=== PATIENT | female | born 1980 | race Caucasian/White ===

== ENCOUNTER → 2020-09-16 10:15 | Outpatient (BNVA) | payer MEDICARE, OTHER, SELFPAY | PROVIDERS: PCP Nurse Practitioner Family; Visit Provider Anesthesiology | DX: N30.10 Interstitial cystitis (chronic) without hematuria (principal); E66.01 Morbid (severe) obesity due to excess calories; M54.5 Low back pain; Z79.891 Long term (current) use of opiate analgesic | CPT/HCPCS: 99213 ==

== ENCOUNTER → 2020-10-07 10:00 | Outpatient (BNVA) | payer MEDICARE, OTHER, SELFPAY | PROVIDERS: PCP Nurse Practitioner Family; Referring Provider Nurse Practitioner Family; Visit Provider Anesthesiology | DX: N30.10 Interstitial cystitis (chronic) without hematuria (principal); M54.5 Low back pain; E66.01 Morbid (severe) obesity due to excess calories; Z79.891 Long term (current) use of opiate analgesic | CPT/HCPCS: 99212 ==

== ENCOUNTER 2020-10-27 05:59 | Outpatient (REF) | payer MEDICARE, OTHER, SELFPAY ==
--- NOTE | 2020-10-27 08:20 | FL_ITS ---
EXAMINATION: XR FLUOROSCOPY WITH IMAGES CLINICAL INFORMATION: N30.10 - Interstitial cystitis (chronic) without hematuria COMPARISON: None. TECHNIQUE: Fluoroscopy performed by Romi Salinas NP. Fluoroscopy time: 0.4 minutes DAP: 8.76 Gycm2 Images: 2 FINDINGS: There is posterior spinal needle at interlaminar level proximally L3-L4. FL/FL guidance in treatment room IMPRESSION: Fluoroscopy for pain management procedure.
== END 2020-10-27 06:00 | disposition home or self-care (01) ==
LOC: HO.RADIR 05:59
PROVIDERS: Visit Provider Anesthesiology
DX: N30.10 Interstitial cystitis (chronic) without hematuria (principal); M54.5 Low back pain; E66.01 Morbid (severe) obesity due to excess calories; Z68.43 Body mass index [BMI] 50.0-59.9, adult
CPT/HCPCS: 62323; J2270; Q9967

== ENCOUNTER → 2020-11-04 08:38 | Outpatient (BNVA) | payer MEDICARE, OTHER, SELFPAY | PROVIDERS: PCP Nurse Practitioner Family; Referring Provider Nurse Practitioner Family; Visit Provider Anesthesiology | DX: N30.10 Interstitial cystitis (chronic) without hematuria (principal); E66.01 Morbid (severe) obesity due to excess calories; M54.5 Low back pain | CPT/HCPCS: 99212 ==

== ENCOUNTER 2020-11-17 05:12 | Outpatient (REF) | payer MEDICARE, OTHER, SELFPAY ==
--- NOTE | 2020-11-17 07:35 | FL_ITS ---
EXAMINATION: XR FLUOROSCOPY WITH IMAGES CLINICAL INFORMATION: N30.10 - Interstitial cystitis (chronic) without hematuria COMPARISON: Fluoroscopic spot images lumbar region 10/27/2020 TECHNIQUE: Fluoroscopy performed by Romi Salinas NP. Fluoroscopy time: 1.5 minutes DAP: 29.6 Gycm2 Images: 2 FINDINGS: There is a spinal needle with tip just anterior to lower aspect coccyx and contrast seen in the precoccygeal soft tissue. There is a spinal stimulator device overlying the left lower sacrum foramen. FL/FL guidance in treatment room IMPRESSION: Fluoroscopy for pain management procedure.
== END 2020-11-17 05:13 | disposition home or self-care (01) ==
LOC: HO.RADIR 05:12
PROVIDERS: Visit Provider Anesthesiology
DX: N30.10 Interstitial cystitis (chronic) without hematuria (principal); E66.01 Morbid (severe) obesity due to excess calories; M54.5 Low back pain
CPT/HCPCS: 64517; 64999; J0690; J3300; Q9967

== ENCOUNTER → 2020-12-21 11:04 | Outpatient (BNVA) | payer MEDICARE, OTHER, SELFPAY | PROVIDERS: PCP Nurse Practitioner Family; Visit Provider Anesthesiology | DX: N30.10 Interstitial cystitis (chronic) without hematuria (principal); E66.01 Morbid (severe) obesity due to excess calories; M54.5 Low back pain | CPT/HCPCS: 99212 ==

== ENCOUNTER 2021-02-19 12:12 | Day surgery (SDC) | payer MEDICARE, OTHER, SELFPAY ==
[2021-01-18 11:05] VITALS: BMI 59.3
--- NOTE | 2021-02-18 12:01 | P.CONAN_ITS ---
Documented by User: Sadie Juárez 02/18/21 12:05 HPI - Anesthesia Eval Consult details Narrative: 40yo F for Intrathecal Drug Delivery Implant FORMERLY [facility] Active Problems Active Problems: All Active Problems (Updated 01/18/21 @ 11:08 by Monisha Huff) Low back pain (Acute) Morbid obesity (Acute) Interstitial cystitis (Acute) Past Medical History Medical History COVID-19 vaccine administered History of postoperative nausea HTN (hypertension) Interstitial cystitis Lab test negative for COVID-19 virus Low back pain Morbid obesity Sleep apnea Thyroid disease Surgical History Surgical History History of bladder surgery History of carpal tunnel release of both wrists Hx of partial thyroidectomy Social History Social History Smoking Status: Never smoker Meds Allergies Allergy/AdvReac Type Severity Reaction Status Date / Time naproxen Allergy Unknown unknown Verified 02/19/21 11:44 Home Medications Medication Instructions Recorded Confirmed Last Taken Type amlodipine 10 mg tablet 10 mg PO DAILY 09/16/20 01/18/21 Unknown History levothyroxine 125 mcg tablet 125 mcg PO DAILY 09/16/20 01/18/21 Unknown History lisinopril 20 mg tablet 20 mg PO DAILY 09/16/20 01/18/21 Unknown History prednisone 10 mg tablet 10 mg PO DAILY 09/16/20 11/04/20 Unknown History dicyclomine 10 mg PO TID 01/18/21 01/18/21 Unknown History Exam Exam Date and Time: February 18, 2021 1201 Height,Weight and Vital Signs: Height 5 ft 1 in Weight 142.428 kg Assessment and Plan Assessment Anesthesia Assessment: Chart Reviewed Documented by User: Zaki Agarwal MD 02/19/21 12:02 PMF Past Medical History Medical History COVID-19 vaccine administered History of postoperative nausea HTN (hypertension) Interstitial cystitis Lab test negative for COVID-19 virus Low back pain Morbid obesity Sleep apnea Thyroid disease Surgical History Surgical History History of bladder surgery History of carpal tunnel release of both wrists Hx of partial thyroidectomy Social History Social History Smoking Status: Never smoker Meds Allergies Allergy/AdvReac Type Severity Reaction Status Date / Time naproxen Allergy Unknown unknown Verified 02/19/21 11:44 Home Medications Medication Instructions Recorded Confirmed Last Taken Type amlodipine 10 mg tablet 10 mg PO DAILY 09/16/20 01/18/21 Unknown History levothyroxine 125 mcg tablet 125 mcg PO DAILY 09/16/20 01/18/21 Unknown History lisinopril 20 mg tablet 20 mg PO DAILY 09/16/20 01/18/21 Unknown History prednisone 10 mg tablet 10 mg PO DAILY 09/16/20 11/04/20 Unknown History dicyclomine 10 mg PO TID 01/18/21 01/18/21 Unknown History Exam Airway Mallampati Class: III TM Dist: >3cm Neck ROM: Full Loose/Missing/Broken Teeth: No Heart: RRR Lungs: NL Other: Dermatitis rash on chin Assessment and Plan Assessment Anesthesia Assessment: Anesthesia Plan Discussed and Chart Reviewed Final Anesthetic Review NPO: Yes ASA Class: III Final Preanesthetic Review: No Changes in Pt Med Stat, Meds/Allgs Chart Reviewed, Consent Obtained/Reviewed and Anes Risks/Benef Reviewed (Risk of pressure injury discussed, post-op YSABEL) Patient Risk: High Procedure Risk: Intermediate Anesthetic Plan Anesthetic Plan: GA Disposition: Standard PACU
[2021-02-19] VITALS (7 sets, daily range): BP systolic 131–173; BP diastolic 74–115; PULSE 70–80; RESP 12–18; TEMP 36.1–37.3; O2SAT 97–100
--- NOTE | ~2021-02-19 | FL_ITS ---
EXAMINATION: XR FLUOROSCOPY WITH IMAGES CLINICAL INFORMATION: Intrathecal drug cyst in implant COMPARISON: None. TECHNIQUE: Fluoroscopy performed by Dr. Tirso Varner. Fluoroscopy time: 0.8 minutes DAP: 16.5 Gycm2 Images: 1 FINDINGS: Fluoroscopic spot view includes the lower thoracic spine. There are multilevel degenerative changes with vertebral spurring. FL/FL guidance in OR IMPRESSION: Fluoroscopy for pain management procedure.
--- NOTE | 2021-02-19 12:01 | MHC.SHP ---
Pre-Procedural Eval Section B Chief Complaint: interstitial cystitis Details of Present Illness: Interstitial cystitis intractable pelvic pain. Relevant Family History (Specify if Yes): No Relevant Social History: None Present Medications: see Short Stay Collaborative assessment Medical History: Significant History History of Previous Operations: No relevant previous surgery Allergies: Allergies Allergy/AdvReac Type Severity Reaction Status Date / Time naproxen Allergy Unknown unknown Verified 02/19/21 11:44 Review of Systems Sugical H&P ROS: Negative: Cardiovascular, Respiratory, Neurological, Psychiatric, Hem-Onc, Allergic/Immunologic, Gastrointestinal, Genitourinary, Musculoskeletal, Integumentary, Endocrine and Eyes/Ears/Nose/Throat and Yes, Specify: Constitution (Severe morbid obesity) Exam Surgical H&P Exam: Normal: HEENT, Normal: Heart, Normal: Lungs, Normal: Extremities, Normal: Abdomen, Normal: Skin and Normal: Neurological Plan Diagnosis/Plan: Unchanged I have reviewed the history and physical and performed a pertinent physical examination on my patient. No changes have occurred unless specified.
[2021-02-19 12:02] LABS: UPreg QC Valid YES; Urine Pregnancy NEGATIVE (NEGATIVE)
[2021-02-19] MEDS: Lactated Ringers 1,000 ML 100 ML IVCONT (12:34)
--- NOTE | 2021-02-19 15:51 | PM.OP ---
Brief Operative Note Date of Service: 02/19/21 Pre-op diagnosis: Intractable pelvic pain interstitial cystitis. Post-op diagnosis: other (Intractable pelvic pain, interstitial cystitis, right buttock lipoma) Procedure: Implantation of intrathecal drug delivery system pain pump Implants: ascenda intrathecal catheter [employer], intrathecal pain pump SynchroMed 2 Surgeon: Tirso Varner MD Anesthesia: GETA Estimated blood loss (mL): 25 Condition: stable Disposition: PACU
[2021-02-19] MEDS: ondansetron HCL 4 MG/2 ML VIAL IVPUSH (17:00)
--- NOTE | 2021-02-19 17:06 | PC.NURSE ---
1655 PATIENT REPORTS NAUSEA DURING DRESSING PERIOD. DR. BECKWITH NOTIFIED NEW ORDERS PROVIDED. IVF REINSTITUTED AND MEDICATED FOR NAUSEA. REPORTS SOME INCISIONAL PAIN INCREASED WITH MOVEMENT. 1705 REPORTS NAUSEA IS RESOLVING
--- NOTE | 2021-02-22 10:17 | W.PM.OPN ---
Operative Note Operative Note Date of Service: 02/19/21 Narrative: After obtaining informed consent and explaining to the patient risks, benefits and alternatives to treat her pain, the patient was brought up to the operating room where she was positioned supine on the stretcher. [place] [employer] monitors were applied and general anesthesia was induced with endotracheal intubation. After that the patient was transferred to the operating table prone. All pressure points protected. The patient received antibiotic cefazolin 2 g intravenously 30 minutes before incision. Time-out was performed delineating correct site and side of the procedure, name and date of of the patient, risk of fire, need for antibiotic prophylaxis risk of DVT and need for DVT prophylaxis. After that the patient entire back was prepped with chloroprep and draped with fool body drape including ioban film. Sterilely drape C-arm was brought over the OR field and square pictures of the L1, L2, L3 vertebrae were demonstrated on the screen. the entrance point for the catheter was chosen as the L2-L3 interspace. In the strict midline fashion 6.5 cm vertical skin incision was made with #10 scalpel. The incision was widened with the Weitlaner retractor and deepened with electrocautery. Thorough hemostasis was obtained using electrocautery and 3-0 polisorb sutures. the prevertebral fascia was freed from overlaying tissues. After that 150 mm introducer spinal 16 g needle was incerted under x-ray guidance in the projection of the right L4 pedicle. The needle advanced under the x-ray guidance with intemitteny A-P and lateral pictures toward the spinal canal. When on the lateral view the needle entered the spinal canal the stylet was removed and the clear flow of the CSF was obtain through the needle hub. Intrathecal Ascenda catheter was inserted through the needle and advanced under the x-ray guidance toward the T9 vertebral body projection. The stylet was removed from the catheter and the flow of CSF fluid straw colored and clear was observed coming from the catheter. Purse-string suture was applied surrounding the a needle and it was tied. After that the needle was withdrawn with care taken to keep the catheter in place. Anchoring device was dislodged on the catheter and advanced until it met prevertebral fascia. It was engaged on the body of the catheter. Two anchoring Tycron sutures were used to suture left wing of the anchor to prevertebral fascia and 1 anchoring suture was used to stitch in the right wing of anchoring device to prevertebral fascia. After that the thorough irrigation of the wound was performed and wound was packed with vancomycin soaked 4 x 4. Attention then was concentrated on the patient's right buttock. Sterilely draped C-arm was brought over the operative field again and position of the patient's iliac crest on the RIGHT was demonstrated on the screen. 2 cm below the projection of the iliac crest to the skin of the local anesthetic bupivacaine was injected in the linear horizontal fashion. After that 8.5 cm incision was performed in patient's right buttock alongside the injected line. Thorough hemostasis was obtained using cautery device. After that the wound was widened and made 2.5 cm deep . The wound was extended medially and laterally as well as caudally and cranially to form the space to accommodate the body of the pump. Thorough hemostasis was performed. The wound was irrigated with vancomycin containing normal saline and then tunneling device was used to connect both wounds and dislodged the intrathecal catheter into the side wound. The catheter was trimmed appropriately after that and sutureless connection device was mounted on the catheter. After that sutureless connection device was connected to the pump. Aspiration of the side port of the pump revealed clear flow of CSF. Two anchoring 0-0 Tycron sutures were applied in most SUPERIOR MEDIAL AND SUPERIOR LATERAL CORNERS OF THE WOUND as well as most inferior medial corner of the wound. After that the sutures were connected to the bracket is on the body of the pump, intrathecal catheter was gathered behind the body of the pump and pump was dislodged into the wound. After that the anchoring sutures were tied. Thorough irrigation was performed again in both wounds. Thorough hemostasis was verified. 0 polisorb sutures were used to close both wounds, 2-0 suture of the same nature were used to approximate the skin. Oscar were applied to the skin line and Bacitracin ointment was applied to the staple lines. Sterile dressing with sterile 4x4s was performed, abdominal binder was applied. Upon completion of the procedure patient was awaken extubated and taken outside of the operating room to recovery room where SHE recovered uneventfully. SHE went home without immediate complications.
== END 2021-02-19 17:20 | disposition home or self-care (01) ==
PROVIDERS: Nurse Practitioner; PCP Nurse Practitioner Family; Visit Provider Anesthesiology
PROC: (CPT 62360; principal; 2021-02-19 12:50)
DX: N30.10 Interstitial cystitis (chronic) without hematuria (principal); M54.5 Low back pain; G89.29 Other chronic pain; E66.01 Morbid (severe) obesity due to excess calories; I10 Essential (primary) hypertension; G47.33 Obstructive sleep apnea (adult) (pediatric); Z79.899 Other long term (current) drug therapy
CPT/HCPCS: 62360; 81025; 88304; C1755; C1772; J0330; J0690; J1100; J1170; J2250; J2405; J3010; J3370; Q9967

== ENCOUNTER → 2021-02-25 10:52 | Outpatient (BNVA) | payer MEDICARE, OTHER, SELFPAY | PROVIDERS: PCP Nurse Practitioner Family; Visit Provider Anesthesiology | DX: N30.10 Interstitial cystitis (chronic) without hematuria (principal); M54.5 Low back pain; E66.01 Morbid (severe) obesity due to excess calories; Z79.899 Other long term (current) drug therapy | CPT/HCPCS: 99212 ==

== ENCOUNTER → 2021-03-04 11:03 | Outpatient (BNVA) | payer MEDICARE, OTHER, SELFPAY | PROVIDERS: PCP Internal Medicine; Visit Provider Anesthesiology | DX: N30.10 Interstitial cystitis (chronic) without hematuria (principal); E66.01 Morbid (severe) obesity due to excess calories; M54.5 Low back pain | CPT/HCPCS: 99212 ==

== ENCOUNTER 2021-03-30 06:09 | Outpatient (REF) | payer MEDICARE, OTHER, SELFPAY | END 2021-03-30 06:10 | disposition home or self-care (01) | LOC: HO.RADIR 06:09 | PROVIDERS: Visit Provider Anesthesiology | DX: Z13.89 Encounter for screening for other disorder (principal) ==

== ENCOUNTER 2021-04-01 | Day surgery (SDC) | payer MEDICARE, OTHER, SELFPAY | END 2021-04-01 14:00 | LOC: HO.SSS 04-08 07:29 | PROVIDERS: Visit Provider Anesthesiology | DX: N30.10 Interstitial cystitis (chronic) without hematuria (principal); Z53.8 Procedure and treatment not carried out for other reasons ==

== ENCOUNTER 2021-05-04 07:35 | Outpatient (REF) | payer MEDICARE, OTHER, SELFPAY | END 2021-05-04 07:36 | disposition home or self-care (01) | LOC: HO.RADIR 07:35 | PROVIDERS: Visit Provider Anesthesiology | DX: Z45.1 Encounter for adjustment and management of infusion pump (principal); N30.10 Interstitial cystitis (chronic) without hematuria; M54.5 Low back pain; E66.01 Morbid (severe) obesity due to excess calories; Z68.43 Body mass index [BMI] 50.0-59.9, adult | CPT/HCPCS: 62370 ==

== ENCOUNTER 2021-06-08 05:48 | Outpatient (REF) | payer MEDICARE, OTHER, SELFPAY | END 2021-06-08 05:49 | disposition home or self-care (01) | LOC: HO.RADIR 05:48 | PROVIDERS: Visit Provider Anesthesiology | DX: G89.29 Other chronic pain (principal); M54.5 Low back pain; E66.01 Morbid (severe) obesity due to excess calories; N30.10 Interstitial cystitis (chronic) without hematuria; Z97.8 Presence of other specified devices; Z45.1 Encounter for adjustment and management of infusion pump | CPT/HCPCS: 62370 ==

== ENCOUNTER 2021-08-10 06:22 | Outpatient (REF) | payer MEDICARE, OTHER, SELFPAY | END 2021-08-10 06:23 | disposition home or self-care (01) | LOC: HO.RADIR 06:22 | PROVIDERS: Visit Provider Anesthesiology | DX: Z45.1 Encounter for adjustment and management of infusion pump (principal); M54.5 Low back pain; N30.10 Interstitial cystitis (chronic) without hematuria | CPT/HCPCS: 62370 ==

== ENCOUNTER 2021-10-19 06:39 | Outpatient (REF) | payer MEDICARE, SELFPAY | END 2021-10-19 06:40 | disposition home or self-care (01) | LOC: HO.RADIR 06:39 | PROVIDERS: Visit Provider Anesthesiology | DX: Z13.89 Encounter for screening for other disorder (principal) ==

== ENCOUNTER 2022-01-04 06:25 | Outpatient (REF) | payer MEDICARE, SELFPAY | END 2022-01-04 06:26 | disposition home or self-care (01) | LOC: HO.RADIR 06:25 | PROVIDERS: Visit Provider Anesthesiology | DX: Z13.89 Encounter for screening for other disorder (principal) ==

== ENCOUNTER 2022-03-15 06:21 | Outpatient (REF) | payer MEDICARE, SELFPAY | END 2022-03-15 06:22 | disposition home or self-care (01) | LOC: HO.RADIR 06:21 | PROVIDERS: Visit Provider Anesthesiology | DX: Z13.89 Encounter for screening for other disorder (principal) ==

== ENCOUNTER → 2022-03-16 09:00 | Outpatient (BNVA) | payer MEDICARE, SELFPAY | PROVIDERS: PCP Nurse Practitioner Family; Visit Provider Anesthesiology | DX: Z13.89 Encounter for screening for other disorder (principal) ==

== ENCOUNTER → 2022-06-13 15:40 | Outpatient (BNVA) | payer MEDICARE, SELFPAY | PROVIDERS: PCP Nurse Practitioner Family; Visit Provider Anesthesiology | DX: N30.10 Interstitial cystitis (chronic) without hematuria (principal); E66.01 Morbid (severe) obesity due to excess calories; Z68.44 Body mass index [BMI] 60.0-69.9, adult; Z96.89 Presence of other specified functional implants | CPT/HCPCS: 99212 ==

== ENCOUNTER → 2022-08-31 10:24 | Outpatient (BNVA) | payer MEDICARE, SELFPAY | PROVIDERS: PCP Nurse Practitioner Family; Visit Provider Anesthesiology | DX: N30.10 Interstitial cystitis (chronic) without hematuria (principal); E66.01 Morbid (severe) obesity due to excess calories; M54.50 Low back pain, unspecified | CPT/HCPCS: 99212 ==

== ENCOUNTER → 2022-11-17 09:56 | Outpatient (BNVA) | payer MEDICARE, SELFPAY | PROVIDERS: PCP Nurse Practitioner Family; Visit Provider Anesthesiology | DX: Z13.89 Encounter for screening for other disorder (principal) ==

== ENCOUNTER → 2023-02-16 09:02 | Outpatient (BNVA) | payer MEDICARE, MEDICAID, SELFPAY | PROVIDERS: PCP Nurse Practitioner Family; Visit Provider Anesthesiology ==

== ENCOUNTER → 2023-05-08 15:30 | Outpatient (BNVA) | payer MEDICARE, MEDICAID, SELFPAY | PROVIDERS: PCP Nurse Practitioner Family; Visit Provider Anesthesiology | DX: Z45.1 Encounter for adjustment and management of infusion pump (principal); N30.10 Interstitial cystitis (chronic) without hematuria; I10 Essential (primary) hypertension; G89.29 Other chronic pain; M54.50 Low back pain, unspecified; E66.01 Morbid (severe) obesity due to excess calories; Z68.43 Body mass index [BMI] 50.0-59.9, adult | CPT/HCPCS: 99212 ==

== ENCOUNTER 2023-07-27 10:19 | Outpatient (AMB) | payer MEDICARE, MEDICAID, SELFPAY ==
--- NOTE | 2023-07-27 10:34 | A.OFFVIS_ITS ---
Intake Vital Signs 07/27/23 11:06 Height 5 ft 2 in Weight 301 lb 6 oz BMI 55.1 BP 144/88 H Blood Pressure Location Rt radial Position Sitting Respiration 19 Pulse 77 Pulse Source Pulse Oximeter Pulse Oximetry (%) 99 Oxygen Delivery Method Room Air Intake Visit Reasons: [facility] REFILL Intake Note: patient comes in for ITDD medication refill. Allergies naproxen Allergy (Unknown, Verified 07/27/23 11:07) unknown HPI HPI Comments History of Present Illness Details Fatemeh is 42 years old with history of chronic pelvic pain interstitial cystitis intractable to any conservative and surgical treatments.? She is under observation with this office with intrathecal drug delivery system pain pump.? She receives very moderate doses of the opioid medications morphine and she receives clonidine intrathecally.? See refill below.? She reports excellent pain relieve with no pain whatsoever related to her interstitial cystitis chronic pelvic pain and endometriosis.?She was on several refill visits noted to have hypertenson. Escalation of the dose of the clonidine resulted in BP normalization. Her BP today is 140/88, on three visit prior which is sig nificantly better than prior. She is also working on Solaicx, she is trying exercise and diet. Low impact aerobic exercise, weight lifting with frequent repetitionsno more than 3-4lbs recommended. [facility] Medical History COVID-19 vaccine administered History of postoperative nausea HTN (hypertension) Interstitial cystitis Lab test negative for COVID-19 virus Low back pain Morbid obesity Sleep apnea Thyroid disease Surgical History History of bladder surgery History of carpal tunnel release of both wrists Hx of partial thyroidectomy Social History Are you a primary veterinarian laboratory animal care to a significant other at home: No Do you presently have visiting nurse or other home services: No Review of Systems Const All systems reviewed & are unremarkable except as noted in HPI and below ENT Reports Normal hearing present Neuro Reports Normal hearing present, Denies Abnormal speech present and Denies Sensory deficit (Neuro) Physical Exam Vital Signs: Last Vital Signs Pulse 77 07/27/23 11:06 Resp 19 07/27/23 11:06 BP 144/88 H 07/27/23 11:06 Pulse Ox 99 07/27/23 11:06 Oxygen Delivery Method Room Air 07/27/23 11:06 BMI result Body Mass Index 55.1 Const Nutritional Appearance: obese morbidly obese Eyes General: appearance normal, both eyes and all related structures Pupils: Equal, round and reactive pupils present EOM: EOMs intact bilaterally Neck Neck: Yes full ROM Chest Chest palpation & inspection: normal inspection of the chest Resp Effort & Inspection: normal respiratory effort, able to speak in complete sentences, normal respiratory pattern, no audible wheezes and no cough Cardio Jugular venous distension: no JVD GI Inspection: Yes normal to inspection Back/Spine/Pelvis Other: This patient demonstrates normal gait, reports no tenderness of palpation in lumbar spine. Reports normal strength in bilateral lower extremities. Able to stand on her tiptoes and on her heels without difficulty so muscular strands in normal reports only sensory changes in the right lateral hip. The rest of the legs are normal. Reports no numbness elsewhere but right hip. Flexion forward and flexion backwards of the lumbar spine without difficulty. Straight leg rising is negative for back pain. Neuro Cranial nerves: Yes Equal, round and reactive pupils present and Yes Normal hearing present Speech: No Abnormal speech present Gait exam (Neuro): Normal gait present Motor exam (neuro): 5/5 motor strength present throughout Sensory Exam: No Sensory deficit (Neuro) Extrem General: No pedal edema Psych Speech and movement: Normal speech and movement present Affect: normal affect Attitude: cooperative Thought process: Normal thought process present Thought content: Normal thought content present Assessment & Plan Assessment & Plan (1) Interstitial cystitis: Code(s): N30.10 - Interstitial cystitis (chronic) without hematuria (2) Morbid obesity: Code(s): E66.01 - Morbid (severe) obesity due to excess calories Plan: The patient presents with blood pressure elevated for the purpose of blood pressure management we can try to increase the concentration of the clonidine next time to 200 mcg from 100 mcg. (3) Low back pain: Code(s): M54.5 - Low back pain Qualifiers: Chronicity: chronic (4) Essential hypertension: Code(s): I10 - Essential (primary) hypertension (5) Endometriosis: Code(s): N80.9 - Endometriosis, unspecified (6) Chronic pain syndrome: Code(s): G89.4 - Chronic pain syndrome Plan: The clonidine escalation in combination with diet and exercise resulted in significant reduction / normalization of the blood pressure. Excellent pain relieve with current admixture of intratehcal pain pup admixture. Pump refill as below. Next refill is in 80 days however the date could be postponed as much as 90 day the patient hardly uses 11 cc out of 20 mls of supplied medication. Plan *THE PATIENT CAME TODAY FOR THE CHANGE OF THE MEDICATION IN her PAIN PUMP. The name and date of were verified and informed consent was obtained for the procedure. The pump was interrogated. residual amount of the fluid must be 9.4 mL. SHE WAS POSITIONED prone on the bed AND THE AREA OF THE INTRATHECAL PUMP WAS PREPPED WITH CHLORAPREP. The fenestrated drape was sterilely applied over the area of the pump. Sterile gloves were worn and of the aspiration system was assembled containing 2 in 22 gauge noncoring needle, the needle was connected to extension tubing which was connected to the 20 cc sterile syringe. The pain pump was palpated under the skin in the patient's right buttock area. The needle was inserted through the skin and the central plug of the pain pump and fluid was aspirated. The clear fluid was going into the syringe the total amount of the fluid was 9.1mL .. After that a new batch of medication was obtained containing correct doses of the medications including Morphine PF 800mcg per ml and clonidine PF 200 mcg/ ml.. The admixture was made in 20 cc syringe prepared by [facility] compounding pharmacy. The syringe was connected to the bacterial filter, and then connected to the extension tubing. After that the medication in the syringe was slowly instilled into the pump with aspirations at 15 and 5 cc sr. The pump was left at the doses of morphine 100 mcg /day and clonidine corresponding dose 50 mcg per day. Next pump refill is scheduled in 80 days. . Coding Level of Care Code Est Pt Level 4 (10005) Procedure Only Diagnoses Interstitial cystitis N30.10 Morbid obesity E66.01 Low back pain M54.5 Chronicity: chronic Essential hypertension I10 Endometriosis N80.9 Chronic pain syndrome G89.4
[2023-07-27 11:06] VITALS: BP 144/88; PULSE 77; RESP 19; O2SAT 99; BMI 55.1
== END 2023-07-27 11:01 | disposition home or self-care (01) ==
PROVIDERS: PCP Nurse Practitioner Family; Visit Provider Anesthesiology
DX: N30.10 Interstitial cystitis (chronic) without hematuria (principal); M54.50 Low back pain, unspecified; G89.4 Chronic pain syndrome; Z45.1 Encounter for adjustment and management of infusion pump; E66.01 Morbid (severe) obesity due to excess calories; I10 Essential (primary) hypertension; N80.9 Endometriosis, unspecified
CPT/HCPCS: 62370

== ENCOUNTER → 2023-07-27 10:19 | Outpatient (BNVA) | payer MEDICARE, MEDICAID, SELFPAY | PROVIDERS: PCP Nurse Practitioner Family; Visit Provider Anesthesiology ==

== ENCOUNTER 2023-10-09 15:02 | Outpatient (AMB) | payer MEDICARE, MEDICAID, SELFPAY ==
--- NOTE | 2023-10-09 15:06 | MHC.OFFVIS ---
Intake Vital Signs 10/09/23 15:59 Height 5 ft 2 in Weight 315 lb BMI 57.6 BP 130/82 Blood Pressure Location Rt brachial Position Sitting Respiration 18 Pulse 99 Pulse Source Pulse Oximeter Pulse Oximetry (%) 97 Oxygen Delivery Method Room Air Intake Visit Reasons: ITDD REFILL / Confirmed Allergies naproxen Allergy (Unknown, Verified 10/09/23 16:02) unknown HPI HPI Comments History of Present Illness Details Fatemeh is 42 years old with history of chronic pelvic pain interstitial cystitis intractable to any conservative and surgical treatments.? She is under observation with this office with intrathecal drug delivery system pain pump.? She receives very moderate doses of the opioid medications morphine and she receives clonidine intrathecally.? See refill below.? She reports excellent pain relieve with no pain whatsoever related to her interstitial cystitis chronic pelvic pain and endometriosis.? However she today complains on pain in bilateral shoulders, bilateral hands and bilateral neck. She reports that she is under observation of automotive software engineer with [facility]. She states that her appointment is far and advanced at the end of December. She is asking me for referral to local automotive software engineer. I also will schedule her for x-ray of bilateral shoulders and they have significant arthritis is in her bilateral shoulders I may consider injections into both shoulders with steroids. No issues with hypertension today. [facility] Medical History COVID-19 vaccine administered History of postoperative nausea HTN (hypertension) Interstitial cystitis Lab test negative for COVID-19 virus Low back pain Morbid obesity Sleep apnea Thyroid disease Surgical History History of bladder surgery History of carpal tunnel release of both wrists Hx of partial thyroidectomy Social History Are you a primary healthcare science specialist to a significant other at home: No Do you presently have visiting nurse or other home services: No Review of Systems Const All systems reviewed & are unremarkable except as noted in HPI and below ENT Reports Normal hearing present Neuro Reports Normal hearing present, Denies Abnormal speech present and Denies Sensory deficit (Neuro) Physical Exam Vital Signs: Last Vital Signs Pulse 99 10/09/23 15:59 Resp 18 10/09/23 15:59 BP 130/82 10/09/23 15:59 Pulse Ox 97 10/09/23 15:59 Oxygen Delivery Method Room Air 10/09/23 15:59 BMI result Body Mass Index 57.6 Const Nutritional Appearance: obese morbidly obese Eyes General: appearance normal, both eyes and all related structures Pupils: Equal, round and reactive pupils present EOM: EOMs intact bilaterally Neck Neck: Yes full ROM Chest Chest palpation & inspection: normal inspection of the chest Resp Effort & Inspection: normal respiratory effort, able to speak in complete sentences, normal respiratory pattern, no audible wheezes and no cough Cardio Jugular venous distension: no JVD GI Inspection: Yes normal to inspection Back/Spine/Pelvis Other: This patient demonstrates normal gait, reports no tenderness of palpation in lumbar spine. Reports normal strength in bilateral lower extremities. Able to stand on her tiptoes and on her heels without difficulty so muscular strands in normal reports only sensory changes in the right lateral hip. The rest of the legs are normal. Reports no numbness elsewhere but right hip. Flexion forward and flexion backwards of the lumbar spine without difficulty. Straight leg rising is negative for back pain. Neuro Cranial nerves: Yes Equal, round and reactive pupils present and Yes Normal hearing present Speech: No Abnormal speech present Gait exam (Neuro): Normal gait present Motor exam (neuro): 5/5 motor strength present throughout Sensory Exam: No Sensory deficit (Neuro) Extrem General: No pedal edema Psych Speech and movement: Normal speech and movement present Affect: normal affect Attitude: cooperative Thought process: Normal thought process present Thought content: Normal thought content present Assessment & Plan Assessment & Plan (1) Interstitial cystitis: Code(s): N30.10 - Interstitial cystitis (chronic) without hematuria (2) Morbid obesity: Code(s): E66.01 - Morbid (severe) obesity due to excess calories Plan: Referral to automotive software engineer for follow-up and treatment of rheumatoid arthritis. I will schedule the patient for x-ray of bilateral shoulders. Shoulder injection is possible even bilateral if there is extensive arthritic damage in the shoulders. She also reports pain in the neck and pain in the hands. Pump refill is as below. The next appointment for pump refill on or before 01/06/2024 (3) Low back pain: Code(s): M54.5 - Low back pain Qualifiers: Chronicity: chronic (4) Essential hypertension: Code(s): I10 - Essential (primary) hypertension (5) Endometriosis: Code(s): N80.9 - Endometriosis, unspecified (6) Chronic pain syndrome: Code(s): G89.4 - Chronic pain syndrome (7) Bilateral shoulder region arthritis: Code(s): M19.011 - Primary osteoarthritis, right shoulder; M19.012 - Primary osteoarthritis, left shoulder (8) Rheumatoid arthritis: Code(s): M06.9 - Rheumatoid arthritis, unspecified Plan *THE PATIENT CAME TODAY FOR THE CHANGE OF THE MEDICATION IN her PAIN PUMP. The name and date of were verified and informed consent was obtained for the procedure. The pump was interrogated. residual amount of the fluid must be 10.2 mL. SHE WAS POSITIONED prone on the bed AND THE AREA OF THE INTRATHECAL PUMP WAS PREPPED WITH CHLORAPREP. The fenestrated drape was sterilely applied over the area of the pump. Sterile gloves were worn and of the aspiration system was assembled containing 2 in 22 gauge noncoring needle, the needle was connected to extension tubing which was connected to the 20 cc sterile syringe. The pain pump was palpated under the skin in the patient's right buttock area. The needle was inserted through the skin and the central plug of the pain pump and fluid was aspirated. The clear fluid was going into the syringe the total amount of the fluid was 9.8 mL .. After that a new batch of medication was obtained containing correct doses of the medications including Morphine PF 800mcg per ml and clonidine PF 200 mcg/ ml.. The admixture was made in 20 cc syringe prepared by [facility] compounding pharmacy. The syringe was connected to the bacterial filter, and then connected to the extension tubing. After that the medication in the syringe was slowly instilled into the pump with aspirations at 15 and 5 cc sr. The pump was left at the doses of morphine 100 mcg /day and clonidine corresponding dose 50 mcg per day. Next pump refill is scheduled in 80 days. . Orders: Orders XR shoulder RT min 2V Today M06.9 - Rheumatoid arthritis, unspecified, M19.011 - Primary osteoarthritis, right shoulder, M19.012 - Primary osteoarthritis, left shoulder XR shoulder LT min 2V Today M06.9 - Rheumatoid arthritis, unspecified, M19.011 - Primary osteoarthritis, right shoulder, M19.012 - Primary osteoarthritis, left shoulder Referrals Rheumatology Referral M06.9 - Rheumatoid arthritis, unspecified, M19.011 - Primary osteoarthritis, right shoulder, M19.012 - Primary osteoarthritis, left shoulder Coding Level of Care Code Est Pt Level 4 (88392) Procedure Only Diagnoses Interstitial cystitis N30.10 Morbid obesity E66.01 Low back pain M54.5 Chronicity: chronic Essential hypertension I10 Endometriosis N80.9 Chronic pain syndrome G89.4 Bilateral shoulder region arthritis M19.011; M19.012 Rheumatoid arthritis M06.9
[2023-10-09 15:59] VITALS: BP 130/82; PULSE 99; RESP 18; O2SAT 97; BMI 57.6
== END 2023-10-09 15:34 | disposition home or self-care (01) ==
PROVIDERS: PCP Nurse Practitioner Family; Visit Provider Anesthesiology
DX: N30.10 Interstitial cystitis (chronic) without hematuria (principal); M54.50 Low back pain, unspecified; G89.4 Chronic pain syndrome; Z45.1 Encounter for adjustment and management of infusion pump; E66.01 Morbid (severe) obesity due to excess calories; I10 Essential (primary) hypertension; N80.9 Endometriosis, unspecified; M19.011 Primary osteoarthritis, right shoulder; M19.012 Primary osteoarthritis, left shoulder; M06.9 Rheumatoid arthritis, unspecified
CPT/HCPCS: 62370

== ENCOUNTER 2023-10-09 15:02 | Outpatient (REF) | payer MEDICARE, MEDICAID, SELFPAY ==
--- NOTE | ~2023-10-09 | XR_ITS ---
EXAMINATION: XR BILATERAL SHOULDERS CLINICAL INFORMATION: Rheumatoid arthritis. COMPARISON: None available. TECHNIQUE: 4 views each shoulder. FINDINGS: The glenohumeral joints appear normal bilaterally without significant arthritic change, fractures or dislocations. There is no subchondral erosion or joint space narrowing. No tendinous calcifications are identified. There are minimal degenerative changes at the acromioclavicular joints with some osteophytes arising from the superior aspects of both acromion processes. XR/XR shoulder LT min 2V IMPRESSION: Mild degenerative changes at the acromioclavicular joints.
--- NOTE | ~2023-10-09 | XR_ITS ---
EXAMINATION: XR BILATERAL SHOULDERS CLINICAL INFORMATION: Rheumatoid arthritis. COMPARISON: None available. TECHNIQUE: 4 views each shoulder. FINDINGS: The glenohumeral joints appear normal bilaterally without significant arthritic change, fractures or dislocations. There is no subchondral erosion or joint space narrowing. No tendinous calcifications are identified. There are minimal degenerative changes at the acromioclavicular joints with some osteophytes arising from the superior aspects of both acromion processes. XR/XR shoulder RT min 2V IMPRESSION: Mild degenerative changes at the acromioclavicular joints.
== END 2023-10-09 15:03 | disposition home or self-care (01) ==
LOC: HO.XRAY 15:02
PROVIDERS: PCP Nurse Practitioner Family; Visit Provider Anesthesiology
DX: Z45.1 Encounter for adjustment and management of infusion pump (principal); G89.4 Chronic pain syndrome; M54.50 Low back pain, unspecified; N30.10 Interstitial cystitis (chronic) without hematuria; E66.01 Morbid (severe) obesity due to excess calories; I10 Essential (primary) hypertension; N18.9 Chronic kidney disease, unspecified; M06.9 Rheumatoid arthritis, unspecified; M19.011 Primary osteoarthritis, right shoulder; M19.012 Primary osteoarthritis, left shoulder
CPT/HCPCS: 62370; 73030

== ENCOUNTER 2023-12-26 12:54 | Outpatient (AMB) | payer MEDICARE, MEDICAID, SELFPAY ==
--- NOTE | 2023-12-26 13:00 | A.OFFVIS_ITS ---
Intake Vital Signs 12/26/23 13:02 Height 5 ft 2 in Weight 313 lb 15.012 oz BMI 57.4 BP 152/88 H Blood Pressure Location Rt radial Position Sitting Pulse 71 Pulse Source Pulse Oximeter Temp Source Skin Pulse Oximetry (%) 97 Oxygen Delivery Method Room Air Intake Visit Reasons: Rheumatoid arthritis Intake Note: New patient presents today for consult, internally referred by pain mgmt Dr Varner. She previously saw Rheum in [place] C/o pain in bl shoulders, hands, back and R knee. Pain started approx 2018. Reports ongoing issues with hypertension. Stiff Neck Loader Required: No Accompanied by: Self / Same As Patient Allergies naproxen Allergy (Unknown, Verified 12/26/23 13:06) unknown Medication List - Last Reconciled 12/26/23 by Keesha Burgos MD albuterol sulfate 90 mcg/actuation 1 puff PO Q4H PRN amlodipine 10 mg PO DAILY blood sugar diagnostic (kapturemuch Verio test strips) As directed clonidine HCl 0.1 mg PO BID duloxetine 60 mg PO DAILY erenumab-aooe (Aimovig Autoinjector) mg subcut fluticasone propionate 50 mcg/actuation 1 spray intranasal DAILY hydrochlorothiazide 25 mg PO DAILY ibuprofen 800 mg PO TID labetalol 100 mg PO BID lisinopril 40 mg PO DAILY meclizine mg PO pantoprazole 40 mg PO DAILY rizatriptan mg PO semaglutide (Ozempic) mg subcut HPI HPI Comments History of Present Illness Details This is a 43-year-old female who was referred by Pain Management for evaluation of inflammatory arthritis. The since 2012 patient has been having dry eyes and dry mouth as well as polyarthralgias. She was labeled as Sjogren's. She was evaluated by oncology physician assistant in 2019. Comprehensive serology was unremarkable. Lip biopsy was negative for any signs of Sjogren's. She was started on hydroxychloroquine. She took for about 2 years and it was helpful. Patient was last seen by oncology physician assistant Dr. Parr in [place] in 2020. She states that her main complaint is bilateral hand pain, swelling and morning stiffness lasting 2 hours. She takes ibuprofen 800 mg almost daily to control her hand pain. She gets intermittent right knee pain. In 2019 patient had right knee effusion, arthrocentesis was performed and it showed noninflammatory fluid. She states that prednisone is almost always helpful. She was also prescribed cevimeline and it was not very helpful. She denies any history of DVT/PE. She is unaware of any family history of autoimmune rheumatic disease [facility] Medical History (Updated 12/26/23 @ 16:51 by Keesha Burgos MD) COVID-19 vaccine administered Lab test negative for COVID-19 virus History of postoperative nausea Sleep apnea Thyroid disease HTN (hypertension) Low back pain Morbid obesity Interstitial cystitis Surgical History Hx of partial thyroidectomy History of bladder surgery History of carpal tunnel release of both wrists Family History Mother Parkinson disease Father Aneurysm Social History Household Members: Spouse Are you a primary home care specialist to a significant other at home: No Do you presently have visiting nurse or other home services: No Current occupational status: employed and disabled 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 Female Reproductive History Menstrual Total pregnancies: 2 Ab spontaneous: 2 Review of Systems Const Reports fatigue, Reports headache(s) and Reports weakness Eyes Reports dry eyes and Reports itchy eyes ENT Reports dizziness, Reports dry mouth and Reports headache(s) Card Reports chest pain and Reports dyspnea Resp Reports dyspnea GI Reports heartburn Musc Reports arthralgias, Reports joint swelling and Reports stiffness Neuro Reports dizziness, Reports headache(s) and Reports weakness Psych Reports anxiety and Reports depression Endo Reports fatigue and Reports polydipsia Aller/Immun Reports itchy eyes Physical Exam Vital Signs: Last Vital Signs Pulse 71 12/26/23 13:02 BP 152/88 H 12/26/23 13:02 Pulse Ox 97 12/26/23 13:02 Oxygen Delivery Method Room Air 12/26/23 13:02 BMI result Body Mass Index 57.4 Const General: cooperative, healthy appearing and comfortable Nutritional Appearance: obese morbidly obese Orientation/consciousness: patient oriented x3 HEENT Head: Yes normocephalic and Yes atraumatic Resp Effort & Inspection: normal respiratory effort and able to speak in complete sentences Auscultation: clear to auscultation bilaterally Cardio Rate: regular rate Rhythm: regular rhythm Skin General skin exam: no rashes or lesions noted Neuro General: patient oriented x3 Extrem Other: Mild puffiness of MCPs and fingers Multiple tender MCPs, PIPs, nontender DIPs Normal nailfold capillaroscopy Results Reviewed Results Reviewed: Labs 06/2020 [facility] IFA/RF/CCP/dsDNA/Kenny/UTILITY LOCATE TECHNICIAN/SSA/SSB/SCL 70/centromere /RNA polymerase 3 all negative CRP 36 (elevated) ESR 34 CPK 157 nl TSH normal C3-180 nl C4 45 nl Urinalysis negative Bilateral hand x-rays 06/2020 Impression: Unremarkable Bilateral knee x-rays 2019: Joint space is well-maintained Right knee arthrocentesis 10/2021 Synovial fluid cell count 280 11% neutrophils 66% monocytes 23% lymphocytes Lip biopsy 09/2020 No signs of inflammation or other features of Sjogren's Assessment & Plan Assessment & Plan (1) Polyarthralgia: Code(s): M25.50 - Pain in unspecified joint Plan: This is a 43-year-old female who presents for evaluation of polyarthralgia. Symptoms started in 2012 associated with dry eyes and dry mouth. Patient was evaluated by oncology physician assistant Dr. Parr in [place], and comprehensive serology was unremarkable, right knee synovial fluid was noninflammatory (however, this is not the most persistently symptomatic joint) She was started on hydroxychloroquine for about 2 years without much improvement. Will will repeat inflammatory markers and few serologies. Will check a seronegative RA panel. Check x-rays of involved joints. Will order bilateral hand and wrist ultrasound to evaluate for synovitis/tenosynovitis Follow-up in about 6 weeks Plan I spent 65 minutes reviewing patient's chart, reviewing records from [facility] rheumatology, evaluating patient, ordering diagnostic workup, counseling patient and documenting in the chart Orders: Orders Complete Blood Count Auto Diff Today M06.9 - Rheumatoid arthritis, unspecified C Reactive Protein Today M06.9 - Rheumatoid arthritis, unspecified Immunofixation Pnl, Serum Today M06.9 - Rheumatoid arthritis, unspecified Rheumatoid Factor Today M06.9 - Rheumatoid arthritis, unspecified XR hand wrist LT Today M06.9 - Rheumatoid arthritis, unspecified XR knee standing BI Today M06.9 - Rheumatoid arthritis, unspecified Other Ref Test - Misc Today M06.9 - Rheumatoid arthritis, unspecified Comprehensive Met. Panel Today M06.9 - Rheumatoid arthritis, unspecified Erythrocyte Sedimentation Rate Today M06.9 - Rheumatoid arthritis, unspecified Hepatitis A,B,C Profile Today Z11.59 - Encounter for screening for other viral diseases T Spot TB Today Z11.7 - Encounter for testing for latent tuberculosis infection Protein Electrophoresis, Serum Today M06.9 - Rheumatoid arthritis, unspecified Cyclic Citrullinated Peptide Today M06.9 - Rheumatoid arthritis, unspecified HLA B27 Today M45.9 - Ankylosing spondylitis of unspecified sites in spine XR hand wrist RT Today M06.9 - Rheumatoid arthritis, unspecified XR knee RT 3V Today M06.9 - Rheumatoid arthritis, unspecified US extremity nonvascular Today M06.9 - Rheumatoid arthritis, unspecified Coding Level of Care Code New Pt Level 5 (99738) Diagnoses Polyarthralgia M25.50
[2023-12-26 13:02] VITALS: BP 152/88; PULSE 71; O2SAT 97; BMI 57.4
== END 2023-12-26 13:49 | disposition home or self-care (01) ==
PROVIDERS: PCP Nurse Practitioner Family; Visit Provider Student in an Organized Health Care Education/Training Program
DX: M13.0 Polyarthritis, unspecified (principal)
CPT/HCPCS: 99205

== ENCOUNTER 2023-12-26 12:54 | Outpatient (REF) | payer MEDICARE, MEDICAID, SELFPAY ==
--- NOTE | ~2023-12-26 | XR_ITS ---
EXAMINATION: XR HAND/WRIST, RIGHT CLINICAL INFORMATION: Rheumatoid arthritis. COMPARISON: None available. TECHNIQUE: PA, lateral, and oblique views of the right hand and wrist. FINDINGS: The bones and soft tissues are normal. No fracture. Alignment is anatomic. Joint spaces are maintained. No erosions or soft tissue calcifications. XR/XR hand wrist LT IMPRESSION: Normal radiographs of the hand and wrist. EXAMINATION: XR HAND/WRIST, LEFT CLINICAL INFORMATION: Rheumatoid arthritis. COMPARISON: None available. TECHNIQUE: PA, lateral, and oblique views of the left hand and wrist. FINDINGS: The bones and soft tissues are normal. No fracture. Alignment is anatomic. Joint spaces are maintained. A tiny osteophyte is seen of the ulnar styloid. No erosions or soft tissue calcifications. IMPRESSION: A tiny osteophyte is noted of the ulnar styloid process. Otherwise, unremarkable radiographs of the left hand and wrist.
--- NOTE | ~2023-12-26 | XR_ITS ---
EXAMINATION: XR KNEE, RIGHT CLINICAL INFORMATION: Rheumatoid arthritis. COMPARISON: None TECHNIQUE: AP, lateral, tunnel, and sunrise views of the right knee. FINDINGS: Bony alignment and mineralization are normal. The lateral and patellofemoral joint space compartments are well-maintained. There is mild narrowing of the medial joint space compartment. There is tricompartment peripheral osteophyte formation. No fracture, dislocation or joint effusion is seen. There is no foreign body. XR/XR knee LT 4V IMPRESSION: 1. No acute fracture, dislocation or joint effusion is seen. 2. There is mild tricompartment peripheral osteophyte formation, most pronounced of the medial compartment. EXAMINATION: XR KNEE, LEFT CLINICAL INFORMATION: Rheumatoid arthritis COMPARISON: None TECHNIQUE: AP, lateral, tunnel, and sunrise views of the left knee. FINDINGS: Bony alignment and mineralization are normal. The lateral, medial and patellofemoral joint space compartments are well-maintained. There is tricompartment peripheral osteophyte formation. No fracture, dislocation or joint effusion is seen. There is no foreign body. IMPRESSION: 1. No acute fracture, dislocation or joint effusion is seen. 2. There is mild tricompartment peripheral osteophyte formation.
--- NOTE | ~2023-12-26 | XR_ITS ---
EXAMINATION: XR KNEE, RIGHT CLINICAL INFORMATION: Rheumatoid arthritis. COMPARISON: None TECHNIQUE: AP, lateral, tunnel, and sunrise views of the right knee. FINDINGS: Bony alignment and mineralization are normal. The lateral and patellofemoral joint space compartments are well-maintained. There is mild narrowing of the medial joint space compartment. There is tricompartment peripheral osteophyte formation. No fracture, dislocation or joint effusion is seen. There is no foreign body. XR/XR knee RT 3V IMPRESSION: 1. No acute fracture, dislocation or joint effusion is seen. 2. There is mild tricompartment peripheral osteophyte formation, most pronounced of the medial compartment. EXAMINATION: XR KNEE, LEFT CLINICAL INFORMATION: Rheumatoid arthritis COMPARISON: None TECHNIQUE: AP, lateral, tunnel, and sunrise views of the left knee. FINDINGS: Bony alignment and mineralization are normal. The lateral, medial and patellofemoral joint space compartments are well-maintained. There is tricompartment peripheral osteophyte formation. No fracture, dislocation or joint effusion is seen. There is no foreign body. IMPRESSION: 1. No acute fracture, dislocation or joint effusion is seen. 2. There is mild tricompartment peripheral osteophyte formation.
--- NOTE | ~2023-12-26 | XR_ITS ---
EXAMINATION: XR HAND/WRIST, RIGHT CLINICAL INFORMATION: Rheumatoid arthritis. COMPARISON: None available. TECHNIQUE: PA, lateral, and oblique views of the right hand and wrist. FINDINGS: The bones and soft tissues are normal. No fracture. Alignment is anatomic. Joint spaces are maintained. No erosions or soft tissue calcifications. XR/XR hand wrist RT IMPRESSION: Normal radiographs of the hand and wrist. EXAMINATION: XR HAND/WRIST, LEFT CLINICAL INFORMATION: Rheumatoid arthritis. COMPARISON: None available. TECHNIQUE: PA, lateral, and oblique views of the left hand and wrist. FINDINGS: The bones and soft tissues are normal. No fracture. Alignment is anatomic. Joint spaces are maintained. A tiny osteophyte is seen of the ulnar styloid. No erosions or soft tissue calcifications. IMPRESSION: A tiny osteophyte is noted of the ulnar styloid process. Otherwise, unremarkable radiographs of the left hand and wrist.
[2023-12-26 14:43] LABS: MANUAL DIFF FLAG NO
[2023-12-26 15:15] LABS: Basophils Absolute Auto 0.1 X10*3/uL (0.0-0.2); Basophils Percent Auto 0.5 % (0-2); Eosinophils Absolute Auto 0.3 X10*3/uL (0.0-0.4); Eosinophils Percent Auto 3.4 % (0-4); Hematocrit 45.6 % (37.0-47.0); Hemoglobin 14.3 g/dl (12.0-16.0); Imm Gran Abs Auto 0.04 X10*3/uL (0.00-0.03); Imm Gran Pct Auto 0.4 % (0.0-0.4); Lymphocytes Absolute Auto 2.5 X10*3/uL (1.2-4.9); Lymphocytes Percent Auto 27.7 % (20-40); Mean Corpuscular HGB Conc 31.4 g/dl (31.0-35.0); Mean Corpuscular Hemoglobin 25.4 pg (27.0-33.0); Mean Corpuscular Volume 81.1 fL (80.0-98.0); Mean Platelet Volume 9.5 fL (9.4-12.3); Monocytes Absolute Auto 0.3 X10*3/uL (0.1-1.2); Monocytes Percent Auto 3.7 % (2-11); Neutrophils Absolute Auto 5.9 x10*3/uL (2.0-8.3); Neutrophils Percent Auto 64.3 % (45-73); Platelet Count 395 X10*3/uL (160-400); Red Blood Count 5.62 X10*6/uL (4.20-5.50); Red Cell Distribution Width 15.1 % (11.0-16.0); White Blood Count 9.1 X10*3/uL (4.8-10.8)
[2023-12-26 15:46] LABS: Rheumatoid Factor < 13.0 IU/mL (<15.0)
[2023-12-26 15:51] LABS: Alanine Aminotransferase 22 U/L (0-31); Albumin Level 4.1 g/dL (3.5-5.0); Alkaline Phosphatase 98 U/L (39-117); Anion Gap 13 (12-20); Aspartate Amino Transferase 15 U/L (5-31); Bilirubin Total 0.5 mg/dL (0.0-1.0); Blood Urea Nitrogen 14 mg/dL (9-16); C Reactive Protein 4.37 mg/dL (< or = 0.50); Calcium 9.8 mg/dL (8.4-10.2); Carbon Dioxide 24 mmol/L (22-29); Chloride 105 mmol/L (96-108); Estimated Glomerular Filt Rate > 60; Glucose Random 192 mg/dL (60-115); Potassium 3.8 mmol/L (3.3-5.1); Sodium 138 mmol/L (135-145); Total Protein 7.8 g/dL (6.5-8.0)
[2023-12-26 16:38] LABS: Erythrocyte Sedimentation Rate 25 MM/HR (0-20)
[2023-12-27 06:03] LABS: HBS Num1 1.06 mIU/mL (0-7.99); HBc Num1 0.09 S/CO (0.00-0.79); HBsAGNum1 0.36 S/CO (0.00-0.99); Hepatitis A Antibody IgM 0.14 Index (0-0.79); Hepatitis B Core Antibody Nonreactive (Nonreactive); Hepatitis B Surface Antigen Negative (Negative); ~HepC Num1 0.06 S/CO (0.00-0.79); ~Hepatitis A Antibody IgM Nonreactive (Nonreactive); ~Hepatitis B Surface Antibody NONREACTIVE (Nonreactive); ~Hepatitis C Antibody Nonreactive (Nonreactive)
[2023-12-28 15:18] LABS: Cyclic Citrullinated Peptide <16 UNITS
[2023-12-29 09:04] LABS: TS Negative Control Passed; TS Panel A 1; TS Panel B 2; TS Positive Control Passed; TSpotTB Negative (Negative)
[2023-12-30 23:38] LABS: HLA B27 Negative (Negative)
[2024-01-01 08:48] LABS: Prot Elec - Albumin 4.1 g/dL (3.8-4.8); Prot Elec - Alpha1 0.4 g/dL (0.2-0.3); Prot Elec - Beta 1 0.5 g/dL (0.4-0.6); Prot Elec - Beta 2 0.5 g/dL (0.2-0.5); Prot Elec - Total Protein 7.6 g/dL (6.1-8.1)
[2024-01-02 12:39] LABS: IgA 226 mg/dL (47-310); IgG 1155 mg/dL (600-1640); IgM 62 mg/dL (50-300)
== END 2023-12-26 12:55 | disposition home or self-care (01) ==
LOC: HO.XRAY 12:54
PROVIDERS: PCP Nurse Practitioner Family; Visit Provider Student in an Organized Health Care Education/Training Program
DX: Z11.59 Encounter for screening for other viral diseases (principal); Z11.7 Encounter for testing for latent tuberculosis infection; M06.9 Rheumatoid arthritis, unspecified; M45.9 Ankylosing spondylitis of unspecified sites in spine; Z72.89 Other problems related to lifestyle
CPT/HCPCS: 36415; 73110; 73130; 73562; 73564; 80053; 82784; 84165; 85025; 85652; 86140; 86200; 86334; 86431; 86481; 86704; 86706; 86709; 86803; 86812; 87340; 99202

== ENCOUNTER 2023-12-28 14:03 | Outpatient (AMB) | payer MEDICARE, MEDICAID, SELFPAY ==
--- NOTE | 2023-12-28 14:08 | A.OFFVIS_ITS ---
Intake Vital Signs 12/28/23 14:10 Height 5 ft 2 in Weight 314 lb BMI 57.4 BP 170/108 H Blood Pressure Location Lt brachial Position Sitting Pulse 74 Pulse Source Pulse Oximeter Pulse Oximetry (%) 98 Oxygen Delivery Method Room Air Intake Visit Reasons: Hypertension Farm Crew Leader Required: No Accompanied by: Parent Allergies naproxen Allergy (Unknown, Verified 12/28/23 14:13) unknown HPI HPI Comments History of Present Illness Details I had the delight of seeing Ms. Colbert in consultation for resistant hypertension. 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 She was accompanied by her father during this consultation. She has been having blood pressure well over 10 years and had been on medications, which she is compliant with. Lately, her blood pressure has been going very high in spite of increasing medications. She gets headache , tingling of the face, flushing when her blood pressure goes very high. She denies excess sodium in the diet. She also had an episode of chest pressure for which she is seeing a backwinder tomorrow. She had shortness of breath during one of the occasions when her blood pressure was very high. She was seen in multiple emergency rooms for all his complaints including he will [facility] in [place]. None of these times, she was admitted in the hospital as she responded to treatment gi nora in emergency room. Blood works, CT scan of the head, EKG were all acceptable at that time. She has obstructive sleep apnea and is on CPAP which she claims to be compliant with. She is seeing a backwinder tomorrow as she had 1 episode of chest pain. She has history of polycystic ovarian disease. She has taken spironolactone the remote past for hirsutism as per the patient. She is a diabetic and is on Ozempic. She is not known to have any proteinuria or renal dysfunction. He has history of levothyroxine intake but has been discontinued a while ago. She is unsure whether she had any metanephrines, renin, aldosterone tested in the past. She has not had any Doppler of her renal arteries but apparently has been arranged through PCPs office. She was seen again in the PCP's office who has had at hydralazine 25 mg twice daily which she has not started yet. She has no history of cocaine use. He denies any other systemic complaints other than what has been mentioned above. She is quite concerned about her ongoing poor blood pressure control. [facility] Medical History (Updated 12/26/23 @ 16:51 by Keesha Burgos MD) COVID-19 vaccine administered Lab test negative for COVID-19 virus History of postoperative nausea Sleep apnea Thyroid disease HTN (hypertension) Low back pain Morbid obesity Interstitial cystitis Surgical History Hx of partial thyroidectomy History of bladder surgery History of carpal tunnel release of both wrists Family History Mother Parkinson disease Father Aneurysm Social History Household Members: Spouse Are you a primary career based intervention coordinator to a significant other at home: No Do you presently have visiting nurse or other home services: No Current occupational status: employed and disabled 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 Physical Exam Vital Signs: Last Vital Signs Pulse 74 12/28/23 14:10 BP 170/108 H 12/28/23 14:10 Pulse Ox 98 12/28/23 14:10 Oxygen Delivery Method Room Air 12/28/23 14:10 BMI result Body Mass Index 57.4 Const General: comfortable and no acute distress Orientation/consciousness: patient oriented x3 HEENT Head: Yes normocephalic Mouth: Normal oral and palatal mucosa present Eyes EOM: EOMs intact bilaterally Neck Neck: Yes supple Resp Auscultation: clear to auscultation bilaterally Cardio Jugular venous distension: no JVD Rate: regular rate GI Palpation (GI): Soft to palpation Auscultation: normal bowel sounds General: Yes no CVA tenderness Back/Spine/Pelvis Back: no CVA tenderness Skin General skin exam: no rashes or lesions noted Neuro General: patient oriented x3 and moves all extremities Extrem General: Yes no pedal edema Assessment & Plan Assessment & Plan (1) Essential hypertension: Code(s): I10 - Essential (primary) hypertension Plan Ms Colbert has longstanding hypertension. Her medication needs have been steadily increasing without any reasonable blood pressure control. Doppler of her renal arteries are pending. She has sleep apnea and has a CPAP. I asked her to continue lisinopril 40 mg in the morning, labetalol 300 mg twice daily along with hydrochlorothiazide and amlodipine as prescribed. I ordered cortisol, renin, aldosterone, aldosterone renin ratio, metanephrines. She has no signs of papilledema, retinal hemorrhages, heart failure, encephalopathy or acute kidney. She has no history of cocaine use. I started her on spironolactone 50 mg daily. I will continue to investigate including urinary free cortisol to urine free cortisone to see whether she has mineral corticoid excess. If 11 beta HSD his functioning normally, urinary free cortisone levels exceed urinary cortisol levels and the ratio cortisol to cortisone is approximately 0.3-0.5. She likely will need imaging of her adrenals. Genetic testing to confirm the diagnosis of syndrome of DHARA is available which I may consider. She will need an echocardiogram. She has no clinical signs to suggest coarctation of aorta. I will follow her serum potassium given she is already on lisinopril and being initiated on spironolactone. She needs to lose weight. She will be followed up in the office in a week time. Further management is pending morning data. All questions answered. Follow-up given Orders: Orders Metanephrines, Plasma Today I10 - Essential (primary) hypertension Renin Today I10 - Essential (primary) hypertension Aldosterone Today I10 - Essential (primary) hypertension Cortisol Random Today I10 - Essential (primary) hypertension Aldost/Renin Today I10 - Essential (primary) hypertension Medications: New spironolactone 50 mg PO DAILY 30 tabs 1RF Coding Level of Care Code New Pt Level 4 (78343) Diagnoses Essential hypertension I10
[2023-12-28 14:10] VITALS: BP 170/108; PULSE 74; O2SAT 98; BMI 57.4
== END 2023-12-28 14:50 | disposition home or self-care (01) ==
PROVIDERS: PCP Nurse Practitioner Family; Visit Provider Internal Medicine Nephrology
DX: I10 Essential (primary) hypertension (principal)
CPT/HCPCS: 99204

== ENCOUNTER → 2023-12-28 14:03 | Outpatient (BNVA) | payer MEDICARE, MEDICAID, SELFPAY | PROVIDERS: PCP Nurse Practitioner Family; Visit Provider Internal Medicine Nephrology | DX: I10 Essential (primary) hypertension (principal); Z79.899 Other long term (current) drug therapy | CPT/HCPCS: 99202 ==

== ENCOUNTER 2024-01-04 16:04 | Outpatient (AMB) | payer MEDICARE, MEDICAID, SELFPAY ==
--- NOTE | 2024-01-04 16:10 | HO.NEPHOV ---
HPI HPI Comments History of Present Illness Details I had the delight of seeing Ms. Colbert in follow up for resistant hypertension. 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 She was accompanied by her father during this visit. She has been having blood pressure well over 10 years and had been on medications, which she is compliant with. Lately, her blood pressure has been going very high in spite of increasing medications. She gets headache , tingling of the face, flushing when her blood pressure goes very high. She denies excess sodium in the diet. She also had an episode of chest pressure for which she has seen a student services advisor . She had shortness of breath during one of the occasions when her blood pressure was very high. She was seen in multiple emergency rooms for all his complaints including he will [facility] in [place]. None of these times, she was admitted in the hospital as she responded to treatment given in emergency room. Blood works, CT scan of the head, EKG were all acceptable at that time. She has obstructive sleep apnea and is on CPAP which she claims to be compliant with. She has history of polycystic ovarian disease. She has taken spironolactone the remote past for hirsutism as per the patient. She is a diabetic and is on Ozempic. She is not known to have any proteinuria or renal dysfunction. He has history of levothyroxine intake but has been discontinued a while ago. She had Doppler of her renal arteries. She has no history of cocaine use. He denies any other systemic complaints other than what has been mentioned above. She is quite concerned about her ongoing labile blood pressure. [facility] Medical History (Updated 12/26/23 @ 16:51 by Keesha Burgos MD) COVID-19 vaccine administered Lab test negative for COVID-19 virus History of postoperative nausea Sleep apnea Thyroid disease HTN (hypertension) Low back pain Morbid obesity Interstitial cystitis Surgical History Hx of partial thyroidectomy History of bladder surgery History of carpal tunnel release of both wrists Family History Mother Parkinson disease Father Aneurysm Social History Household Members: Spouse Are you a primary school childcare attendant to a significant other at home: No Do you presently have visiting nurse or other home services: No Current occupational status: employed and disabled 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 Vital Signs 01/04/24 16:11 Height 5 ft 2 in Weight 314 lb BMI 57.4 BP 152/92 H Blood Pressure Location Lt brachial Position Sitting Pulse 77 Pulse Source Pulse Oximeter Pulse Oximetry (%) 98 Oxygen Delivery Method Room Air Physical Exam Vital Signs: Last Vital Signs Pulse 77 01/04/24 16:11 BP 152/92 H 01/04/24 16:11 Pulse Ox 98 01/04/24 16:11 Oxygen Delivery Method Room Air 01/04/24 16:11 BMI result Body Mass Index 57.4 Const General: comfortable and no acute distress Orientation/consciousness: patient oriented x3 HEENT Head: Yes normocephalic Mouth: Normal oral and palatal mucosa present Eyes EOM: EOMs intact bilaterally Neck Neck: Yes supple Resp Auscultation: clear to auscultation bilaterally Cardio Jugular venous distension: no JVD Rate: regular rate GI Palpation (GI): Soft to palpation Auscultation: normal bowel sounds General: Yes no CVA tenderness Back/Spine/Pelvis Back: no CVA tenderness Skin General skin exam: no rashes or lesions noted Neuro General: patient oriented x3 and moves all extremities Extrem General: Yes no pedal edema Assessment & Plan Assessment & Plan (1) Essential hypertension: Code(s): I10 - Essential (primary) hypertension Plan Ms Colbert has longstanding hypertension. Her medication needs have been steadily increasing without any reasonable blood pressure control. Doppler of her renal arteries did not show any ROCIO. She has sleep apnea and has a CPAP. Her cortisol was normal but renin, aldosterone, aldosterone renin ratio, metanephrines are pending. She has no signs of papilledema, retinal hemorrhages, heart failure, encephalopathy or acute kidney. She has no history of cocaine use. I started her on spironolactone 50 mg daily at the last visit. I will continue to investigate including urinary free cortisol to urine free cortisone to see whether she has mineral corticoid excess. If 11 beta HSD his functioning normally, urinary free cortisone levels exceed urinary cortisol levels and the ratio cortisol to cortisone is approximately 0.3-0.5. She likely will need imaging of her adrenals. Genetic testing to confirm the diagnosis of syndrome of DHARA is available which I may consider. She will need an echocardiogram, if not already done. She has no clinical signs to suggest coarctation of aorta. I will follow her serum potassium given she is already on lisinopril and being initiated on spironolactone. She needs to lose weight. She will be followed up in the office in a week time. Further management is pending morning data. All questions answered. Follow-up given Orders: Orders Renin 01/04/24 I10 - Essential (primary) hypertension Aldost/Renin 01/04/24 I10 - Essential (primary) hypertension Creatinine 01/04/24 I10 - Essential (primary) hypertension Blood Urea Nitrogen 01/04/24 I10 - Essential (primary) hypertension Aldosterone 01/04/24 I10 - Essential (primary) hypertension Metanephrines, Plasma 01/04/24 I10 - Essential (primary) hypertension Electrolytes 01/04/24 I10 - Essential (primary) hypertension Medications: Changed From labetalol 300 mg PO BID To labetalol 300 mg (3 x 100 mg) PO BID 180 tabs 3RF 30 days Coding Level of Care Code Est Pt Level 4 (55428) Diagnoses Essential hypertension I10 Results Reviewed Nephrology Results: Hgb 14.3 g/dl (12.0-16.0) 12/26/23 WBC 9.1 X10*3/uL (4.8-10.8) 12/26/23 Plt Count 395 X10*3/uL (160-400) 12/26/23 Sodium 138 mmol/L (135-145) 12/26/23 Potassium 3.8 mmol/L (3.3-5.1) 12/26/23 Chloride 105 mmol/L (96-108) 12/26/23 Carbon Dioxide 24 mmol/L (22-29) 12/26/23 BUN 14 mg/dL (9-16) 12/26/23 Creatinine 0.84 mg/dL (0.5-1.4) 12/26/23 Calcium 9.8 mg/dL (8.4-10.2) 12/26/23
[2024-01-04 16:11] VITALS: BP 152/92; PULSE 77; O2SAT 98; BMI 57.4
== END 2024-01-04 16:41 | disposition home or self-care (01) ==
PROVIDERS: PCP Nurse Practitioner Family; Visit Provider Internal Medicine Nephrology
DX: I10 Essential (primary) hypertension (principal)
CPT/HCPCS: 99214

== ENCOUNTER → 2024-01-04 16:04 | Outpatient (BNVA) | payer MEDICARE, MEDICAID, SELFPAY | PROVIDERS: PCP Nurse Practitioner Family; Visit Provider Internal Medicine Nephrology | DX: I10 Essential (primary) hypertension (principal) | CPT/HCPCS: 99212 ==

== ENCOUNTER 2024-01-08 15:30 | Outpatient (AMB) | payer MEDICARE, MEDICAID, SELFPAY ==
--- NOTE | 2024-01-08 15:34 | MHC.OFFVIS ---
Intake Vital Signs 01/08/24 16:10 Height 5 ft 2 in Weight 307 lb BMI 56.1 BP 170/92 H Blood Pressure Location Lt radial Position Sitting Respiration 18 Pulse 68 Pulse Source Pulse Oximeter Pulse Oximetry (%) 98 Oxygen Delivery Method Room Air Intake Visit Reasons: ITDD Refill/confirmed Intake Note: Patient came for intrathecal medication refill. Reports pain 4/10. Allergies naproxen Allergy (Unknown, Verified 01/08/24 16:10) unknown HPI HPI Comments History of Present Illness Details Fatemeh is 42 years old with history of chronic pelvic pain interstitial cystitis intractable to any conservative and surgical treatments.? She is under observation with this office with intrathecal drug delivery system pain pump.? She receives very moderate doses of the opioid medications morphine and she receives clonidine intrathecally.? See refill below.? She reports excellent pain relieve with no pain whatsoever related to her interstitial cystitis chronic pelvic pain and endometriosis.? Today he reported that her blood pressure continues to be very poorly controlled. She went to the window shade installer, who started her on multiple blood pressure medications including calcium channel blockers, diuretics, DIGNA inhibitors, labetalol and clonidine. She also received some small doses of clonidine through the intrathecal pain pump. She came today to the office for the intrathecal pain pump refill. See refill as below. She also was sent for evaluation to Dr. Moreira, our rheumatologists with complains on pain in bilateral shoulders elbows and hands as well as pain in the neck. COUNTS INCLUDE 234 BEDS AT THE [facility] Medical History (Updated 12/26/23 @ 16:51 by Keesha Burgos MD) COVID-19 vaccine administered Lab test negative for COVID-19 virus History of postoperative nausea Sleep apnea Thyroid disease HTN (hypertension) Low back pain Morbid obesity Interstitial cystitis Surgical History Hx of partial thyroidectomy History of bladder surgery History of carpal tunnel release of both wrists Family History Mother Parkinson disease Father Aneurysm Social History Household Members: Spouse Are you a primary care trainer to a significant other at home: No Do you presently have visiting nurse or other home services: No Current occupational status: employed and disabled 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 Review of Systems Const Reports body aches and Reports weight gain ENT Reports Normal hearing present Card Reports chest pain and Reports dyspnea Resp Reports dyspnea GI Reports heartburn Reports as per HPI Musc Reports no additional complaints Neuro Reports no additional complaints, Reports Normal hearing present, Denies Abnormal speech present and Denies Sensory deficit (Neuro) Psych Reports no additional complaints Endo Reports as per HPI Physical Exam Vital Signs: Last Vital Signs Pulse 68 01/08/24 16:10 Resp 18 01/08/24 16:10 BP 170/92 H 01/08/24 16:10 Pulse Ox 98 01/08/24 16:10 Oxygen Delivery Method Room Air 01/08/24 16:10 BMI result Body Mass Index 56.1 Const Nutritional Appearance: obese morbidly obese Eyes General: appearance normal, both eyes and all related structures Pupils: Equal, round and reactive pupils present EOM: EOMs intact bilaterally Neck Neck: Yes full ROM Chest Chest palpation & inspection: normal inspection of the chest Resp Effort & Inspection: normal respiratory effort, able to speak in complete sentences, normal respiratory pattern, no audible wheezes and no cough Cardio Other: On exam today blood pressure 198 /88 mm Hg Jugular venous distension: no JVD GI Inspection: Yes normal to inspection Back/Spine/Pelvis Other: This patient demonstrates normal gait, reports no tenderness of palpation in lumbar spine. Reports normal strength in bilateral lower extremities. Able to stand on her tiptoes and on her heels without difficulty so muscular strands in normal reports only sensory changes in the right lateral hip. The rest of the legs are normal. Reports no numbness elsewhere but right hip. Flexion forward and flexion backwards of the lumbar spine without difficulty. Straight leg rising is negative for back pain. Neuro Cranial nerves: Yes Equal, round and reactive pupils present and Yes Normal hearing present Speech: No Abnormal speech present Gait exam (Neuro): Normal gait present Motor exam (neuro): 5/5 motor strength present throughout Sensory Exam: No Sensory deficit (Neuro) Extrem General: No pedal edema Psych Speech and movement: Normal speech and movement present Affect: normal affect Attitude: cooperative Thought process: Normal thought process present Thought content: Normal thought content present Assessment & Plan Assessment & Plan (1) Interstitial cystitis: Code(s): N30.10 - Interstitial cystitis (chronic) without hematuria (2) Morbid obesity: Code(s): E66.01 - Morbid (severe) obesity due to excess calories Plan: Pump refill is as below. Patient will continue with nephrology office. Patient will continue with rheumatology office Dr. Moreira. On the shoulder x-ray there is minimal acromioclavicular joint changes. Glenohumeral joint is intact. Possibility of acromioclavicular joint injections could be discussed with the patient in the future. At this time it is impractical to even offered to the patient since her blood pressure is grossly elevated and steroid injection into the shallow joints can compromise her blood pressure. (3) Low back pain: Code(s): M54.5 - Low back pain Qualifiers: Chronicity: chronic (4) Essential hypertension: Code(s): I10 - Essential (primary) hypertension (5) Endometriosis: Code(s): N80.9 - Endometriosis, unspecified (6) Chronic pain syndrome: Code(s): G89.4 - Chronic pain syndrome (7) Bilateral shoulder region arthritis: Code(s): M19.011 - Primary osteoarthritis, right shoulder; M19.012 - Primary osteoarthritis, left shoulder (8) Rheumatoid arthritis: Code(s): M06.9 - Rheumatoid arthritis, unspecified Plan *THE PATIENT CAME TODAY FOR THE CHANGE OF THE MEDICATION IN her PAIN PUMP. The name and date of were verified and informed consent was obtained for the procedure. The pump was interrogated. residual amount of the fluid must be 8.1 mL. SHE WAS POSITIONED prone on the bed AND THE AREA OF THE INTRATHECAL PUMP WAS PREPPED WITH CHLORAPREP. The fenestrated drape was sterilely applied over the area of the pump. Sterile gloves were worn and of the aspiration system was assembled containing 2 in 22 gauge noncoring needle, the needle was connected to extension tubing which was connected to the 20 cc sterile syringe. The pain pump was palpated under the skin in the patient's right buttock area. The needle was inserted through the skin and the central plug of the pain pump and fluid was aspirated. The clear fluid was going into the syringe the total amount of the fluid was 8.1 mL .. After that a new batch of medication was obtained containing correct doses of the medications including Morphine PF 800mcg per ml and clonidine PF 200 mcg/ ml.. The admixture was made in 20 cc syringe prepared by [facility] compounding [facility]. The syringe was connected to the bacterial filter, and then connected to the extension tubing. After that the medication in the syringe was slowly instilled into the pump with aspirations at 15 and 5 cc sr. The pump was left at the doses of morphine 100 mcg /day and clonidine corresponding dose 50 mcg per day. Next pump refill is scheduled in 80 days. . Patient Instructions: I here by testify that I spent 32 minutes in conversation with this patient evaluating prior records of metal window screen assembler and window shade installer evaluating prior diagnostic studies, planning her care, and organizing this note. Coding Level of Care Code Est Pt Level 4 (04043) Procedure Only Diagnoses Interstitial cystitis N30.10 Morbid obesity E66.01 Low back pain M54.5 Chronicity: chronic Essential hypertension I10 Endometriosis N80.9 Chronic pain syndrome G89.4 Bilateral shoulder region arthritis M19.011; M19.012 Rheumatoid arthritis M06.9
[2024-01-08 16:10] VITALS: BP 170/92; PULSE 68; RESP 18; O2SAT 98; BMI 56.1
== END 2024-01-08 15:56 | disposition home or self-care (01) ==
PROVIDERS: PCP Nurse Practitioner Family; Visit Provider Anesthesiology
DX: G89.4 Chronic pain syndrome (principal); M54.50 Low back pain, unspecified; N80.9 Endometriosis, unspecified; Z45.1 Encounter for adjustment and management of infusion pump; M19.011 Primary osteoarthritis, right shoulder; M19.012 Primary osteoarthritis, left shoulder; M06.9 Rheumatoid arthritis, unspecified
CPT/HCPCS: 95991; 99214

== ENCOUNTER 2024-01-08 15:30 | Outpatient (REF) | payer MEDICARE, MEDICAID, SELFPAY | END 2024-01-08 15:31 | disposition home or self-care (01) | LOC: HO.LAB 15:30 | PROVIDERS: Absent Provider Internal Medicine Nephrology; PCP Nurse Practitioner Family; Visit Provider Anesthesiology | DX: R10.2 Pelvic and perineal pain (principal); M54.50 Low back pain, unspecified; N30.10 Interstitial cystitis (chronic) without hematuria; E66.01 Morbid (severe) obesity due to excess calories; N80.9 Endometriosis, unspecified; G89.4 Chronic pain syndrome; M19.011 Primary osteoarthritis, right shoulder; M19.012 Primary osteoarthritis, left shoulder; M06.9 Rheumatoid arthritis, unspecified | CPT/HCPCS: 99212 ==

== ENCOUNTER 2024-01-12 15:47 | Outpatient (AMB) | payer MEDICARE, MEDICAID, SELFPAY ==
[2024-01-12 16:01] VITALS: BP 138/82; PULSE 66; O2SAT 100; BMI 56.7
--- NOTE | 2024-01-12 16:01 | HO.NEPHOV_ITS ---
HPI HPI Comments History of Present Illness Details I had the delight of seeing Ms. Colbert in follow up for resistant hypertension. 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 She has been having blood pressure well over 10 years and had been on medications, which she is compliant with. Lately, her blood pressure has been going very high in spite of increasing medications. She denies excess sodium in the diet. She was seen in multiple emergency rooms for all his complaints including he will [facility] in [place]. None of these times, she was admitted in the hospital as she responded to treatment given in emergency room. Blood works, CT scan of the head, EKG were all acceptable at that time. She has obstructive sleep apnea and is on CPAP which she claims to be compliant with. She has history of polycystic ovarian disease. She is a diabetic and is on Ozempic. She is not known to have any proteinuria or renal dysfunction.She had Doppler of her renal arteries. She has no history of cocaine use. She denies any other systemic complaints other than what has been mentioned above. Her blood pressure control is better with medication changes now [facility] Medical History (Updated 12/26/23 @ 16:51 by Keesha Burgos MD) COVID-19 vaccine administered Lab test negative for COVID-19 virus History of postoperative nausea Sleep apnea Thyroid disease HTN (hypertension) Low back pain Morbid obesity Interstitial cystitis Surgical History Hx of partial thyroidectomy History of bladder surgery History of carpal tunnel release of both wrists Family History Mother Parkinson disease Father Aneurysm Social History Household Members: Spouse Are you a primary home health care coordinator to a significant other at home: No Do you presently have visiting nurse or other home services: No Current occupational status: employed and disabled 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 Vital Signs 01/12/24 16:01 Height 5 ft 2 in Weight 310 lb 4 oz BMI 56.7 BP 138/82 Blood Pressure Location Lt brachial Position Sitting Pulse 66 Pulse Source Pulse Oximeter Pulse Oximetry (%) 100 Oxygen Delivery Method Room Air Physical Exam Vital Signs: Last Vital Signs Pulse 66 01/12/24 16:01 BP 138/82 02/16/24 16:01 Pulse Ox 100 01/12/24 16:01 Oxygen Delivery Method Room Air 01/12/24 16:01 BMI result Body Mass Index 56.7 Const General: comfortable and no acute distress Orientation/consciousness: patient oriented x3 HEENT Head: Yes normocephalic Mouth: Normal oral and palatal mucosa present Eyes EOM: EOMs intact bilaterally Neck Neck: Yes supple Resp Auscultation: clear to auscultation bilaterally Cardio Jugular venous distension: no JVD Rate: regular rate GI Palpation (GI): Soft to palpation Auscultation: normal bowel sounds General: Yes no CVA tenderness Back/Spine/Pelvis Back: no CVA tenderness Skin General skin exam: no rashes or lesions noted Neuro General: patient oriented x3 and moves all extremities Extrem General: Yes no pedal edema Assessment & Plan Assessment & Plan (1) Essential hypertension: Code(s): I10 - Essential (primary) hypertension Plan Ms Colbert has longstanding hypertension. Doppler of her renal arteries did not show any ROCIO. She has sleep apnea and has a CPAP. Her cortisol was normal but renin, aldosterone, aldosterone renin ratio, metanephrines were reviewed. She has no signs of papilledema, retinal hemorrhages, heart failure, encephalopathy or acute kidney. She has no history of cocaine use. Ever since I started her on spironolactone 50 mg daily, her BP control is better. Her last serum K was 5.0. I will continue to investigate including urinary free cortisol to urine free cortisone to see whether she has mineral corticoid excess. If 11 beta HSD his functioning normally, urinary free cortisone levels exceed urinary cortisol levels and the ratio cortisol to cortisone is approximately 0.3-0.5. She likely will need imaging of her adrenals. Genetic testing to confirm the diagnosis of syndrome of DHARA is available which I may consider. She has no clinical signs to suggest coarctation of aorta. She needs to lose weight. She will be followed up in the office in a months time. All questions answered. Follow-up given Orders: Orders Creatinine 01/12/24 I10 - Essential (primary) hypertension Blood Urea Nitrogen 01/12/24 I10 - Essential (primary) hypertension Electrolytes 01/12/24 I10 - Essential (primary) hypertension Coding Level of Care Code Est Pt Level 4 (07854) Diagnoses Essential hypertension I10 Results Reviewed Nephrology Results: Hgb 14.3 g/dl (12.0-16.0) 12/26/23 WBC 9.1 X10*3/uL (4.8-10.8) 12/26/23 Plt Count 395 X10*3/uL (160-400) 12/26/23 Sodium 138 mmol/L (135-145) 12/26/23 Potassium 3.8 mmol/L (3.3-5.1) 12/26/23 Chloride 105 mmol/L (96-108) 12/26/23 Carbon Dioxide 24 mmol/L (22-29) 12/26/23 BUN 14 mg/dL (9-16) 12/26/23 Creatinine 0.84 mg/dL (0.5-1.4) 12/26/23 Calcium 9.8 mg/dL (8.4-10.2) 12/26/23
== END 2024-01-12 16:26 | disposition home or self-care (01) ==
LOC: HO.HKA 15:47
PROVIDERS: PCP Nurse Practitioner Family; Visit Provider Internal Medicine Nephrology
DX: I10 Essential (primary) hypertension (principal)
CPT/HCPCS: 99214

== ENCOUNTER → 2024-01-12 15:47 | Outpatient (BNVA) | payer MEDICARE, MEDICAID, SELFPAY | PROVIDERS: PCP Nurse Practitioner Family; Visit Provider Internal Medicine Nephrology | DX: I10 Essential (primary) hypertension (principal) | CPT/HCPCS: 99212 ==

== ENCOUNTER 2024-02-14 16:03 | Outpatient (AMB) | payer MEDICARE, MEDICAID, SELFPAY ==
[2024-02-14 16:05] VITALS: BP 124/80; PULSE 71; O2SAT 99; BMI 57.6
--- NOTE | 2024-02-14 16:05 | HO.NEPHOV ---
HPI HPI Comments History of Present Illness Details I had the delight of seeing Ms. Bishop diaz in follow up fo r resistant hypert ension. 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 She has been having bl ood pressure well over 10 years and had been on medica tions, which she i s compliant with. Lately, her blood pressure has been going very high i n spite of increas ing medications. S he denies excess s odium in the diet. She was seen in multiple emergency rooms for all his complaints includ ing he will [facility]. None of these times, she was ad mitted in the hosp ital as she respon ded to treatment g iven in emergency room. Blood works, CT scan of the he ad, EKG were all acceptable at that time. She has ob structive sleep ap juliet and is on CPAP which she claims to be compliant wi . She has histo ry of polycystic o varian disease. S he is a diabetic a nd is on Ozempic. She is not known to have any protei cristhian or renal dys function.She had D oppler of her xavi l arteries. She h as no history of c ocaine use. She d enies any other sy stemic complaints other than what rouse s been mentioned a kihsore. Her blood pr essure control is at goal with medic ation changes now [facility] Medical History (Updated 12/26/23 @ 16:51 by Keesha Burgos MD) COVID-19 vaccine administered Lab test negative for COVID-19 virus History of postoperative nausea Sleep apnea Thyroid disease HTN (hypertension) Low back pain Morbid obesity Interstitial cystitis Surgical History Hx of partial thyroidectomy History of bladder surgery History of carpal tunnel release of both wrists Family History Mother Parkinson disease Father Aneurysm Social History Household Members: Spouse Are you a primary skin care instructor to a significant other at home: No Do you presently have visiting nurse or other home services: No Current occupational status: employed and disabled 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 Vital Signs 03/20/24 16:05 Height 5 ft 2 in Weight 315 lb BMI 57.6 BP 124/80 Blood Pressure Location Lt femoral Position Sitting Pulse 71 Pulse Source Pulse Oximeter Pulse Oximetry (%) 99 Oxygen Delivery Method Room Air Physical Exam Vital Signs: Last Vital Signs Pulse 71 02/14/24 16:05 BP 124/80 02/14/24 16:05 Pulse Ox 99 02/14/24 16:05 Oxygen Delivery Method Room Air 02/14/24 16:05 BMI result Body Mass Index 57.6 Const General: comfortable and no acute distress Orientation/consciousness: patient oriented x3 HEENT Head: Yes normocephalic Mouth: Normal oral and palatal mucosa present Eyes EOM: EOMs intact bilaterally Neck Neck: Yes supple Resp Auscultation: clear to auscultation bilaterally Cardio Jugular venous distension: no JVD Rate: regular rate GI Palpation (GI): Soft to palpation Auscultation: normal bowel sounds General: Yes no CVA tenderness Back/Spine/Pelvis Back: no CVA tenderness Skin General skin exam: no rashes or lesions noted Neuro General: patient oriented x3 and moves all extremities Extrem General: Yes no pedal edema Assessment & Plan Assessment & Plan (1) Essential hypertension: Code(s): I10 - Essential (primary) hypertension Plan Ms Colbert has longstanding hypertension. Doppler of her renal arteries did not show any ROCIO. She has sleep apnea and has a CPAP. Her cortisol was normal but renin, aldosterone, aldosterone renin ratio, metanephrines were reviewed. She has no signs of papilledema, retinal hemorrhages, heart failure, encephalopathy or acute kidney. She has no history of cocaine use. Ever since I started her on spironolactone 50 mg daily, her BP control is better. Her last serum K was 5.0. I will continue to investigate including urinary free cortisol to urine free cortisone to see whether she has mineral corticoid excess. If 11 beta HSD his functioning normally, urinary free cortisone levels exceed urinary cortisol levels and the ratio cortisol to cortisone is approximately 0.3-0.5. She likely will need imaging of her adrenals, if her BP goes up. Genetic testing to confirm the diagnosis of syndrome of DHARA is available which I may consider. She has no clinical signs to suggest coarctation of aorta. She needs to lose weight. She will be followed up in the office. All questions answered. Follow-up given Orders: Orders Creatinine Today I10 - Essential (primary) hypertension Blood Urea Nitrogen Today I10 - Essential (primary) hypertension Electrolytes Today I10 - Essential (primary) hypertension Coding Level of Care Code Est Pt Level 3 (94364) Diagnoses Essential hypertension I10 Results Reviewed Nephrology Results: Hgb 14.3 g/dl (12.0-16.0) 12/26/23 WBC 9.1 X10*3/uL (4.8-10.8) 12/26/23 Plt Count 395 X10*3/uL (160-400) 12/26/23 Sodium 138 mmol/L (135-145) 12/26/23 Potassium 3.8 mmol/L (3.3-5.1) 12/26/23 Chloride 105 mmol/L (96-108) 12/26/23 Carbon Dioxide 24 mmol/L (22-29) 12/26/23 BUN 14 mg/dL (9-16) 12/26/23 Creatinine 0.84 mg/dL (0.5-1.4) 12/26/23 Calcium 9.8 mg/dL (8.4-10.2) 12/26/23
== END 2024-02-14 16:22 | disposition home or self-care (01) ==
PROVIDERS: PCP Nurse Practitioner Family; Visit Provider Internal Medicine Nephrology
DX: I10 Essential (primary) hypertension (principal)
CPT/HCPCS: 99213

== ENCOUNTER → 2024-02-14 16:03 | Outpatient (BNVA) | payer MEDICARE, MEDICAID, SELFPAY | PROVIDERS: PCP Nurse Practitioner Family; Visit Provider Internal Medicine Nephrology | DX: I10 Essential (primary) hypertension (principal) | CPT/HCPCS: 99212 ==

== ENCOUNTER 2024-02-15 15:39 | Outpatient (AMB) | payer MEDICARE, MEDICAID, SELFPAY ==
[2024-02-15 15:42] VITALS: BP 130/82; PULSE 94; O2SAT 100; BMI 57.5
--- NOTE | 2024-02-15 15:42 | A.OFFVIS_ITS ---
Intake Vital Signs 02/15/24 15:42 Height 5 ft 2 in Weight 314 lb 2.539 oz BMI 57.5 BP 130/82 Blood Pressure Location Rt brachial Position Sitting Pulse 94 Pulse Source Pulse Oximeter Pulse Oximetry (%) 100 Oxygen Delivery Method Room Air Intake Visit Reasons: RA/CONFIRMED Intake Note: Patient last seen 12/26/23 presents today for follow up and test results. S/p covid 3 wks ago. C/o lots of pain in back, neck, shoulders, hands and arms. Seen at multiple UC and ED since last visit. Marketing Outreach Coordinator Required: No Accompanied by: Self / Same As Patient Allergies naproxen Allergy (Unknown, Verified 02/15/24 15:45) unknown Medication List - Last Reconciled 02/15/24 by Keesha Burgos MD albuterol sulfate 90 mcg/actuation 1 puff PO Q4H PRN amlodipine 10 mg PO DAILY blood sugar diagnostic (Diditzuch Verio test strips) As directed clonidine HCl 0.1 mg PO BID duloxetine 60 mg PO DAILY erenumab-aooe (Aimovig Autoinjector) mg subcut fluticasone propionate 50 mcg/actuation 1 spray intranasal DAILY hydrochlorothiazide 25 mg PO DAILY ibuprofen 800 mg PO TID PRN insulin glargine U-300 conc (Toujeo SoloStar U-300 Insulin) units subcut labetalol 300 mg (3 x 100 mg) PO BID 30 days lisinopril 40 mg PO DAILY pantoprazole 40 mg PO DAILY pioglitazone 15 mg PO DAILY rizatriptan mg PO PRN spironolactone 50 mg PO DAILY HPI HPI Comments History of Present Illness Details 43-year-old female with seronegative rhe umatoid arthritis returns for follow-up. Patient has been taking sulfasalazine regularly for approximately 2 months now. She can not think of any side effects related to it. She states that she had COVID last month and since then she has been having significant neck pain, upper back pain radiating to both her shoulders and arms. She continues to have pain in her hands and wrists. Initial history: This is a 43-year-old female who was referred by Pain Management for evaluation of inflammatory arthritis. The since 2012 patient has been having dry eyes and dry mouth as well as polyarthralgias. She was labeled as Sjogren's. She was evaluated by soundscriber mechanic in 2019. Comprehensive serology was unremarkable. Lip biopsy was negative for any signs of Sjogren's. She was started on hydroxychloroquine. She took for about 2 years and it was helpful. Patient was last seen by soundscriber mechanic Dr. Parr in [place] in 2020. She states that her main complaint is bilateral hand pain, swelling and morning stiffness lasting 2 hours. She takes ibuprofen 800 mg almost daily to control her hand pain. She gets intermittent right knee pain. In 2019 patient had right knee effusion, arthrocentesis was performed and it showed noninflammatory fluid. She states that prednisone is almost always helpful. She was also prescribed cevimeline and it was not very helpful. She denies any history of DVT/PE. She is unaware of any family history of autoimmune rheumatic disease [facility] Medical History COVID-19 vaccine administered Lab test negative for COVID-19 virus History of postoperative nausea Sleep apnea Thyroid disease HTN (hypertension) Low back pain Morbid obesity Interstitial cystitis Surgical History Hx of partial thyroidectomy History of bladder surgery History of carpal tunnel release of both wrists Family History Mother Parkinson disease Father Aneurysm Social History Household Members: Spouse Are you a primary manager respiratory care to a significant other at home: No Do you presently have visiting nurse or other home services: No Current occupational status: employed and disabled 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 Review of Systems Const Reports fatigue and Reports weakness ENT Reports neck pain GI Reports heartburn Musc Reports arthralgias, Reports joint swelling, Reports neck pain, Reports radiating pain into limb and Reports stiffness Neuro Reports weakness Endo Reports fatigue and Reports polydipsia Physical Exam Vital Signs: Last Vital Signs Pulse 94 02/15/24 15:42 BP 130/82 02/15/24 15:42 Pulse Ox 100 02/15/24 15:42 Oxygen Delivery Method Room Air 02/15/24 15:42 BMI result Body Mass Index 57.5 Const General: cooperative, healthy appearing and comfortable Nutritional Appearance: obese morbidly obese Orientation/consciousness: patient oriented x3 HEENT Head: Yes normocephalic and Yes atraumatic Resp Effort & Inspection: normal respiratory effort and able to speak in complete sentences Neuro General: patient oriented x3 Extrem Other: Bilateral wrist tenderness Bilateral 2nd through 5th MCP tenderness Mild puffiness of MCPs and fingers Multiple tender MCPs, PIPs, nontender DIPs Normal nailfold capillaroscopy Results Reviewed Results Reviewed: Labs 06/2020 [facility] IFA/RF/CCP/dsDNA/Kenny/SHODER FILLER/SSA/SSB/SCL 70/centromere /RNA polymerase 3 all negative CRP 36 (elevated) ESR 34 CPK 157 nl TSH normal C3-180 nl C4 45 nl Urinalysis negative Bilateral hand x-rays 06/2020 Impression: Unremarkable Bilateral knee x-rays 2019: Joint space is well-maintained Right knee arthrocentesis 10/2021 Synovial fluid cell count 280 11% neutrophils 66% monocytes 23% lymphocytes Lip biopsy 09/2020 No signs of inflammation or other features of Sjogren's Labs 12/2023? 14.3.3/anti CEP-1/Anti-Sa/Anti-Sa/Anti-CarP? all negative Bilateral hand and wrist ultrasound 12/2023? Impression:? Findings which can be seen in rheumatoid/inflammatory arthritis including bilateral synovitis of the ulnar styloids and the 2nd MCPs Assessment & Plan Assessment & Plan (1) Seronegative rheumatoid arthritis: Comment: HCQ ineffective SSZ 11/2023 DC01/2024 ineffective. Code(s): M06.00 - Rheumatoid arthritis without rheumatoid factor, unspecified site Plan: This is a 43-year-old female with seronegative rheumatoid arthritis who presents for follow-up. Not doing well. Continues to have active synovitis. She has been taking sulfasalazine for almost 2 months now without improvement. She took hydroxychloroquine for about 2 years in the past without improvement. Patient states that she is trying to get through IVF. She is in the process of finding an IVF specialist Will DC sulfasalazine. At this point, patient has failed hydroxychloroquine and sulfasalazine. Can not start methotrexate due to potential teratogenic effects. Discussed risks and benefits of Cimzia. Patient agreed to proceed. Will start prior authorization for Cimzia Labs before next visit in 3 months (2) Neck pain, bilateral: Code(s): M54.2 - Cervicalgia Plan: Flexeril trial Plan I spent 25 minutes reviewing patient's chart, evaluating patient, ordering diagnostic workup, counseling patient and documenting in the chart Orders: Orders Erythrocyte Sedimentation Rate 3 Months M06.9 - Rheumatoid arthritis, unspecified Complete Blood Count Auto Diff 3 Months M06.9 - Rheumatoid arthritis, unspecified Comprehensive Met. Panel 3 Months M06.9 - Rheumatoid arthritis, unspecified C Reactive Protein 3 Months M06.9 - Rheumatoid arthritis, unspecified Medications: New cyclobenzaprine can cause dizziness, lightheadedness, do not drive or operate heavy machinery if feeling as such 5 mg PO BID PRN 30 tabs 1RF muscle spasm Coding Level of Care Code Est Pt Level 4 (12251) Diagnoses Seronegative rheumatoid arthritis M06.00 Neck pain, bilateral M54.2
== END 2024-02-15 16:11 | disposition home or self-care (01) ==
PROVIDERS: PCP Nurse Practitioner Family; Visit Provider Student in an Organized Health Care Education/Training Program
DX: M06.00 Rheumatoid arthritis without rheumatoid factor, unspecified site (principal); M54.2 Cervicalgia
CPT/HCPCS: 99214

== ENCOUNTER → 2024-02-15 15:39 | Outpatient (BNVA) | payer MEDICARE, MEDICAID, SELFPAY | PROVIDERS: PCP Nurse Practitioner Family; Visit Provider Student in an Organized Health Care Education/Training Program | DX: M06.00 Rheumatoid arthritis without rheumatoid factor, unspecified site (principal); M54.2 Cervicalgia; Z79.899 Other long term (current) drug therapy | CPT/HCPCS: 99212 ==

== ENCOUNTER 2024-03-28 15:33 | Outpatient (AMB) | payer MEDICARE, MEDICAID, SELFPAY ==
--- NOTE | 2024-03-28 15:41 | MHC.OFFVIS ---
Vital Signs 03/28/24 16:20 Height 5 ft 2 in Weight 312 lb 4 oz BMI 57.1 BP 140/80 H Blood Pressure Location Lt brachial Position Sitting Respiration 16 Pulse 65 Pulse Source Pulse Oximeter Pulse Oximetry (%) 100 Oxygen Delivery Method Room Air Intake Visit Reasons: ITDD Refill Intake Note: Patient comes in for intrathecal medication refill. Reports pain 12/06. Allergies naproxen Allergy (Unknown, Verified 03/28/24 16:20) unknown HPI Comments Details: Fatemeh is 42 years old with history of chronic pelvic pain, interstitial cystitis intractable to any conservative and surgical treatments.? I DDD implanted 3 years ago.? She receives very moderate doses of the opioid medications morphine and she receives clonidine intrathecally.? See refill below.? She reports excellent pain relieve with no pain whatsoever related to her interstitial cystitis chronic pelvic pain and endometriosis.? Her blood pressure is well controlled now She came today to the office for the intrathecal pain pump refill. She is under care of Dr. Moreira for seronegative rheumatoid arthritis . [facility] Medical History COVID-19 vaccine administered Lab test negative for COVID-19 virus History of postoperative nausea Sleep apnea Thyroid disease HTN (hypertension) Low back pain Morbid obesity Interstitial cystitis Surgical History Hx of partial thyroidectomy History of bladder surgery History of carpal tunnel release of both wrists Family History Mother Parkinson disease Father Aneurysm Social History Household Members: Spouse Are you a primary post acute care nurse practitioner to a significant other at home: No Do you presently have visiting nurse or other home services: No Current occupational status: employed and disabled 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 Review of Systems Const All systems reviewed & are unremarkable except as noted in HPI and below ENT Reports Normal hearing present Neuro Reports Normal hearing present, Denies Abnormal speech present and Denies Sensory deficit (Neuro) Physical Exam Const Nutritional Appearance: obese morbidly obese Eyes General: appearance normal, both eyes and all related structures Pupils: Equal, round and reactive pupils present EOM: EOMs intact bilaterally Neck Neck: Yes full ROM Chest Chest palpation & inspection: normal inspection of the chest Resp Effort & Inspection: normal respiratory effort, able to speak in complete sentences, normal respiratory pattern, no audible wheezes and no cough Cardio Other: On exam today blood pressure 198 /88 mm Hg Jugular venous distension: no JVD GI Inspection: Yes normal to inspection Back/Spine/Pelvis Other: This patient demonstrates normal gait, reports no tenderness of palpation in lumbar spine. Reports normal strength in bilateral lower extremities. Able to stand on her tiptoes and on her heels without difficulty so muscular strands in normal reports only sensory changes in the right lateral hip. The rest of the legs are normal. Reports no numbness elsewhere but right hip. Flexion forward and flexion backwards of the lumbar spine without difficulty. Straight leg rising is negative for back pain. Neuro Cranial nerves: Yes Equal, round and reactive pupils present and Yes Normal hearing present Speech: No Abnormal speech present Gait exam (Neuro): Normal gait present Motor exam (neuro): 5/5 motor strength present throughout Sensory Exam: No Sensory deficit (Neuro) Extrem General: No pedal edema Psych Speech and movement: Normal speech and movement present Affect: normal affect Attitude: cooperative Thought process: Normal thought process present Thought content: Normal thought content present Assessment & Plan Assessment & Plan (1) Interstitial cystitis: Code(s): N30.10 - Interstitial cystitis (chronic) without hematuria Category: Medical (2) Morbid obesity: Code(s): E66.01 - Morbid (severe) obesity due to excess calories Category: Medical Plan: Pump refill is as below. Patient will continue with nephrology office. Patient will continue with rheumatology office Dr. Moreira. On the shoulder x-ray there is minimal acromioclavicular joint changes. Glenohumeral joint is intact. She did not complain on pain in his shoulders today. (3) Low back pain: Code(s): M54.5 - Low back pain Category: Medical Qualifiers: Chronicity: chronic (4) Essential hypertension: Code(s): I10 - Essential (primary) hypertension Category: Medical (5) Endometriosis: Code(s): N80.9 - Endometriosis, unspecified Category: Medical (6) Chronic pain syndrome: Code(s): G89.4 - Chronic pain syndrome Category: Medical (7) Bilateral shoulder region arthritis: Code(s): M19.011 - Primary osteoarthritis, right shoulder; M19.012 - Primary osteoarthritis, left shoulder Category: Medical (8) Rheumatoid arthritis: Code(s): M06.9 - Rheumatoid arthritis, unspecified Category: Medical Plan *THE PATIENT CAME TODAY FOR THE CHANGE OF THE MEDICATION IN her PAIN PUMP. The name and date of were verified and informed consent was obtained for the procedure. The pump was interrogated. residual amount of the fluid must be 9.5 mL. SHE WAS POSITIONED prone on the bed AND THE AREA OF THE INTRATHECAL PUMP WAS PREPPED WITH CHLORAPREP. The fenestrated drape was sterilely applied over the area of the pump. Sterile gloves were worn and of the aspiration system was assembled containing 2 in 22 gauge noncoring needle, the needle was connected to extension tubing which was connected to the 20 cc sterile syringe. The pain pump was palpated under the skin in the patient's right buttock area. The needle was inserted through the skin and the central plug of the pain pump and fluid was aspirated. The clear fluid was going into the syringe the total amount of the fluid was 9.5 mL .. After that a new batch of medication was obtained containing correct doses of the medications including Morphine PF 800mcg per ml and clonidine PF 200 mcg/ ml. She is able to administer herself PTM dose 25 micro g of morphine with corresponding 6.25 micro g of clonidine every 6 hours 3 times a day. . The admixture was made in 20 [address] [facility] compounding pharmacy. The syringe was connected to the bacterial filter, and then connected to the extension tubing. After that the medication in the syringe was slowly instilled into the pump with aspirations at 15 and 5 cc sr. Next pump refill will be scheduled in 90 days 06/28/2024. . Coding Level of Care Code Est Pt Level 3 (07546) Procedure Only Diagnoses Interstitial cystitis N30.10 Morbid obesity E66.01 Low back pain M54.5 Chronicity: chronic Essential hypertension I10 Endometriosis N80.9 Chronic pain syndrome G89.4 Bilateral shoulder region arthritis M19.011; M19.012 Rheumatoid arthritis M06.9
[2024-03-28 16:20] VITALS: BP 140/80; PULSE 65; RESP 16; O2SAT 100; BMI 57.1
== END 2024-03-28 16:04 | disposition home or self-care (01) ==
PROVIDERS: PCP Nurse Practitioner Family; Visit Provider Anesthesiology
DX: N30.10 Interstitial cystitis (chronic) without hematuria (principal); E66.01 Morbid (severe) obesity due to excess calories; M54.50 Low back pain, unspecified; I10 Essential (primary) hypertension; Z45.1 Encounter for adjustment and management of infusion pump
CPT/HCPCS: 95991; 99213

== ENCOUNTER → 2024-03-28 15:33 | Outpatient (BNVA) | payer MEDICARE, MEDICAID, SELFPAY | PROVIDERS: PCP Nurse Practitioner Family; Visit Provider Anesthesiology | DX: M54.59 Other low back pain (principal); M19.011 Primary osteoarthritis, right shoulder; M19.012 Primary osteoarthritis, left shoulder; M06.9 Rheumatoid arthritis, unspecified; I10 Essential (primary) hypertension; N80.9 Endometriosis, unspecified; E66.01 Morbid (severe) obesity due to excess calories; G89.4 Chronic pain syndrome; Z68.43 Body mass index [BMI] 50.0-59.9, adult | CPT/HCPCS: 99212 ==

== ENCOUNTER 2024-04-26 10:58 | Outpatient (AMB) | payer MEDICARE, MEDICAID, SELFPAY ==
--- NOTE | 2024-04-26 11:02 | A.OFFPC_ITS ---
Vital Signs 04/26/24 11:13 Height 5 ft 1.61 in Weight 311 lb 4 oz BMI 57.6 BP 106/68 Blood Pressure Location Lt brachial Position Sitting Respiration 16 Pulse 67 Pulse Source Pulse Oximeter Temp 98.1 F Temp Source Temporal Artery Scan Pulse Oximetry (%) 99 Oxygen Delivery Method Room Air Intake Visit Reasons: SPECIMEN BOSS, diabetes,blood pressure Intake Note: New patient visit. Fluid in right ear and painful.m A1c 7.1 on 04/10/24 at [facility]. Press Operator Required: No Allergies naproxen Allergy (Unknown, Verified 04/26/24 11:28) unknown semaglutide [From Ozempic] Allergy (Unknown, Verified 04/26/24 11:28) stomach issues Medication List - Last Reconciled 04/26/24 by Adriana Keenan, TREE SURGEON- albuterol sulfate 90 mcg/actuation 1 puff PO Q4H PRN amlodipine 10 mg PO DAILY blood sugar diagnostic ([employer] Verio test strips) As directed Cimzia (certolizumab pegol) 200 mg subcut Q2W NS clonidine HCl 0.1 mg PO BID duloxetine (Cymbalta) 60 mg PO DAILY empagliflozin (Jardiance) 10 mg PO DAILY erenumab-aooe (Aimovig Autoinjector) mg subcut fluticasone propionate 50 mcg/actuation 1 spray intranasal DAILY hydrochlorothiazide 25 mg PO DAILY ibuprofen 800 mg PO TID PRN insulin degludec (Tresiba FlexTouch U-200 insulin) 60 units subcut BEDTIME labetalol 300 mg (3 x 100 mg) PO BID 30 days levothyroxine 112 mcg PO DAILY lisinopril 40 mg PO DAILY morphine 2 mg IM Q6H pantoprazole 40 mg PO DAILY pioglitazone 10 mg PO DAILY rizatriptan mg PO PRN spironolactone 50 mg PO DAILY Tobacco use date assessed: 04/26/24 Dental Screening Dental Screen Date: 04/26/24 Did you have a dental visit in the last 12 months?: Yes Did you have a dental problem in the last 6 months where you did not have access to dental care?: No Was dental information given to patient?: Patient has dentist HPI HPI Comments History of Present Illness Details 44-year-old female with RA, hypertension , morbid obesity, interstitial cystitis sleep apnea, hypothyroidism, DM 2, PCOS, Sjorgens, Status post partial thyroidectomy (215), bladder surgery (InterStim implant in 2004 with revision in 2011) carpal tunnel release bilat in (2019) Social: 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 Reports that there is a spot that they are watching. She will reschedule. Hemoglobin A1c 7.7% 02/12/24 [facility] Rhe[facility] Pain management Nephrology Endo at [facility] Cards at [facility] [place] [facility] in the last year. ENT Here today to establish care. Complex patient with several medical conditions. Labs 12/26/2023 normal CBC, ESR 25, normal lytes, normal renal function, random glucose 192, normal LFT, elevated CRP at 4.37, Chief complaint today is that of a right ear pain. Started a few weeks ago. To go to the walk-in and was told it was allergies. However it continues to bother her. Denies any other constitutional symptoms related to the right ear pain. She states that her anxiety and depression screening done today were elevated in the setting of her has been getting laid off. However she reports that her anxiety and depression are usually well controlled. The other thing that is really bothersome to her is that she can not get . She was trying to do IVF but that did not work for several different reasons. She feels very hopeless about the situation. She has not currently active with electrical sign wirer in his open to a referral. She is seeing endocrinology who manages her diabetes. Reports that endocrinology is not managing her hypothyroidism. A TSH was checked today. She has been euthyroid on her current dose. She wishes for a refill to be sent in. In regards to her obesity she would like a referral to the metabolic clinic. Wishes to lose weight but not with surgery. [facility] Medical History (Updated 04/26/24 @ 16:43 by Adriana Keenan, ALLEGRA) Depression Anxiety Headache Herpes Arthritis Diabetes Sinusitis Bilateral shoulder region arthritis Polyarthralgia Neck pain, bilateral COVID-19 vaccine administered Lab test negative for COVID-19 virus History of postoperative nausea Sleep apnea Thyroid disease HTN (hypertension) Low back pain Morbid obesity Interstitial cystitis Surgical History Hx of partial thyroidectomy History of bladder surgery History of carpal tunnel release of both wrists Family History (Updated 04/26/24 @ 11:27 by Vernell Russell CMA) Mother Parkinson disease Father Aneurysm Skin cancer Sister Alcoholism Brother Alcoholism Maternal Grandmother Cardiovascular disease Maternal Grandfather HTN (hypertension) Paternal Grandfather Diabetes Other FH: mental illness Substance use Social History (Updated 04/26/24 @ 11:12 by Vernell Russell CMA) Household Members: Spouse Housing: House Are you a primary technical healthcare consultant to a significant other at home: No Do you presently have visiting nurse or other home services: No Patient Tobacco Use Status: Never used Tobacco e-Cigarette/Vaping Use: Never Used Second Hand Smoke Exposure: No Substance Use Type: Marijuana service: No Current occupational status: employed and disabled 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 1. Little interest or pleasure in doing things: nearly every day 2. Feeling down, depressed, or hopeless: more than half the days 3. Trouble falling or staying asleep, or sleeping too much: nearly every day 4. Feeling tired or having little energy: nearly every day 5. Poor appetite or overeating: several days 6. Feeling bad about yourself - or that you are a failure or have let yourself or your family down: more than half the days 7. Trouble concentrating on things, such as reading the newspaper or watching television: not at all 8. Moving or speaking so slowly that other people could have noticed. Or the opposite - being so fidgety or restless that you have been moving around a lot more than usual: not at all 9. Thoughts that you would be better off or of hurting yourself in some way: not at all Total score: 14 Depression Screening Interpretation: Positive Depression Screening Follow-up: Existing condition and In treatment Depression Screening Done: Yes 61927 - PHQ-9 Billing: Yes Source: Developed by Drs. Blaise Soriano, Kaitlynn Tineo, Koko Pena and colleagues, with an educational naheed from [employer]. Thrive Questionnaire Date Thrive assessed: 04/26/24 I am a: Patient What is your living situation today?: I have a steady place to live Within the past 12 months, did the food you bought not last and you didn't have the money to get more?: Never true Within the past 12 months, did you worry whether your food would run out before you got money to buy more?: Never true Do you have trouble paying for medicines?: No Do you have trouble getting transportation to medical appointments?: No Do you have trouble paying your heating and electricity bill?: No Do you have trouble taking care of your child, family member or friend?: No Do you have trouble with day-to-day activities such as bathing, preparing meals, shopping, managing finances, etc.?: No Are you currently unemployed and looking for a job?: No Are you interested in more education?: No Please select the resources that you would like help with: None Currently or been in a relationship where the following occur: no concerns reported THRIVE Score: 0 AUDIT C Alcohol Use Questionnaire (AUDIT-C) 1. How often do you have a drink containing alcohol?: Monthly or less 2. How many drinks containing alcohol do you have on a typical day when you are drinking?: 1 or 2 3. How often do you have six or more drinks on one occasion?: Never Total Score: 1 BRENDA-7 AMB Questionnaire BRENDA-7 Date BRENDA - 7 assessed: 04/26/24 Feeling nervous, anxious, or on edge: 3 = Nearly every day Not being able to stop or control worryin = Nearly every day Worrying too much about different things: 3 = Nearly every day Trouble relaxin = Nearly every day Being so restless that it is hard to sit still: 3 = Nearly every day Becoming easily annoyed or irritable: 3 = Nearly every day Feeling afraid as if something awful might happen: 3 = Nearly every day Total BRENDA-7 score (0-4 normal; 5-9 mild; 10-14 moderate; 15-21 severe): 21 Source: Developed by Drs. Blaise Soriano, Kaitlynn Tineo, Koko Pena and colleagues, with an educational naheed from [employer]. BRENDA-7 Assessment Billing BRENDA-7 Assessment Tool: BRENDA-7 Assessment 49315 Review of Systems Const All systems reviewed & are unremarkable except as noted in HPI and below Physical exam (Primary Care) Vital Signs: Last Vital Signs Temp 98.1 F 04/26/24 11:13 Pulse 67 04/26/24 11:13 Resp 16 04/26/24 11:13 BP 106/68 04/26/24 11:13 Pulse Ox 99 04/26/24 11:13 Oxygen Delivery Method Room Air 04/26/24 11:13 BMI result Body Mass Index 57.6 BMI Assessment/Plan discussion: High BMI High, discussed plan: lifestyle Tobacco/Smoking Status: Tobacco use Status Tobacco use date assessed 04/26/24 04/26/24 11:15 Patient Tobacco Use Status Never used Tobacco 04/26/24 11:15 e-Cigarette/Vaping Use Never Used 04/26/24 11:15 PHQ-9: PHQ-9 Score PHQ-9: Total score 14 04/26/24 11:24 Depression Screening Interpretation: Positive Depression Screening Follow-up: Existing condition and In treatment Thrive Assessment: Date of Thrive Assessment Date Thrive assessed 04/26/24 04/26/24 11:24 Currently or been in a relationship where the following occur: no concerns reported Const Other: Awake alert NAD Sclera and conjunctiva clear bilat Nares patent, turbinates within normal limits, no sinus tenderness with palpation bilat TM intact mild effusions bilat, right worse than left MMM, pharynx WNL RRR LS CTAB Assessment and Plan Assessment & Plan (1) Polycystic ovary syndrome: Code(s): E28.2 - Polycystic ovarian syndrome (2) Hypothyroid: Code(s): E03.9 - Hypothyroidism, unspecified Qualifiers: Hypothyroidism type: postoperative Qualified Code(s): E89.0 - Postprocedural hypothyroidism (3) Morbid (severe) obesity with alveolar hypoventilation: Code(s): E66.2 - Morbid (severe) obesity with alveolar hypoventilation (4) DM type 2 causing complication: Code(s): E11.8 - Type 2 diabetes mellitus with unspecified complications (5) Infertility counseling: Code(s): Z31.69 - Encounter for other general counseling and advice on procreation Plan This note is constructed using voice recognition software. While every effort has been made to ensure accuracy in corporate trust officer, still errors may have been included Sometimes, these errors may affect the content or meaning of the given sentence . Total time spent caring for the patient today was 66 minutes. This includes time spent before the visit reviewing the chart, time spent during the visit, and time spent after the visit on documentation Orders: Orders TSH reflex Free T4 Today E03.9 - Hypothyroidism, unspecified Referrals PROJECT COORDINATOR RN Referral E28.2 - Polycystic ovarian syndrome, Z12.4 - Encounter for screening for malignant neoplasm of cervix, Z31.69 - Encounter for other general counseling and advice on procreation Metabolic Clinic Referral E66.2 - Morbid (severe) obesity with alveolar hypoventilation Medications: New levothyroxine TAKE 1 TAB DAILY AND 2 TABS ON MONDAY 112 mcg PO DAILY Patient Instructions: Refer to metabolic clinic to assist in weight loss. Levothyroxine refilled at current dose. Diabetes is bandaged by endocrinology. Please schedule an updated eye exam. New referral placed to [facility] would refer a for well Women's visit, PCOS as well as infertility. Return to office in about 6 months for complete physical exam, sooner as needed. Coding Level of Care Code New Pt Level 5 (15315) Diagnoses Polycystic ovary syndrome E28.2 Postoperative hypothyroidism E89.0 Hypothyroidism type: postoperative Morbid (severe) obesity with alveolar hypoventilation E66.2 DM type 2 causing complication E11.8 Infertility counseling Z31.69 Additional Codes BRENDA-7 Assessment Billing - BRENDA-7 Assessment Tool: BRENDA-7 Assessment [id number] ([id number])
[2024-04-26 11:13] VITALS: BP 106/68; PULSE 67; RESP 16; TEMP 36.7; O2SAT 99; BMI 57.6
== END 2024-04-26 12:06 | disposition home or self-care (01) ==
PROVIDERS: PCP Nurse Practitioner Family; Visit Provider Nurse Practitioner Family
DX: E28.2 Polycystic ovarian syndrome (principal); E66.2 Morbid (severe) obesity with alveolar hypoventilation; E11.8 Type 2 diabetes mellitus with unspecified complications; Z68.43 Body mass index [BMI] 50.0-59.9, adult; E89.0 Postprocedural hypothyroidism; Z31.69 Encounter for other general counseling and advice on procreation
CPT/HCPCS: 99205

== ENCOUNTER 2024-04-26 11:53 | Outpatient (REF) | payer MEDICARE, MEDICAID, SELFPAY ==
[2024-04-26 14:19] LABS: MANUAL DIFF FLAG NO
[2024-04-26 14:26] LABS: Basophils Percent Auto 0.4 % (0-2); Eosinophils Absolute Auto 0.2 X10*3/uL (0.0-0.4); Eosinophils Percent Auto 1.9 % (0-4); Hematocrit 40.3 % (37.0-47.0); Hemoglobin 12.8 g/dl (12.0-16.0); Imm Gran Abs Auto 0.03 X10*3/uL (0.00-0.03); Imm Gran Pct Auto 0.3 % (0.0-0.4); Lymphocytes Absolute Auto 2.5 X10*3/uL (1.2-4.9); Lymphocytes Percent Auto 26.5 % (20-40); Mean Corpuscular HGB Conc 31.8 g/dl (31.0-35.0); Mean Corpuscular Hemoglobin 27.4 pg (27.0-33.0); Mean Corpuscular Volume 86.1 fL (80.0-98.0); Mean Platelet Volume 9.4 fL (9.4-12.3); Monocytes Absolute Auto 0.5 X10*3/uL (0.1-1.2); Monocytes Percent Auto 5.1 % (2-11); Neutrophils Absolute Auto 6.2 x10*3/uL (2.0-8.3); Neutrophils Percent Auto 65.8 % (45-73); Platelet Count 429 X10*3/uL (160-400); Red Blood Count 4.68 X10*6/uL (4.20-5.50); Red Cell Distribution Width 13.8 % (11.0-16.0); White Blood Count 9.4 X10*3/uL (4.8-10.8)
[2024-04-26 15:06] LABS: Alanine Aminotransferase 21 U/L (0-31); Albumin Level 4.1 g/dL (3.5-5.0); Alkaline Phosphatase 73 U/L (39-117); Anion Gap 10 (12-20); Aspartate Amino Transferase 16 U/L (5-31); Bilirubin Total 0.4 mg/dL (0.0-1.0); Blood Urea Nitrogen 15 mg/dL (9-16); C Reactive Protein 2.78 mg/dL (< or = 0.50); Calcium 9.9 mg/dL (8.4-10.2); Carbon Dioxide 28 mmol/L (22-29); Chloride 105 mmol/L (96-108); Erythrocyte Sedimentation Rate 31 MM/HR (0-20); Estimated Glomerular Filt Rate 57; Glucose Random 95 mg/dL (60-115); Potassium 4.1 mmol/L (3.3-5.1); Sodium 139 mmol/L (135-145); Total Protein 7.4 g/dL (6.5-8.0)
[2024-04-26 15:22] LABS: TSH reflex Free T4 2.14 uIU/mL (0.32-4.0)
== END 2024-04-26 11:54 | disposition home or self-care (01) ==
LOC: HO.WFDLDS 11:53
PROVIDERS: Student in an Organized Health Care Education/Training Program; Visit Provider Nurse Practitioner Family
DX: M06.9 Rheumatoid arthritis, unspecified (principal); E03.9 Hypothyroidism, unspecified
CPT/HCPCS: 36415; 80053; 84443; 85025; 85652; 86140

== ENCOUNTER 2024-06-27 15:19 | Outpatient (AMB) | payer MEDICARE, MEDICAID, SELFPAY ==
--- NOTE | 2024-06-27 15:37 | A.OFFVIS_ITS ---
Vital Signs 06/27/24 15:38 Height 5 ft 2 in Weight 321 lb BMI 58.7 BP 180/94 H Blood Pressure Location Lt brachial Position Sitting Respiration 16 Pulse 68 Pulse Source Pulse Oximeter Pulse Oximetry (%) 98 Oxygen Delivery Method Room Air Intake Visit Reasons: ITDD REFILL Intake Note: Patient comes in for intrathecal medication refill. Reports pain 7/10. Allergies naproxen Allergy (Unknown, Verified 06/27/24 16:15) unknown semaglutide [From Ozempic] Allergy (Unknown, Verified 06/27/24 16:15) stomach issues HPI Comments Details: Fatemeh is 42 years old with history of chronic pelvic pain, interstitial cystitis intractable to any conservative and surgical treatments.? I DDD implanted 3 years ago.? She receives very moderate doses of the opioid medications morphine and she receives clonidine intrathecally.? See refill below.? She reports excellent pain relieve with no pain whatsoever related to her interstitial cystitis chronic pelvic pain and endometriosis.? Her blood pressure is again elevated however not to the numbers which would require immediate attention. The blood pressure now is 190/90 mm Hg.. She stated today that she enrolled in weight loss program. I encouraged her to continue to pursue healthy weight reduction. [facility] Medical History Depression Anxiety Headache Herpes Arthritis Diabetes Sinusitis Bilateral shoulder region arthritis Polyarthralgia Neck pain, bilateral COVID-19 vaccine administered Lab test negative for COVID-19 virus History of postoperative nausea Sleep apnea Thyroid disease HTN (hypertension) Low back pain Morbid obesity Interstitial cystitis Surgical History Hx of partial thyroidectomy History of bladder surgery History of carpal tunnel release of both wrists Family History Mother Parkinson disease Father Aneurysm Skin cancer Sister Alcoholism Brother Alcoholism Maternal Grandmother Cardiovascular disease Maternal Grandfather HTN (hypertension) Paternal Grandfather Diabetes Paternal Uncle Psoriasis Other FH: mental illness Substance use Social History Household Members: Spouse Housing: House Are you a primary memory care director to a significant other at home: No Do you presently have visiting nurse or other home services: No Patient Tobacco Use Status: Never used Tobacco e-Cigarette/Vaping Use: Never Used Second Hand Smoke Exposure: No Substance Use Type: Marijuana service: No Current occupational status: employed and disabled 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 Current occupational exposures/hazards: No Cognitive needs: No Hearing needs: No Vision needs: Yes (glasses) Review of Systems Const All systems reviewed & are unremarkable except as noted in HPI and below Physical Exam Vital Signs: Last Vital Signs Pulse 68 06/27/24 15:38 Resp 16 06/27/24 15:38 BP 180/94 H 06/27/24 15:38 Pulse Ox 98 06/27/24 15:38 Oxygen Delivery Method Room Air 06/27/24 15:38 BMI result Body Mass Index 58.7 Const General: cooperative, healthy appearing and comfortable Nutritional Appearance: obese morbidly obese Orientation/consciousness: patient oriented x3 HEENT Head: Yes normocephalic and Yes atraumatic Resp Effort & Inspection: normal respiratory effort and able to speak in complete sentences Neuro General: patient oriented x3 Extrem Other: Bilateral wrist tenderness Bilateral 2nd through 5th MCP tenderness Mild puffiness of MCPs and fingers Multiple tender MCPs, PIPs, nontender DIPs Normal nailfold capillaroscopy Bilateral knee pain with flexion-extension Swelling, tenderness and warmth of dorsum of left foot Assessment & Plan Assessment & Plan (1) Interstitial cystitis: Code(s): N30.10 - Interstitial cystitis (chronic) without hematuria Category: Medical (2) Morbid obesity: Code(s): E66.01 - Morbid (severe) obesity due to excess calories Category: Medical Plan: Pump refill is as below. Patient will continue with nephrology office. Patient will continue with rheumatology office Dr. Moreira. On the shoulder x-ray there is minimal acromioclavicular joint changes. Glenohumeral joint is intact. She did not complain on pain in his shoulders today. (3) Low back pain: Code(s): M54.5 - Low back pain Category: Medical Qualifiers: Chronicity: chronic (4) Essential hypertension: Code(s): I10 - Essential (primary) hypertension Category: Medical (5) Endometriosis: Code(s): N80.9 - Endometriosis, unspecified Category: Medical (6) Chronic pain syndrome: Code(s): G89.4 - Chronic pain syndrome Category: Medical (7) Bilateral shoulder region arthritis: Code(s): M19.011 - Primary osteoarthritis, right shoulder; M19.012 - Primary osteoarthritis, left shoulder Category: Medical (8) Rheumatoid arthritis: Code(s): M06.9 - Rheumatoid arthritis, unspecified Category: Medical Plan *THE PATIENT CAME TODAY FOR THE CHANGE OF THE MEDICATION IN her PAIN PUMP. The name and date of were verified and informed consent was obtained for the procedure. The pump was interrogated. residual amount of the fluid must be 8.1 mL. SHE WAS POSITIONED prone on the bed AND THE AREA OF THE INTRATHECAL PUMP WAS PREPPED WITH CHLORAPREP. The fenestrated drape was sterilely applied over the area of the pump. Sterile gloves were worn and of the aspiration system was assembled containing 2 in 22 gauge noncoring needle, the needle was connected to extension tubing which was connected to the 20 cc sterile syringe. The pain pump was palpated under the skin in the patient's right buttock area. The needle was inserted through the skin and the central plug of the pain pump and fluid was aspirated. The clear fluid was going into the syringe the total amount of the fluid was 8.1 mL .. After that a new batch of medication was obtained containing correct doses of the medications including Morphine PF 800mcg per ml and clonidine PF 200 mcg/ ml. She is able to administer herself PTM dose 25 micro g of morphine with corresponding 6.25 micro g of clonidine every 6 hours 3 times a day. . The admixture was made in 20 cc syringe prepared by [facility] compounding pharmacy. The syringe was connected to the bacterial filter, and then connected to the extension tubing. After that the medication in the syringe was slowly instilled into the pump with aspirations at 15 and 5 cc sr. Next pump refill will be scheduled in 90 days on 09/25/2024 . Coding Level of Care Code Est Pt Level 3 (94866) Procedure Only Diagnoses Interstitial cystitis N30.10 Morbid obesity E66.01 Low back pain M54.5 Chronicity: chronic Essential hypertension I10 Endometriosis N80.9 Chronic pain syndrome G89.4 Bilateral shoulder region arthritis M19.011; M19.012 Rheumatoid arthritis M06.9
[2024-06-27 15:38] VITALS: BP 180/94; PULSE 68; RESP 16; O2SAT 98; BMI 58.7
== END 2024-06-27 16:07 | disposition home or self-care (01) ==
PROVIDERS: PCP Nurse Practitioner Family; Visit Provider Anesthesiology
DX: G89.4 Chronic pain syndrome (principal); N30.10 Interstitial cystitis (chronic) without hematuria; M54.50 Low back pain, unspecified; M06.9 Rheumatoid arthritis, unspecified; Z45.1 Encounter for adjustment and management of infusion pump; I10 Essential (primary) hypertension; N80.9 Endometriosis, unspecified; E66.01 Morbid (severe) obesity due to excess calories; M19.011 Primary osteoarthritis, right shoulder; M19.012 Primary osteoarthritis, left shoulder
CPT/HCPCS: 95991; 99213

== ENCOUNTER → 2024-06-27 15:19 | Outpatient (BNVA) | payer MEDICARE, MEDICAID, SELFPAY | PROVIDERS: PCP Nurse Practitioner Family; Visit Provider Anesthesiology | DX: M06.00 Rheumatoid arthritis without rheumatoid factor, unspecified site (principal); N30.10 Interstitial cystitis (chronic) without hematuria; N80.9 Endometriosis, unspecified; M54.50 Low back pain, unspecified; M19.011 Primary osteoarthritis, right shoulder; M19.012 Primary osteoarthritis, left shoulder; M06.9 Rheumatoid arthritis, unspecified; E66.01 Morbid (severe) obesity due to excess calories; I10 Essential (primary) hypertension; Z68.43 Body mass index [BMI] 50.0-59.9, adult | CPT/HCPCS: 99212 ==

== ENCOUNTER 2024-06-27 16:08 | Outpatient (AMB) | payer MEDICARE, SELFPAY ==
[2024-06-27 16:13] VITALS: BP 160/84; PULSE 57; O2SAT 98; BMI 58.7
--- NOTE | 2024-06-27 16:13 | A.OFFVIS_ITS ---
Vital Signs 06/27/24 16:13 Height 5 ft 2 in Weight 321 lb BMI 58.7 BP 160/84 H Blood Pressure Location Rt brachial Position Sitting Pulse 57 Pulse Source Pulse Oximeter Pulse Oximetry (%) 98 Oxygen Delivery Method Room Air Intake Visit Reasons: RA/CM Intake Note: Patient last seen by Doctor Keesha Burgos on 02/15/24. Presents today for follow up on RA and test results. Allergies naproxen Allergy (Unknown, Verified 06/27/24 16:15) unknown semaglutide [From Ozempic] Allergy (Unknown, Verified 06/27/24 16:15) stomach issues Medication List - Last Reconciled 06/27/24 by Keesha Burgos MD albuterol sulfate 90 mcg/actuation 1 puff PO Q4H PRN amlodipine 10 mg PO DAILY blood sugar diagnostic (onefinestayuch Verio test strips) As directed clonidine HCl 0.1 mg PO BID duloxetine (Cymbalta) 60 mg PO DAILY empagliflozin (Jardiance) 10 mg PO DAILY erenumab-aooe (Aimovig Autoinjector) mg subcut fluticasone propionate 50 mcg/actuation 1 spray intranasal DAILY hydrochlorothiazide 25 mg PO DAILY ibuprofen 800 mg PO TID PRN insulin degludec (Tresiba FlexTouch U-200 insulin) 60 units subcut BEDTIME labetalol 300 mg (3 x 100 mg) PO BID 30 days levothyroxine 112 mcg PO DAILY lisinopril 40 mg PO DAILY morphine 2 mg IM Q6H pantoprazole 40 mg PO DAILY pioglitazone 10 mg PO DAILY prednisone Take 2 tabs daily for 2 weeks then 1 tab daily for 2 weeks then stop rizatriptan mg PO PRN spironolactone 50 mg PO DAILY HPI Comments Details: 44-year-old female with seronegative rheumatoid arthritis returns for follow-up. She has been taking Cimzia regularly for the last 4 months without improvement. She can not think of any side effects related to Cimzia, she states that she felt some improvement across her MCPs, about 20% but she developed swelling on the radial aspect of her wrists. Today she is complaining of pain in her left knee, swelling of her left foot. Also complaining of upper back pain. She requested the prednisone taper, I prescribed her prednisone about 10 days ago for 7 days which was quite helpful. She will be seeing another fertility specialist soon Initial history: This is a 43-year-old female who was referred by Pain Management for evaluation of inflammatory arthritis. The since 2012 patient has been having dry eyes and dry mouth as well as polyarthralgias. She was labeled as Sjogren's. She was evaluated by battery vent plug inserter in 2019. Comprehensive serology was unremarkable. Lip biopsy was negative for any signs of Sjogren's. She was started on hydroxychloroquine. She took for about 2 years and it was helpful. Patient was last seen by battery vent plug inserter Dr. Parr in [place] in 2020. She states that her main complaint is bilateral hand pain, swelling and morning stiffness lasting 2 hours. She takes ibuprofen 800 mg almost daily to control her hand pain. She gets intermittent right knee pain. In 2019 patient had right knee effusion, arthrocentesis was performed and it showed noninflammat ory fluid. She states that prednisone is almost always helpful. She was also prescribed cevimeline and it was not very helpful. She denies any history of DVT/PE. She is unaware of any family history of autoimmune rheumatic disease [facility] Medical History Depression Anxiety Headache Herpes Arthritis Diabetes Sinusitis Bilateral shoulder region arthritis Polyarthralgia Neck pain, bilateral COVID-19 vaccine administered Lab test negative for COVID-19 virus History of postoperative nausea Sleep apnea Thyroid disease HTN (hypertension) Low back pain Morbid obesity Interstitial cystitis Surgical History Hx of partial thyroidectomy History of bladder surgery History of carpal tunnel release of both wrists Family History Mother Parkinson disease Father Aneurysm Skin cancer Sister Alcoholism Brother Alcoholism Maternal Grandmother Cardiovascular disease Maternal Grandfather HTN (hypertension) Paternal Grandfather Diabetes Paternal Uncle Psoriasis Other FH: mental illness Substance use Social History Household Members: Spouse Housing: House Are you a primary campground caretaker to a significant other at home: No Do you presently have visiting nurse or other home services: No Patient Tobacco Use Status: Never used Tobacco e-Cigarette/Vaping Use: Never Used Second Hand Smoke Exposure: No Substance Use Type: Marijuana service: No Current occupational status: employed and disabled 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 Current occupational exposures/hazards: No Cognitive needs: No Hearing needs: No Vision needs: Yes (glasses) Female Reproductive History Menstrual Total pregnancies: 2 Ab spontaneous: 2 Review of Systems Musc Reports arthralgias, Reports joint swelling and Reports stiffness Physical Exam Vital Signs: Last Vital Signs Pulse 57 06/27/24 16:13 BP 160/84 H 06/27/24 16:13 Pulse Ox 98 06/27/24 16:13 Oxygen Delivery Method Room Air 06/27/24 16:13 BMI result Body Mass Index 58.7 Const General: cooperative, healthy appearing and comfortable Nutritional Appearance: obese morbidly obese Orientation/consciousness: patient oriented x3 HEENT Head: Yes normocephalic and Yes atraumatic Resp Effort & Inspection: normal respiratory effort and able to speak in complete sentences Neuro General: patient oriented x3 Extrem Other: Bilateral wrist tenderness Bilateral 2nd through 5th MCP tenderness Mild puffiness of MCPs and fingers Multiple tender MCPs, PIPs, nontender DIPs Normal nailfold capillaroscopy Bilateral knee pain with flexion-extension Swelling, tenderness and warmth of dorsum of left foot Results Reviewed Results Reviewed: Labs 06/2020 [facility] IFA/RF/CCP/dsDNA/Kenny/ASSISTANT DIRECTOR OF RESIDENCE LIFE/SSA/SSB/SCL 70/centromere /RNA polymerase 3 all negative CRP 36 (elevated) ESR 34 CPK 157 nl TSH normal C3-180 nl C4 45 nl Urinalysis negative Bilateral hand x-rays 06/2020 Impression: Unremarkable Bilateral knee x-rays 2020: Joint space is well-maintained Right knee arthrocentesis 10/2021 Synovial fluid cell count 280 11% neutrophils 66% monocytes 23% lymphocytes Lip biopsy 09/2020 No signs of inflammation or other features of Sjogren's Labs 12/2023? 14.3.3/anti CEP-1/Anti-Sa/Anti-Sa/Anti-CarP? all negative Bilateral hand and wrist ultrasound 12/2023? Impression:? Findings which can be seen in rheumatoid/inflammatory arthritis including bilateral synovitis of the ulnar styloids and the 2nd MCPs Assessment & Plan Assessment & Plan (1) Seronegative rheumatoid arthritis: Comment: HCQ ineffective SSZ 11/2023 DC01/2024 ineffective. Cimzia 01/2024-DC 06/2024 ineffective Code(s): M06.00 - Rheumatoid arthritis without rheumatoid factor, unspecified site Category: Medical Plan: This is a 43-year-old female with seronegative rheumatoid arthritis who presents for follow-up. Not doing well. Has been on Cimzia for the last 4 months. Continues to have active synovitis. We will need to switch DMARDs. I think at this time her diagnosis is changed no psoriatic arthritis as both her father and paternal uncle have psoriasis. We discussed switching to DMARDs. Patient is still trying to get she will be seeing a fertility specialist soon however patient is not very hopeful that she will actually be able to conceive I will look into the safety of other biologic DMARDs to treat psoriatic arthritis in . Unfortunately we do not have plenty of data regarding other DMARDs, Start prednisone taper. Follow-up in 3 months Plan I spent 25 minutes reviewing patient's chart, evaluating patient, ordering diagnostic workup, counseling patient and documenting in the chart Medications: Changed From prednisone 5 mg PO DAILY 7 tabs 0RF To prednisone Take 2 tabs daily for 2 weeks then 1 tab daily for 2 weeks then stop 45 tabs 1RF Discontinued Cimzia (certolizumab pegol) Discontinued Reason: Doctor's Order 200 mg subcut Q2W 2 kits 2RF NS Coding Level of Care Code Est Pt Level 4 (50679) Diagnoses Seronegative rheumatoid arthritis M06.00
== END 2024-06-27 16:35 | disposition home or self-care (01) ==
PROVIDERS: Visit Provider Student in an Organized Health Care Education/Training Program
DX: M06.00 Rheumatoid arthritis without rheumatoid factor, unspecified site (principal)
CPT/HCPCS: 99214

== ENCOUNTER 2024-07-03 10:56 | Outpatient (REF) | payer MEDICARE, MEDICAID, SELFPAY ==
[2024-07-03 11:42] LABS: MANUAL DIFF FLAG NO
[2024-07-03 12:30] LABS: Basophils Percent Auto 0.3 % (0-2); Eosinophils Absolute Auto 0.2 X10*3/uL (0.0-0.4); Eosinophils Percent Auto 1.8 % (0-4); Hemoglobin 13.9 g/dl (12.0-16.0); Imm Gran Abs Auto 0.05 X10*3/uL (0.00-0.03); Imm Gran Pct Auto 0.5 % (0.0-0.4); Lymphocytes Absolute Auto 2.5 X10*3/uL (1.2-4.9); Lymphocytes Percent Auto 23.7 % (20-40); Mean Corpuscular HGB Conc 31.6 g/dl (31.0-35.0); Mean Corpuscular Hemoglobin 26.3 pg (27.0-33.0); Mean Corpuscular Volume 83.2 fL (80.0-98.0); Mean Platelet Volume 9.6 fL (9.4-12.3); Monocytes Absolute Auto 0.6 X10*3/uL (0.1-1.2); Monocytes Percent Auto 5.5 % (2-11); Neutrophils Percent Auto 68.2 % (45-73); Platelet Count 382 X10*3/uL (160-400); Red Blood Count 5.29 X10*6/uL (4.20-5.50); Red Cell Distribution Width 14.3 % (11.0-16.0); White Blood Count 10.3 X10*3/uL (4.8-10.8)
[2024-07-03 12:35] LABS: Estimated Average Glucose 114 mg/dL; Hemoglobin A1c % 5.6 % (<6.0)
[2024-07-03 13:00] LABS: Alanine Aminotransferase 23 U/L (0-31); Albumin Level 4.4 g/dL (3.5-5.0); Alkaline Phosphatase 76 U/L (39-117); Anion Gap 12 (12-20); Aspartate Amino Transferase 18 U/L (5-31); Bilirubin Total 0.6 mg/dL (0.0-1.0); Blood Urea Nitrogen 20 mg/dL (9-16); C Reactive Protein 3.42 mg/dL (< or = 0.50); Calcium 9.6 mg/dL (8.4-10.2); Carbon Dioxide 27 mmol/L (22-29); Chloride 105 mmol/L (96-108); Estimated Glomerular Filt Rate > 60; Glucose Random 100 mg/dL (60-115); Sodium 140 mmol/L (135-145); Total Protein 7.8 g/dL (6.5-8.0)
[2024-07-03 13:04] LABS: Glucose Fasting 100 mg/dL (60-99)
[2024-07-03 13:09] LABS: Erythrocyte Sedimentation Rate 23 MM/HR (0-20)
[2024-07-03 13:25] LABS: Thyroid Stimulating Hormone 1.32 uIU/mL (0.32-4.0)
[2024-07-03 13:26] LABS: Cortisol Random 8.4 ug/dL
[2024-07-04 09:13] LABS: Follicle Stimulating Hormone 3.5 mIU/mL; Lutenizing Hormone 1.8 mIU/mL; Prolactin 6.8 ng/mL
[2024-07-07 17:03] LABS: Metanephrine, Free <25 pg/mL (<=57); Normetanephrines, Free 87 pg/mL (<=148); Total Metanephrine, Free 87 pg/mL (<=205)
[2024-07-10 21:28] LABS: Anti-Mullerian Hormone-Female 0.33 ng/mL (0.01-2.99)
[2024-07-11 15:09] LABS: Renin 2.17 ng/mL/h (0.25-5.82)
[2024-07-12 01:24] LABS: Progesterone 9.5 ng/mL
[2024-07-12 02:13] LABS: Estradiol Ultra Sensitive 143 pg/mL
[2024-07-13 17:22] LABS: TPMT Activity 15
[2024-07-16 16:43] LABS: Plasma Renin Activity 3.15 ng/mL/h (0.25-5.82)
== END 2024-07-03 10:57 | disposition home or self-care (01) ==
LOC: HO.LAB 10:56
PROVIDERS: Absent Provider Student in an Organized Health Care Education/Training Program; PCP Nurse Practitioner Family; Referring Provider Advanced Practice Midwife; Visit Provider Internal Medicine Nephrology
DX: Z31.69 Encounter for other general counseling and advice on procreation (principal); Z51.81 Encounter for therapeutic drug level monitoring; Z79.899 Other long term (current) drug therapy; Z79.624 Long term (current) use of inhibitors of nucleotide synthesis; I10 Essential (primary) hypertension
CPT/HCPCS: 36415; 80053; 82088; 82166; 82533; 82670; 82947; 83001; 83002; 83036; 83835; 84144; 84146; 84244; 84433; 84443; 85025; 85652; 86140

== ENCOUNTER 2024-07-05 11:21 | Outpatient (AMB) | payer MEDICARE, MEDICAID, SELFPAY ==
--- NOTE | 2024-07-05 11:24 | HO.NEPHOV_ITS ---
Vital Signs 07/05/24 11:30 Height 5 ft 2 in Weight 324 lb 2 oz BMI 59.3 BP 130/70 Blood Pressure Location Lt brachial Position Sitting Pulse 65 Pulse Source Pulse Oximeter Pulse Oximetry (%) 100 Oxygen Delivery Method Room Air Intake Visit Reasons: R/S / Conf Business Assistant Required: No Accompanied by: Self / Same As Patient Allergies naproxen Allergy (Unknown, Verified 07/05/24 11:33) unknown semaglutide [From Ozempic] Allergy (Unknown, Verified 07/05/24 11:33) stomach issues HPI Comments Details: I had the delight of seeing Ms. Colbert in follow up for resistant hypertension. 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 She has been having blood pressure well over 10 years and had been on medications, which she is compliant with. Last year her blood pressure had been going very high in spite of increasing medications. She denies excess sodium in the diet. She was seen in multiple emergency rooms for all his complaints including he will [facility] in [place]. None of these times, she was admitted in the hospital as she responded to treatment given in emergency room. Blood works, CT scan of the head, EKG were all acceptable at that time. She has obstructive sleep apnea and is on CPAP which she claims to be compliant with. She has history of polycystic ovarian disease. She is a diabetic and is on Ozempic. She is not known to have any proteinuria or renal dysfunction.She had Doppler of her renal arteries. She has no history of cocaine use. She denies any other systemic complaints other than what has been mentioned above. Her blood pressure control is better with medication changes now [facility] Medical History Depression Anxiety Headache Herpes Arthritis Diabetes Sinusitis Bilateral shoulder region arthritis Polyarthralgia Neck pain, bilateral COVID-19 vaccine administered Lab test negative for COVID-19 virus History of postoperative nausea Sleep apnea Thyroid disease HTN (hypertension) Low back pain Morbid obesity Interstitial cystitis Surgical History Hx of partial thyroidectomy History of bladder surgery History of carpal tunnel release of both wrists Family History Mother Parkinson disease Father Aneurysm Skin cancer Sister Alcoholism Brother Alcoholism Maternal Grandmother Cardiovascular disease Maternal Grandfather HTN (hypertension) Paternal Grandfather Diabetes Paternal Uncle Psoriasis Other FH: mental illness Substance use Social History Household Members: Spouse Housing: House Are you a primary healthcare management to a significant other at home: No Do you presently have visiting nurse or other home services: No Patient Tobacco Use Status: Never used Tobacco e-Cigarette/Vaping Use: Never Used Second Hand Smoke Exposure: No Substance Use Type: Marijuana service: No Current occupational status: employed and disabled 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 Current occupational exposures/hazards: No Cognitive needs: No Hearing needs: No Vision needs: Yes (glasses) Review of Systems Const All systems reviewed & are unremarkable except as noted in HPI and below Physical Exam Const General: comfortable and no acute distress Orientation/consciousness: patient oriented x3 HEENT Head: Yes normocephalic Mouth: Normal oral and palatal mucosa present Eyes EOM: EOMs intact bilaterally Neck Neck: Yes supple Resp Auscultation: clear to auscultation bilaterally Cardio Jugular venous distension: no JVD Rate: regular rate GI Palpation (GI): Soft to palpation Auscultation: normal bowel sounds General: Yes no CVA tenderness Back/Spine/Pelvis Back: no CVA tenderness Skin General skin exam: no rashes or lesions noted Neuro General: patient oriented x3 and moves all extremities Extrem General: Yes no pedal edema Results Reviewed Nephrology Results: Hgb 13.9 g/dl (12.0-16.0) 07/03/24 WBC 10.3 X10*3/uL (4.8-10.8) 07/03/24 Plt Count 382 X10*3/uL (160-400) 07/03/24 Sodium 140 mmol/L (135-145) 07/03/24 Potassium 4.0 mmol/L (3.3-5.1) 07/03/24 Chloride 105 mmol/L (96-108) 07/03/24 Carbon Dioxide 27 mmol/L (22-29) 07/03/24 BUN 20 mg/dL (9-16) H 07/03/24 Creatinine 0.96 mg/dL (0.5-1.4) 07/03/24 Calcium 9.6 mg/dL (8.4-10.2) 07/03/24 Assessment & Plan Assessment & Plan (1) Essential hypertension: Code(s): I10 - Essential (primary) hypertension Category: Medical Plan Ms Colbert has longstanding hypertension. Doppler of her renal arteries did not show any ROCIO. She has sleep apnea and has a CPAP. She has no signs of papilledema, retinal hemorrhages, heart failure, encephalopathy or acute kidney. She has no history of cocaine use. Ever since I started her on spironolactone 50 mg daily, her BP control is better. Her last serum K was 4.0. I will continue to investigate including urinary free cortisol to urine free cortisone to see whether she has mineral corticoid excess, if her BP remains laile. If 11 beta HSD his functioning normally, urinary free cortisone levels exceed urinary cortisol levels and the ratio cortisol to cortisone is approximately 0.3-0.5. She likely will need imaging of her adrenals, if her BP goes up. Genetic testing to confirm the diagnosis of syndrome of DHARA is available which I may consider. She has no clinical signs to suggest coarctation of aorta. She needs to lose weight. I did not make any medication changes today. She will be followed up in the office. All questions answered. Follow-up given Orders: Orders Creatinine Today I10 - Essential (primary) hypertension Blood Urea Nitrogen Today I10 - Essential (primary) hypertension Electrolytes Today I10 - Essential (primary) hypertension Medications: New hydrochlorothiazide 25 mg PO DAILY 90 tabs 4RF Changed From lisinopril 40 mg PO DAILY To lisinopril 40 mg PO DAILY 90 days 90 tabs 4RF From amlodipine 10 mg PO DAILY To amlodipine 10 mg PO DAILY 90 days 90 tabs 4RF Coding Level of Care Code Est Pt Level 4 (56078) Diagnoses Essential hypertension I10
[2024-07-05 11:30] VITALS: BP 130/70; PULSE 65; O2SAT 100; BMI 59.3
== END 2024-07-05 11:52 | disposition home or self-care (01) ==
PROVIDERS: Visit Provider Internal Medicine Nephrology
DX: I10 Essential (primary) hypertension (principal)
CPT/HCPCS: 99214

== ENCOUNTER → 2024-07-05 11:21 | Outpatient (BNVA) | payer MEDICARE, MEDICAID, SELFPAY | PROVIDERS: Visit Provider Internal Medicine Nephrology | DX: I1A.0 Resistant hypertension (principal); G47.30 Sleep apnea, unspecified; Z99.89 Dependence on other enabling machines and devices | CPT/HCPCS: 99212 ==

== ENCOUNTER 2024-09-23 15:35 | Outpatient (AMB) | payer MEDICARE, MEDICAID, SELFPAY ==
--- NOTE | 2024-09-23 15:41 | A.OFFVIS_ITS ---
Vital Signs 09/23/24 16:25 Height 5 ft 2 in Weight 309 lb 4 oz BMI 56.6 BP 176/100 H Blood Pressure Location Rt radial Position Sitting Respiration 16 Pulse 69 Pulse Source Pulse Oximeter Pulse Oximetry (%) 100 Oxygen Delivery Method Room Air Intake Visit Reasons: ITDD Pump Refill Intake Note: Patient comes in for intrathecal medication refill. Reports pain 12/06. Allergies naproxen Allergy (Unknown, Verified 09/23/24 16:27) unknown semaglutide [From Ozempic] Allergy (Unknown, Verified 09/23/24 16:27) stomach issues HPI Comments Details: Fatemeh is 42 years old with history of chronic pelvic pain, interstitial cystitis intractable to any conservative and surgical treatments.? She had ItDD implanted treatment of her condition. The admixture contains morphine and clonidine. See refill of the intrathecal pain pump as below. She reports excellent pain relieve with no pain whatsoever related to her interstitial cystitis chronic pelvic pain and endometriosis.? She reported that she started to lose weight while on GLP 1 receptor agonist. She reports today that her pump starts to feel little bit lose in the pump pocket. I told her to be careful with this situation and wear a tight elastic underwear to keep the pump flat in the subcutaneous tissues and prevent pump from flipping over. [facility] Medical History Depression Anxiety Headache Herpes Arthritis Diabetes Sinusitis Bilateral shoulder region arthritis Polyarthralgia Neck pain, bilateral COVID-19 vaccine administered Lab test negative for COVID-19 virus History of postoperative nausea Sleep apnea Thyroid disease HTN (hypertension) Low back pain Morbid obesity Interstitial cystitis Surgical History Hx of partial thyroidectomy History of bladder surgery History of carpal tunnel release of both wrists Family History Mother Parkinson disease Father Aneurysm Skin cancer Sister Alcoholism Brother Alcoholism Maternal Grandmother Cardiovascular disease Maternal Grandfather HTN (hypertension) Paternal Grandfather Diabetes Paternal Uncle Psoriasis Other FH: mental illness Substance use Social History Household Members: Spouse Housing: House Are you a primary health care administrator to a significant other at home: No Do you presently have visiting nurse or other home services: No Patient Tobacco Use Status: Never used Tobacco e-Cigarette/Vaping Use: Never Used Second Hand Smoke Exposure: No Substance Use Type: Marijuana service: No Current occupational status: employed and disabled 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 Current occupational exposures/hazards: No Cognitive needs: No Hearing needs: No Vision needs: Yes (glasses) Review of Systems Const All systems reviewed & are unremarkable except as noted in HPI and below Physical Exam Vital Signs: Last Vital Signs Pulse 69 09/23/24 16:25 Resp 16 09/23/24 16:25 BP 176/100 H 09/23/24 16:25 Pulse Ox 100 09/23/24 16:25 Oxygen Delivery Method Room Air 09/23/24 16:25 BMI result Body Mass Index 56.6 Const General: cooperative, healthy appearing and comfortable Nutritional Appearance: obese morbidly obese Orientation/consciousness: patient oriented x3 HEENT Head: Yes normocephalic and Yes atraumatic Resp Effort & Inspection: normal respiratory effort and able to speak in complete sentences General: Yes no CVA tenderness Back/Spine/Pelvis Back: no CVA tenderness Neuro General: patient oriented x3 Extrem Other: Bilateral wrist tenderness Bilateral 2nd through 5th MCP tenderness Mild puffiness of MCPs and fingers Multiple tender MCPs, PIPs, nontender DIPs Normal nailfold capillaroscopy Bilateral knee pain with flexion-extension Swelling, tenderness and warmth of dorsum of left foot General: Yes normal to inspection and Yes capillary refill normal Assessment & Plan Assessment & Plan (1) Interstitial cystitis: Code(s): N30.10 - Interstitial cystitis (chronic) without hematuria Category: Medical (2) Morbid obesity: Code(s): E66.01 - Morbid (severe) obesity due to excess calories Category: Medical Plan: Pump refill is as below. Patient will continue with nephrology office. Patient will continue with rheumatology office Dr. Moreira. She reports that she started to lose weight. She reports that her pump started to feel lose in subcutaneous tissue. (3) Low back pain: Code(s): M54.5 - Low back pain Category: Medical Qualifiers: Chronicity: chronic (4) Essential hypertension: Code(s): I10 - Essential (primary) hypertension Category: Medical (5) Endometriosis: Code(s): N80.9 - Endometriosis, unspecified Category: Medical (6) Chronic pain syndrome: Code(s): G89.4 - Chronic pain syndrome Category: Medical (7) Bilateral shoulder region arthritis: Code(s): M19.011 - Primary osteoarthritis, right shoulder; M19.012 - Primary osteoarthritis, left shoulder Category: Medical (8) Rheumatoid arthritis: Code(s): M06.9 - Rheumatoid arthritis, unspecified Category: Medical Plan *THE PATIENT CAME TODAY FOR THE CHANGE OF THE MEDICATION IN her PAIN PUMP. The name and date of were verified and informed consent was obtained for the procedure. The pump was interrogated. residual amount of the fluid must be 8.5 mL. SHE WAS POSITIONED prone on the bed AND THE AREA OF THE INTRATHECAL PUMP WAS PREPPED WITH CHLORAPREP. The fenestrated drape was sterilely applied over the area of the pump. Sterile gloves were worn and of the aspiration system was assembled containing 2 in 22 gauge noncoring needle, the needle was connected to extension tubing which was connected to the 20 cc sterile syringe. The pain pump was palpated under the skin in the patient's right buttock area. The needle was inserted through the skin and the central plug of the pain pump and fluid was as pirated. The clear fluid was going into the syringe the total amount of the fluid was 9.2 mL .. After that a new batch of medication was obtained containing correct doses of the medications including Morphine PF 800mcg per ml and clonidine PF 200 mcg/ ml. She is able to administer herself PTM dose 25 micro g of morphine with corresponding 6.25 micro g of clonidine every 6 hours 3 times a day. . The admixture was made in 20 cc syringe prepared by [facility] compounding pharmacy. The syringe was connected to the bacterial filter, and then connected to the extension tubing. After that the medication in the syringe was slowly instilled into the pump with aspirations at 15 and 5 cc sr. Next pump refill will be scheduled in 90 days. . Coding Level of Care Code Procedure Only Diagnoses Interstitial cystitis N30.10 Morbid obesity E66.01 Low back pain M54.5 Chronicity: chronic Essential hypertension I10 Endometriosis N80.9 Chronic pain syndrome G89.4 Bilateral shoulder region arthritis M19.011; M19.012 Rheumatoid arthritis M06.9
[2024-09-23 16:25] VITALS: BP 176/100; PULSE 69; RESP 16; O2SAT 100; BMI 56.6
== END 2024-09-23 16:02 | disposition home or self-care (01) ==
LOC: HO.PMC 15:36
PROVIDERS: PCP Nurse Practitioner Family; Visit Provider Anesthesiology
DX: Z45.1 Encounter for adjustment and management of infusion pump (principal); N30.10 Interstitial cystitis (chronic) without hematuria; E66.01 Morbid (severe) obesity due to excess calories; M54.50 Low back pain, unspecified; I10 Essential (primary) hypertension; N80.9 Endometriosis, unspecified; G89.4 Chronic pain syndrome; M19.011 Primary osteoarthritis, right shoulder; M19.012 Primary osteoarthritis, left shoulder; M06.9 Rheumatoid arthritis, unspecified
CPT/HCPCS: 95991

== ENCOUNTER → 2024-09-23 15:35 | Outpatient (BNVA) | payer MEDICARE, MEDICAID, SELFPAY | PROVIDERS: PCP Nurse Practitioner Family; Visit Provider Anesthesiology ==

== ENCOUNTER 2024-09-30 16:08 | Outpatient (AMB) | payer MEDICARE, MEDICAID, SELFPAY ==
[2024-09-30 16:10] VITALS: BP 140/82; PULSE 72; O2SAT 97; BMI 57.3
--- NOTE | 2024-09-30 16:10 | MHC.OFFVIS ---
Vital Signs 09/30/24 16:10 Height 5 ft 2 in Weight 313 lb 7.957 oz BMI 57.3 BP 140/82 H Blood Pressure Location Lt brachial Position Sitting Pulse 72 Pulse Source Pulse Oximeter Pulse Oximetry (%) 97 Oxygen Delivery Method Room Air Intake Visit Reasons: RA/CM Intake Note: Patient last seen by Doctor Keesha Burgos on 06/27/24. Presents today for RA follow up. Allergies naproxen Allergy (Unknown, Verified 09/30/24 16:12) unknown semaglutide [From Ozempic] Allergy (Unknown, Verified 09/30/24 16:12) stomach issues Medication List - Last Reconciled 09/30/24 by Keesha Burgos MD albuterol sulfate 90 mcg/actuation 1 puff PO Q4H PRN amlodipine 10 mg PO DAILY 90 days blood sugar diagnostic (Dropost.it Verio test strips) As directed clonidine HCl 0.1 mg PO BID duloxetine (Cymbalta) 60 mg PO DAILY empagliflozin (Jardiance) 10 mg PO DAILY Enbrel SureClick (etanercept) 50 mg subcut QWEEK NS erenumab-aooe (Aimovig Autoinjector) mg subcut fluticasone propionate 50 mcg/actuation 1 spray intranasal DAILY hydrochlorothiazide 25 mg PO DAILY insulin degludec (Tresiba FlexTouch U-200 insulin) 60 units subcut BEDTIME labetalol 300 mg (3 x 100 mg) PO BID 30 days levothyroxine 112 mcg PO DAILY lisinopril 40 mg PO DAILY 90 days morphine 2 mg IM Q6H pantoprazole 40 mg PO DAILY pioglitazone 10 mg PO DAILY rizatriptan mg PO PRN spironolactone 50 mg PO DAILY tirzepatide (Mounjaro) 2.5 mg subcut QWEEK HPI Comments Details: 44-year-old female with seronegative rheumatoid arthritis returns for follow-up. She has been taking Enbrel regularly for the last 3 months or so. She states that she feels much better overall. Her joints are no longer swollen or painful. She feels about 80% improvement. Denies any side effects related to Enbrel. She states that the Enbrel started kicking in about 6 weeks into starting it. She will be seeing her fertility specialist 2 weeks from today. She started Mounjaro about 4 weeks ago. Weight has not changed yet. Initial history: This is a 43-year-old female who was referred by Pain Management for evaluation of inflammatory arthritis. The since 2012 patient has been having dry eyes and dry mouth as well as polyarthralgias. She was labeled as Sjogren's. She was evaluated by investor relations associate in 2019. Comprehensive serology was unremarkable. Lip biopsy was negative for any signs of Sjogren's. She was started on hydroxychloroquine. She took for about 2 years and it was helpful. Patient was last seen by investor relations associate Dr. Parr in [place] in 2020. She states that her main complaint is bilateral hand pain, swelling and morning stiffness lasting 2 hours. She takes ibuprofen 800 mg almost daily to control her hand pain. She gets intermittent right knee pain. In 2019 patient had right knee effusion, arthrocentesis was performed and it showed noninflammatory fluid. She states that prednisone is almost always helpful. She was also prescribed cevimeline and it was not very helpful. She denies any history of DVT/PE. She is unaware of any family history of autoimmune rheumatic disease [facility] Medical History Depression Anxiety Headache Herpes Arthritis Diabetes Sinusitis Bilateral shoulder region arthritis Polyarthralgia Neck pain, bilateral COVID-19 vaccine administered Lab test negative for COVID-19 virus History of postoperative nausea Sleep apnea Thyroid disease HTN (hypertension) Low back pain Morbid obesity Interstitial cystitis Surgical History Hx of partial thyroidectomy History of bladder surgery History of carpal tunnel release of both wrists Family History Mother Parkinson disease Father Aneurysm Skin cancer Sister Alcoholism Brother Alcoholism Maternal Grandmother Cardiovascular disease Maternal Grandfather HTN (hypertension) Paternal Grandfather Diabetes Paternal Uncle Psoriasis Other FH: mental illness Substance use Social History Household Members: Spouse Housing: House Are you a primary daycare director to a significant other at home: No Do you presently have visiting nurse or other home services: No Patient Tobacco Use Status: Never used Tobacco e-Cigarette/Vaping Use: Never Used Second Hand Smoke Exposure: No Substance Use Type: Marijuana service: No Current occupational status: employed and disabled 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 Current occupational exposures/hazards: No Cognitive needs: No Hearing needs: No Vision needs: Yes (glasses) Female Reproductive History Menstrual Total pregnancies: 2 Ab spontaneous: 2 Review of Systems Musc Denies arthralgias, Denies joint swelling and Denies stiffness Physical Exam Vital Signs: Last Vital Signs Pulse 72 09/30/24 16:10 BP 140/82 H 09/30/24 16:10 Pulse Ox 97 09/30/24 16:10 Oxygen Delivery Method Room Air 09/30/24 16:10 BMI result Body Mass Index 57.3 Const General: cooperative, healthy appearing and comfortable Nutritional Appearance: obese morbidly obese Orientation/consciousness: patient oriented x3 HEENT Head: Yes normocephalic and Yes atraumatic Resp Effort & Inspection: normal respiratory effort and able to speak in complete sentences Neuro General: patient oriented x3 Extrem Other: No wrist swelling tenderness or pain with flexion-extension No MCP swelling or tenderness bilaterally with negative MCP squeeze test bilaterally General normal hand drag seiner strength No elbow pain with full flexion-extension bilaterally Normal pain-free range of motion of shoulders No knee swelling or warmth bilaterally No knee pain with flexion-extension bilaterally No ankle swelling or tenderness bilaterally Results Reviewed Results Reviewed: Labs 06/2020 [facility] IFA/RF/CCP/dsDNA/Kenny/FOOD AND DRUG RESEARCH SCIENTIST/SSA/SSB/SCL 70/centromere /RNA polymerase 3 all negative CRP 36 (elevated) ESR 34 CPK 157 nl TSH normal C3-180 nl C4 45 nl Urinalysis negative Bilateral hand x-rays 06/2020 Impression: Unremarkable Bilateral knee x-rays 2019: Joint space is well-maintained Right knee arthrocentesis 10/2021 Synovial fluid cell count 280 11% neutrophils 66% monocytes 23% lymphocytes Lip biopsy 09/2020 No signs of inflammation or other features of Sjogren's Labs 12/2023? 14.3.3/anti CEP-1/Anti-Sa/Anti-Sa/Anti-CarP? all negative Bilateral hand and wrist ultrasound 12/2023? Impression:? Findings which can be seen in rheumatoid/inflammatory arthritis including bilateral synovitis of the ulnar styloids and the 2nd MCPs Assessment & Plan Assessment & Plan (1) Seronegative rheumatoid arthritis: Comment: HCQ ineffective SSZ 11/2023 DC01/2024 ineffective. Cimzia 01/2024-DC 06/2024 ineffective Enbrel 06/2024 effective Code(s): M06.00 - Rheumatoid arthritis without rheumatoid factor, unspecified site Category: Medical Plan: This is a 44-year-old female with seronegative rheumatoid arthritis who presents for follow-up. Doing remarkably better since Enbrel was started 3 months ago. It is well tolerated without side effects. Continue Enbrel 50 mg once weekly Labs today and before next visit in 4 months (2) High risk medication use: Code(s): Z79.899 - Other mcfp (current) drug therapy Category: Medical Plan: Side effects of Enbrel were discussed with the patient in detail including increased risk of infection, demyelinating disease, reactivation of latent TB, possible increased risk of solid and skin tumors. Patient fully aware. Advised patient to seek medical care GUY if patient has an infection and advised patient to stop the medication until the infection is resolved. Plan I spent 25 minutes reviewing patient's chart, evaluating patient, ordering diagnostic workup, counseling patient and documenting in the chart Orders: Orders Comprehensive Met. Panel 4 Months M06.00 - Rheumatoid arthritis without rheumatoid factor, unspecified site C Reactive Protein 4 Months M06.00 - Rheumatoid arthritis without rheumatoid factor, unspecified site Erythrocyte Sedimentation Rate 4 Months M06.00 - Rheumatoid arthritis without rheumatoid factor, unspecified site Complete Blood Count Auto Diff Today M06.00 - Rheumatoid arthritis without rheumatoid factor, unspecified site Comprehensive Met. Panel Today M06.00 - Rheumatoid arthritis without rheumatoid factor, unspecified site Complete Blood Count Auto Diff 4 Months M06.00 - Rheumatoid arthritis without rheumatoid factor, unspecified site C Reactive Protein Today M06.00 - Rheumatoid arthritis without rheumatoid factor, unspecified site Erythrocyte Sedimentation Rate Today M06.00 - Rheumatoid arthritis without rheumatoid factor, unspecified site Medications: Discontinued prednisone Discontinued Reason: Doctor's Order Take 2 tabs daily for 2 weeks then 1 tab daily for 2 weeks then stop 45 tabs 1RF Coding Level of Care Code Est Pt Level 4 (24949) Diagnoses Seronegative rheumatoid arthritis M06.00 High risk medication use Z79.899
== END 2024-09-30 16:24 | disposition home or self-care (01) ==
LOC: HO.RHE 16:08
PROVIDERS: PCP Nurse Practitioner Family; Visit Provider Student in an Organized Health Care Education/Training Program
DX: M06.00 Rheumatoid arthritis without rheumatoid factor, unspecified site (principal); Z79.899 Other long term (current) drug therapy
CPT/HCPCS: 99214

== ENCOUNTER → 2024-09-30 16:08 | Outpatient (BNVA) | payer MEDICARE, MEDICAID, SELFPAY | PROVIDERS: PCP Nurse Practitioner Family; Visit Provider Student in an Organized Health Care Education/Training Program | DX: M06.00 Rheumatoid arthritis without rheumatoid factor, unspecified site (principal); Z79.899 Other long term (current) drug therapy | CPT/HCPCS: 99212 ==

== ENCOUNTER 2024-10-11 12:22 | Outpatient (AMB) | payer MEDICARE, MEDICAID, SELFPAY ==
--- NOTE | 2024-10-11 12:42 | MHC.PC.OV ---
Vital Signs 10/11/24 12:45 Height 5 ft 2 in Weight 306 lb BMI 56.0 BP 130/70 Blood Pressure Location Lt brachial Position Sitting Pulse 70 Pulse Source Pulse Oximeter Pulse Oximetry (%) 94 Oxygen Delivery Method Room Air Intake Visit Reasons: 6 month CPE Intake Note: Patient is here to follow up on DM, Hypothyroidism, Obesity. Content Specialist Required: No Customer Service Supervisor: Present Accompanied by: Friend Allergies naproxen Allergy (Unknown, Verified 10/11/24 13:25) unknown semaglutide [From Ozempic] Allergy (Unknown, Verified 10/11/24 13:25) stomach issues Medication List - Last Reconciled 10/11/24 by Adriana Keenan, MANAGER STRATEGIC SOURCING-BC albuterol sulfate 90 mcg/actuation 1 puff PO Q4H PRN amlodipine 10 mg PO DAILY 90 days blood sugar diagnostic ([employer] Verio test strips) As directed clonidine HCl 0.1 mg PO BID duloxetine (Cymbalta) 60 mg PO DAILY empagliflozin (Jardiance) 10 mg PO DAILY Enbrel SureClick (etanercept) 50 mg subcut QWEEK NS erenumab-aooe (Aimovig Autoinjector) mg subcut fluticasone propionate 50 mcg/actuation 1 spray intranasal DAILY hydrochlorothiazide 25 mg PO DAILY insulin degludec (Tresiba FlexTouch U-200 insulin) 60 units subcut BEDTIME labetalol 300 mg (3 x 100 mg) PO BID 30 days levothyroxine 112 mcg PO DAILY lisinopril 40 mg PO DAILY 90 days morphine 2 mg IM Q6H pantoprazole 40 mg PO DAILY pioglitazone 10 mg PO DAILY rizatriptan mg PO PRN spironolactone 50 mg PO DAILY tirzepatide (Mounjaro) 2.5 mg subcut QWEEK Tobacco use date assessed: 10/11/24 Dental Screening Dental Screen Date: 04/26/24 HPI HPI Comments History of Present Illness Details 44-year-old female with RA, hypertension, morbid obesity, interstitial cystitis sleep apnea, hypothyroidism, DM 2, PCOS, Sjorgens, Status post partial thyroidectomy (215), bladder surgery (InterStim implant in 2003 with revision in 2010) carpal tunnel release bilat in (2019) Social: works 1 day a month at [employer]; 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 ENT Reproduction medicine Here today for complete physical exam. Taking all medications as directed. Routine follow up with her care team as above. She was recently evaluated at [facility] reproduction clinic. She had an appointment today. She started him on jaw and has lost weight an inches. She will have to stop this if she becomes . She was improved her diet in his moving more. Reports that this is the best that she was ever felt. She uses the Dexcom 7. This was reviewed today. 90 day GMI 6.4 , avg glucose 128 95% in range < 1 high 4% high < 1% low <1 very low Plan Cont care w/ care team RTO 1 year for CPE, sooner as needed [facility] Medical History Depression Anxiety Headache Herpes Arthritis Diabetes Sinusitis Bilateral shoulder region arthritis Polyarthralgia Neck pain, bilateral COVID-19 vaccine administered Lab test negative for COVID-19 virus History of postoperative nausea Sleep apnea Thyroid disease HTN (hypertension) Low back pain Morbid obesity Interstitial cystitis Surgical History Hx of partial thyroidectomy History of bladder surgery History of carpal tunnel release of both wrists Family History Mother Parkinson disease Father Aneurysm Skin cancer Sister Alcoholism Brother Alcoholism Maternal Grandmother Cardiovascular disease Maternal Grandfather HTN (hypertension) Paternal Grandfather Diabetes Paternal Uncle Psoriasis Other FH: mental illness Substance use Social History (Updated 10/11/24 @ 13:07 by NAI Soriano) Household Members: Spouse Housing: House Are you a primary professional healthcare representative to a significant other at home: No Do you presently have visiting nurse or other home services: No Alcohol intake: current Alcohol intake frequency: holidays/special occasions only Patient Tobacco Use Status: Never used Tobacco e-Cigarette/Vaping Use: Never Used Second Hand Smoke Exposure: No Substance Use Type: Marijuana service: No Current occupational status: employed and disabled 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 Blaise Soriano, Kaitlynn Tineo, Koko Pena and colleagues, with an educational naheed from [employer] ([employer]). Physical exam (Primary Care) Vital Signs: Last Vital Signs Pulse 70 10/11/24 12:45 BP 130/70 10/11/24 12:45 Pulse Ox 94 10/11/24 12:45 Oxygen Delivery Method Room Air 10/11/24 12:45 BMI result Body Mass Index 56.0 Tobacco/Smoking Status: Tobacco use Status Tobacco use date assessed 10/11/24 10/11/24 13:10 Patient Tobacco Use Status Never used Tobacco 10/11/24 13:07 e-Cigarette/Vaping Use Never Used 10/11/24 13:07 Thrive Assessment: Date of Thrive Assessment Date Thrive assessed 04/26/24 10/11/24 12:43 Const Other: General: Well developed, well nourished, in no acute distress. Appears stated age. Head: Normocephalic, atraumatic. Eyes: Pupils are equal, round and reactive to light and accommodation. Conjunctivae are clear. Vision grossly normal. Ears: TMs clear AU, EACS WNL Nose: Patent, without discharge. Mouth: There are no ulcers or lesions noted. No inflammation, no post nasal drip, no plaques nor exudates. Neck: Supple, no adenopathy or thyromegaly. Lungs: Clear to auscultation bilaterally. No rales, rhonchi or wheeze noted. Good air flow in all abarca. Heart: Regular rate and rhythm. No murmurs, click, rubs or gallops are noted. Abdomen: Bowel sounds present in all quadrants. The abdomen is soft, nontender, with no masses or organomegaly noted. No hernias are noted. Musculoskeletal: Joints are nontender, without swelling, redness, or effusions. Range of motion is observed to be normal. Pulses: Peripheral pulses are equal and palpable bilaterally. Extremities: No clubbing, cyanosis nor edema is noted. Neurologic: Gait and station normal. Cranial Nerves 2-12 intact. Motor strength grossly symmetrical and intact. No sensory loss. Balance normal. Skin: No rashes, ulcers, or lesions noted. Turgor is good. Skin color is good. Hair and nails are without abnormalities. Psych: Normal eye contact, affect and mood appropriate, and normal interactions. Patient is alert and appropriate to context. Office Procedures Glucose Monitoring Details Details: see [facility] [id number] - Glucose monitoring, continuous-physician I&R Procedure code (CPT) selection complete Results AMB Hemoglobin A1c AMB Hemoglobin A1c 5.4 % Last Edit by NAI Soriano on 10/11/24 13:22 Results Reviewed Results Reviewed: Laboratory Last Values Hgb A1c (Clinic) 5.4 % (4.0-6.0) 10/11/24 12:44 Coding Level of Care Code Est Pt Prev Care 40-64y(93843) Diagnoses Encounter for general adult medical examination without abnormal findings Z00.00 DM type 2 causing complication E11.8 Essential hypertension I10 Morbid (severe) obesity with alveolar hypoventilation E66.2 CPT Codes Details - CPT: 09236 - Glucose monitoring, continuous-physician I&R ([id number]) Assessment & Plan Assessment & Plan (1) Encounter for general adult medical examination without abnormal findings: Code(s): Z00.00 - Encounter for general adult medical examination without abnormal findings Plan: . (2) DM type 2 causing complication: Comment: w HTN And obesity Code(s): E11.8 - Type 2 diabetes mellitus with unspecified complications Category: Medical Plan: . (3) Essential hypertension: Code(s): I10 - Essential (primary) hypertension Category: Medical Plan: . (4) Morbid (severe) obesity with alveolar hypoventilation: Code(s): E66.2 - Morbid (severe) obesity with alveolar hypoventilation Category: Medical Plan: . Plan . Orders: Orders AMB Hemoglobin A1c Today E11.8 - Type 2 diabetes mellitus with unspecified complications MM tomosynthesis screening BI Today Z12.31 - Encounter for screening mammogram for malignant neoplasm of breast Patient Instructions: Health screenings for women You should visit your health care provider from time to time, even if you are healthy. The purpose of these visits is to: Screen for medical issues Assess your risk for future medical problems Encourage a healthy lifestyle Update vaccinations and other preventive care services Help you get to know your provider in case of an illness Information Even if you feel fine, you should still see your provider for regular checkups. These visits can help you avoid problems in the future. For example, the only way to find out if you have high blood pressure is to have it checked regularly. High blood sugar and high cholesterol levels also may not have any symptoms in the early stages. A simple blood test can check for these conditions. There are specific times when you should see your provider or receive specific health screenings. The [place] Preventive Services Task Force publishes a list of recommended screenings. Below are screening guidelines for women ages 18 to 39. BLOOD PRESSURE SCREENING Your blood pressure should be checked at least once every 3 to 5 years if: Your blood pressure is in the normal range (top number less than 120 mm Hg and bottom number less than 80 mm Hg) You don't have risk factors for high blood pressure Ask your provider if you need your blood pressure checked more often if: The top number is 120 to 129 mm Hg or the bottom number is 70 to 79 mm Hg You have diabetes, heart disease, kidney problems, are overweight, or have certain other health conditions You have a first-degree relative with high blood pressure You are Black You had high blood pressure during a If the top number is 130 mm Hg or greater or the bottom number is 80 mm Hg or greater, this is considered stage 1 hypertension. Schedule an appointment with your provider to learn how you can reduce your blood pressure. Watch for blood pressure screenings in your area. Ask your provider if you can stop in to have your blood pressure checked. BREAST CANCER SCREENING Experts do not agree about the benefits of breast self-exams in finding breast cancer or saving lives. Talk to your provider about what is best for you. A screening mammogram is not recommended for most women under age 40. Your provider may discuss and recommend mammograms, MRI scans, or ultrasounds if you have an increased risk for breast cancer, such as: A mother or sister who had breast cancer at a young age (most often starting screening earlier than the age the close relative was diagnosed) You carry a high-risk genetic marker CERVICAL CANCER SCREENING Cervical cancer screening should start at age 21 years unless your provider advises otherwise. After the first test: Women ages 21 through 29 should have a Pap test every 3 years. Exoprts do not agree on whether HPV testing is recommended for this age group. Women ages 30 through 65 should be screened with either a Pap test every 3 years or the HPV test every 5 years or both tests every 5 years (called cotesting ). Women who have been treated for precancer (cervical dysplasia) should continue to have Pap tests for 20 years after treatment or until age 65, whichever is longer. If you have had your uterus and cervix removed (total hysterectomy), and you have not been diagnosed with cervical cancer or precancer (high grade cervical neoplasia), you do not need cervical cancer screening. CHOLESTEROL SCREENING Cholesterol screening should begin at: Age 45 for women with no known risk factors for coronary heart disease Age 20 for women with known risk factors for coronary heart disease Repeat cholesterol screening should take place: Every 5 years for women with normal cholesterol levels More often if changes occur in lifestyle (including weight gain and diet) More often if you have diabetes, heart disease, kidney problems, or certain other conditions DIABETES SCREENING You should be screened for diabetes starting at age 35 and then repeated every 3 years if you have no risk factors for diabetes. Screening may need to start earlier and be repeated more often if you have other risk factors for diabetes, such as: You have a first degree relative with diabetes. You are overweight or have obesity. You have high blood pressure, prediabetes, or a history of heart disease. Screening for diabetes should be done if you are planning to become and you are overweight and have other risk factors such as high blood pressure. DENTAL EXAM Go to the dentist once or twice every year for an exam and cleaning. Your dentist will evaluate if you need more frequent visits. EYE EXAM Have an eye exam every 5 to 10 years before age 40. If you have vision problems, have an eye exam every 2 years or more often if recommended by your provider. You should have an eye exam that includes an examination of your retina (back of your eye) at least every year if you have diabetes. IMMUNIZATIONS Commonly needed vaccines include: Flu shot: get one every year. COVID-19 vaccine: ask your provider what is best for you. Tetanus-diphtheria and acellular pertussis (Tdap) vaccine: have one at or after age 19 as one of your tetanus-diphtheria vaccines if you did not receive it as an adolescent. Tetanus-diphtheria: have a booster (or Tdap) every 10 years. Varicella vaccine: receive 2 doses if you never had chickenpox or the varicella vaccine. Hepatitis B vaccine: receive 2, 3, or 4 doses, depending on your exact circumstances. Measles, mumps, and rubella (MMR) vaccine: receive 1 to 2 doses if you are not already immune to MMR. Your provider can tell you if you are immune. Ask your provider about the human papillomavirus (HPV) vaccine if: You have not received the HPV vaccine in the past You have not completed the full vaccine series (you should catch up on this shot) Ask your provider if you should receive other immunizations if you have certain health problems that increase your risk for some diseases such as pneumonia. INFECTIOUS DISEASE SCREENING Women who are sexually active should be screened for chlamydia and gonorrhea up until age 25. Women 25 years and older should be screened for chlamydia and gonorrhea if at high risk. Screening for hepatitis C: All adults ages 18 to 79 should get a one-time test for hepatitis C. people should be screened at every . Screening for human immunodeficiency virus (HIV): All people ages 15 to 65 should get a one-time test for HIV. Depending on your lifestyle and medical history, you may also need to be screened for infections such as syphilis and HIV, as well as other infections. PHYSICAL EXAM All adults should visit their provider from time to time, even if they are healthy. The purpose of these visits is to: Screen for disease Assess your risk of future medical problems Encourage a healthy lifestyle Update your vaccinations and other preventive care services Maintain a relationship with a provider in case of an illness Your height, weight, and BMI should be checked at every exam. During your exam, your provider may ask you about: Depression and anxiety Diet and exercise Alcohol and tobacco use Safety issues, such as using seat belts, smoke detectors, and intimate partner violence Your medicines and risk for interactions SKIN SELF-EXAM Your provider may check your skin for signs of skin cancer, especially if you're at high risk, such as if you: Have had skin cancer before Have close relatives with skin cancer Have a weakened immune system OTHER SCREENING Talk with your provider about colon cancer screening if you have a strong family history of colon cancer or polyps, or if you have had inflammatory bowel disease or polyps yourself. Routine bone density screening of women under 40 is not recommended.
[2024-10-11 12:45] VITALS: BP 130/70; PULSE 70; O2SAT 94; BMI 56.0
== END 2024-10-11 13:42 | disposition home or self-care (01) ==
PROVIDERS: PCP Nurse Practitioner Family; Visit Provider Nurse Practitioner Family
DX: Z00.00 Encounter for general adult medical examination without abnormal findings (principal); E11.8 Type 2 diabetes mellitus with unspecified complications; E66.2 Morbid (severe) obesity with alveolar hypoventilation; Z68.43 Body mass index [BMI] 50.0-59.9, adult; I10 Essential (primary) hypertension

== ENCOUNTER → 2024-10-11 12:22 | Outpatient (BNVA) | payer MEDICARE, MEDICAID, SELFPAY | PROVIDERS: PCP Nurse Practitioner Family; Visit Provider Nurse Practitioner Family | DX: Z00.00 Encounter for general adult medical examination without abnormal findings (principal); E11.8 Type 2 diabetes mellitus with unspecified complications; E66.2 Morbid (severe) obesity with alveolar hypoventilation; I10 Essential (primary) hypertension | CPT/HCPCS: 83036; 99396 ==

== ENCOUNTER 2024-12-12 15:41 | Outpatient (AMB) | payer MEDICARE, MEDICAID, SELFPAY ==
[2024-12-12 16:06] VITALS: BP 128/70; PULSE 72; O2SAT 98; BMI 54.6
--- NOTE | 2024-12-12 16:06 | MHC.OFFVIS ---
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 Required: No Accompanied by: Self / Same As Patient Allergies naproxen Allergy (Unknown, Verified 12/12/24 16:07) unknown semaglutide [From Ozempic] Allergy (Unknown, Verified 12/12/24 16:07) stomach issues [facility] Medical History Depression Anxiety Headache Herpes Arthritis Diabetes Sinusitis Bilateral shoulder region arthritis Polyarthralgia Neck pain, bilateral COVID-19 vaccine administered Lab test negative for COVID-19 virus History of postoperative nausea Sleep apnea Thyroid disease HTN (hypertension) Low back pain Morbid obesity Interstitial cystitis Surgical History Hx of partial thyroidectomy History of bladder surgery History of carpal tunnel release of both wrists Family History Mother Parkinson disease Father Aneurysm Skin cancer Sister Alcoholism Brother Alcoholism Maternal Grandmother Cardiovascular disease Maternal Grandfather HTN (hypertension) Paternal Grandfather Diabetes Paternal Uncle Psoriasis Other FH: mental illness Substance use Social History (Updated 10/11/24 @ 13:07 by NAI Soriano) Household Members: Spouse Housing: House Are you a primary acute care occupational therapist to a significant other at home: No Do you presently have visiting nurse or other home services: No Alcohol intake: current Alcohol intake frequency: holidays/special occasions only Patient Tobacco Use Status: Never used Tobacco e-Cigarette/Vaping Use: Never Used Second Hand Smoke Exposure: No Substance Use Type: Marijuana service: No Current occupational status: employed and disabled 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 Current occupational exposures/hazards: No Cognitive needs: No Hearing needs: No Vision needs: Yes (glasses) Physical Exam Vital Signs: Last Vital Signs Pulse 72 12/12/24 16:06 BP 128/70 12/12/24 16:06 Pulse Ox 98 12/12/24 16:06 Oxygen Delivery Method Room Air 12/12/24 16:06 BMI result Body Mass Index 54.6 Assessment & Plan Assessment & Plan (1) Interstitial cystitis: Code(s): N30.10 - Interstitial cystitis (chronic) without hematuria Category: Medical (2) Morbid obesity: Code(s): E66.01 - Morbid (severe) obesity due to excess calories Category: Medical (3) Low back pain: Code(s): M54.5 - Low back pain Category: Medical Qualifiers: Chronicity: chronic (4) Essential hypertension: Code(s): I10 - Essential (primary) hypertension Category: Medical (5) Endometriosis: Code(s): N80.9 - Endometriosis, unspecified Category: Medical (6) Chronic pain syndrome: Code(s): G89.4 - Chronic pain syndrome Category: Medical (7) Bilateral shoulder region arthritis: Code(s): M19.011 - Primary osteoarthritis, right shoulder; M19.012 - Primary osteoarthritis, left shoulder Category: Medical (8) Rheumatoid arthritis: Code(s): M06.9 - Rheumatoid arthritis, unspecified Category: Medical Plan *THE PATIENT CAME TODAY FOR THE CHANGE OF THE MEDICATION IN her PAIN PUMP. The name and date of were verified and informed consent was obtained for the procedure. The pump was interrogated. residual amount of the fluid must be 9.5 mL. SHE WAS POSITIONED prone on the bed AND THE AREA OF THE INTRATHECAL PUMP WAS PREPPED WITH CHLORAPREP. The fenestrated drape was sterilely applied over the area of the pump. Sterile gloves were worn and of the aspiration system was assembled containing 2 in 22 gauge noncoring needle, the needle was connected to extension tubing which was connected to the 20 cc sterile syringe. The pain pump was palpated under the skin in the patient's right buttock area. The needle was inserted through the skin and the central plug of the pain pump and fluid was aspirated. The clear fluid was going into the syringe the total amount of the fluid was 9.6 mL .. After that a new batch of medication was obtained containing correct doses of the medications including Morphine PF 800mcg per ml and clonidine PF 200 mcg/ ml. She is able to administer herself PTM dose 25 micro g of morphine with corresponding 6.25 micro g of clonidine every 6 hours 3 times a day. . The admixture was made in 20 cc syringe prepared by [facility] compounding pharmacy. The syringe was connected to the bacterial filter, and then connected to the extension tubing. After that the medication in the syringe was slowly instilled into the pump with aspirations at 15 and 5 cc sr. Next pump refill will be scheduled in 90 days. . Coding Level of Care Code Procedure Only Diagnoses Interstitial cystitis N30.10 Morbid obesity E66.01 Low back pain M54.5 Chronicity: chronic Essential hypertension I10 Endometriosis N80.9 Chronic pain syndrome G89.4 Bilateral shoulder region arthritis M19.011; M19.012 Rheumatoid arthritis M06.9
== END 2024-12-12 16:09 | disposition home or self-care (01) ==
PROVIDERS: PCP Nurse Practitioner Family; Visit Provider Anesthesiology
DX: Z45.1 Encounter for adjustment and management of infusion pump (principal); N30.10 Interstitial cystitis (chronic) without hematuria; E66.01 Morbid (severe) obesity due to excess calories; M54.50 Low back pain, unspecified; I10 Essential (primary) hypertension; N80.9 Endometriosis, unspecified; G89.4 Chronic pain syndrome; M19.011 Primary osteoarthritis, right shoulder; M19.012 Primary osteoarthritis, left shoulder; M06.9 Rheumatoid arthritis, unspecified
CPT/HCPCS: 95991

== ENCOUNTER 2024-12-26 10:50 | Outpatient (AMB) | payer MEDICARE, MEDICAID, SELFPAY ==
--- NOTE | 2024-12-26 11:28 | A.OFFPC_ITS ---
Vital Signs 12/26/24 11:35 Height 5 ft 2 in Weight 308 lb 2 oz BMI 56.4 BP 106/72 Blood Pressure Location Lt brachial Position Sitting Respiration 16 Pulse 62 Pulse Source Pulse Oximeter Pulse Oximetry (%) 97 Oxygen Delivery Method Room Air Intake Visit Reasons: Fever Intake Note: Fever, sore throat, cough since Monday. Has been rotating Motrin and Tylenol. 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 Required: No Allergies naproxen Allergy (Unknown, Verified 12/26/24 11:29) unknown semaglutide [From Ozempic] Allergy (Unknown, Verified 12/26/24 11:29) stomach issues Medication List - Last Reconciled 12/26/24 by Chen Henriquez PA-C acetaminophen (Tylenol) 650 mg PO Q6H PRN albuterol sulfate 90 mcg/actuation 1 puff PO Q4H PRN amlodipine 10 mg PO DAILY 90 days blood sugar diagnostic (Cventuch Verio test strips) As directed clonidine HCl 0.1 mg PO BID duloxetine (Cymbalta) 60 mg PO DAILY empagliflozin (Jardiance) 10 mg PO DAILY Enbrel SureClick (etanercept) 50 mg subcut QWEEK NS erenumab-aooe (Aimovig Autoinjector) mg subcut fluticasone propionate 50 mcg/actuation 1 spray intranasal DAILY hydrochlorothiazide 25 mg PO DAILY ibuprofen (Motrin IB) 200 mg PO Q6H PRN insulin degludec (Tresiba FlexTouch U-200 insulin) 60 units subcut BEDTIME labetalol 300 mg (3 x 100 mg) PO BID 30 days levothyroxine 112 mcg PO DAILY lisinopril 40 mg PO DAILY 90 days morphine 2 mg IM Q6H pantoprazole 40 mg PO DAILY pioglitazone 10 mg PO DAILY rizatriptan mg PO PRN spironolactone 50 mg PO DAILY Tobacco use date assessed: 10/11/24 Dental Screening Dental Screen Date: 04/26/24 HPI Fever HPI Details History of Present Illness The patient is a 44-year-old female with a history of hypertension and type 2 diabetes presenting with sinus pain and pressure. 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 The patient describes a history of sinus-related discomfort since , noting that symptoms have included blurred and bloody discharge, and severe pain in sinus regions. The symptoms started to worsen on Monday with some fevers and chills. Prior home management included attempts to self-manage sinus issues, but the patient visited a care facility on Monday due to persistent symptoms. Flu, strep, and COVID-19 tests were negative at that time. The patient describes using an albuterol inhaler every four to six hours, indicating reactive airway issues primarily when ill. Endo: Blood sugars are currently well-controlled. Blood sugar this morning is 112. 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 Review of Systems - Respiratory: Reports coughing with og e wheezes. - Neurological: Reports dizziness. - Musculoskeletal: Reports neck pain. Physical Exam General: Well developed, well nourished, in no acute distress. Appears stated age. HEENT: TMs are dome-shaped a small air-fluid levels. nasal mucosa erythematous and edematous. Purulent drainage noted. Maxillary and frontal sinus tenderness present. Cardiac: RRR, no murmurs Lungs: clear, equal breath sounds with a little wheeze when coughing Lymph: Shotty, pea-sized, cervical lymphadenopathy noted Abdomen: soft, nontender, no CVA tenderness Extremities: no edema Neuro: alert, oriented x3, mood appropriate, clearly neurologically intact Plan - Initiate antibiotic therapy with Amoxi cillin/Clavulanate Augmentin) twice daily for 10 days to address suspected bacterial sinusitis. - Begin a prednisone taper due to freque nt albuterol use, with a regimen of 60 mg for three days, 40 mg for three days, followed by 20 mg for three days. Caution the patient against using ibuprofen concurrently with prednisone to minimize gastric irritation; acetaminophen is recommended. - Encourage hydration and possibly use o f an csip-qpa-ocoxzly expectorant such as Mucinex, ensuring the patient checks for acetaminophen content to avoid overdose. - she declines repeat COVID or flu testi ng given that it would not significantly change our plan. - Monitoring of blood glucose levels is advised, especially while on prednisone, due to potential effects on glucose regulation. [facility] Medical History Depression Anxiety Headache Herpes Arthritis Diabetes Sinusitis Bilateral shoulder region arthritis Polyarthralgia Neck pain, bilateral COVID-19 vaccine administered Lab test negative for COVID-19 virus History of postoperative nausea Sleep apnea Thyroid disease HTN (hypertension) Low back pain Morbid obesity Interstitial cystitis Surgical History Hx of partial thyroidectomy History of bladder surgery History of carpal tunnel release of both wrists Family History Mother Parkinson disease Father Aneurysm Skin cancer Sister Alcoholism Brother Alcoholism Maternal Grandmother Cardiovascular disease Maternal Grandfather HTN (hypertension) Paternal Grandfather Diabetes Paternal Uncle Psoriasis Other FH: mental illness Substance use Social History (Updated 12/26/24 @ 11:41 by Vernell Russell CMA) Household Members: Spouse Housing: House Are you a primary intensive care nurse to a significant other at home: No Do you presently have visiting nurse or other home services: No Alcohol intake: current Alcohol intake frequency: holidays/special occasions only Patient Tobacco Use Status: Never used Tobacco e-Cigarette/Vaping Use: Never Used Second Hand Smoke Exposure: No Use of substances other than those prescribed or required for medical reasons: Yes Substance Use Type: Marijuana service: No Current occupational status: employed and disabled 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 1. Little interest or pleasure in doing things: more than half the days 2. Feeling down, depressed, or hopeless: more than half the days 3. Trouble falling or staying asleep, or sleeping too much: nearly every day 4. Feeling tired or having little energy: more than half the days 5. Poor appetite or overeating: more than half the days 6. Feeling bad about yourself - or that you are a failure or have let yourself or your family down: more than half the days 7. Trouble concentrating on things, such as reading the newspaper or watching television: more than half the days 8. Moving or speaking so slowly that other people could have noticed. Or the opposite - being so fidgety or restless that you have been moving around a lot more than usual: not at all 9. Thoughts that you would be better off or of hurting yourself in some way: not at all Total score: 15 Depression Screening Interpretation: Positive Depression Screening Done: Yes 85278 - PHQ-9 Billing: Yes Source: Developed by Drs. Blaise Soriano, Kaitlynn Tineo, Koko Pena and colleagues, with an educational naheed from [employer]. Thrive Questionnaire Date Thrive assessed: 12/26/24 I am a: Patient What is your living situation today?: I have a steady place to live Within the past 12 months, did the food you bought not last and you didn't have the money to get more?: Never true Within the past 12 months, did you worry whether your food would run out before you got money to buy more?: Never true Do you have trouble paying for medicines?: No Do you have trouble getting transportation to medical appointments?: No Do you have trouble paying your heating and electricity bill?: No Do you have trouble taking care of your child, family member or friend?: No Do you have trouble with day-to-day activities such as bathing, preparing meals, shopping, managing finances, etc.?: No Are you currently unemployed and looking for a job?: No Are you interested in more education?: No Please select the resources that you would like help with: None Currently or been in a relationship where the following occur: I choose not to answer THRIVE Score: 0 AUDIT C Alcohol Use Questionnaire (AUDIT-C) 1. How often do you have a drink containing alcohol?: Monthly or less 2. How many drinks containing alcohol do you have on a typical day when you are drinking?: 1 or 2 3. How often do you have six or more drinks on one occasion?: Never Total Score: 1 BRENDA-7 AMB Questionnaire BRENDA-7 Date BRENDA - 7 assessed: 12/26/24 Feeling nervous, anxious, or on edge: 3 = Nearly every day Not being able to stop or control worryin = Nearly every day Worrying too much about different things: 3 = Nearly every day Trouble relaxin = Nearly every day Being so restless that it is hard to sit still: 3 = Nearly every day Becoming easily annoyed or irritable: 3 = Nearly every day Feeling afraid as if something awful might happen: 3 = Nearly every day Total BRENDA-7 score (0-4 normal; 5-9 mild; 10-14 moderate; 15-21 severe): 21 Source: Developed by Drs. Blaise Soriano, Kaitlynn Tineo, Koko Pena and colleagues, with an educational naheed from [employer]. BRENDA-7 Assessment Billing BRENDA-7 Assessment Tool: BRENDA-7 Assessment 00493 Physical exam (Primary Care) Vital Signs: Last Vital Signs Pulse 62 12/26/24 11:35 Resp 16 12/26/24 11:35 BP 106/72 12/26/24 11:35 Pulse Ox 97 12/26/24 11:35 Oxygen Delivery Method Room Air 12/26/24 11:35 BMI result Body Mass Index 56.4 Tobacco/Smoking Status: Tobacco use Status Tobacco use date assessed 10/11/24 12/26/24 11:32 Patient Tobacco Use Status Never used Tobacco 12/26/24 11:41 e-Cigarette/Vaping Use Never Used 12/26/24 11:41 PHQ-9: PHQ-9 Score PHQ-9: Total score 15 12/26/24 11:41 Depression Screening Interpretation: Positive Thrive Assessment: Date of Thrive Assessment Date Thrive assessed 12/26/24 12/26/24 11:41 Currently or been in a relationship where the following occur: I choose not to answer Coding Level of Care Code Est Pt Level 4 (03795) Diagnoses DM type 2 causing complication E11.8 Bacterial sinusitis J32.9; B96.89 Asthma exacerbation J45.901 Additional Codes BRENDA-7 Assessment Billing - BRENDA-7 Assessment Tool: BRENDA-7 Assessment 54376 ([id number]) PHQ-9 - 25835 - PHQ-9 Billing: Yes ([id number]) Assessment & Plan Assessment & Plan (1) DM type 2 causing complication: Code(s): E11.8 - Type 2 diabetes mellitus with unspecified complications Category: Medical Plan: Monitor blood sugars closely given the prednisone. (2) Bacterial sinusitis: Code(s): J32.9 - Chronic sinusitis, unspecified; B96.89 - Other specified bacterial agents as the cause of diseases classified elsewhere Plan: As above. Augmentin ordered. (3) Asthma exacerbation: Code(s): J45.901 - Unspecified asthma with (acute) exacerbation Plan: Pred taper ordered. Discussed signs and symptoms of an asthma exacerbation that would require emergent medical treatment. Medications: New prednisone take 3 tab po x 3 days, take 2 tab po x 3 days, 1 tab po x 3 days 18 tabs 0RF amoxicillin-pot clavulanate 875-125 mg 1 tab PO Q12H 20 tabs 0RF
[2024-12-26 11:35] VITALS: BP 106/72; PULSE 62; RESP 16; O2SAT 97; BMI 56.4
--- OUTSIDE RECORDS SUMMARY | 2024-12-26 14:37 | XMS_ITS | Referral Summary ---
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 Active levothyroxine (SYNTHROID, LEVOTHROID) 112 mcg tablet Take 112 mcg by mouth daily. Active amLODIPine (NORVASC) 10 mg tablet Take 10 mg by mouth daily. Active melatonin 10 mg capsule Take 1 capsule by mouth nightly as needed. Active hydroCHLOROthia zide (HYDRODIURIL) 25 mg tablet Take 25 mg by mouth daily. 10/08/2020 Active hypromellose (GONAK) 2.5% ophthalmic solution Instill 1 drop into both eyes 4 times a day as needed for dry eyes. Active DULoxetine DR (CYMBALTA) 60 mg capsule Take 1 capsule by mouth once a day. 01/22/2021 Active hydrOXYchloroQU INE (PLAQUENIL) 200 mg tabletIndicatio ns:Inflammatory arthritis Take 1 tablet (200 mg total) by mouth 2 times a day. 60 tablet 2 11/05/2021 Active Active Problems Problem Noted Date Diagnosed Date Long-term use of high-risk medication 10/14/2020 Assessment & Plan (10/14/2020 9:07 AM EST): Starting hydroxychloroquine -refer to Ophtho here as she has been having trouble getting an appointment locally Microcytosis 07/27/2020 Assessment & Plan (10/12/2020 9:58 PM EST): Without anemia -recheck CBC -check iron studies Assessment & Plan (07/27/2020 10:47 AM EDT): Without anemia -reports that she has never been told about or has a family history of a hemoglobinopathy --yesterday her brother told her that he had been started on iron supplementation -next labs we can check iron studies Inflammatory arthritis 07/15/2020 Assessment & Plan (11/05/2021 3:15 PM EST): Initially came with a reported diagnosis of Sjogren's (appears based on history/exam, no clear biopsy) and ongoing dry eyes and mouth with worsening joint pains. Lip biopsy with Derm negative for inflammation. Putting everything together today, given the raised inflammatory markers, description of symptoms, will for right now call an inflammatory arthritis with sicca - now back as R knee pain and swelling -x-ray R knee -discussed aspiration and injection of the R knee --agreeable --see procedure note below -asking about restarting hydroxychloroquine --she felt it was starting to help when she stopped ---can restart and we can then evaluate response at the next visit Assessment & Plan (10/14/2020 9:09 AM EST): She comes with a reported diagnosis of Sjogren's (appears based on history/exm, no clear biopsy) and ongoing dry eyes and mouth with worsening joint pains. Her symptoms could be compatible with Sjogren's but also other CTDs although apart from joints RoS is not so contributory. Lip biopsy with Derm negative for inflammation. Putting everything together today, given the raised inflammatory markers, description of symptoms, will for right now call an inflammatory arthritis with sicca -recheck labs -discussed trial of hydroxychloroquine --will need to give 6 month trial --adverse effects include but not limited to GI irritation, headache, muscle aches, retinal deposits (with half-way use) --she is agreeable - 200mg BID -we will arrange for ophtho eval -continue follow up with dentist -we will plan for continuing prednisone 10mg daily for 6 weeks then 5mg daily until next visit -continue artificial tears and biotene oral --will consider need for step up therapy after seeing ophtho and dentistry again Assessment & Plan (07/27/2020 10:46 AM EDT): She comes with a reported diagnosis of Sjogren's (appears based on history/exm, no clear biopsy) and ongoing dry eyes and mouth with worsening joint pains. Her symptoms could be compatible with Sjogren's but also other CTDs although apart from joints RoS is not so contributory. Does report response to prednisone although this is non-specific. Her report of her joints today is a little more convincing for inflammatory arthritis and although her antibodies were negative, inflammatory markers were elevated with no other clear cause (save for obesity). -discussed that Sojgren's is still a possibility but that in the absence of SSA/B then would favor salivary gland biopsy to assist with helping to support diagnosis --refer to Dermatology for this ---we did briefly discuss the small risk of persistent numbness post-procedure but she is willing to have the biopsy despite this -given her joint symptoms we will prescribe prednisone 10mg daily for the interim Assessment & Plan (07/15/2020 12:41 PM EDT): She comes with a reported diagnosis of Sjogren's (appears based on history/exm/labs, no clear biopsy) and ongoing dry eyes and mouth with worsening joint pains. There is no clear joint swelling today. Her symptoms could be compatible with Sjogren's but also other CTDs although RoS is not contributory and her joint symptoms are not classically inflammatory. Does report response to prednisone although this is non-specific. Her medication list additionally does not have any clear stand out culprits. -discussed that we need to re-start work up to try to identify what is going on --Sjogren's does remain a possibility -labs -x-ray of most tender areas today -we will review all when back and move forward with further diagnostics or therapeutics at that time Greater trochanteric pain syndrome 07/15/2020 Assessment & Plan (07/15/2020 12:36 PM EDT): Exam compatible -discussed nature of the injury -handout on exercises give -will hold on NSAIDs given reported development of esophageal ulcers with naproxen Immunizations Name Administration Dates Next Due Covid-19 Monovalent Vaccine, Moderna, mRNA, PF 01/15/2021 Hep B, Unspecified 09/14/2021 Influenza, Injectable, Madin Melissa Canine Kidney, Preservative Free, Quadrivalent 07/27/2019,07/01/2017 Influenza, Injectable, Quadr ivalent, Preservative Free 08/07/2021,07/21/2018,07/08/2016 Tetanus Toxoid, Reduced Diph theria Toxoid, and Acellular Pertussis Vaccine, Adsorbed 05/15/2021 Tetanus and Diphtheria Toxoi ds, Adsorbed, Preservative Free (2 Lf of Tetanus Toxoid and 2 Lf of Diphtheria Toxoid) 03/07/2001 Tetanus and Diphtheria Toxoi ds, Adsorbed, Preservative Free, for Adult Use (5 Lf of Tetanus Toxoid and 2 Lf of Diphtheria Toxoid) 05/11/2021 Tuberculin Skin Test; Unspec ified Formulation 04/12/1999 Social History Tobacco Use Types Packs/Day Years Used Date Smoking Tobacco: Never Smokeless Tobacco: Never Tobacco Cessation:Counseling Given: Not Answered Alcohol Use Standard Drinks/Week Comments Yes 0 (1 standard drink = 0.6 oz pur e alcohol) very rare Comments No Sex and Gender Information Value Date Recorded Sex Assigned at Female 07/27/2020 9:46 AM EDT Legal Sex Female 10:43 AM EDT Gender Identity Female 07/27/2020 9:46 AM EDT Sexual Orientation Bisexual 07/27/2020 9: 46 AM EDT Last Filed Vital Signs Vital Sign Reading Time Taken Comments Blood Pressure 128/66 12/26/2023 3:00 AM EST Pulse 94 12/26/2023 2:00 AM EST Temperature 37.3 ??C (99.1 ??F) 12/25/2023 10:[address] Respiratory Rate 16 12/26/2023 2:00 AM EST Oxygen Saturation 97% 12/26/2023 3:00 AM EST Inhaled Oxygen Concentration - - Weight 138.3 kg (305 lb) 12/25/2023 10:47 PM EST Height 154.9 cm (5' 1 ) 12/25/2023 10:47 PM EST Body Mass Index 57.63 12/25/2023 10:47 PM EST Plan of Treatment Not on file Procedures * Due to [place] [employer] law, this organization might not be sharing negative HIV tests. Procedure Name Priority Date/Time Associated Diagnosis Comments HEPATITIS C ANTIBODY W/REFLEX TO HCV RNA, QUANTITATIVE PCR Routine 07/15/2020 12:10 PM EDT Arthralgia, unspecified joint from Last 3 Months or Most Recently Relevant to Health Maintenance Results * Due to [place] [employer] law, this organization might not be sharing negative HIV tests. * Hepatitis C Antibody w/Reflex to HCV RNA, Quantitative PCR (07/15/2020 12:10 PM EDT) Hepatitis C Antibody NON-REACT MAHOGANY NON-REACT MAHOGANY 07/16/2020 9:20 AM EDT [facility] Signal To Cut-Off 0.02 <1.00 07/16/2020 9:20 AM EDT [facility] Comment: HCV antibody was non-reactive. There is no laboratory evidence of HCV infection. In most cases, no further action is required. However, if recent HCV exposure is suspected, a test for HCV RNA (test code 23082) is suggested. For additional information please refer to http://education.OurStory/faq/JOO41j6 (This link is being provided for informational/ educational purposes only.) Blood Structure of peripheral vein / Unknown Venipuncture / Unknown 07/15/2020 12:10 PM EDT 07/15/2020 12:22 PM EDT Narrative [facility] - 07/16/2020 9:20 AM EDT [facility] Received Date: Rusty Parr MD LAB BLOOD ORDERABLES Final Result [facility] [address], [place] [address], [place] [phone] [facility] [address], [place] [address], [place] [phone] from Last 3 Months or Most Recently Relevant to Health Maintenance Insurance BC[employer] MCR REPLACE PPO [facility] Care Teams 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
--- OUTSIDE RECORDS SUMMARY | 2024-12-26 14:37 | XMS_ITS | Clinical Summary ---
Author Organization [facility] Address [address] [facility] [email or web address] [address] Care Team Providers Care Data Management Associate Name Role Phone Adriana Keenan KNOT SAW OPERATOR Primary Care Provider Allergies Active Allergy Reactions Criticality Noted Date Comments Naproxen GI Intolerance,GI Bleeding 3 Medications cloNIDine HCl (CATAPRES) 0.1 MG tablet TAKE 2 TABLETS BY MOUTH AT BEDTIME 9 Active amLODIPine (NORVASC) 10 MG tablet Take 10 mg by mouth daily. Active cloNIDine HCL (CATAPRES) 0.2 MG tablet Take 0.2 mg by mouth. Active levothyroxine (SYNTHROID) 112 MCG tablet Take 112 mcg by mouth. Active lisinopriL (ZESTRIL) 40 MG tablet TAKE 1 TABLET BY MOUTH EVERY DAY 1 Active hydroCHLOROthiaz quintin (HYDRODIURIL) 25 MG tablet Take 25 mg by mouth 0 Active pantoprazole (PROTONIX) 40 MG tablet Take 40 mg by mouth 9 Active morphine 10 mg/5 mL solution Take by mouth every 2 (two) hours as needed for severe pain Active Aimovig Autoinjector 140 mg/mL atIn 3 Active fluticasone propionate (FLONASE) 50 mcg/actuation nasal spray SHAKE LIQUID AND USE 1 SPRAY IN EACH NOSTRIL DAILY 4 Active Toujake SoloStar U-300 Insulin 300 unit/mL (1.5 mL) inpn ADMINISTER 45 UNITS UNDER THE SKIN EVERY NIGHT AT BEDTIME 4 Active labetaloL (NORMODYNE) 100 MG tablet TAKE 3 TABLETS BY MOUTH TWICE DAILY 4 Active BD Ultra-Fine Short Pen Needle 31 gauge x 5/16 ndle USE DIRECTED TO ADMINISTER INSULIN UNDER THE SKIN EVERY MORNING 4 Active pioglitazone (ACTOS) 15 MG tablet 4 Active DULoxetine (Cymbalta) 60 MG capsule Take 1 capsule (60 mg total) by mouth 1 Active spironolactone (ALDACTONE) 50 MG tablet 4 Active Jardiance 10 mg tab 4 Active EnbreL SureClick 50 mg/mL (1 mL) pnij 4 Active Fiasp FlexTouch U-100 Insulin 100 unit/mL (3 mL) inpn INJECT 2-16 UNITS UNDER THE SKIN THREE TIMES DAILY WITH MEALS BASED ON CORRECTION SCALE INSTRUCTIONS PROVIDED 4 Active Mounjaro 5 mg/0.5 mL pnij 4 Active sodium chloride (OCEAN) 0.65 % nasal spray Instill 2 sprays into each nostril as needed for congestion or rhinitis 4 025 Active Active Problems Problem Noted Date Diagnosed Date Panic disorder 09/22/2024 Inflammatory arthritis 07/15/2020 Benign essential hypertension 06/30/2018 Nonintractable headache 06/30/2018 Chronic fatigue 10/30/2017 Chronic pain 10/30/2017 Fibromyalgia 10/30/2017 Fullness of supraclavicular fossa 10/30/2017 Generalized anxiety disorder 10/30/2017 HTN (hypertension) 10/30/2017 GERD (gastroesophageal reflux disease) 3 Overview (09/22/2024): Gastroesophageal reflux disease Hiatal hernia 12/14/2012 Overview (09/22/2024): Hiatal hernia Family History Medical History Relation Comments Cancer Father Heart disease Mother Relation Status Comments Father Mother Social History Tobacco Use Types Packs/Day Years Used Date Smoking Tobacco: Never Smokeless Tobacco: Never Comments No Sex and Gender Information Value Date Recorded Sex Assigned at Not on file Legal Sex Female 6:32 PM EST Gender Identity Not on file Sexual Orientation Not on file Last Filed Vital Signs Vital Sign Reading Time Taken Comments Blood Pressure 138/88 09/22/2024 10:03 AM EDT Pulse 67 09/22/2024 10:03 AM EDT Temperature 36.3 ??C (97.4 ??F) 09/22/2024 10:03 AM E DT Respiratory Rate 14 09/22/2024 10:03 AM EDT Oxygen Saturation 98% 09/22/2024 10:03 AM EDT Inhaled Oxygen Concentration - - Weight 142 kg (312 lb) 09/22/2024 10:03 AM EDT Height 157.5 cm (5' 2 ) 09/22/2024 10:03 AM EDT Body Mass Index 57.07 09/22/2024 10:03 AM EDT Plan of Treatment Health Maintenance Due Date Last Done Comments Diabetes: Retinopathy Screening 1991 Depression: Screening Annually using PHQ-2/9 in Adults 18 yrs or above (or HM Modifier)([facility]) 1999 Diabetes Care Foot Exam Screening: Yearly in adults with Diabetes (or HM Modifiers)([facility]) 1999 Hypertension Control in Adults with Diabetes: 18-85 yrs old with BP >130/80 ([facility]) 1999 YSABEL Screening: Once using STOP-BANG Questionnaire for Adults with Conditions or high BMI([facility]) 1999 SDOH Screening Reminder: Annually for all adults ([facility]) 1999 Lipid Screening: Once for Women aged 20 to 45 yrs ([facility]) 2001 Cervical Cancer Screenin-65 yrs of age (or Modifier) 2002 Cervical Cancer Screening: Pap every 3 yrs pts age 21-65 2002 Cervical Cancer: Pap Screening with Modifier timing ([facility]) 2002 Cervical Cancer: hrHPV alone or with cotesting Pap for Pts 30-65yrs screening every 5yrs ([facility]) 2002 Diabetes Care: Statin Therapy for adults with DM ages 21+ yrs old ([facility]) 2002 Flu Vaccination: Yearly for ages 18mos through 64 years (or Modifier)([facility]) 06/27/2024 08/07/2021, 07/27/2019, 07/21/2018, Additional history exists COVID-19 Vaccine Screening: Initial Series and Booster Status ([facility]) ( season) 2024 01/15/2021 Diabetes Care: Kidney Health Evaluation Annually in adults aged 18 to 85 yrs (or HM Modifier)([facility]) 12/25/2024 12/25/2023, 07/15/2020 Zoster/Shingles Vaccine Series Screening: Adults aged 18+ yrs (or HM Modifiers)([facility]) (1 of 2) 2031 DTaP/Tdap/Td Vaccines ([facility]) (4 - Td or Tdap) 05/15/2031 05/15/2021, 05/11/2021, 11/23/2010, Additional history exists Hepatitis C Virus Infection in Adolescents and Adults: Screening (or Modifier) ([facility]) Completed 07/15/2020 Pneumococcal Vaccination Screening: Pts 0-19 & 19-64 yrs of age ([facility]) Aged Out No longer eligible based on patient's age to complete this topic Medical Devices Not on file Insurance [facility] MEDICARE [facility] Care Teams Data Management Associate Relationship Specialty Start Date End Date Adriana Keenan NP [address] [place] [address] PCP - General Family Medicine 09/22/24
--- OUTSIDE RECORDS SUMMARY | 2024-12-26 14:37 | XMS_ITS | Encounter Summary ---
Author Organization [facility] Address [address] [place] [address] Care Team Providers Care Aluminum Hydroxide Process Operator Name Role Phone Radha Allen MD Primary Care Provider [phone] Encounter Details Date Type Department Care Team (Late st Contact Info) Description 09/07/2021 Scanned Document [facility] [address] [id number] Josh Cannon, DO [address] [address] Social History Tobacco Use Types Packs/Day Years Used Date Smoking Tobacco: Never Assessed Sex and Gender Information Value Date Recorded Sex Assigned at Female 05/22/2024 1:59 PM EDT Gender Identity Female 05/22/2024 1:59 PM EDT Sexual Orientation Heterosexual (straight) 05/22 1:59 PM EDT documented as of this encounter Plan of Treatment Not on file documented as of this encounter Visit Diagnoses Not on filedocumented in this encounter Care Teams Aluminum Hydroxide Process Operator Relationship Specialty Start Date End Date Radha Allen MD [address] [place] [address] PCP - General 07/14/16 documented as of this encounter
--- OUTSIDE RECORDS SUMMARY | 2024-12-26 14:37 | XMS_ITS | Clinical Summary ---
Author Organization [facility] Address [address] [place] [address] Care Team Providers Care Hardwood Finisher Name Role Phone Juliana Alejo NP Primary [...] irritation, headache, muscle aches, retinal deposits (with marine oil terminal superintendent use) --she is agreeable - 200mg BID [...] Tuberculin Skin Test; Unspec ified Formulation 04/12/1999 Family History Medical History Relation Name Comments Diabetes Brother Skin cancer Father ALS Maternal Grandmother Parkinsonism Mother Stroke Mother Diabetes Paternal Grandfather Relation Name Status Comments Brother Father Maternal Grandmother Mother Paternal Grandfather Social History Tobacco Use Types Packs/Day Years [...] 12/25/2023 10:47 PM EST Plan of Treatment Health Maintenance Due Date Last Done Comments Cervical Cancer Screening 1981 HIV Screening 1981 HPV and Pap Smear 1981 Pap Smear 1981 Pneumococcal Vaccine: Pediat lani (0-5 Years) and At-Risk Patients (6-64 Years) (1 of 2 - PCV) 1987 Varicella Vaccines (1 of 2 - 13+ 2-dose series) 1994 Mammogram 2021 Hepatitis B Vaccines (3 of 3 - 19+ 3-dose series) 05/30/2022 03/15/2022, 11/30/2021, 09/14/2021, Additional history exists COVID-19 Vaccine (2023-2 5 season) 2024 09/14/2023, 08/07/2022, 10/04/2021, Additional history exists Influenza Vaccine (#1) 2024 , 09/05/2022, 08/07/2021, Additional history exists Alcohol/Substance Use Screening 11/27/2024 Depression Screening and Follow-Up 11/27/2024 Social Drivers of Health Анна ual Screening 11/27/2024 DTaP,Tdap,and Td Vaccines (5 - Td or Tdap) 05/15/2031 05/15/2021, 05/11/2021, 11/23/2010, Additional history exists RSV Vaccine (60+ years old a nd patients) (1 - 1-dose 75+ series) 2056 Hepatitis C Screening Completed 07/15/2020 Procedures * Due to [place] [employer] law, this organization might not be sharing negative HIV tests. Procedure Name Priority Date/Time Associated Diagnosis Comments HEPATITIS C ANTIBODY W/REFLEX TO HCV RNA, QUANTITATIVE PCR Routine 07/15/2020 12:10 PM EDT Arthralgia, unspecified joint from Last 3 Months or Most Recently Relevant to Health Maintenance Results * Due to [place] [employer] law, this organization might not be sharing negative HIV tests. * Hepatitis C Antibody w/Reflex to HCV RNA, Quantitative PCR (07/15/2020 12:10 PM EDT) Hepatitis C Antibody NON-REACT MAHOGANY NON-REACT MAHOGANY 07/16/2020 9:20 AM EDT [employer] [facility] Signal To Cut-Off 0.02 <1.00 07/16/2020 9:20 AM EDT [employer] [facility] Comment: HCV antibody was non-reactive. There is no laboratory evidence of HCV infection. In most cases, no further action is required. However, if recent HCV exposure is suspected, a test for HCV RNA (test code 89470) is suggested. For additional information please refer to http://education.[employer]/faq/EQJ19m0 (This link is being provided for informational/ educational purposes only.) Blood Structure of peripheral vein / Unknown Venipuncture / Unknown 07/15/2020 12:10 PM EDT 07/15/2020 12:22 PM EDT Narrative [facility] - 07/16/2020 9:20 AM EDT [facility] Received Date: Rusty Parr MD LAB BLOOD ORDERABLES Final Result [facility] [address], [place] [address], [place] [phone] [employer] [facility] [address], [place] [address], [place] [phone] from Last 3 Months or Most Recently Relevant to Health Maintenance Insurance BCBS MCR REPLACE PPO [facility] Care Teams Hardwood Finisher Relationship Specialty Start Date End Date Juliana Alejo NP PCP - General Family Medicine 06/09/20
--- OUTSIDE RECORDS SUMMARY | 2024-12-26 14:37 | XMS_ITS | Clinical Summary ---
Author Organization [facility] Address [address] [place] [address] Care Team Providers Care Wearing Apparel Assembler Name Role Phone Radha Allen MD Primary Care Provider [phone] Social History Tobacco Use Types Packs/Day Years Used Date Smoking Tobacco: Never Assessed Sex and Gender Information Value Date Recorded Sex Assigned at Female 05/22/2024 1:59 PM EDT Gender Identity Female 05/22/2024 1:59 PM EDT Sexual Orientation Heterosexual (straight) 05/22 1:59 PM EDT Last Filed Vital Signs Vital Sign Reading Time Taken Comments Blood Pressure 120/72 12/03/2012 9:15 AM EST Pulse 80 12/03/2012 9:15 AM EST Temperature - - Respiratory Rate - - Oxygen Saturation - - Inhaled Oxygen Concentration - - Weight 145 kg (320 lb) 12/03/2012 9:15 AM EST Height 157.5 cm (5' 2 ) 12/03/2012 9:15 AM EST Body Mass Index 58.53 12/03/2012 9:15 AM EST Plan of Treatment Health Maintenance Due Date Last Done Comments Hepatitis C Virus Screening 1981 HIV Screening 1994 DTaP/Tdap/Td Vaccines (1 - Tdap) 2000 Hepatitis B Vaccines (1 of 3 - 19+ 3-dose series) 2000 Pap Smear (Ages 21-65) 2002 Mammogram 2021 Influenza Vaccine 06/27/2024 08/07/2021, , 07/21/2018, Additional history exists COVID-19 Vaccine (2 - 2023- season) 2024 01/15/2021 HPV Vaccines Aged Out No longer eligi ble based on patient's age to complete this topic Pneumococcal Vaccine: Pediatric (0-5 Years) and At-Risk Patients (6 to 49 Years) Aged Out No longer eligible based on patient's age to complete this topic Care Teams Wearing Apparel Assembler Relationship Specialty Start Date End Date Radha Allen MD [address] [place] [id number] PCP - General 07/14/16
== END 2024-12-26 13:34 | disposition home or self-care (01) ==
PROVIDERS: PCP Nurse Practitioner Family; Visit Provider Physician Assistant
DX: E11.8 Type 2 diabetes mellitus with unspecified complications (principal); J32.9 Chronic sinusitis, unspecified; B96.89 Other specified bacterial agents as the cause of diseases classified elsewhere; J45.901 Unspecified asthma with (acute) exacerbation

== ENCOUNTER → 2024-12-26 10:50 | Outpatient (BNVA) | payer MEDICARE, MEDICAID, SELFPAY | PROVIDERS: PCP Nurse Practitioner Family; Visit Provider Physician Assistant | DX: E11.8 Type 2 diabetes mellitus with unspecified complications (principal); J32.9 Chronic sinusitis, unspecified; B96.89 Other specified bacterial agents as the cause of diseases classified elsewhere; J45.901 Unspecified asthma with (acute) exacerbation | CPT/HCPCS: 96127; 99212 ==

== ENCOUNTER 2025-02-18 11:15 | Outpatient (AMB) | payer MEDICARE, MEDICAID, SELFPAY ==
--- NOTE | 2025-02-18 11:23 | HO.NEPHOV_ITS ---
Vital Signs 02/18/25 11:28 Height 5 ft 2 in Weight 215 lb 8 oz BMI 39.4 BP 116/70 Blood Pressure Location Lt brachial Position Sitting Intake Visit Reasons: No Showed to December appt-Conf Hydraulic Rock Drill Operator Required: No Accompanied by: Self / Same As Patient Allergies naproxen Allergy (Unknown, Verified 02/18/25 11:28) unknown semaglutide [From Ozempic] Allergy (Unknown, Verified 02/18/25 11:28) stomach issues HPI Comments Details: I had the delight of seeing Ms. Colbert in follow up for H/O resistant hypertension. 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 She has been having blood pressure well over 10 years and had been on medications, which she is compliant with. Last year her blood pressure had been going very high in spite of increasing medications. She denies excess sodium in the diet. She was seen in multiple emergency rooms for all his complaints including he will [facility] in [place]. None of these times, she was admitted in the hospital as she responded to treatment given in emergency room. Blood works, CT scan of the head, EKG were all acceptable at that time. She has obstructive sleep apnea and is on CPAP which she claims to be compliant with. She has history of polycystic ovarian disease. She is a diabetic and is on Ozempic. She is not known to have any proteinuria or renal dysfunction.She had Doppler of her renal arteries. She has no history of cocaine use. She denies any other systemic complaints other than what has been mentioned above. Her blood pressure control is at goal with medication changes now [facility] Medical History Depression Anxiety Headache Herpes Arthritis Diabetes Sinusitis Bilateral shoulder region arthritis Polyarthralgia Neck pain, bilateral COVID-19 vaccine administered Lab test negative for COVID-19 virus History of postoperative nausea Sleep apnea Thyroid disease HTN (hypertension) Low back pain Morbid obesity Interstitial cystitis Surgical History Hx of partial thyroidectomy History of bladder surgery History of carpal tunnel release of both wrists Family History Mother Parkinson disease Father Aneurysm Skin cancer Sister Alcoholism Brother Alcoholism Maternal Grandmother Cardiovascular disease Maternal Grandfather HTN (hypertension) Paternal Grandfather Diabetes Paternal Uncle Psoriasis Other FH: mental illness Substance use Social History Household Members: Spouse Housing: House Are you a primary healthcare or medical to a significant other at home: No Do you presently have visiting nurse or other home services: No Alcohol intake: current Alcohol intake frequency: holidays/special occasions only Patient Tobacco Use Status: Never used Tobacco e-Cigarette/Vaping Use: Never Used Second Hand Smoke Exposure: No Substance Use Type: Marijuana service: No Current occupational status: employed and disabled 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 Current occupational exposures/hazards: No Cognitive needs: No Hearing needs: No Vision needs: Yes (glasses) Review of Systems Const All systems reviewed & are unremarkable except as noted in HPI and below Physical Exam Vital Signs: Last Vital Signs BP 116/70 02/18/25 11:28 BMI result Body Mass Index 39.4 Const General: comfortable and no acute distress Orientation/consciousness: patient oriented x3 HEENT Head: Yes normocephalic Mouth: Normal oral and palatal mucosa present Eyes EOM: EOMs intact bilaterally Neck Neck: Yes supple Resp Auscultation: clear to auscultation bilaterally Cardio Jugular venous distension: no JVD Rate: regular rate Heart sounds: Murmur heart sound present GI Palpation (GI): Soft to palpation Auscultation: normal bowel sounds General: Yes no CVA tenderness Back/Spine/Pelvis Back: no CVA tenderness Skin General skin exam: no rashes or lesions noted Neuro General: patient oriented x3 and moves all extremities Extrem General: Yes no pedal edema Results Reviewed Nephrology Results: No Data to Display Assessment & Plan Assessment & Plan (1) Essential hypertension: Code(s): I10 - Essential (primary) hypertension Category: Medical Plan Ms Colbert has longstanding hypertension. Doppler of her renal arteries did not show any ROCIO. She has sleep apnea and has a CPAP. She has no signs of papilledema, retinal hemorrhages, heart failure, encephalopathy or acute kidney. She has no history of cocaine use. Ever since I started her on spironolactone 50 mg daily, her BP control is better. Her last serum K was 4.0. I will continue to investigate including urinary free cortisol to urine free cortisone to see whether she has mineral corticoid excess, if her BP remains laile. If 11 beta HSD his functioning normally, urinary free cortisone levels exceed urinary cortisol levels and the ratio cortisol to cortisone is approximately 0.3-0.5. She likely will need imaging of her adrenals, if her BP goes up. Genetic testing to confirm the diagnosis of syndrome of DHARA is available which I may consider. She has no clinical signs to suggest coarctation of aorta. She needs to lose weight. I did not make any medication changes today. She will be followed up in the office. All questions answered. Follow-up given Orders: Orders Creatinine Today I10 - Essential (primary) hypertension Blood Urea Nitrogen Today I10 - Essential (primary) hypertension Electrolytes Today I10 - Essential (primary) hypertension Medications: Changed From labetalol 300 mg (3 x 100 mg) PO BID 30 days 180 tabs 6RF To labetalol 200 mg (2 x 100 mg) PO BID 90 days 360 tabs 6RF Coding Level of Care Code Est Pt Level 4 (85213) Diagnoses Essential hypertension I10
[2025-02-18 11:28] VITALS: BP 116/70; BMI 39.4
--- OUTSIDE RECORDS SUMMARY | 2025-02-18 13:58 | XMS_ITS | Clinical Summary ---
Author Organization [facility] Address [address] [place] [address] Care Team Providers Care Gasoline Service Attendant Name Role Phone Radha Allen MD Primary Care Provider [phone] Social History Tobacco Use Types Packs/Day Years [...] age to complete this topic Care Teams Gasoline Service Attendant Relationship Specialty Start Date End Date Radha Allen MD [address] [place] [id number] PCP - General 07/14/16
--- OUTSIDE RECORDS SUMMARY | 2025-02-18 13:58 | XMS_ITS | Clinical Summary ---
Author Organization [facility] Address [address] [place] [address] Care Team Providers Care Bacon Skinner Name Role Phone Juliana Alejo NP Primary [...] irritation, headache, muscle aches, retinal deposits (with long term acute care registered nurse use) --she is agreeable - 200mg BID [...] development of esophageal ulcers with naproxen Immunizations Immunization Administration Dates Next Due Covid-19 Monovalent Vaccine, [...] and Pap Smear 1981 Pap Smear 1981 Varicella Vaccines (1 of 2 - 13+ 2-dose series) 1994 Pneumococcal Vaccine: Pediat lani (0-5 Years) and At-Risk Patients (6-50 Years) (1 of 2 - PCV) 2000 Mammogram 2021 Hepatitis B Vaccines (3 of 3 - 19+ 3-dose series) 05/30/2022 03/15/2022, 11/30/2021, 09/14/2021, Additional history exists COVID-19 Vaccine ( - 2023-2 5 season) 2024 09/14/2023, 08/07/2022, 10/04/2021, Additional [...] Screening Completed 07/15/2020 Procedures * Due to [place] [employer] law, this organization might not be sharing negative HIV tests. Procedure Name Priority Date/Time Associated Diagnosis Comments HEPATITIS C ANTIBODY W/REFLEX TO HCV RNA, QUANTITATIVE PCR Routine 07/15/2020 12:10 PM EDT Arthralgia, unspecified joint from Last 3 Months or Most Recently Relevant to Health Maintenance Results * Due to [place] [employer] law, this organization might not be sharing negative HIV tests. * Hepatitis C Antibody w/Reflex to HCV RNA, Quantitative PCR (07/15/2020 12:10 PM EDT) Hepatitis C Antibody NON-REACT MAHOGANY NON-REACT MAHOGANY 07/16/2020 9:20 AM EDT [employer] [facility] Signal To Cut-Off 0.02 <1.00 07/16/2020 9:20 AM EDT [employer] [facility] Comment: HCV antibody was non-reactive. There is no laboratory evidence of HCV infection. In most cases, no further action is required. However, if recent HCV exposure is suspected, a test for HCV RNA (test code 42984) is suggested. For additional information please refer to http://education.[employer]/faq/KHI21r0 (This link is being provided for informational/ educational purposes only.) Blood Structure of peripheral vein / Unknown Venipuncture / Unknown 07/15/2020 12:10 PM EDT 07/15/2020 12:22 PM EDT Narrative [facility] - 07/16/2020 9:20 AM EDT [facility] Received Date: Rusty Parr MD LAB BLOOD ORDERABLES Final Result [facility] [address], [place] [address], [place] [phone] [employer] [facility] [address], [place] [address], [place] [phone] from Last 3 Months or Most Recently Relevant to Health Maintenance Insurance BCBS MCR REPLACE PPO [facility] Care Teams Bacon Skinner Relationship Specialty Start Date End Date Juliana Alejo NP PCP - General Family Medicine 06/09/20
--- OUTSIDE RECORDS SUMMARY | 2025-02-18 13:58 | XMS_ITS ---
Author Name [facility] Organization Unknown Care Team Organization Name Specialty Phone Email Start Date End [facility] BERENICE GARCÍA Primary Care
--- OUTSIDE RECORDS SUMMARY | 2025-02-18 13:58 | XMS_ITS | Referral Summary ---
Author Organization [facility] Address [address] [place] [address] Care Team Providers Care Insulation Worker Name Role Phone Juliana Alejo NP Primary [...] irritation, headache, muscle aches, retinal deposits (with lobsterman use) --she is agreeable - 200mg BID [...] Not on file Procedures * Due to [place] [employer] law, this organization might not be sharing negative HIV tests. Procedure Name Priority Date/Time Associated Diagnosis Comments HEPATITIS C ANTIBODY W/REFLEX TO HCV RNA, QUANTITATIVE PCR Routine 07/15/2020 12:10 PM EDT Arthralgia, unspecified joint from Last 3 Months or Most Recently Relevant to Health Maintenance Results * Due to [place] [employer] law, this organization might not be sharing negative HIV tests. * Hepatitis C Antibody w/Reflex to HCV RNA, Quantitative PCR (07/15/2020 12:10 PM EDT) Hepatitis C Antibody NON-REACT MAHOGANY NON-REACT MAHOGANY 07/16/2020 9:20 AM EDT [facility] Signal To Cut-Off 0.02 <1.00 07/16/2020 9:20 AM EDT [facility] Comment: HCV antibody was non-reactive. There is no laboratory evidence of HCV infection. In most cases, no further action is required. However, if recent HCV exposure is suspected, a test for HCV RNA (test code 22644) is suggested. For additional information please refer to http://education.[employer]/faq/CTD82e8 (This link is being provided for informational/ educational purposes only.) Blood Structure of peripheral vein / Unknown Venipuncture / Unknown 07/15/2020 12:10 PM EDT 07/15/2020 12:22 PM EDT Narrative [facility] - 07/16/2020 9:20 AM EDT [facility] Received Date: Rusty Parr MD LAB BLOOD ORDERABLES Final Result [facility] [address] [facility] [address] Floor, [place] [address], [place] [phone] [employer] [facility] [address], [place] [address], [place] [phone] from Last 3 Months or Most Recently Relevant to Health Maintenance Insurance BCBS MCR REPLACE PPO [facility] Care Teams Insulation Worker Relationship Specialty Start Date End Date Juliana Alejo NP PCP - General Family Medicine 06/09/20
--- OUTSIDE RECORDS SUMMARY | 2025-02-18 13:58 | XMS_ITS | Encounter Summary ---
Author Organization Formerly [facility] Address [address] [place] [address] Care Team Providers Care Special Education Educational Assistant Name Role Phone Radha Allen MD Primary Care Provider [phone] Encounter Details Date Type Department Care Team (Late st Contact Info) Description 09/07/2021 Scanned Document [facility] [address] [id number] Josh Cannon, DO [address] [address] Social History Tobacco Use Types Packs/Day Years [...] on filedocumented in this encounter Care Teams Special Education Educational Assistant Relationship Specialty Start Date End Date Radha Allen MD [address] [place] [id number] PCP - General 07/14/16 documented as of this encounter
== END 2025-02-18 11:50 | disposition home or self-care (01) ==
LOC: HO.HKAS 11:15
PROVIDERS: PCP Nurse Practitioner Family; Visit Provider Internal Medicine Nephrology
DX: I10 Essential (primary) hypertension (principal)
CPT/HCPCS: 99214

== ENCOUNTER 2025-02-18 11:15 | Outpatient (REF) | payer MEDICARE, MEDICAID, SELFPAY ==
[2025-02-18 18:03] LABS: MANUAL DIFF FLAG NO
[2025-02-18 18:28] LABS: Basophils Percent Auto 0.8 % (0-2); Eosinophils Absolute Auto 0.1 X10*3/uL (0.0-0.4); Eosinophils Percent Auto 2.2 % (0-4); Hemoglobin 14.1 g/dl (12.0-16.0); Imm Gran Abs Auto 0.02 X10*3/uL (0.00-0.03); Imm Gran Pct Auto 0.4 % (0.0-0.4); Lymphocytes Absolute Auto 1.9 X10*3/uL (1.2-4.9); Lymphocytes Percent Auto 37.1 % (20-40); Mean Corpuscular Hemoglobin 26.2 pg (27.0-33.0); Mean Corpuscular Volume 81.6 fL (80.0-98.0); Mean Platelet Volume 9.5 fL (9.4-12.3); Monocytes Absolute Auto 0.6 X10*3/uL (0.1-1.2); Neutrophils Absolute Auto 2.4 x10*3/uL (2.0-8.3); Neutrophils Percent Auto 48.5 % (45-73); Platelet Count 396 X10*3/uL (160-400); Red Blood Count 5.39 X10*6/uL (4.20-5.50); Red Cell Distribution Width 16.4 % (11.0-16.0)
[2025-02-18 18:35] LABS: Blood Urea Nitrogen 21 mg/dL (9-16)
[2025-02-18 18:45] LABS: Alanine Aminotransferase 25 U/L (0-31); Albumin Level 3.9 g/dL (3.5-5.0); Alkaline Phosphatase 71 U/L (39-117); Anion Gap 13 (12-20); Aspartate Amino Transferase 30 U/L (5-31); Blood Urea Nitrogen 19 mg/dL (9-16); C Reactive Protein 1.91 mg/dL (< or = 0.50); Calcium 9.6 mg/dL (8.4-10.2); Carbon Dioxide 25 mmol/L (22-29); Chloride 104 mmol/L (96-108); Estimated Glomerular Filt Rate > 60; Glucose Random 84 mg/dL (60-115); Sodium 138 mmol/L (135-145); Total Protein 7.1 g/dL (6.5-8.0)
[2025-02-18 18:55] LABS: Bilirubin Total 0.4 mg/dL (0.0-1.0)
[2025-02-18 19:57] LABS: Erythrocyte Sedimentation Rate 28 MM/HR (0-20)
== END 2025-02-18 11:16 | disposition home or self-care (01) ==
LOC: HO.HKASLDS 11:15
PROVIDERS: Student in an Organized Health Care Education/Training Program; PCP Nurse Practitioner Family; Visit Provider Internal Medicine Nephrology
DX: I10 Essential (primary) hypertension (principal); M06.00 Rheumatoid arthritis without rheumatoid factor, unspecified site
CPT/HCPCS: 36415; 80053; 84520; 85025; 85652; 86140; 99212

== ENCOUNTER 2025-02-19 15:19 | Outpatient (AMB) | payer MEDICARE, MEDICAID, SELFPAY ==
--- NOTE | 2025-02-19 15:21 | A.OFFPC_ITS ---
Intake Visit Reasons: referral Intake Note: telehealth patient needs referral Co Op Required: No Allergies naproxen Allergy (Unknown, Verified 02/19/25 16:52) unknown semaglutide [From Ozempic] Allergy (Unknown, Verified 02/19/25 16:52) stomach issues Medication List - Last Reconciled 02/19/25 by Adriana Keenan, COUNTERINTELLIGENCE SPECIALIST- acetaminophen (Tylenol) 650 mg PO Q6H PRN albuterol sulfate 90 mcg/actuation 1 puff PO Q4H PRN amlodipine 10 mg PO DAILY 90 days blood sugar diagnostic ([employer] Verio test strips) As directed bupropion HCl 100 mg PO BID clonidine HCl 0.1 mg PO BID duloxetine (Cymbalta) 90 mg PO DAILY empagliflozin (Jardiance) 10 mg PO DAILY Enbrel SureClick (etanercept) 50 mg subcut QWEEK NS erenumab-aooe (Aimovig Autoinjector) mg subcut fluticasone propionate 50 mcg/actuation 1 spray intranasal DAILY hydrochlorothiazide 25 mg PO DAILY insulin degludec (Tresiba FlexTouch U-200 insulin) 60 units subcut BEDTIME labetalol 200 mg (2 x 100 mg) PO BID 90 days levothyroxine 112 mcg PO DAILY levothyroxine 125 mcg PO 3XW lisinopril 40 mg PO DAILY 90 days morphine 2 mg IM Q6H pioglitazone 15 mg PO DAILY prednisone 40 mg PO DAILY rizatriptan mg PO PRN spironolactone 50 mg PO DAILY Tobacco use date assessed: 02/19/25 Dental Screening Dental Screen Date: 02/19/25 Did you have a dental visit in the last 12 months?: Yes Did you have a dental problem in the last 6 months where you did not have access to dental care?: No Was dental information given to patient?: Patient has dentist HPI HPI Comments 2 History of Present Illness0 Details History of Present Illness The patient is a 44-year-old female presenting with recurrent tonsillitis. - Onset of aggravated symptoms began in November with persisting issues despite six rounds of prednisone, resulting in only temporary alleviation. - Notable tonsillar hypertrophy describe d as significant, impairing quality of life. - Visits to urgent care provided antibio tics early October and prednisone courses. No resolution from these treatments. - Accompanied symptoms of crackling in t he ears, indicating potential fluid retention, with a negative history of fever or chills. - Noteworthy medical history involves pa st exams showing no acute sinus abnormalities. Denies fever, chills, rash, headache. Assessment and Plan 1. Recurrent Tonsillitis: The recurrent tonsillitis has been persistent and inadequately managed with previous high-dose prednisone courses, warranting an ENT referral. I have initiated a referral to an ENT specialist at [facility] to evaluate the necessity of surgical intervention, including tonsillectomy, given the chronic history and recurrent exacerbations. I advised the patient to expedite the scheduling of the appointment to eliminate the prolonged suffering from tonsillar hypertrophy. 2. 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 This condition demands further examination by an ENT specialist to assess the underlying etiology. I included this clinical detail in the ENT referral for a thorough assessment to determine potential interventions. The patient is aware of the importance of specialist evaluation to address and potentially resolve her auditory symptoms timely. Telehealth Attestation This visit was conducted via telehealth, and all provided information, including the assessment and plan, is based on the details discussed during the telehealth consultation. The patient has been explained that this is an interactive (audio/video) telehealth encounter and what that consists of. The patient understands and wishes to proceed. Pheedo platform was used. Total time spent caring for the patient today was 15 minutes. This includes time spent before the visit reviewing the chart, time spent during the visit, and time spent after the visit on documentation, reviewing laboratory results, diagnostic imaging, medications, performing a medically necessary evaluation, counseling on diagnoses, care coordination, ordering appropriate tests, ordering appropriate medications, review of tests performed by other providers, reporting test results with the patient, communication with other healthcare providers. [facility] Medical History Depression Anxiety Headache Herpes Arthritis Diabetes Sinusitis Bilateral shoulder region arthritis Polyarthralgia Neck pain, bilateral COVID-19 vaccine administered Lab test negative for COVID-19 virus History of postoperative nausea Sleep apnea Thyroid disease HTN (hypertension) Low back pain Morbid obesity Interstitial cystitis Surgical History Hx of partial thyroidectomy History of bladder surgery History of carpal tunnel release of both wrists Family History Mother Parkinson disease Father Aneurysm Skin cancer Sister Alcoholism Brother Alcoholism Maternal Grandmother Cardiovascular disease Maternal Grandfather HTN (hypertension) Paternal Grandfather Diabetes Paternal Uncle Psoriasis Other FH: mental illness Substance use Social History Household Members: Spouse Housing: House Are you a primary child care leader to a significant other at home: No Do you presently have visiting nurse or other home services: No Alcohol intake: current Alcohol intake frequency: holidays/special occasions only Patient Tobacco Use Status: Never used Tobacco e-Cigarette/Vaping Use: Never Used Second Hand Smoke Exposure: No Substance Use Type: Marijuana service: No Current occupational status: employed and disabled 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 [employer] Current occupational exposures/hazards: No Cognitive needs: No Hearing needs: No Vision needs: Yes (glasses) Questionnaire Thrive Questionnaire Date Thrive assessed: 12/26/24 I am a: Patient What is your living situation today?: I have a steady place to live Within the past 12 months, did the food you bought not last and you didn't have the money to get more?: Never true Within the past 12 months, did you worry whether your food would run out before you got money to buy more?: Never true Do you have trouble paying for medicines?: No Do you have trouble getting transportation to medical appointments?: No Do you have trouble paying your heating and electricity bill?: No Do you have trouble taking care of your child, family member or friend?: No Do you have trouble with day-to-day activities such as bathing, preparing meals, shopping, managing finances, etc.?: No Are you currently unemployed and looking for a job?: No Are you interested in more education?: No Please select the resources that you would like help with: None Currently or been in a relationship where the following occur: I choose not to answer THRIVE Score: 0 BRENDA-7 AMB Questionnaire BRENDA-7 Date BRENDA - 7 assessed: 12/26/24 Source: Developed by Drs. Blaise Soriano, Kaitlynn Tineo, Koko Pena and colleagues, with an educational naheed from [employer]. Physical exam (Primary Care) Tobacco/Smoking Status: Tobacco use Status Tobacco use date assessed 02/19/25 02/19/25 15:22 Patient Tobacco Use Status Never used Tobacco 02/19/25 15:22 e-Cigarette/Vaping Use Never Used 02/19/25 15:22 Thrive Assessment: Date of Thrive Assessment Date Thrive assessed 12/26/24 02/19/25 15:22 Currently or been in a relationship where the following occur: I choose not to answer Telehealth Telehealth Telehealth Platform: [facility] Location of provider rendering services: practice address Location of patient: address on file Patient Identification confirmed using: Name, : Yes Telehealth method: voice only Patient verbally consented to treatment: Yes Patient verbally consented to billing insurance company: Yes Patient informed of any privacy concerns related to visit: Yes Minutes spent on Phone/Video with Pt.: 9 Coding Level of Care Code Tele Est Pt Level 2 (56566) Complex EM visit Add On G2211 Diagnoses Recurrent tonsillitis J03.91 Assessment & Plan Assessment & Plan (1) Recurrent tonsillitis: Code(s): J03.91 - Acute recurrent tonsillitis, unspecified Category: Medical Plan . Orders: Referrals 2 Ear/Nose/Throat Referral J03.91 - Acute recurrent tonsillitis, unspecified
== END 2025-02-19 17:05 | disposition home or self-care (01) ==
LOC: HO.HMCFM 15:19
PROVIDERS: PCP Nurse Practitioner Family; Visit Provider Nurse Practitioner Family
DX: J03.91 Acute recurrent tonsillitis, unspecified (principal)

== ENCOUNTER → 2025-02-19 15:19 | Outpatient (BNVA) | payer MEDICARE, MEDICAID, SELFPAY | PROVIDERS: PCP Nurse Practitioner Family; Visit Provider Nurse Practitioner Family ==

== ENCOUNTER 2025-03-13 15:38 | Outpatient (AMB) | payer MEDICARE, SELFPAY ==
--- NOTE | 2025-03-13 15:41 | A.OFFVIS_ITS ---
Vital Signs 03/13/25 16:01 Height 5 ft 2 in Weight 215 lb BMI 39.3 BP 139/70 Blood Pressure Location Lt brachial Position Sitting Pulse 60 Pulse Source Pulse Oximeter Pulse Oximetry (%) 97 Oxygen Delivery Method Room Air Intake Visit Reasons: ITDD Refill Game Tester Required: No Allergies naproxen Allergy (Unknown, Verified 03/13/25 16:02) unknown semaglutide [From Ozempic] Allergy (Unknown, Verified 03/13/25 16:02) stomach issues Medication List - Last Reconciled 03/13/25 by Zamzam Chaudhary, CARDROOM ATTENDANT acetaminophen (Tylenol) 650 mg PO Q6H PRN albuterol sulfate 90 mcg/actuation 1 puff PO Q4H PRN amlodipine 10 mg PO DAILY 90 days blood sugar diagnostic ([employer] Verio test strips) As directed bupropion HCl 100 mg PO BID clonidine HCl 0.1 mg PO BID duloxetine (Cymbalta) 90 mg PO DAILY empagliflozin (Jardiance) 10 mg PO DAILY Enbrel SureClick (etanercept) 50 mg subcut QWEEK NS erenumab-aooe (Aimovig Autoinjector) mg subcut fluticasone propionate 50 mcg/actuation 1 spray intranasal DAILY hydrochlorothiazide 25 mg PO DAILY insulin degludec (Tresiba FlexTouch U-200 insulin) 60 units subcut BEDTIME labetalol 200 mg (2 x 100 mg) PO BID 90 days levothyroxine 112 mcg PO DAILY levothyroxine 125 mcg PO 3XW lisinopril 40 mg PO DAILY 90 days meclizine 12.5 mg PO TID PRN morphine 2 mg IM Q6H pioglitazone 15 mg PO DAILY prednisone 40 mg PO DAILY rizatriptan mg PO PRN spironolactone 50 mg PO DAILY HPI Comments Details: Fatemeh is 42 years old with history of chronic pelvic pain, interstitial cystitis intractable to any conservative and surgical treatments.? She had ItDD implanted treatment of her condition. The admixture contains morphine and clonidine. See refill of the intrathecal pain pump as below. She reports excellent pain relieve with no pain whatsoever related to her interstitial cystitis chronic pelvic pain and endometriosis.? She reported today that she started to experience tonsillitis recently she was under care of [facility] in [facility]. She reported fever 101 PFSH Medical History Depression Anxiety Headache Herpes Arthritis Diabetes Sinusitis Bilateral shoulder region arthritis Polyarthralgia Neck pain, bilateral COVID-19 vaccine administered Lab test negative for COVID-19 virus History of postoperative nausea Sleep apnea Thyroid disease HTN (hypertension) Low back pain Morbid obesity Interstitial cystitis Surgical History Hx of partial thyroidectomy History of bladder surgery History of carpal tunnel release of both wrists Family History Mother Parkinson disease Father Aneurysm Skin cancer Sister Alcoholism Brother Alcoholism Maternal Grandmother Cardiovascular disease Maternal Grandfather HTN (hypertension) Paternal Grandfather Diabetes Paternal Uncle Psoriasis Other FH: mental illness Substance use Social History Household Members: Spouse Housing: House Are you a primary health care manager to a significant other at home: No Do you presently have visiting nurse or other home services: No Alcohol intake: current Alcohol intake frequency: holidays/special occasions only Patient Tobacco Use Status: Never used Tobacco e-Cigarette/Vaping Use: Never Used Second Hand Smoke Exposure: No Substance Use Type: Marijuana service: No Current occupational status: employed and disabled 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 [employer] Current occupational exposures/hazards: No Cognitive needs: No Hearing needs: No Vision needs: Yes (glasses) Review of Systems Const All systems reviewed & are unremarkable except as noted in HPI and below ENT Reports Normal hearing present Neuro Reports Normal hearing present, Denies Abnormal speech present and Denies Sensory deficit (Neuro) Physical Exam Vital Signs: Last Vital Signs Pulse 60 03/13/25 16:01 BP 139/70 03/13/25 16:01 Pulse Ox 97 03/13/25 16:01 Oxygen Delivery Method Room Air 03/13/25 16:01 BMI result Body Mass Index 39.3 Const Nutritional Appearance: obese morbidly obese Eyes General: appearance normal, both eyes and all related structures Pupils: Equal, round and reactive pupils present EOM: EOMs intact bilaterally Neck Neck: Yes full ROM Chest Chest palpation & inspection: normal inspection of the chest Resp Effort & Inspection: normal respiratory effort, able to speak in complete sentences, normal respiratory pattern, no audible wheezes and no cough Cardio Other: On exam today blood pressure 198 /88 mm Hg Jugular venous distension: no JVD GI Inspection: Yes normal to inspection Back/Spine/Pelvis Other: This patient demonstrates normal gait, reports no tenderness of palpation in lumbar spine. Reports normal strength in bilateral lower extremities. Able to stand on her tiptoes and on her heels without difficulty so muscular strands in normal reports only sensory changes in the right lateral hip. The rest of the legs are normal. Reports no numbness elsewhere but right hip. Flexion forward and flexion backwards of the lumbar spine without difficulty. Straight leg rising is negative for back pain. Neuro Cranial nerves: Yes Equal, round and reactive pupils present and Yes Normal hearing present Speech: No Abnormal speech present Gait exam (Neuro): Normal gait present Motor exam (neuro): 5/5 motor strength present throughout Sensory Exam: No Sensory deficit (Neuro) Extrem General: No pedal edema Psych Speech and movement: Normal speech and movement present Affect: normal affect Attitude: cooperative Thought process: Normal thought process present Thought content: Normal thought content present Assessment & Plan Assessment & Plan (1) Interstitial cystitis: Code(s): N30.10 - Interstitial cystitis (chronic) without hematuria Category: Medical (2) Morbid obesity: Code(s): E66.01 - Morbid (severe) obesity due to excess calories Category: Medical (3) Low back pain: Code(s): M54.5 - Low back pain Category: Medical Qualifiers: Chronicity: chronic (4) Essential hypertension: Code(s): I10 - Essential (primary) hypertension Category: Medical (5) Endometriosis: Code(s): N80.9 - Endometriosis, unspecified Category: Medical (6) Chronic pain syndrome: Code(s): G89.4 - Chronic pain syndrome Category: Medical (7) Bilateral shoulder region arthritis: Code(s): M19.011 - Primary osteoarthritis, right shoulder; M19.012 - Primary osteoarthritis, left shoulder Category: Medical (8) Rheumatoid arthritis: Code(s): M06.9 - Rheumatoid arthritis, unspecified Category: Medical Plan: If she goes for tonsillectomy she would need to inform her providers about presence of the intrathecal pain pump. Combination of the intrathecal opioids and oral opioids could result in development of the opioids tolerance. Plan *THE PATIENT CAME TODAY FOR THE CHANGE OF THE MEDICATION IN her PAIN PUMP. The name and date of were verified and informed consent was obtained for the procedure. The pump was interrogated. residual amount of the fluid must be 8.1 mL. SHE WAS POSITIONED prone on the bed AND THE AREA OF THE INTRATHECAL PUMP WAS PREPPED WITH CHLORAPREP. The fenestrated drape was sterilely applied over the area of the pump. Sterile gloves were worn and of the aspiration system was assembled containing 2 in 22 gauge noncoring needle, the needle was connected to extension tubing which was connected to the 20 cc sterile syringe. The pain pump was palpated under the skin in the patient's right buttock area. The needle was inserted through the skin and the central plug of the pain pump and fluid was aspirated. The clear fluid was going into the syringe the total amount of the fluid was 8.4 mL .. After that a new batch of medication was obtained containing correct doses of the medications including Morphine PF 800mcg per ml and clonidine PF 200 mcg/ ml. She is able to administer herself PTM dose 25 micro g of morphine with corresponding 6.25 micro g of clonidine every 6 hours 3 times a day. . The admixture was made in 20 [address] [facility] compounding pharmacy. The syringe was connected to the bacterial filter, and then connected to the extension tubing. After that the medication in the syringe was slowly instilled into the pump with aspirations at 15 and 5 cc sr. Next pump refill will be scheduled in 90 days. . Coding Level of Care Code Est Pt Level 3 (62710) Procedure Only Diagnoses Interstitial cystitis N30.10 Morbid obesity E66.01 Low back pain M54.5 Chronicity: chronic Essential hypertension I10 Endometriosis N80.9 Chronic pain syndrome G89.4 Bilateral shoulder region arthritis M19.011; M19.012 Rheumatoid arthritis M06.9
[2025-03-13 16:01] VITALS: BP 139/70; PULSE 60; O2SAT 97; BMI 39.3
--- OUTSIDE RECORDS SUMMARY | 2025-03-13 18:08 | XMS_ITS | Clinical Summary ---
Author Organization [facility] Address [address] [facility] [place] [address] Care Team Providers Care Enterprise Systems Engineer Name Role Phone Adriana Keenan CHECKERING MACHINE ADJUSTER Primary Care Provider Allergies Active Allergy Reactions [...] Health Maintenance Due Date Last Done Comments Depression: Screening Annually using PHQ-2/9 in Adults 18 yrs or above (or HM Modifier)([facility]) 1981 Diabetes: Retinopathy Screening 1991 Diabetes Care Foot Exam Screening: Yearly in adults with Diabetes (or HM Modifiers)([facility]) 1999 Hypertension Control in Adults with Diabetes: 18-85 yrs old with BP >130/80 ([facility]) 1999 YSABEL Screening: Once using STOP-BANG Questionnaire for Adults with Conditions or high BMI([facility]) 1999 SDOH Screening Reminder: Annually for all adults ([facility]) 1999 Lipid Screening: Once for Women aged 20 to 45 yrs ([facility]) 2001 Cervical Cancer Screenin-65 yrs of age (or Modifier) 2002 Cervical Cancer Screening: Pap every 3 yrs pts age 21-65 2002 Cervical Cancer: Pap Screening with Modifier timing ([facility]) 2002 Cervical Cancer: hrHPV alone or with cotesting Pap for Pts 30-65yrs screening every 5yrs ([facility]) 2002 Diabetes Care: Statin Therapy for adults with DM ages 21+ yrs old ([facility]) 2002 COVID-19 Vaccine Screening: Initial Series and Booster Status ([facility]) ( season) 2024 01/15/2021 Diabetes Care: Kidney Health Evaluation Annually in adults aged 18 to 85 yrs (or HM Modifier)([facility]) 12/25/2024 12/25/2023, 07/15/2020 Flu Vaccination: Yearly for ages 18mos through 64 years (or Modifier)([facility]) 06/27/2025 08/07/2021, 07/27/2019, 07/21/2018, Additional history exists Zoster/Shingles Vaccine Series Screening: Adults aged 18+ yrs (or HM Modifiers)([facility]) (1 of 2) 2031 DTaP/Tdap/Td Vaccines ([facility]) (4 - Td or Tdap) 05/15/2031 05/15/2021, 05/11/2021, 11/23/2010, Additional history exists Hepatitis C Virus Infection in Adolescents and Adults: Screening (or Modifier) ([facility]) Completed 07/15/2020 Pneumococcal Vaccination Screening: Pts 0-19 & 19-49 yrs of age ([facility]) Aged Out No longer eligible based on patient's age to complete this topic Medical Devices Not on file [place] [address] [place] [address] [address] [facility] Care Teams Enterprise Systems Engineer Relationship Specialty Start Date End Date Adriana Keenan NP [address] [place] [id number] PCP - General Family Medicine 09/22/24
--- OUTSIDE RECORDS SUMMARY | 2025-03-13 18:08 | XMS_ITS | Clinical Summary ---
Author Organization [facility] Address [address] [place] [id number] Care Team Providers Care Roll Wrapper Name Role Phone Radha Allen MD Primary Care Provider [phone] Encounters Date Type Department Care Team Description 02/26/2025 Orders Only [facility] [address] [place] [address] ProviderLucas MD from Last 3 Months Social History Tobacco Use Types Packs/Day Years Used Date Smoking Tobacco: Never Assessed Comments Unknown Sex and Gender Information Value Date Recorded Sex Assigned at Female 05/22/2024 1:59 PM EDT Legal Sex Female 1:24 PM EDT Gender Identity Female 05/22/2024 1:59 [...] 12/03/2012 9:15 AM EST Plan of Treatment Upcoming Encounters Date Type Department Care Team (Late st Contact Info) Description 05/05/2025 1:00 PM EDT Procedure visit [facility] [address], [place] [address] Jose Redd MD [address] [place] [id number] Margarita Nava Au.D [address] [place] [id number] Health Maintenance Due Date Last Done Comments Hepatitis C Virus Screening 1981 HIV Screening 1994 DTaP/Tdap/Td Vaccines (1 - Tdap) 2000 Hepatitis B Vaccines (1 of 3 - 19+ 3-dose series) 2000 Pap Smear (Ages 21-65) 2002 Mammogram 2021 Influenza Vaccine 06/27/2024 08/07/2021, , 07/21/2018, Additional history exists COVID-19 Vaccine ( - 2023- season) 2024 01/15/2021 HPV Vaccines Aged Out No longer eligi ble based on patient's age to complete this topic Pneumococcal Vaccine: Pediatric (0-5 Years) and At-Risk Patients (6 to 49 Years) Aged Out No longer eligible based on patient's age to complete this topic Procedures Procedure Name Priority Date/Time Associated Diagnosis Comments AMB REFERRAL TO ENT Routine 02/20/2025 4:10 PM EDT from Last 3 Months Results * Amb Referral to ENT (02/20/2025 4:10 PM EDT) us External Provider MD OUTPATIENT REFERRAL ORDERAB LES Final Result from Last 3 Months Insurance [employer] MEDICARE OUT OF NETWORK [employer] MEDICARE OUT OF NETWORK Care Teams Roll Wrapper Relationship Specialty Start Date End Date Radha Allen MD [address] [place] [id number] PCP - General 07/14/16
--- OUTSIDE RECORDS SUMMARY | 2025-03-13 18:08 | XMS_ITS | Encounter Summary ---
Author Organization [facility] Address [address] [place] [id number] Care Team Providers Care Cabinet Installer Name Role Phone Radha Allen MD Primary Care Provider Encounter Details Date Type Department Care Team (Late Contact Info) Description 09/07/2021 Scanned Document [facility] [address] [phone] Josh Cannon, DO [address] [phone] Social History Tobacco Use Types Packs/Day Years Used Date Smoking Tobacco: Never Assessed Comments Unknown Sex and Gender Information Value Date Recorded Sex Assigned at Female 05/22/2024 1:59 PM EDT Legal Sex Female 1:24 PM EDT Gender Identity Female 05/22/2024 1:59 PM EDT Sexual Orientation Heterosexual (straight) 05/22 1:59 PM EDT documented as of this encounter Plan of Treatment Upcoming Encounters Date Type Department Care Team (Late Contact Info) Description 05/05/2025 1:00 PM EDT Procedure visit [facility] [address], [place] [address] Jose Redd MD [address] [place] [address] [phone] Margarita Nava Au.D [address] [place] [address] [phone] documented as of this encounter Visit Diagnoses Not on filedocumented in this encounter Care Teams Cabinet Installer Relationship Specialty Start Date End Date Radha Allen MD [address] [place] [id number] PCP - General 07/14/16 documented as of this encounter
--- OUTSIDE RECORDS SUMMARY | 2025-03-13 18:08 | XMS_ITS | Clinical Summary ---
Author Organization [facility] Address [address] [place] [address] Care Team Providers Care Outside Operator Name Role Phone Juliana Alejo NP [...] irritation, headache, muscle aches, retinal deposits (with press tender long goods use) --she is agreeable - 200mg BID [...] 2024 09/14/2023, 08/07/2022, 10/04/2021, Additional history exists Alcohol/Substance Use Screening 11/27/2024 Depression Screening and Follow-Up 11/27/2024 Social Drivers of Health Анна ual Screening 11/27/2024 Influenza Vaccine (Season Ended) 2025 08/06/2023, 09/05/2022, 08/07/2021, Additional history exists DTaP,Tdap,and Td Vaccines (5 - Td or Tdap) 05/15/2031 05/15/2021, 05/11/2021, 11/23/2010, Additional history exists RSV Vaccine (60+ years old a nd patients) (1 - 1-dose 75+ series) 2056 Hepatitis C Screening Completed 07/15/2020 Procedures * Due to [place] [employer] law, this organization might not be sharing negative HIV tests. Procedure Name Priority Date/Time Associated Diagnosis Comments HEPATITIS C ANTIBODY W/REFLEX TO HCV RNA, QUANTITATIVE PCR Routine 07/15/2020 12:10 PM EDT Arthralgia, unspecified joint from Last 3 Months or Most Recently Relevant to Health Maintenance Results * Due to [place] [employer] law, this organization might not be sharing negative HIV tests. * Hepatitis C Antibody w/Reflex to HCV RNA, Quantitative PCR (07/15/2020 12:10 PM EDT) Hepatitis C Antibody NON-REACT MAHOGANY NON-REACT MAHOGANY 07/16/2020 9:20 AM EDT [facility] Signal To Cut-Off 0.02 <1.00 07/16/2020 9:20 AM EDT [facility] Comment: HCV antibody was non-reactive. There is no laboratory evidence of HCV infection. In most cases, no further action is required. However, if recent HCV exposure is suspected, a test for HCV RNA (test code 02714) is suggested. For additional information please refer to http://education.[employer]/faq/OPE75o0 (This link is being provided for informational/ educational purposes only.) Blood Structure of peripheral vein / Unknown Venipuncture / Unknown 07/15/2020 12:10 PM EDT 07/15/2020 12:22 PM EDT Narrative [facility] - 07/16/2020 9:20 AM EDT [facility] Received Date: Rusty Parr MD LAB BLOOD ORDERABLES Final Result [facility] [address], [place] [address], [place] [phone] [facility] [address], [place] [address], [place] [phone] from Last 3 Months or Most Recently Relevant to Health Maintenance Insurance BCBS MCR REPLACE PPO [facility] Care Teams Outside Operator Relationship Specialty Start Date End Date Juliana Alejo NP PCP - General Family Medicine 06/09/20
--- OUTSIDE RECORDS SUMMARY | 2025-03-13 18:08 | XMS_ITS | Referral Summary ---
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 Procedure Name Priority Date/Time Associated Diagnosis Comments HEPATITIS C ANTIBODY W/REFLEX TO HCV RNA, QUANTITATIVE PCR Routine 07/15/2020 12:10 PM EDT Arthralgia, unspecified joint from Last 3 Months or Most Recently Relevant to Health Maintenance Results * Due to [facility] law, this organization might not be sharing negative HIV tests. * Hepatitis C Antibody w/Reflex to HCV RNA, Quantitative PCR (07/15/2020 12:10 PM EDT) Hepatitis C Antibody NON-REACT MAHOGANY NON-REACT MAHOGANY 07/16/2020 9:20 AM EDT [facility] Signal To Cut-Off 0.02 <1.00 07/16/2020 9:20 AM EDT [facility] Comment: HCV antibody was non-reactive. There is no laboratory evidence of HCV infection. In most cases, no further action is required. However, if recent HCV exposure is suspected, a test for HCV RNA (test code 28687) is suggested. For additional information please refer to http://education.[employer]/faq/VXP45u3 (This link is being provided for informational/ educational purposes only.) Blood Structure of peripheral vein / Unknown Venipuncture / Unknown 07/15/2020 12:10 PM EDT 07/15/2020 12:22 PM EDT Narrative [facility] - 07/16/2020 9:20 AM EDT [facility] Received Date: Rusty Parr MD LAB BLOOD ORDERABLES Final Result [facility] [address] [facility] 3rd Floor, [place] [address], [place] [phone] [employer] [facility] [address] [place] [address], [place] [address], [place] [phone] from Last 3 Months or Most Recently Relevant to Health Maintenance Insurance BCBS MCR REPLACE PPO [facility] Care Teams Litigation Legal Assistant Relationship Specialty Start Date End Date Juliana Alejo NP PCP - General Family Medicine 06/09/20
== END 2025-03-13 15:58 | disposition home or self-care (01) ==
LOC: HO.PMC 15:39
PROVIDERS: PCP Nurse Practitioner Family; Visit Provider Anesthesiology
DX: N30.10 Interstitial cystitis (chronic) without hematuria (principal); E66.01 Morbid (severe) obesity due to excess calories; M54.50 Low back pain, unspecified; I10 Essential (primary) hypertension; Z45.1 Encounter for adjustment and management of infusion pump; N80.9 Endometriosis, unspecified; G89.4 Chronic pain syndrome; M19.011 Primary osteoarthritis, right shoulder; M19.012 Primary osteoarthritis, left shoulder; M06.9 Rheumatoid arthritis, unspecified
CPT/HCPCS: 95991; 99213

== ENCOUNTER → 2025-03-13 15:38 | Outpatient (BNVA) | payer MEDICARE, SELFPAY | PROVIDERS: PCP Nurse Practitioner Family; Visit Provider Anesthesiology | DX: M54.50 Low back pain, unspecified (principal); N80.9 Endometriosis, unspecified; M19.011 Primary osteoarthritis, right shoulder; M19.012 Primary osteoarthritis, left shoulder; E66.01 Morbid (severe) obesity due to excess calories; I10 Essential (primary) hypertension; G89.4 Chronic pain syndrome; M60.9 Myositis, unspecified; Z45.1 Encounter for adjustment and management of infusion pump; Z79.899 Other long term (current) drug therapy | CPT/HCPCS: 99212 ==

== ENCOUNTER 2025-06-11 15:38 | Outpatient (AMB) | payer BC, MEDICAID, SELFPAY ==
--- OUTSIDE RECORDS SUMMARY | 2025-06-11 15:45 | XMS_ITS ---
Author Name [facility] Organization Unknown Care Team Organization Name Specialty Phone Email Start Date End Da te [facility] BERENICE GARCÍA Primary Care
--- OUTSIDE RECORDS SUMMARY | 2025-06-11 15:45 | XMS_ITS | Referral Summary ---
Author Organization [facility] Address [address] [place] [address] Care Team Providers Care Table Cut Off Saw Operator Name Role Phone Juliana Alejo NP [...] irritation, headache, muscle aches, retinal deposits (with ocean transportation intermediary use) --she is agreeable - 200mg BID [...] 94 12/26/2023 2:00 AM EST Temperature 37.3 C (99.1 F) 12/25/2023 10:47 PM EST Respiratory Rate 16 12/26/2023 2:00 AM EST Oxygen Saturation 97% 12/26/2023 3:00 AM EST Inhaled Oxygen Concentration - - Weight 138.3 kg (305 lb) 12/25/2023 10:47 PM EST Height 154.9 cm (5' 1 ) 12/25/2023 10:47 PM EST Body Mass Index 57.63 12/25/2023 10:47 PM EST Plan of Treatment Not on file Procedures * Due to [facility] law, this organization might not be sharing negative HIV tests. Procedure Name Priority Date/Time Associated Diagnosis Comments HEPATITIS C ANTIBODY W/REFLEX TO HCV RNA, QUANTITATIVE PCR Routine 07/15/2020 12:10 PM EDT Arthralgia, unspecified joint from Last 3 Months or Most Recently Relevant to Health Maintenance Results * Due to [place] [employer] law, this organization might not be sharing negative HIV tests. * Hepatitis C Antibody w/Reflex to HCV RNA, Quantitative PCR (07/15/2020 12:10 PM EDT) Hepatitis C Antibody NON-REACT MAHOGANY NON-REACT MAHOGANY 07/16/2020 9:20 AM EDT [facility] Signal To Cut-Off 0.02 <1.00 07/16/2020 9:20 AM EDT [facility] Comment: HCV antibody was non-reactive. There is no laboratory evidence of HCV infection. In most cases, no further action is required. However, if recent HCV exposure is suspected, a test for HCV RNA (test code 96613) is suggested. For additional information please refer to http://education.[employer]/faq/XIG27k5 (This link is being provided for informational/ educational purposes only.) Blood Structure of peripheral vein / Unknown Venipuncture / Unknown 07/15/2020 12:10 PM EDT 07/15/2020 12:22 PM EDT Narrative [facility] 07/16/2020 9:20 AM EDT [facility] Received Date: Rusty Parr MD LAB BLOOD ORDERABLES Final Result [facility] [address] [facility] 3rd Floor, [place] [address], [place] [phone] [facility] 200 [facility] 3rd Floor, [place] [address], [place] [phone] from Last 3 Months or Most Recently Relevant to Health Maintenance Insurance BCBS MCR REPLACE PPO [facility] Care Teams Table Cut Off Saw Operator Relationship Specialty Start Date End Date Juliana Alejo NP PCP - General Family Medicine 06/09/20
--- OUTSIDE RECORDS SUMMARY | 2025-06-11 15:45 | XMS_ITS | Clinical Summary ---
Author Organization [facility] Address [address] [facility] [place] [address] Care Team Providers Care Brand Ambassador Promotional Model Name Role Phone Adriana Keenan HELICOPTER CREW CHIEF Primary Care Provider Allergies Active Allergy Reactions Criticality Noted Date Comments Naproxen GI Intolerance,GI Bleeding 3 Semaglutide GI Intolerance 06/06/2025 Medications cloNIDine HCl (CATAPRES) 0.1 MG tablet TAKE 2 TABLETS BY MOUTH AT BEDTIME 11/09/20 19 Active cloNIDine HCL (CATAPRES) 0.2 MG tablet Take 0.2 mg by mouth. Active levothyroxine (SYNTHROID) 112 MCG tablet Take 112 mcg by mouth. Active lisinopriL (ZESTRIL) 40 MG tablet TAKE 1 TABLET BY MOUTH EVERY DAY 08/09/20 21 Active hydroCHLOROth iazide (HYDRODIURIL) 25 MG tablet Take 25 mg by mouth 10/08/20 20 Active fluticasone propionate (FLONASE) 50 mcg/actuation nasal spray SHAKE LIQUID AND USE 1 SPRAY IN EACH NOSTRIL DAILY 12/07/19 24 Active Luis Alberto Mas U-300 Insulin 300 unit/mL (1.5 mL) inpn ADMINISTER 45 UNITS UNDER THE SKIN EVERY NIGHT AT BEDTIME 01/11/20 24 Active labetaloL (NORMODYNE) 100 MG tablet TAKE 3 TABLETS BY MOUTH TWICE DAILY 01/08/20 24 Active BD Ultra-Fine Short Pen Needle 31 gauge x 16 ndle USE DIRECTED TO ADMINISTER INSULIN UNDER THE SKIN EVERY MORNING 01/11/20 24 Active pioglitazone (ACTOS) 15 MG tablet 01/12/20 24 Active DULoxetine (Cymbalta) 60 MG capsule Take 1 capsule (60 mg total) by mouth 10/31/20 21 Active spironolacton e (ALDACTONE) 50 MG tablet 01/22/20 Active Jardiance 10 mg tab 07/09/20 Active EnbreL SureClick 50 mg/mL (1 mL) pnij 08/30/20 Active Fiasp FlexTouch U-100 Insulin 100 unit/mL (3 mL) inpn INJECT 2-16 UNITS UNDER THE SKIN THREE TIMES DAILY WITH MEALS BASED ON CORRECTION SCALE INSTRUCTIONS PROVIDED 08/09/20 Active sodium chloride (OCEAN) 0.65 % nasal spray Instill 2 sprays into each nostril as needed for congestion or rhinitis 09/22/20 Active NIFEdipine (ADALAT CC) 60 MG 24 hr tablet TAKE 1 TABLET BY MOUTH DAILY 03/31/20 25 Active DULoxetine (CYMBALTA) 30 MG capsule 04/15/20 25 Active labetaloL (NORMODYNE) 200 MG tablet TAKE 1 TABLET BY MOUTH TWICE DAILY 03/31/20 25 Active levothyroxine (SYNTHROID) 125 MCG tablet 02/14/20 25 Active busPIRone (BUSPAR) 10 MG tablet TAKE 1 TABLET BY MOUTH TWICE DAILY 02/11/20 25 Active buPROPion (WELLBUTRIN SR) 100 MG 12 hr tablet 04/15/20 25 Active fluconazole (DIFLUCAN) 150 MG tablet TAKE 1 TABLET BY MOUTH - MAY REPEAT DOSE 72 HOURS AFTER INITIAL DOSE IF NEEDED 05/03/20 25 Active acetaminophen (TYLENOL) 325 mg cap Take 1-2 capsules by mouth 4 (four) times a day for 7 days Max 12 capsules in 24 hours. 06/06/20 025 Active nystatin (MYCOSTATIN) 100,000 unit/mL suspension Take 5 mL (500,000 Units total) by mouth 4 (four) times a day for 7 days Use 1/2 dose on each side of mouth; use for 48 hrs after resolved. 180 mL 06/06/20 25 025 Active predniSONE (DELTASONE) 10 MG tablet Take 4 pills daily (40 mg) for 5 days, then take 3 pills daily (30 mg) for 2 days, then take 2 pills daily (20 mg) for 2 days, then take 1 pill daily (10 mg) for 2 days, then take 1/2 pill daily (5 mg) for 4 days for a total of 15 days. 10 tablet 04/16/20 25 025 Discontinued(D iscontinued by another clinician) nystatin (MYCOSTATIN) 100,000 unit/mL suspension Take 5 mL (500,000 Units total) by mouth 4 (four) times a day for 7 days Use 1/2 dose on each side of mouth; use for 48 hrs after resolved. 180 mL 06/06/20 25 025 Discontinued Active Problems Problem Noted Date Diagnosed Date Panic disorder 09/22/2024 Inflammatory arthritis 07/15/2020 Benign essential hypertension 06/30/2018 Nonintractable headache 06/30/2018 Chronic fatigue 10/30/2017 Chronic pain 10/30/2017 Fibromyalgia 10/30/2017 Fullness of supraclavicular fossa 10/30/2017 Generalized anxiety disorder 10/30/2017 HTN (hypertension) 10/30/2017 GERD (gastroesophageal reflux disease) 3 Overview (09/22/2024): Gastroesophageal reflux disease Hiatal hernia 12/14/2012 Overview (09/22/2024): Hiatal hernia Encounters Date Type Department Care Team Description 06/06/2025 9:50 AM EDT Office Visit [facility] [id number] [place] [address] Marimar Chandler NP Candidal stomatitis (Primary Dx); Acute pharyngitis, unspecified etiology 04/16/2025 2:10 PM EDT [facility] [address] [place] [address] Marimar Chandler NP Acute bronchitis, unspecified organism (Primary Dx); Candidal stomatitis from Last 3 Months Family History Medical History Relation Comments Cancer Father Heart disease Mother Relation Status Comments Father Mother Social History Tobacco Use Types Packs/Day Years Used Date Smoking Tobacco: Never Passive Smoke Exposure: Never Smokeless Tobacco: Never Tobacco Cessation:Counseling Given: Not Answered PHQ-2 Answer Date Recorded PHQ-2 Total Score 0 04/16/2025 Comments No Sex and Gender Information Value Date Recorded Sex Assigned at Not on file Legal Sex Female 6:32 PM EST Gender Identity Not on file Sexual Orientation Not on file Last Filed Vital Signs Vital Sign Reading Time Taken Comments Blood Pressure 128/81 06/06/2025 10:10 AM EDT Pulse 67 06/06/2025 10:10 AM EDT Temperature 36.6 C (97.8 F) 06/06/2025 10:10 AM EDT Respiratory Rate 20 06/06/2025 10:10 AM EDT Oxygen Saturation 99% 06/06/2025 10:10 AM EDT Inhaled Oxygen Concentration - - Weight 142 kg (312 lb) 09/22/2024 10:03 AM EDT Height 157.5 cm (5' 2 ) 09/22/2024 10:03 AM EDT Body Mass Index 57.07 09/22/2024 10:03 AM EDT Plan of Treatment Health Maintenance Due Date Last Done Comments Diabetes: Retinopathy Screening 1991 Diabetes Care Foot Exam Screening: Yearly in adults with Diabetes (or HM Modifiers)([facility]) 1999 Hypertension Control in Adults with Diabetes: 18-85 yrs old with BP >130/80 ([facility]) 1999 YSABEL Screening: Once using STOP-BANG Questionnaire for Adults with Conditions or high BMI([facility]) 1999 SDOH Screening Reminder: Annually for all adults ([facility]) 1999 Cervical Cancer Screenin-65 yrs of age (or Modifier) 2002 Cervical Cancer Screening: Pap every 3 yrs pts age 21-65 2002 Cervical Cancer: Pap Screening with Modifier timing ([facility]) 2002 Cervical Cancer: hrHPV alone or with cotesting Pap for Pts 30-65yrs screening every 5yrs ([facility]) 2002 Diabetes Care: Statin Therapy for adults with DM ages 21+ yrs old ([facility]) 2002 COVID-19 Vaccine Screening: Initial Series and Booster Status ([facility]) ( season) 2024 01/15/2021 Diabetes Care: Kidney Health Evaluation Annually in adults aged 18 to 85 yrs (or HM Modifier)([facility]) 12/25/2024 12/25/2023, 07/15/2020 Flu Vaccination: Yearly for ages 18mos through 64 years (or Modifier)([facility]) 06/27/2025 08/07/2021, 07/27/2019, 07/21/2018, Additional history exists Depression: Screening Annually using PHQ-2/9 in Adults 18 yrs or above (or HM Modifier)([facility]) 04/16/2026 04/16/2025 Zoster/Shingles Vaccine Series Screening: Adults aged 18+ yrs (or HM Modifiers)([facility]) (1 of 2) 2031 DTaP/Tdap/Td Vaccines ([facility]) (4 - Td or Tdap) 05/15/2031 05/15/2021, 05/11/2021, 11/23/2010, Additional history exists Hepatitis C Virus Infection in Adolescents and Adults: Screening (or Modifier) ([facility]) Completed 07/15/2020 Pneumococcal Vaccination Screening: Pts 0-19 & 19-49 yrs of age ([facility] ) Aged Out No longer eligible based on patient's age to complete this topic Medical Devices Not on file Procedures Procedure Name Priority Date/Time Associated Diagnosis Comments STREP MOLECULAR POCT Routine 06/06/2025 10:15 AM EDT Acute pharyngitis, unspecified etiology from Last 3 Months Results * Strep Molecular POCT (06/06/2025 10:15 AM EDT) POC MOLECULAR STREP A Negative Negative, Invalid, Not Tested, ERRONEOUS [employer] [id number] INTERNAL CONTROLS VALID Yes--Test working appropriately GON[employer]AL[employer] [id number] Expiration Date 10/13/2026 GON[employer]ALES [id number] Lot Number [id number] GONZALES [id number] TEST BRAND NAME_ STREP MOLECULAR ID Now Strep GON[employer]ALES [id number] Throat 06/06/2025 10:1 5 AM EDT us Marimar Chandler NP POINT OF CARE TEST ORDERABLES Final Result [facility] [id number] [address] [place] [address], from Last 3 Months Insurance [facility] MEDICARE [facility] Care Teams Brand Ambassador Promotional Model Relationship Specialty Start Date End Date Adriana Keenan NP [address] [place] [address] PCP - General Family Medicine 09/22/24
--- OUTSIDE RECORDS SUMMARY | 2025-06-11 15:45 | XMS_ITS | Clinical Summary ---
Author Organization [facility] Address [address] [place] [address] Care Team Providers Care Senior It Project Manager Name Role Phone Radha Allen MD Primary Care Provider [phone] Social History Tobacco Use Types Packs/Day Years [...] Pap Smear (Ages 21-65) 2002 Mammogram 2021 COVID-19 Vaccine (2023- season) 2024 08/07/2022, 10/04/2021, 01/15/2021, Additional history exists Influenza Vaccine 06/27/2025 09/13/2024, , 09/05/2022, Additional history exists HPV Vaccines Aged Out No longer eligi ble based on patient's age to complete this topic Pneumococcal Vaccine: Pediatric (0-5 Years) and At-Risk Patients (6 to 49 Years) Aged Out No longer eligible based on patient's age to complete this topic Insurance [employer] [facility] MEDICARE OUT OF NETWORK [employer] [facility] MEDICARE OUT OF NETWORK Care Teams Senior It Project Manager Relationship Specialty Start Date End Date Radha Allen MD [address] [place] [phone] PCP - General 07/14/16
--- NOTE | 2025-06-11 15:56 | MHC.OFFVIS ---
Vital Signs 06/11/25 16:09 Height 5 ft 2 in Weight 310 lb BMI 56.7 BP 168/80 H Blood Pressure Location Lt brachial Position Sitting Respiration 18 Pulse 76 Pulse Source Pulse Oximeter Pulse Oximetry (%) 99 Oxygen Delivery Method Room Air Intake Visit Reasons: ITDD PUMP FILL Waxer Required: No Allergies naproxen Allergy (Unknown, Verified 06/11/25 16:10) unknown semaglutide (From Ozempic) Allergy (Unknown, Verified 06/11/25 16:10) stomach issues PFSH Medical History Depression Anxiety Headache Herpes Arthritis Diabetes Sinusitis Bilateral shoulder region arthritis Polyarthralgia Neck pain, bilateral COVID-19 vaccine administered Lab test negative for COVID-19 virus History of postoperative nausea Sleep apnea Thyroid disease HTN (hypertension) Low back pain Morbid obesity Interstitial cystitis Surgical History Hx of partial thyroidectomy History of bladder surgery History of carpal tunnel release of both wrists Family History Mother Parkinson disease Father Aneurysm Skin cancer Sister Alcoholism Brother Alcoholism Maternal Grandmother Cardiovascular disease Maternal Grandfather HTN (hypertension) Paternal Grandfather Diabetes Paternal Uncle Psoriasis Other FH: mental illness Substance use Social History Household Members: Spouse Housing: House Are you a primary rn progressive care unit to a significant other at home: No Do you presently have visiting nurse or other home services: No Alcohol intake: current Alcohol intake frequency: holidays/special occasions only Patient Tobacco Use Status: Never used Tobacco e-Cigarette/Vaping Use: Never Used Second Hand Smoke Exposure: No Substance Use Type: Marijuana service: No Current occupational status: employed and disabled 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 Current occupational exposures/hazards: No Cognitive needs: No Hearing needs: No Vision needs: Yes (glasses) Physical Exam Vital Signs: Last Vital Signs Pulse 76 06/11/25 16:09 Resp 18 06/11/25 16:09 BP 168/80 H 06/11/25 16:09 Pulse Ox 99 06/11/25 16:09 Oxygen Delivery Method Room Air 06/11/25 16:09 BMI result Body Mass Index 56.7 Assessment & Plan Assessment & Plan (1) Interstitial cystitis: Code(s): N30.10 - Interstitial cystitis (chronic) without hematuria Category: Medical (2) Morbid obesity: Code(s): E66.01 - Morbid (severe) obesity due to excess calories Category: Medical (3) Low back pain: Code(s): M54.5 - Low back pain Category: Medical Qualifiers: Chronicity: chronic (4) Essential hypertension: Code(s): I10 - Essential (primary) hypertension Category: Medical (5) Endometriosis: Code(s): N80.9 - Endometriosis, unspecified Category: Medical (6) Chronic pain syndrome: Code(s): G89.4 - Chronic pain syndrome Category: Medical (7) Bilateral shoulder region arthritis: Code(s): M19.011 - Primary osteoarthritis, right shoulder; M19.012 - Primary osteoarthritis, left shoulder Category: Medical (8) Rheumatoid arthritis: Code(s): M06.9 - Rheumatoid arthritis, unspecified Category: Medical Plan *THE PATIENT CAME TODAY FOR THE CHANGE OF THE MEDICATION IN her PAIN PUMP. The name and date of were verified and informed consent was obtained for the procedure. The pump was interrogated. residual amount of the fluid must be 8.3 mL. SHE WAS POSITIONED prone on the bed AND THE AREA OF THE INTRATHECAL PUMP WAS PREPPED WITH CHLORAPREP. The fenestrated drape was sterilely applied over the area of the pump. Sterile gloves were worn and of the aspiration system was assembled containing 2 in 22 gauge noncoring needle, the needle was connected to extension tubing which was connected to the 20 cc sterile syringe. The pain pump was palpated under the skin in the patient's right buttock area. The needle was inserted through the skin and the central plug of the pain pump and fluid was aspirated. The clear fluid was going into the syringe the total amount of the fluid was 8.4 mL .. After that a new batch of medication was obtained containing correct doses of the medications including Morphine PF 800mcg per ml and clonidine PF 200 mcg/ ml. She is able to administer herself PTM dose 25 micro g of morphine with corresponding 6.25 micro g of clonidine every 6 hours 3 times a day. . The admixture was made in 20 cc syringe prepared by [facility] compounding pharmacy. The syringe was connected to the bacterial filter, and then connected to the extension tubing. After that the medication in the syringe was slowly instilled into the pump with aspirations at 15 and 5 cc sr. Next pump refill will be scheduled in 90 days. . Coding Level of Care Code Procedure Only Diagnoses Interstitial cystitis N30.10 Morbid obesity E66.01 Low back pain M54.5 Chronicity: chronic Essential hypertension I10 Endometriosis N80.9 Chronic pain syndrome G89.4 Bilateral shoulder region arthritis M19.011; M19.012 Rheumatoid arthritis M06.9
[2025-06-11 16:09] VITALS: BP 168/80; PULSE 76; RESP 18; O2SAT 99; BMI 56.7
== END 2025-06-11 16:23 | disposition home or self-care (01) ==
PROVIDERS: PCP Nurse Practitioner Family; Visit Provider Anesthesiology
DX: N30.10 Interstitial cystitis (chronic) without hematuria (principal); E66.01 Morbid (severe) obesity due to excess calories; M54.50 Low back pain, unspecified; I10 Essential (primary) hypertension; N80.9 Endometriosis, unspecified; G89.4 Chronic pain syndrome; M19.011 Primary osteoarthritis, right shoulder; M19.012 Primary osteoarthritis, left shoulder; M06.9 Rheumatoid arthritis, unspecified
CPT/HCPCS: 95991

== ENCOUNTER 2025-08-07 13:51 | Outpatient (AMB) | payer BC, MEDICAID, SELFPAY ==
--- NOTE | 2025-08-07 13:54 | A.OFFVIS_ITS ---
Vital Signs 08/07/25 13:58 Height 5 ft 2 in Weight 310 lb 6.574 oz BMI 56.8 BP 134/82 Blood Pressure Location Lt radial Position Sitting Pulse 71 Pulse Source Pulse Oximeter Pulse Oximetry (%) 97 Oxygen Delivery Method Room Air Intake Visit Reasons: RA Intake Note: Patient presents for RA follow up. Allergies naproxen Allergy (Unknown, Verified 08/07/25 13:57) unknown semaglutide (From Ozempic) Allergy (Unknown, Verified 08/07/25 13:57) stomach issues Medication List - Last Reconciled 08/07/25 by Carmen Peter MD acetaminophen (Tylenol) 650 mg PO Q6H PRN albuterol sulfate 90 mcg/actuation 1 puff PO Q4H PRN blood sugar diagnostic (QRGLuch Verio test strips) As directed bupropion HCl 100 mg PO BID certolizumab pegol (Cimzia) 400 mg (2 mL) subcut Q2W 3 doses certolizumab pegol (Cimzia) 200 mg subcut Q2W clonidine HCl 0.1 mg PO BID duloxetine (Cymbalta) 90 mg PO DAILY empagliflozin (Jardiance) 10 mg PO DAILY erenumab-aooe (Aimovig Autoinjector) mg subcut fluticasone propionate 50 mcg/actuation 1 spray intranasal DAILY hydrochlorothiazide 25 mg PO DAILY hydroxychloroquine (Sovuna) 200 mg PO BID 90 days insulin degludec (Tresiba FlexTouch U-200 insulin) 60 units subcut BEDTIME labetalol 200 mg PO BID 90 days levothyroxine 112 mcg PO DAILY levothyroxine 125 mcg PO 3XW meclizine 12.5 mg PO TID PRN morphine 2 mg IM Q6H nifedipine ER 60 mg PO DAILY pioglitazone 15 mg PO DAILY rizatriptan mg PO PRN spironolactone 50 mg PO DAILY HPI Comments Details: Patient is a 45-year-old female with diabetes, depression, hypertension, hypothyroidism, YSABEL/OHS and seronegative rheumatoid arthritis here today for follow up Interval History: Patient last seen 09/30/[address] Burgos - On Enbrel 50mg SC weekly - She states that she feels much better overall. Her joints are no longer swollen or painful. She feels about 80% improvement. - She states that the Enbrel started kicking in about 6 weeks into starting it. She will be seeing her fertility specialist 2 weeks from today. She started Mounjaro about 4 weeks ago. Weight has not changed yet. Today - Enbrel 50mg SC weekly - Complaining of worsening joint pain all over - Right heel pain - AM stiffness: 1 hour - Currently undergoing fertility treatments Rheumatologic History: Seronegative RA HCQ ineffective SSZ 11/2023 DC01/2024 ineffective. Cimzia 01/2024-DC 06/2024 ineffective Enbrel 06/2024 effective Initial history: This is a 43-year-old female who was referred by Pain Management for evaluation of inflammatory arthritis. The since 2012 patient has been having dry eyes and dry mouth as well as polyarthralgias. She was labeled as Sjogren's. She was evaluated by inside contractor sales in 2019. Comprehensive serology was unremarkable. Lip biopsy was negative for any signs of Sjogren's. She was started on hydroxychloroquine. She took for about 2 years and it was helpful. Patient was last seen by inside contractor sales Dr. Parr in [place] in 2020. She states that her main complaint is bilateral hand pain, swelling and morning stiffness lasting 2 hours. She takes ibuprofen 800 mg almost daily to control her hand pain. She gets intermittent right knee pain. In 2019 patient had right knee effusion, arthrocentesis was performed and it showed non inflammatory fluid. She states that prednisone is almost always helpful. She was also prescribed cevimeline and it was not very helpful. She denies any history of DVT/PE. She is unaware of any family history of autoimmune rheumatic disease Current Rheumatology Medication(s): Enbrel 50mg SC weekly [facility] Medical History Depression Anxiety Headache Herpes Arthritis Diabetes Sinusitis Bilateral shoulder region arthritis Polyarthralgia Neck pain, bilateral COVID-19 vaccine administered Lab test negative for COVID-19 virus History of postoperative nausea Sleep apnea Thyroid disease HTN (hypertension) Low back pain Morbid obesity Interstitial cystitis Surgical History Hx of partial thyroidectomy History of bladder surgery History of carpal tunnel release of both wrists Family History Mother Parkinson disease Father Aneurysm Skin cancer Sister Alcoholism Brother Alcoholism Maternal Grandmother Cardiovascular disease Maternal Grandfather HTN (hypertension) Paternal Grandfather Diabetes Paternal Uncle Psoriasis Other FH: mental illness Substance use Social History Household Members: Spouse Housing: House Are you a primary healthcare consulting manager to a significant other at home: No Do you presently have visiting nurse or other home services: No Alcohol intake: current Alcohol intake frequency: holidays/special occasions only Patient Tobacco Use Status: Never used Tobacco e-Cigarette/Vaping Use: Never Used Second Hand Smoke Exposure: No Substance Use Type: Marijuana service: No Current occupational status: employed and disabled 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 [employer] Current occupational exposures/hazards: No Cognitive needs: No Hearing needs: No Vision needs: Yes (glasses) Review of Systems Const Details: Review of Systems Constitutional: Denies fever, chills, weight loss ENT: Denies vision changes, eye pain or eye redness, dental caries, dry mouth GI: Denies nausea, vomiting, diarrhea, abdominal pain, change in BM Pulm: Denies SOB, CARDENAS, hemoptysis, wheezing Cards: Denies chest pain, palpitations Skin: Denies Raynaud's, rash, nail changes, photosensitivity, ROAD ROLLER OPERATOR: Denies headaches, weakness, paresthesias, recurrent falls MSK: as per HPI All other systems reviewed and are unremarkable except noted above Physical Exam Exam Exam: Vital signs reviewed Physical Examination CONSTITUITIONAL Patient alert and cooperative. Well appearing and in no apparent painful distress MSK Hands * Right Hand: Able to make a fist. No swelling or tenderness to palpation of the MCPs, PIPs or DIPs. * Left Hand: Able to make a fist. No swelling or tenderness to palpation of the MCPs, PIPs or DIPs. Wrists * Right Wrist: Full ROM to flexion and extension. No swelling or TTP * Left Wrist: Full ROM to flexion and extension. No swelling or TTP Elbows * Right Elbow: Full ROM. No swelling or TTP. No TTP of the medial epicondyle. No TTP of the lateral epicondyle * Left Elbow: Full ROM. No swelling or TTP. No TTP of the medial epicondyle. No TTP of the lateral epicondyle Shoulders * Right shoulder: Full ROM. No swelling noted. No TTP of the AC joint. No TTP of the subacromial bursa. No TTP of the posterior shoulder * Left shoulder: Full ROM. No swelling noted. No TTP of the AC joint. No TTP of the subacromial bursa. No TTP of the posterior shoulder Hip bursa: Tenderness to palpation bilaterally Knees * Right knee: Full ROM. No swelling noted. No TTP of the knee joint line. No TTP of pes anserine bursa * Left knee: Full ROM. Mild swelling. No TTP of the knee joint line. No TTP of pes anserine bursa. * Crepitations felt bilaterally Ankles * Right ankle: Good ankle dorsiflexion and plantar flexion. No swelling. No TTP of the ankle joint. TTP of the achilles insertion * Left ankle: Good ankle dorsiflexion and plantar flexion. No swelling. No TTP o f the ankle joint. Feet * Right foot: Negative squeeze test * Left foot: Negative squeeze test Tender points? * No tenderness to palpation of the bilateral trapezius, supraspinatus, anterior costochondral junctions, bilateral suboccipital muscle insertions SKIN No rashes Unable to evaluate nails due to nail slovenian Vital Signs: Last Vital Signs Pulse 71 08/07/25 13:58 BP 134/82 08/07/25 13:58 Pulse Ox 97 08/07/25 13:58 Oxygen Delivery Method Room Air 08/07/25 13:58 BMI result Body Mass Index 56.8 Results Reviewed Results Reviewed: Laboratory Tests 02/18/25 12:02 WBC 5.0 RBC 5.39 Hgb 14.1 Hct 44.0 Plt Count 396 ESR 28 H Sodium 138 Potassium 4.0 Chloride 104 Carbon Dioxide 25 BUN 21 H Creatinine 0.96 AST 30 ALT 25 C-Reactive Protein 1.91 H Laboratory Tests 12/26/23 14:42 Hepatitis A IgM Ab Nonreactive Hep Bs Antigen Negative Hep Bs Antibody NONREACTIVE Hep B Core Total Ab Nonreactive Hepatitis C Ab (EIA) Nonreactive TB Test (T-Spot) Com Negative Assessment & Plan Assessment & Plan (1) Seronegative rheumatoid arthritis: Comment: HCQ ineffective SSZ 11/2023 DC01/2024 ineffective. Cimzia 01/2024-DC 06/2024 ineffective Enbrel 06/2024 - 07/2025 Code(s): M06.00 - Rheumatoid arthritis without rheumatoid factor, unspecified site Category: Medical Plan: #Seronegative RA vs PsA Patient is a 45-year-old female with seronegative rheumatoid arthritis here today for follow up. Currently on Enbrel but not having good efficacy as she had breakthrough synovitis requiring steroids. She has current fertility desires and is seeing a fertility specialist with plan to start clomiphene with the hope to get . Given that she is intending to be she would need to be switched to Cimzia. Cimzia is a better treatment during because of the large molecules it is unable to cross the placenta and cause immunosuppression in the baby. Additionally we will also start her on Plaquenil which is also safe in . Hopefully the dual therapy we will be efficacious for her. Of note she has Achilles tendonitis today on examination. This is suspicious for psoriatic arthritis however she does not have any psoriatic plaques. Unfortunately it is difficult to diagnose psoriatic arthritis in the absence of psoriatic plaques. She had on nail Slovenian today so I was not able to evaluate her nails for pitting. We will try to do that at the next appointment. In the meantime Cimzia does cover both psoriatic and rheumatoid arthritis so we will proceed with this. Plan - Stop Enbrel - Start Cimizia: 400 mg SC weekly every 2 weeks for 3 doses then 200 mg every 2 weeks - Start Plaquenil 200mg bid daily - Prednisone: Take 20mg for 10 days then, 15mg for 10 days, then 10mg for 10 days, then 5mg for 10 days and stop - RTC 4 months - Labs before visit: CBC, CMP, ESR, CRP, Hepatitis panel and T spot (2) Encounter for monitoring certolizumab therapy: Code(s): Z51.81 - Encounter for therapeutic drug level monitoring; Z79.620 - nursing home (current) use of immunosuppressive biologic Plan: #Long-term Use of TNF Inhibitors: Cimzia Discussed with the patient the benefits and risks of TNF inhibitors for the management of the rheumatic condition Benefits include reduce pain, maintenance of remission and reduction of flares as well as progression of the disease Risks include injection sites/infusion reactions, serious infections (such as bacterial infections, opportunistic infections), malignancy, delaminating syndromes, autoimmune phenomena, CHF exacerbations, palmar plantar psoriasis and cytopenias Recommended rotating injection sites, and holding medication during and for up to 1 week after resolution of a febrile illness or open skin wound (3) Encounter for monitoring of hydroxychloroquine therapy: Code(s): Z51.81 - Encounter for therapeutic drug level monitoring; Z79.899 - Other intermediate (current) drug therapy Plan: #Long-term Use of Hydroxychloroquine Discussed with patient the risks and benefits of hydroxychloroquine in managing the rheumatic condition Benefits include: - Reduced pain, reduce mortality, maintenance of remission and reduction of flares Risks include: - GI upset, skin hyperpigmentation, retinal toxicity (especially after more than 5 years of use), myopathy Advised yearly ophthalmology visits Plan This is my first visit with this patient. I spent 40 minutes reviewing the record and labs, taking a history, examining the patient, discussing the treatment plan, ordering diagnostic work up and documenting in the medical record Medications: New certolizumab pegol (Cimzia) administer as 2 equally divided doses at 2 different sites in abdomen or thigh 400 mg (2 mL) subcut Q2W 1 ea 0RF M06.00 - Rheumatoid arthritis without rheumatoid factor, unspecified site hydroxychloroquine (Sovuna) 200 mg PO BID 180 tabs 1RF 90 days M06.00 - Rheumatoid arthritis without rheumatoid factor, unspecified site prednisone take 4 tablets for 10 days then 3 tablets for 10 days then 2 tablets for 10 days then 1 tablet for 10 days then stop 5 mg PO DIRECTED 100 tabs 0RF M06.00 - Rheumatoid arthritis without rheumatoid factor, unspecified site certolizumab pegol (Cimzia) 200 mg subcut Q2W 2 ea 5RF M06.00 - Rheumatoid arthritis without rheumatoid factor, unspecified site Discontinued Enbrel SureClick Discontinued Reason: Doctor's Order 50 mg subcut QWEEK 4 mL 4RF NS Coding Level of Care Code Est Pt Level 5 (83979) Complex EM visit Add On G2211 Diagnoses Seronegative rheumatoid arthritis M06.00 Encounter for monitoring certolizumab therapy Z51.81; Z79.620 Encounter for monitoring of hydroxychloroquine therapy Z51.81; Z79.899
[2025-08-07 13:58] VITALS: BP 134/82; PULSE 71; O2SAT 97; BMI 56.8
--- OUTSIDE RECORDS SUMMARY | 2025-08-07 17:44 | XMS_ITS | Clinical Summary ---
Author Organization [facility] [employer] [facility] Address [address] [facility] [email or web address] [address] Care Team Providers Care Criminal Justice Program Director Name Role Phone Adriana Keenan BOWLING FLOOR MANAGER Primary Care Provider Allergies Active Allergy Reactions Criticality Noted Date Comments Naproxen GI Intolerance,GI Bleeding 3 Semaglutide GI Intolerance 06/06/2025 Medications cloNIDine HCl (CATAPRES) 0.1 MG tablet TAKE 2 TABLETS BY MOUTH AT BEDTIME 9 Active cloNIDine HCL (CATAPRES) 0.2 MG tablet Take 0.2 mg by mouth. Active levothyroxine (SYNTHROID) 112 MCG tablet Take 112 mcg by mouth. Active lisinopriL (ZESTRIL) 40 MG tablet TAKE 1 TABLET BY MOUTH EVERY DAY 1 Active hydroCHLOROthia zide (HYDRODIURIL) 25 MG tablet Take 25 mg by mouth 0 Active fluticasone propionate (FLONASE) 50 mcg/actuation nasal spray SHAKE LIQUID AND USE 1 SPRAY IN EACH NOSTRIL DAILY 4 Active Toujake SolOrlyar U-300 Insulin 300 unit/mL (1.5 mL) inpn ADMINISTER 45 UNITS UNDER THE SKIN EVERY NIGHT AT BEDTIME 4 Active labetaloL (NORMODYNE) 100 MG tablet TAKE 3 TABLETS BY MOUTH TWICE DAILY 4 Active BD Ultra-Fine Short Pen Needle 31 gauge x 04/11 ndle USE DIRECTED TO ADMINISTER INSULIN UNDER [...] ON CORRECTION SCALE INSTRUCTIONS PROVIDED 4 Active sodium chloride (OCEAN) 0.65 % nasal spray Instill 2 sprays into each nostril as needed for congestion or rhinitis 4 09/22/20 25 Active NIFEdipine (ADALAT CC) 60 MG 24 hr tablet TAKE 1 TABLET BY MOUTH DAILY 5 Active DULoxetine (CYMBALTA) 30 MG capsule 5 Active labetaloL (NORMODYNE) 200 MG tablet TAKE 1 TABLET BY MOUTH TWICE DAILY 5 Active levothyroxine (SYNTHROID) 125 MCG tablet 5 Active busPIRone (BUSPAR) 10 MG tablet TAKE 1 TABLET BY MOUTH TWICE DAILY 5 Active buPROPion (WELLBUTRIN SR) 100 MG 12 hr tablet 5 Active fluconazole (DIFLUCAN) 150 MG tablet TAKE 1 TABLET BY MOUTH - MARCH REPEAT DOSE 72 HOURS AFTER INITIAL DOSE IF NEEDED 5 Active Active Problems Problem Noted Date Diagnosed [...] Description 06/06/2025 9:50 AM EDT Office Visit [facility] [id number] [place] [address] Marimar Chandler NP Candidal stomatitis (Primary Dx); Acute pharyngitis, unspecified etiology from Last 3 Months Family History Medical [...] Annually for all adults ([facility]) 1999 Cervical Cancer Screenin-65 yrs of age (or Modifier) 2002 Cervical Cancer Screening: Pap every 3 yrs pts age 21-65 2002 Cervical Cancer: Pap Screening with Modifier timing ([facility]) 2002 Cervical Cancer: hrHPV alone or with cotesting Pap for Pts 30-65yrs screening every 5yrs ([facility]) 2002 Diabetes Care: Statin Therapy for adults with DM ages 21+ yrs old ([facility]) 2002 Diabetes Care: Kidney Health Evaluation Annually in adults aged 18 to 85 yrs (or HM Modifier)([facility]) 12/25/2024 12/25/2023, 07/15/2020 Flu Vaccination: Yearly for ages 18mos through 64 years (or Modifier)([facility]) 06/27/2025 08/07/2021, 07/27/2019, 07/21/2018, Additional history exists COVID-19 Vaccine Screening: Initial Series and Booster Status ([facility]) (2 - season) 2025 01/15/2021 Depression: Screening Annually using PHQ-2/9 in Adults 18 yrs or above (or HM Modifier)([facility]) 04/16/2026 04/16/2025 Zoster/Shingles Vaccine Series Screening: Adults aged 18+ yrs (or HM Modifiers)([facility]) (1 of 2) 2031 DTaP/Tdap/Td Vaccines ([facility]) (4 - Td or Tdap) 05/15/2031 05/15/2021, 05/11/2021, 11/23/2010, Additional history exists Hepatitis C Virus Infection in Adolescents and Adults: Screening (or Modifier) ([facility]) Completed 07/15/2020 Pneumococcal Vaccination Screening: Pts 0-19 & 19-49 yrs of age ([facility]) Aged Out No longer eligible based on patient's age to complete this topic Medical Devices Not on file Procedures Procedure Name Priority Date/Time Associated Diagnosis Comments STREP MOLECULAR POCT Routine 06/06/2025 10:15 AM EDT Acute pharyngitis, unspecified etiology from Last 3 Months Results * Strep Molecular POCT (06/06/2025 10:15 AM EDT) Pathologist [facility] POC MOLECULAR STREP A Negative Negative, Invalid, Not Tested, ERRONEOUS GONZALES [id number] INTERNAL CONTROLS VALID Yes--Test working appropriately GONZALES [id number] Expiration Date 10/13/2026 GONZALES [id number] Lot Number [id number] GONZALES [id number] TEST BRAND NAME_ STREP MOLECULAR ID Now Strep GONZALES [id number] Throat 06/06/2025 10:1 5 AM EDT Marimar Chandler NP POINT OF CARE TEST ORDERABLES Final Result Performing Organization Address City/State/ZIP Co de Phone Kelli GONZALES [id number] [address] [place] [address], [place] from Last 3 Months Insurance [facility] MEDICARE [facility] Care Teams Criminal Justice Program Director Relationship Specialty Start Date End Date Adriana Keenan NP [address] [place] [phone] PCP - General Family Medicine 09/22/24
--- OUTSIDE RECORDS SUMMARY | 2025-08-07 17:44 | XMS_ITS | Clinical Summary ---
Author Organization [facility] Address [address] [place] [address] Care Team Providers Care Stitcher Hand Name Role Phone Radha Allen MD Primary Care Provider [phone] Social History Tobacco Use Types Packs/Day Years [...] series) 2000 Pap Smear (Ages 21-65) 2002 HPV Vaccines (1 - 3-dose SCDM series) 2008 Mammogram 2021 Influenza Vaccine 06/27/2025 09/13/2024, , 09/05/2022, Additional history exists COVID-19 Vaccine ( season) 2025 08/07/2022, 10/04/2021, 01/15/2021, Additional history exists Pneumococcal Vaccine: Pediatric (0-5 Years) and At-Risk Patients (6 to 49 Years) Aged Out No longer eligible based on patient's age to complete this topic Insurance [email or web address] D MEDICARE OUT OF NETWORK [employer] D MEDICARE OUT OF NETWORK Care Teams Stitcher Hand Relationship Specialty Start Date End Date Radha Allen MD [address] [place] [id number] PCP - General 07/14/16
--- OUTSIDE RECORDS SUMMARY | 2025-08-07 17:44 | XMS_ITS | Encounter Summary ---
Author Organization [facility] Address [address] [place] [id number] Care Team Providers Care Supervisor Home Energy Consultant Name Role Phone Radha Allen MD Primary Care Provider [phone] Encounter Details Date Type Department Care Team (Late st Contact Info) Description 09/07/2021 Scanned Document [facility] UROGYN [facility]FD [address] [id number] Josh Cannon, DO [address] [address] Social History Tobacco Use Types Packs/Day Years [...] on filedocumented in this encounter Care Teams Supervisor Home Energy Consultant Relationship Specialty Start Date End Date Radha Allen MD [address] [place] [id number] PCP - General 07/14/16 documented as of this encounter
--- OUTSIDE RECORDS SUMMARY | 2025-08-07 17:45 | XMS_ITS | Clinical Summary ---
Author Organization [facility] Address [address] [place] [address] Care Team Providers Care Guard Museum Name Role Phone Juliana Alejo NP Primary [...] Hep B, Unspecified 09/14/2021 Influenza, Injectable, Madin [place] Canine Kidney, Preservative Free, Quadrivalent 07/27/2019,07/01/2017 Influenza, [...] 05/30/2022 03/15/2022, 11/30/2021, 09/14/2021, Additional history exists Alcohol/Substance Use Screening 11/27/2024 Depression Screening and Follow-Up 11/27/2024 Social Drivers of Health Анна ual Screening 11/27/2024 COVID-19 Vaccine (7 - 2024-2 6 season) 2025 09/14/2023, 08/07/2022, 10/04/2021, Additional history exists Influenza Vaccine (#1) 2025 , 09/05/2022, 08/07/2021, Additional history exists DTaP,Tdap,and Td Vaccines (5 - Td or Tdap) 05/15/2031 05/15/2021, 05/11/2021, 11/23/2010, Additional history exists RSV Vaccine (60+ years old a nd patients) (1 - 1-dose 75+ series) 2056 Hepatitis C Screening Completed 07/15/2020 Procedures * Due to [place] law, this organization might not be sharing negative HIV tests. Procedure Name Priority Date/Time Associated Diagnosis Comments HEPATITIS C ANTIBODY W/REFLEX TO HCV RNA, QUANTITATIVE PCR Routine 07/15/2020 12:10 PM EDT Arthralgia, unspecified joint from Last 3 Months or Most Recently Relevant to Health Maintenance Results * Due to [place] law, this organization might not be sharing negative HIV tests. * Hepatitis C Antibody w/Reflex to HCV RNA, Quantitative PCR (07/15/2020 12:10 PM EDT) Hepatitis C Antibody NON-REACT MAHOGANY NON-REACT MAHOGANY 07/16/2020 9:20 AM EDT [facility] Signal To Cut-Off 0.02 <1.00 07/16/2020 9:20 AM EDT [email or web address] [facility] Comment: HCV antibody was non-reactive. There is no laboratory evidence of HCV infection. In most cases, no further action is required. However, if recent HCV exposure is suspected, a test for HCV RNA (test code 24953) is suggested. For additional information please refer to http://education.[employer].com/faq/ZZV40z0 (This link is being provided for informational/ educational purposes only.) Blood Structure of peripheral vein / Unknown Venipuncture / Unknown 07/15/2020 12:10 PM EDT 07/15/2020 12:22 PM EDT Narrative [facility] - 07/16/2020 9:20 AM EDT [facility] Received Date: Rusty Parr MD LAB BLOOD ORDERABLES Final Result [facility] [address] [facility] [address] Floor, [place] [address], [place] [phone] [facility] [address] [facility] [address], [place] [address], [place] [phone] from Last 3 Months or Most Recently Relevant to Health Maintenance Insurance BCBS MCR REPLACE PPO [facility] Care Teams Guard Museum Relationship Specialty Start Date End Date Juliana Alejo NP PCP - General Family Medicine 06/09/20
== END 2025-08-07 14:26 | disposition home or self-care (01) ==
LOC: HO.RHES 13:52
PROVIDERS: PCP Nurse Practitioner Family; Visit Provider Student in an Organized Health Care Education/Training Program
DX: M06.09 Rheumatoid arthritis without rheumatoid factor, multiple sites (principal); Z51.81 Encounter for therapeutic drug level monitoring; Z79.620 Long term (current) use of immunosuppressive biologic; Z79.899 Other long term (current) drug therapy
CPT/HCPCS: 99215

== ENCOUNTER 2025-09-03 15:26 | Outpatient (AMB) | payer BC, MEDICAID, SELFPAY ==
--- NOTE | 2025-09-03 15:29 | A.OFFVIS_ITS ---
Vital Signs 09/03/25 15:39 Height 5 ft 2 in BP 189/99 H Blood Pressure Location Lt brachial Position Sitting Respiration 16 Pulse 69 Pulse Source Pulse Oximeter Pulse Oximetry (%) 97 Oxygen Delivery Method Room Air Intake Visit Reasons: ITDD Refill Decorator Mannequin Required: No Accompanied by: Self / Same As Patient Allergies naproxen Allergy (Unknown, Verified 09/03/25 16:04) unknown semaglutide (From Ozempic) Allergy (Unknown, Verified 09/03/25 16:04) stomach issues HPI Comments Details: Fatemhe is 42 years old with history of chronic pelvic pain, interstitial cystitis intractable to any conservative and surgical treatments.? She had ItDD implanted treatment of her condition. The admixture contains morphine and clonidine. See refill of the intrathecal pain pump as below. She reports excellent pain relieve with no pain whatsoever related to her interstitial cystitis chronic pelvic pain and endometriosis.? She reported today that she started to experience tonsillitis recently she [facility]. She reported fever 101 PFSH Medical History Depression Anxiety Headache Herpes Arthritis Diabetes Sinusitis Bilateral shoulder region arthritis Polyarthralgia Neck pain, bilateral COVID-19 vaccine administered Lab test negative for COVID-19 virus History of postoperative nausea Sleep apnea Thyroid disease HTN (hypertension) Low back pain Morbid obesity Interstitial cystitis Surgical History Hx of partial thyroidectomy History of bladder surgery History of carpal tunnel release of both wrists Family History Mother Parkinson disease Father Aneurysm Skin cancer Sister Alcoholism Brother Alcoholism Maternal Grandmother Cardiovascular disease Maternal Grandfather HTN (hypertension) Paternal Grandfather Diabetes Paternal Uncle Psoriasis Other FH: mental illness Substance use Social History Household Members: Spouse Housing: House Are you a primary certified caregiver to a significant other at home: No Do you presently have visiting nurse or other home services: No Alcohol intake: current Alcohol intake frequency: holidays/special occasions only Patient Tobacco Use Status: Never used Tobacco e-Cigarette/Vaping Use: Never Used Second Hand Smoke Exposure: No Substance Use Type: Marijuana service: No Current occupational status: employed and disabled 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 Current occupational exposures/hazards: No Cognitive needs: No Hearing needs: No Vision needs: Yes (glasses) Review of Systems Const All systems reviewed & are unremarkable except as noted in HPI and below ENT Reports Normal hearing present Neuro Reports Normal hearing present, Denies Abnormal speech present and Denies Sensory deficit (Neuro) Physical Exam Vital Signs: Last Vital Signs Pulse 69 09/03/25 15:39 Resp 16 09/03/25 15:39 BP 189/99 H 09/03/25 15:39 Pulse Ox 97 09/03/25 15:39 Oxygen Delivery Method Room Air 09/03/25 15:39 Const Nutritional Appearance: obese morbidly obese Eyes General: appearance normal, both eyes and all related structures Pupils: Equal, round and reactive pupils present EOM: EOMs intact bilaterally Neck Neck: Yes full ROM Chest Chest palpation & inspection: normal inspection of the chest Resp Effort & Inspection: normal respiratory effort, able to speak in complete sentences, normal respiratory pattern, no audible wheezes and no cough Cardio Other: On exam today blood pressure 198 /88 mm Hg Jugular venous distension: no JVD GI Inspection: Yes normal to inspection Back/Spine/Pelvis Other: This patient demonstrates normal gait, reports no tenderness of palpation in lumbar spine. Reports normal strength in bilateral lower extremities. Able to stand on her tiptoes and on her heels without difficulty so muscular strands in normal reports only sensory changes in the right lateral hip. The rest of the legs are normal. Reports no numbness elsewhere but right hip. Flexion forward and flexion backwards of the lumbar spine without difficulty. Straight leg rising is negative for back pain. Neuro Cranial nerves: Yes Equal, round and reactive pupils present and Yes Normal hearing present Speech: No Abnormal speech present Gait exam (Neuro): Normal gait present Motor exam (neuro): 5/5 motor strength present throughout Sensory Exam: No Sensory deficit (Neuro) Extrem General: No pedal edema Psych Speech and movement: Normal speech and movement present Affect: normal affect Attitude: cooperative Thought process: Normal thought process present Thought content: Normal thought content present Assessment & Plan Assessment & Plan (1) Interstitial cystitis: Code(s): N30.10 - Interstitial cystitis (chronic) without hematuria Category: Medical (2) Morbid obesity: Code(s): E66.01 - Morbid (severe) obesity due to excess calories Category: Medical (3) Low back pain: Code(s): M54.5 - Low back pain Category: Medical Qualifiers: Chronicity: chronic (4) Essential hypertension: Code(s): I10 - Essential (primary) hypertension Category: Medical (5) Endometriosis: Code(s): N80.9 - Endometriosis, unspecified Category: Medical (6) Chronic pain syndrome: Code(s): G89.4 - Chronic pain syndrome Category: Medical (7) Bilateral shoulder region arthritis: Code(s): M19.011 - Primary osteoarthritis, right shoulder; M19.012 - Primary osteoarthritis, left shoulder Category: Medical (8) Rheumatoid arthritis: Code(s): M06.9 - Rheumatoid arthritis, unspecified Category: Medical Plan *THE PATIENT CAME TODAY FOR THE CHANGE OF THE MEDICATION IN her PAIN PUMP. The name and date of were verified and informed consent was obtained for the procedure. The pump was interrogated. residual amount of the fluid must be 9.0 mL. SHE WAS POSITIONED prone on the bed AND THE AREA OF THE INTRATHECAL PUMP WAS PREPPED WITH CHLORAPREP. The fenestrated drape was sterilely applied over the area of the pump. Sterile gloves were worn and of the aspiration system was assembled containing 2 in 22 gauge noncoring needle, the needle was connected to extension tubing which was connected to the 20 cc sterile syringe. The pain pump was palpated under the skin in the patient's right buttock area. The needle was inserted through the skin and the central plug of the pain pump and fluid was aspirated. The clear fluid was going into the syringe the total amount of the fluid was 9.6 mL .. After that a new batch of medication was obtained containing correct doses of the medications including Morphine PF 800mcg per ml and clonidine PF 200 mcg/ ml. She is able to administer herself PTM dose 25 micro g of morphine with corresponding 6.25 micro g of clonidine every 6 hours 3 times a day. . The admixture was made in 20 cc syringe prepared by [facility] compounding pharmacy. The syringe was connected to the bacterial filter, and then connected to the extension tubing. After that the medication in the syringe was slowly instilled into the pump with aspirations at 15 and 5 cc sr. Next pump refill will be scheduled in 90 days. . Coding Level of Care Code Est Pt Level 3 (41532) Procedure Only Diagnoses Interstitial cystitis N30.10 Morbid obesity E66.01 Low back pain M54.5 Chronicity: chronic Essential hypertension I10 Endometriosis N80.9 Chronic pain syndrome G89.4 Bilateral shoulder region arthritis M19.011; M19.012 Rheumatoid arthritis M06.9
[2025-09-03 15:39] VITALS: BP 189/99; PULSE 69; RESP 16; O2SAT 97
== END 2025-09-03 15:55 | disposition home or self-care (01) ==
LOC: HO.PMC 15:27
PROVIDERS: PCP Nurse Practitioner Family; Visit Provider Anesthesiology
DX: N30.10 Interstitial cystitis (chronic) without hematuria (principal); E66.01 Morbid (severe) obesity due to excess calories; M54.50 Low back pain, unspecified; I10 Essential (primary) hypertension; N80.9 Endometriosis, unspecified; G89.4 Chronic pain syndrome; M19.011 Primary osteoarthritis, right shoulder; M19.012 Primary osteoarthritis, left shoulder; M06.9 Rheumatoid arthritis, unspecified; Z45.1 Encounter for adjustment and management of infusion pump
CPT/HCPCS: 62370; 99213

== ENCOUNTER → 2025-09-03 15:26 | Outpatient (BNVA) | payer BC, MEDICAID, SELFPAY | PROVIDERS: PCP Nurse Practitioner Family; Visit Provider Anesthesiology | DX: G89.4 Chronic pain syndrome (principal) | CPT/HCPCS: 62370 ==

== ENCOUNTER 2025-09-11 13:45 | Outpatient (AMB) | payer BC, MEDICAID, SELFPAY ==
--- NOTE | 2025-09-11 14:13 | A.OFFVIS_ITS ---
Vital Signs 09/11/25 14:27 Height 5 ft 2 in Weight 312 lb 13.375 oz BMI 57.2 BP 142/80 H Blood Pressure Location Lt brachial Position Sitting Pulse 69 Pulse Source Pulse Oximeter Pulse Oximetry (%) 97 Oxygen Delivery Method Room Air Intake Visit Reasons: follow up Intake Note: Patient presents for RA pain follow up. Allergies naproxen Allergy (Unknown, Verified 09/11/25 14:27) unknown semaglutide (From Ozempic) Allergy (Unknown, Verified 09/11/25 14:27) stomach issues Medication List - Last Reconciled 09/11/25 by Carmen Peter MD acetaminophen (Tylenol) 650 mg PO Q6H PRN albuterol sulfate 90 mcg/actuation 1 puff PO Q4H PRN blood sugar diagnostic ([employer] Verio test strips) As directed bupropion HCl 100 mg PO BID certolizumab pegol (Cimzia Starter Kit) 400 mg (2 mL) subcut Q2W 3 doses certolizumab pegol (Cimzia) 200 mg subcut Q2W clonidine HCl 0.1 mg PO BID duloxetine (Cymbalta) 90 mg PO DAILY empagliflozin (Jardiance) 10 mg PO DAILY erenumab-aooe (Aimovig Autoinjector) mg subcut fluticasone propionate 50 mcg/actuation 1 spray intranasal DAILY hydrochlorothiazide 25 mg PO DAILY hydroxychloroquine (Sovuna) 200 mg PO BID 90 days insulin degludec (Tresiba FlexTouch U-200 insulin) 60 units subcut BEDTIME labetalol 200 mg PO BID 90 days levothyroxine 112 mcg PO DAILY levothyroxine 125 mcg PO 3XW meclizine 12.5 mg PO TID PRN morphine 2 mg IM Q6H nifedipine ER 60 mg PO DAILY pioglitazone 15 mg PO DAILY prednisone 5 mg PO DIRECTED prednisone 20 mg PO DAILY rizatriptan mg PO PRN spironolactone 50 mg PO DAILY HPI Comments Details: Patient is a 45-year-old female with diabetes, depression, hypertension, hypothyroidism, YSABEL/OHS and seronegative rheumatoid arthritis here today for follow up Interval History: Patient last seen 08/07/25 with me - On Enbrel 50mg SC weekly - Complaining of worsening joint pain all over - Right heel pain - AM stiffness: 1 hour - Currently undergoing fertility treatments - Start on Cimzia due to its preferential use in - Started on prednisone Today - On Cimzia 200mg every 2 weeks SC, prednisone 20mg PO daily - Urgent visit - Despite the prednisone 20mg she complains of fatigue, brain fog, fullness to the right supraclavicular fossa - Overall increased achyness Rheumatologic History: Seronegative RA HCQ ineffective SSZ 11/2023 DC01/2024 ineffective. Cimzia 01/2024-DC 06/2024 ineffective Enbrel 06/2024 effective Initial history: This is a 43-year-old female who was referred by Pain Management for evaluation of inflammatory arthritis. The since 2012 patient has been having dry eyes and dry mouth as well as polyarthralgias. She was labeled as Sjogren's. She was evaluated by auto slip cover installer in 2019. Comprehensive serology was unremarkable. Lip biopsy was negative for any signs of Sjogren's. She was started on hydroxychloroquine. She took for about 2 years and it was helpful. Patient was last seen by auto slip cover installer Dr. Parr in [place] in 2020. She states that her main complaint is bilateral hand pain, swelling and morning stiffness lasting 2 hours. She takes ibuprofen 800 mg almost daily to control her hand pain. She gets intermittent right knee pain. In 2019 patient had right knee effusion, arthrocentesis was performed and it showed non inflammatory fluid. She states that prednisone is almost always helpful. She was also prescribed cevimeline and it was not very helpful. She denies any history of DVT/PE. She is unaware of any family history of autoimmune rheumatic disease Current Rheumatology Medication(s): Cimzia 200mg SC every 2 weeks [facility] Medical History Depression Anxiety Headache Herpes Arthritis Diabetes Sinusitis Bilateral shoulder region arthritis Polyarthralgia Neck pain, bilateral COVID-19 vaccine administered Lab test negative for COVID-19 virus History of postoperative nausea Sleep apnea Thyroid disease HTN (hypertension) Low back pain Morbid obesity Interstitial cystitis Surgical History Hx of partial thyroidectomy History of bladder surgery History of carpal tunnel release of both wrists Family History Mother Parkinson disease Father Aneurysm Skin cancer Sister Alcoholism Brother Alcoholism Maternal Grandmother Cardiovascular disease Maternal Grandfather HTN (hypertension) Paternal Grandfather Diabetes Paternal Uncle Psoriasis Other FH: mental illness Substance use Social History Household Members: Spouse Housing: House Are you a primary child caregiver to a significant other at home: No Do you presently have visiting nurse or other home services: No Alcohol intake: current Alcohol intake frequency: holidays/special occasions only Patient Tobacco Use Status: Never used Tobacco e-Cigarette/Vaping Use: Never Used Second Hand Smoke Exposure: No Substance Use Type: Marijuana service: No Current occupational status: employed and disabled 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 [employer] Current occupational exposures/hazards: No Cognitive needs: No Hearing needs: No Vision needs: Yes (glasses) Review of Systems Const Details: Review of Systems Constitutional: Denies fever, chills, weight loss ENT: Denies vision changes, eye pain or eye redness, dental caries, dry mouth GI: Denies nausea, vomiting, diarrhea, abdominal pain, change in BM Pulm: Denies SOB, CARDENAS, hemoptysis, wheezing Cards: Denies chest pain, palpitations Skin: Denies Raynaud's, rash, nail changes, photosensitivity, PHY THERAPIST: Denies headaches, weakness, paresthesias, recurrent falls MSK: as per HPI All other systems reviewed and are unremarkable except noted above Physical Exam Exam Exam: Vital signs reviewed Physical Examination CONSTITUITIONAL Patient alert and cooperative. Well appearing and in no apparent painful distress HENT Fullness noted to the right supraclavicular fossa MSK Hands * Right Hand: Able to make a fist. No swelling but TTP of the PIPs * Left Hand: Able to make a fist. No swelling but TTP of the PIPs Wrists * Right Wrist: Full ROM to flexion and extension. No swelling or TTP * Left Wrist: Full ROM to flexion and extension. No swelling or TTP Elbows * Right Elbow: Full ROM. No swelling or TTP. No TTP of the medial epicondyle. No TTP of the lateral epicondyle * Left Elbow: Full ROM. No swelling or TTP. No TTP of the medial epicondyle. No TTP of the lateral epicondyle Shoulders * Right shoulder: Full ROM. No swelling noted. No TTP of the AC joint. No TTP of the subacromial bursa. No TTP of the posterior shoulder * Left shoulder: Full ROM. No swelling noted. No TTP of the AC joint. No TTP of the subacromial bursa. No TTP of the posterior shoulder Hip bursa: Tenderness to palpation bilaterally Knees * Right knee: Full ROM. No swelling noted. No TTP of the knee joint line. No TTP of pes anserine bursa * Left knee: Full ROM. Mild swelling. TTP of the knee joint line. No TTP of pes anserine bursa. * Crepitations felt bilaterally Ankles * Right ankle: Good ankle dorsiflexion and plantar flexion. No swelling. No TTP of the ankle joint. TTP of the achilles insertion * Left ankle: Good ankle dorsiflexion and plantar flexion. No swelling. No TTP of the ankle joint. Feet * Right foot: Negative squeeze test * Left foot: Negative squeeze test Tender points? * No tenderness to palpation of the bilateral trapezius, supraspinatus, anterior costochondral junctions, bilateral suboccipital muscle insertions SKIN No rashes Unable to evaluate nails due to nail kiswahili Results Reviewed Results Reviewed: Laboratory Tests 02/18/25 12:02 WBC 5.0 RBC 5.39 Hgb 14.1 Hct 44.0 Plt Count 396 ESR 28 H Sodium 138 Potassium 4.0 Chloride 104 Carbon Dioxide 25 BUN 21 H Creatinine 0.96 AST 30 ALT 25 C-Reactive Protein 1.91 H Laboratory Tests 12/26/23 14:42 Hepatitis A IgM Ab Nonreactive Hep Bs Antigen Negative Hep Bs Antibody NONREACTIVE Hep B Core Total Ab Nonreactive Hepatitis C Ab (EIA) Nonreactive TB Test (T-Spot) Com Negative Assessment & Plan Assessment & Plan (1) Seronegative rheumatoid arthritis: Comment: HCQ ineffective SSZ 11/2023 DC01/2024 ineffective. Cimzia 01/2024-DC 06/2024 ineffective Enbrel 06/2024 - 07/2025 Code(s): M06.00 - Rheumatoid arthritis without rheumatoid factor, unspecified site Category: Medical Plan: #Seronegative RA vs PsA Patient is a 45-year-old female with seronegative rheumatoid arthritis here today for urgent visit for flare despite 20mg of prednisone Overall exam is looking better to me but maybe we will need to do a weight based dosing for her Plan - Continue Cimizia - Plaquenil 200mg bid daily - Prednisone: Take 40mg for 14 days then, 30mg for 14 days, then 20mg for 14 days, then 15mg for 14 days, then 10mg for 14 days then 5mg until follow up - Labs today: CBC, CMP, ESR, CRP, Hepatitis panel and T spot - RTC October - Labs before visit: CBC, CMP, ESR, CRP (2) Encounter for monitoring certolizumab therapy: Code(s): Z51.81 - Encounter for therapeutic drug level monitoring; Z79.620 - custodial (current) use of immunosuppressive biologic Plan: #Long-term Use of TNF Inhibitors: Cimzia Discussed with the patient the benefits and risks of TNF inhibitors for the management of the rheumatic condition Benefits include reduce pain, maintenance of remission and reduction of flares as well as progression of the disease Risks include injection sites/infusion reactions, serious infections (such as bacterial infections, opportunistic infections), malignancy, delaminating syndromes, autoimmune phenomena, CHF exacerbations, palmar plantar psoriasis and cytopenias Recommended rotating injection sites, and holding medication during and for up to 1 week after resolution of a febrile illness or open skin wound (3) Encounter for monitoring of hydroxychloroquine therapy: Code(s): Z51.81 - Encounter for therapeutic drug level monitoring; Z79.899 - Other joint terminal attack controller (current) drug therapy Plan: #Long-term Use of Hydroxychloroquine Discussed with patient the risks and benefits of hydroxychloroquine in managing the rheumatic condition Benefits include: - Reduced pain, reduce mortality, maintenance of remission and reduction of flares Risks include: - GI upset, skin hyperpigmentation, retinal toxicity (especially after more than 5 years of use), myopathy Advised yearly ophthalmology visits Plan I spent 40 minutes reviewing the record and labs, taking a history, examining the patient, discussing the treatment plan, ordering diagnostic work up and documenting in the medical record Orders: Orders Complete Blood Count Auto Diff 10/28/25 Z79.899 - Other joint terminal attack controller (current) drug therapy C Reactive Protein 10/28/25 Z79.899 - Other penitentiary (current) drug therapy Erythrocyte Sedimentation Rate 10/28/25 Z79.899 - Other joint terminal attack controller (current) drug therapy C Reactive Protein Today Z79.899 - Other penitentiary (current) drug therapy T Spot TB Today Z79.899 - Other penitentiary (current) drug therapy Comprehensive Met. Panel 10/28/25 Z79.899 - Other joint terminal attack controller (current) drug therapy Complete Blood Count Auto Diff Today Z79.899 - Other joint terminal attack controller (current) drug therapy Comprehensive Met. Panel Today Z79.899 - Other joint terminal attack controller (current) drug therapy Erythrocyte Sedimentation Rate Today Z79.899 - Other penitentiary (current) drug therapy Hepatitis B,C Profile Today Z79.899 - Other penitentiary (current) drug therapy Medications: New prednisone Take 2 tablets x 14 days then 1.5 tablets x 14 days then 1 tablet x 14 days, then switch to the 5mg tablet taper 20 mg PO DAILY 65 tabs 0RF M06.00 - Rheumatoid arthritis without rheumatoid factor, unspecified site Changed From prednisone take 4 tablets for 10 days then 3 tablets for 10 days then 2 tablets for 10 days then 1 tablet for 10 days then stop 5 mg PO DIRECTED 100 tabs 0RF M06.00 - Rheumatoid arthritis without rheumatoid factor, unspecified site To prednisone 3 tablets for 14 days then 2 tablets for 14 days then 1 tablet until follow up in 3 months To take after the 20mg prednisone taper is finished 5 mg PO DIRECTED 140 tabs 0RF M06.00 - Rheumatoid arthritis without rheumatoid factor, unspecified site Coding Level of Care Code Est Pt Level 5 (92108) Complex EM visit Add On G2211 Diagnoses Seronegative rheumatoid arthritis M06.00 Encounter for monitoring certolizumab therapy Z51.81; Z79.620 Encounter for monitoring of hydroxychloroquine therapy Z51.81; Z79.899
[2025-09-11 14:27] VITALS: BP 142/80; PULSE 69; O2SAT 97; BMI 57.2
--- OUTSIDE RECORDS SUMMARY | 2025-09-11 17:31 | XMS_ITS | Clinical Summary ---
Author Organization [facility] Address [address] [place] [address] Care Team Providers Care Wooden Frame Builder Name Role Phone Juliana Alejo NP Primary [...] irritation, headache, muscle aches, retinal deposits (with chcf use) --she is agreeable - 200mg BID [...] Hep B, Unspecified 09/14/2021 Influenza, Injectable, Madin Blanket Canine Kidney, Preservative Free, Quadrivalent 07/27/2019,07/01/2017 Influenza, [...] Screening Completed 07/15/2020 Procedures * Due to [place] [employer] law, this organization might not be sharing negative HIV tests. Procedure Name Priority Date/Time Associated Diagnosis Comments HEPATITIS C ANTIBODY W/REFLEX TO HCV RNA, QUANTITATIVE PCR Routine 07/15/2020 12:10 PM EDT Arthralgia, unspecified joint from Last 3 Months or Most Recently Relevant to Health Maintenance Results * Due to [place] [employer] law, this organization might not be sharing negative HIV tests. * Hepatitis C Antibody w/Reflex to HCV RNA, Quantitative PCR (07/15/2020 12:10 PM EDT) Hepatitis C Antibody NON-REACT MAHOGANY NON-REACT MAHOGANY 07/16/2020 9:20 AM EDT [facility] Signal To Cut-Off 0.02 <1.00 07/16/2020 9:20 AM EDT [employer] Comment: HCV antibody was non-reactive. There is no laboratory evidence of HCV infection. In most cases, no further action is required. However, if recent HCV exposure is suspected, a test for HCV RNA (test code 90362) is suggested. For additional information please refer to http://education.IDENT Technology/faq/DKM77z1 (This link is being provided for informational/ educational purposes only.) Blood Structure of peripheral vein / Unknown Venipuncture / Unknown 07/15/2020 12:10 PM EDT 07/15/2020 12:22 PM EDT Narrative [facility] - 07/16/2020 9:20 AM EDT [facility] Received Date: Rusty Parr MD LAB BLOOD ORDERABLES Final Result [facility] [place] [address] [facility] [address], [place] [address], [place] [phone] [facility] [address] [facility] [address], [place] [address], [place] [phone] from Last 3 Months or Most Recently Relevant to Health Maintenance Insurance BCBS MCR REPLACE PPO [facility] Care Teams Wooden Frame Builder Relationship Specialty Start Date End Date Juliana Alejo NP PCP - General Family Medicine 06/09/20
--- OUTSIDE RECORDS SUMMARY | 2025-09-11 17:31 | XMS_ITS | Encounter Summary ---
Author Organization [facility] Address [address] [place] [address] Care Team Providers Care Ict Business Development Manager Name Role Phone Radha Allen MD Primary Care Provider [phone] Encounter Details Date Type Department Care Team (Late st Contact Info) Description 09/07/2021 Scanned Document [facility]FD [address] [id number] Josh Cannon, DO [address] [address] Social History Tobacco Use Types Packs/Day Years [...] on filedocumented in this encounter Care Teams Ict Business Development Manager Relationship Specialty Start Date End Date Radha Allen MD [address] [place] [id number] PCP - General 07/14/16 documented as of this encounter
--- OUTSIDE RECORDS SUMMARY | 2025-09-11 17:31 | XMS_ITS | Clinical Summary ---
Author Organization [facility] Address [address] [place] [address] Care Team Providers Care Manager Army Name Role Phone Radha Allen MD Primary Care Provider [phone] Social History Tobacco Use Types Packs/Day Years [...] (Ages 21-65) 2002 Mammogram 2021 Influenza Vaccine 06/27/2025 09/13/2024, , 09/05/2022, Additional history exists COVID-19 Vaccine (2024- season) 2025 08/07/2022, 10/04/2021, 01/15/2021, Additional history exists HPV Vaccines (No Doses Required) Completed Pneumococcal Vaccine: Pediatric (0-5 Years) and At-Risk Patients (6 to 49 Years) Aged Out No longer eligible based on patient's age to complete this topic [place] [address] [address] [place] [address] [employer] MEDICARE OUT OF NETWORK [employer] [facility] MEDICARE OUT OF NETWORK Care Teams Manager Army Relationship Specialty Start Date End Date Radha Allen MD [address] [place] [id number] PCP - General 07/14/16
--- OUTSIDE RECORDS SUMMARY | 2025-09-11 17:31 | XMS_ITS | Clinical Summary ---
Author Organization [facility] [employer] [facility] Address [address] [facility] [place] [address] Care Team Providers Care Design Drafter Name Role Phone Adriana Keeann HIM ASSISTANT Primary Care Provider Allergies Active Allergy Reactions [...] Yearly in adults with Diabetes (or HM Modifiers)([facility]) 1999 Hypertension Control in Adults with Diabetes: 18-85 yrs old with BP >130/80 ([facility]) 1999 YSABEL Screening: Once using STOP-BANG Questionnaire for Adults with Conditions or high BMI([facility]) 1999 SDOH Screening Reminder: Annually for all adults ([facility]) 1999 Cervical Cancer Screenin-65 yrs of age (or Modifier) 2002 Cervical Cancer Screening: Pap every 3 yrs pts age 21-65 2002 Cervical Cancer: Pap Screening with Modifier timing ([facility]) 2002 Cervical Cancer: hrHPV alone or with cotesting Pap for Pts 30-65yrs screening every 5yrs ([facility]) 2002 Diabetes Care: Statin Therapy for adults with DM ages 21+ yrs old ([facility]) 2002 Diabetes Care: Kidney Health Evaluation Annually in adults aged 18 to 85 yrs (or HM Modifier)([facility]) 12/25/2024 12/25/2023, 07/15/2020 Flu Vaccination: Yearly for ages 18mos through 64 years (or Modifier)([facility]) 06/27/2025 08/07/2021, 07/27/2019, 07/21/2018, Additional history exists COVID-19 Vaccine Screening: Initial Series and Booster Status ([facility]) (2 - 2024- season) 2025 01/15/2021 Depression: Screening Annually using [...] topic Medical Devices Not on file Insurance [facility] MEDICARE [facility] Care Teams Design Drafter Relationship Specialty Start Date End Date Adriana Keenan NP [address] [place] [address] PCP - General Family Medicine 09/22/24
== END 2025-09-11 14:55 | disposition home or self-care (01) ==
LOC: HO.RHES 13:45
PROVIDERS: PCP Nurse Practitioner Family; Visit Provider Student in an Organized Health Care Education/Training Program
DX: M06.09 Rheumatoid arthritis without rheumatoid factor, multiple sites (principal); Z51.81 Encounter for therapeutic drug level monitoring; Z79.620 Long term (current) use of immunosuppressive biologic; Z79.899 Other long term (current) drug therapy
CPT/HCPCS: 99215

== ENCOUNTER 2025-09-11 13:45 | Outpatient (REF) | payer BC, MEDICAID, SELFPAY ==
[2025-09-11 15:36] LABS: MANUAL DIFF FLAG NO
[2025-09-11 15:56] LABS: Hematocrit 47.9 % (37.0-47.0); Hemoglobin 15.3 g/dl (12.0-16.0); Imm Gran Abs Auto 0.03 X10*3/uL (0.00-0.03); Imm Gran Pct Auto 0.3 % (0.0-0.4); Lymphocytes Absolute Auto 1.3 X10*3/uL (1.2-4.9); Mean Corpuscular HGB Conc 31.9 g/dl (31.0-35.0); Mean Corpuscular Hemoglobin 25.7 pg (27.0-33.0); Mean Corpuscular Volume 80.5 fL (80.0-98.0); NRBC Abs Auto 0.000 X10*3/uL (0.0-0.012); NRBC Pct Auto 0.0 /100WBC (0.0-0.2); Platelet Count 400 X10*3/uL (160-400); Red Blood Count 5.95 X10*6/uL (4.20-5.50); White Blood Count 10.0 X10*3/uL (4.8-10.8)
[2025-09-11 16:35] LABS: Alanine Aminotransferase 27 U/L (0-31); Albumin Level 4.8 g/dL (3.5-5.0); Alkaline Phosphatase 84 U/L (39-117); Anion Gap 13 (12-20); Aspartate Amino Transferase 32 U/L (5-31); Blood Urea Nitrogen 22 mg/dL (9-16); Calcium 9.7 mg/dL (8.4-10.2); Carbon Dioxide 28 mmol/L (22-29); Chloride 103 mmol/L (96-108); Estimated Glomerular Filt Rate > 60; Potassium 3.5 mmol/L (3.3-5.1); Sodium 140 mmol/L (135-145); Total Protein 7.8 g/dL (6.5-8.0)
[2025-09-12 03:40] LABS: HBS Num1 0.35 mIU/mL (0-7.99); HBc Num1 0.06 S/CO (0.00-0.79); HBsAGNum1 0.47 S/CO (0.00-0.99); Hepatitis B Surface Antigen Negative (Negative); ~HepC Num1 0.07 S/CO (0.00-0.79); ~Hepatitis B Surface Antibody NONREACTIVE (Nonreactive); ~Hepatitis C Antibody Nonreactive (Nonreactive)
[2025-09-13 19:37] LABS: TS Negative Control Passed; TS Panel A 0; TS Panel B 0; TS Positive Control Passed; TSpotTB Negative (Negative)
== END 2025-09-11 13:46 | disposition home or self-care (01) ==
LOC: HO.LAB 13:45
PROVIDERS: PCP Nurse Practitioner Family; Visit Provider Student in an Organized Health Care Education/Training Program
DX: M06.00 Rheumatoid arthritis without rheumatoid factor, unspecified site (principal); Z11.1 Encounter for screening for respiratory tuberculosis; Z51.81 Encounter for therapeutic drug level monitoring; Z79.899 Other long term (current) drug therapy; Z79.620 Long term (current) use of immunosuppressive biologic
CPT/HCPCS: 36415; 80053; 85025; 85652; 86140; 86481; 86704; 86706; 86803; 87340

== ENCOUNTER 2025-09-25 09:13 | Outpatient (AMB) | payer MEDICARE, MEDICAID, SELFPAY ==
--- NOTE | 2025-09-25 09:25 | HO.NEPHOV ---
Vital Signs 09/25/25 09:26 Height 5 ft 2 in Weight 324 lb BMI 59.3 BP 150/90 H Blood Pressure Location Lt radial Position Sitting Intake Visit Reasons: 6-7mon [id number] Garment Sewer Hand Required: No Accompanied by: Father Allergies naproxen Allergy (Unknown, Verified 09/25/25 09:26) unknown semaglutide (From Ozempic) Allergy (Unknown, Verified 09/25/25 09:26) stomach issues HPI Comments Details: I had the delight of seeing Ms. Colbert in follow up for H/O resistant hypertension. 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 She has been having blood pressure well over 10 years and had been on medications, which she is compliant with. Last year her blood pressure had been going very high in spite of increasing medications. She denies excess sodium in the diet. She was seen in multiple emergency rooms for all his complaints including he will [facility] in [place]. None of these times, she was admitted in the hospital as she responded to treatment given in emergency room. Blood works, CT scan of the head, EKG were all acceptable at that time. She has obstructive sleep apnea and is on CPAP which she claims to be compliant with. She has history of polycystic ovarian disease. She is a diabetic and is on Ozempic. She is not known to have any proteinuria or renal dysfunction.She had Doppler of her renal arteries. She has no history of cocaine use. She denies any other systemic complaints other than what has been mentioned above. She could not handle Ozempic and was on Mounjaro which is on hold temporarily due to fertility issues. She is on Prednisone for RA flare and is also having a migraine attack today. Her blood pressure control is at goal at home with medication changes now [facility] Medical History Depression Anxiety Headache Herpes Arthritis Diabetes Sinusitis Bilateral shoulder region arthritis Polyarthralgia Neck pain, bilateral COVID-19 vaccine administered Lab test negative for COVID-19 virus History of postoperative nausea Sleep apnea Thyroid disease HTN (hypertension) Low back pain Morbid obesity Interstitial cystitis Surgical History Hx of partial thyroidectomy History of bladder surgery History of carpal tunnel release of both wrists Family History Mother Parkinson disease Father Aneurysm Skin cancer Sister Alcoholism Brother Alcoholism Maternal Grandmother Cardiovascular disease Maternal Grandfather HTN (hypertension) Paternal Grandfather Diabetes Paternal Uncle Psoriasis Other FH: mental illness Substance use Social History Household Members: Spouse Housing: House Are you a primary career and technology education teacher to a significant other at home: No Do you presently have visiting nurse or other home services: No Alcohol intake: current Alcohol intake frequency: holidays/special occasions only Patient Tobacco Use Status: Never used Tobacco e-Cigarette/Vaping Use: Never Used Second Hand Smoke Exposure: No Substance Use Type: Marijuana service: No Current occupational status: employed and disabled 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 Current occupational exposures/hazards: No Cognitive needs: No Hearing needs: No Vision needs: Yes (glasses) Review of Systems Const All systems reviewed & are unremarkable except as noted in HPI and below Physical Exam Vital Signs: Last Vital Signs BP 150/90 H 09/25/25 09:26 BMI result Body Mass Index 59.3 Const General: comfortable and no acute distress Orientation/consciousness: patient oriented x3 HEENT Head: Yes normocephalic Mouth: Normal oral and palatal mucosa present Eyes EOM: EOMs intact bilaterally Neck Neck: Yes supple Resp Auscultation: clear to auscultation bilaterally Cardio Jugular venous distension: no JVD Rate: regular rate GI Palpation (GI): Soft to palpation Auscultation: normal bowel sounds General: Yes no CVA tenderness Back/Spine/Pelvis Back: no CVA tenderness Skin General skin exam: no rashes or lesions noted Neuro General: patient oriented x3 and moves all extremities Extrem General: Yes no pedal edema Results Reviewed Nephrology Results: Hgb, (12.0-16.0) 15.3 g/dl 09/11/25 WBC, (4.8-10.8) 10.0 X10*3/uL 09/11/25 Plt Count, (160-400) 400 X10*3/uL 09/11/25 Sodium, (135-145) 140 mmol/L 09/11/25 Potassium, (3.3-5.1) 3.5 mmol/L 09/11/25 Chloride, (96-108) 103 mmol/L 09/11/25 Carbon Dioxide, (22-29) 28 mmol/L 09/11/25 BUN, (9-16) 22 mg/dL H 09/11/25 Creatinine, (0.5-1.4) 0.92 mg/dL 09/11/25 Calcium, (8.4-10.2) 9.7 mg/dL 09/11/25 Assessment & Plan Assessment & Plan (1) Essential hypertension: Code(s): I10 - Essential (primary) hypertension Category: Medical Plan Ms Colbert has longstanding hypertension. Doppler of her renal arteries did not show any ROCIO. She has sleep apnea and has a CPAP. She has no signs of papilledema, retinal hemorrhages, heart failure, encephalopathy or acute kidney. She has no history of cocaine use. Ever since I started her on spironolactone 50 mg daily, her BP control is optimal with normal K. I will continue to investigate including urinary free cortisol to urine free cortisone to see whether she has mineral corticoid excess, if her BP remains labile. If 11 beta HSD his functioning normally, urinary free cortisone levels exceed urinary cortisol levels and the ratio cortisol to cortisone is approximately 0.3-0.5. She likely will need imaging of her adrenals, if her BP goes up. Genetic testing to confirm the diagnosis of syndrome of DHARA is available which I may consider. She has no clinical signs to suggest coarctation of aorta. She needs to lose weight. I did not make any medication changes today. She will be followed up in the office. All questions answered. Follow-up given Orders: Orders Electrolytes 8 Months I10 - Essential (primary) hypertension Blood Urea Nitrogen 8 Months I10 - Essential (primary) hypertension Creatinine 8 Months I10 - Essential (primary) hypertension Protein Creatinine Ratio, Ur 8 Months I10 - Essential (primary) hypertension Medications: New spironolactone 50 mg PO DAILY 90 tabs 4RF Coding Level of Care Code Est Pt Level 4 (11973) Diagnoses Essential hypertension I10
[2025-09-25 09:26] VITALS: BP 150/90; BMI 59.3
--- OUTSIDE RECORDS SUMMARY | 2025-09-25 10:29 | XMS_ITS | Clinical Summary ---
Author Organization [facility] Address [address] [place] [address] Care Team Providers Care Web Services Professional Name Role Phone Radha Allen MD Primary Care Provider [phone] Social History Tobacco Use Types Packs/Day Years [...] patient's age to complete this topic Insurance [place] [address] [employer] MEDICARE OUT OF NETWORK [employer] [facility] MEDICARE OUT OF NETWORK Care Teams Web Services Professional Relationship Specialty Start Date End Date Radha Allen MD [address] [place] [id number] PCP - General 07/14/16
--- OUTSIDE RECORDS SUMMARY | 2025-09-25 10:29 | XMS_ITS | Clinical Summary ---
Author Organization [facility] Address [address] [place] [address] Care Team Providers Care Automotive Specialty Technician Name Role Phone Juliana Aleoj NP Primary Care Provider Unavailabl e Allergies [...] irritation, headache, muscle aches, retinal deposits (with assisted use) --she is agreeable - 200mg BID [...] Hep B, Unspecified 09/14/2021 Influenza, Injectable, Madin [place] Canine Kidney, Preservative Free, Quadrivalent 07/27/2019,07/01/2017 Influenza, [...] Screening Completed 07/15/2020 Procedures * Due to [place] [employer] law, this organization might not be sharing negative HIV tests. Procedure Name Priority Date/Time Associated Diagnosis Comments HEPATITIS C ANTIBODY W/REFLEX TO HCV RNA, QUANTITATIVE PCR Routine 07/15/2020 12:10 PM EDT Arthralgia, unspecified joint from Last 3 Months or Most Recently Relevant to Health Maintenance Results * Due to [place] [employer] law, this organization might not be sharing negative HIV tests. * Hepatitis C Antibody w/Reflex to HCV RNA, Quantitative PCR (07/15/2020 12:10 PM EDT) Hepatitis C Antibody NON-REACT MAHOGANY NON-REACT MAHOGANY 07/16/2020 9:20 AM EDT [employer] [facility] Signal To Cut-Off 0.02 <1.00 07/16/2020 9:20 AM EDT [facility] Comment: HCV antibody was non-reactive. There is no laboratory evidence of HCV infection. In most cases, no further action is required. However, if recent HCV exposure is suspected, a test for HCV RNA (test code 76951) is suggested. For additional information please refer to http://education.YouView/faq/KRB54b0 (This link is being provided for informational/ educational purposes only.) Blood Structure of peripheral vein / Unknown Venipuncture / Unknown 07/15/2020 12:10 PM EDT 07/15/2020 12:22 PM EDT Narrative [facility] - 07/16/2020 9:20 AM EDT [facility] Received Date: Rusty Parr MD LAB BLOOD ORDERABLES Final Result [facility] [address] [facility] 3rd [address], [place] [address], [place] [phone] [employer] [facility] [address] [facility] [address] Floor, [place] [address], [place] [phone] from Last 3 Months or Most Recently Relevant to Health Maintenance Insurance BCBS MCR REPLACE PPO [facility] Care Teams Automotive Specialty Technician Relationship Specialty Start Date End Date Juliana Alejo NP PCP - General Family Medicine 06/09/20
--- OUTSIDE RECORDS SUMMARY | 2025-09-25 10:29 | XMS_ITS | Encounter Summary ---
Author Organization [facility] Address [address] [place] [address] Care Team Providers Care Accounts Adjustable Clerk Name Role Phone Radha Allen MD Primary Care Provider [phone] Encounter Details Date Type Department Care Team (Late st Contact Info) Description 09/07/2021 Scanned Document [facility] [address] [phone] Josh Cannon, DO [address] [address] Social History Tobacco Use Types Packs/Day Years [...] on filedocumented in this encounter Care Teams Accounts Adjustable Clerk Relationship Specialty Start Date End Date Radha Allen MD [address] [place] [id number] PCP - General 07/14/16 documented as of this encounter
--- OUTSIDE RECORDS SUMMARY | 2025-09-25 10:29 | XMS_ITS | Clinical Summary ---
Author Organization [facility] [employer] [facility] [employer] Address [address] [facility] [address] Care Team Providers Care Steamer Tender Name Role Phone Adriana Keenan SUPERVISOR TESTING Primary Care Provider Allergies Active Allergy Reactions [...] TABLET BY MOUTH EVERY DAY 1 Active hydroCHLOROthi azide (HYDRODIURIL) 25 MG tablet Take 25 mg [...] ON CORRECTION SCALE INSTRUCTIONS PROVIDED 4 Active NIFEdipine (ADALAT CC) 60 MG 24 [...] AFTER INITIAL DOSE IF NEEDED 5 Active sodium chloride (OCEAN) 0.65 % nasal spray Instill 2 sprays into each nostril as needed for congestion or rhinitis 4 09/22/20 25 Active Problems Problem Noted Date Diagnosed Date [...] Yearly in adults with Diabetes (or HM Modifiers)([facility]) 1999 Hypertension Control in Adults with Diabetes: 18-85 yrs old with BP >130/80 ([facility]) 1999 YSABEL Screening: Once using STOP-BANG Questionnaire for Adults with Conditions or high BMI([facility]) 1999 SDOH Screening Reminder: Annually for all adults ([facility]) 1999 Cervical Cancer Screenin-65 yrs of age (or Modifier) 2002 Cervical Cancer Screening: Pap every 3 yrs pts age 21-65 2002 Cervical Cancer: Pap Screening with Modifier timing ([facility]) 2002 Cervical Cancer: hrHPV alone or with cotesting Pap for Pts 30-65yrs screening every 5yrs ([facility]) 2002 Diabetes Care: Statin Therapy for adults with DM ages 21+ yrs old ([facility]) 2002 Diabetes Care: Kidney Health Evaluation Annually in adults aged 18 to 85 yrs (or HM Modifier)([facility]) 12/25/2024 12/25/2023, 07/15/2020 Flu Vaccination: Yearly [...] topic Medical Devices Not on file Insurance [facility] MEDICARE [facility] Care Teams Steamer Tender Relationship Specialty Start Date End Date Adriana Keenan NP [address] [place] [address] PCP - General Family Medicine 09/22/24
== END 2025-09-25 09:44 | disposition home or self-care (01) ==
LOC: HO.HKAS 09:14
PROVIDERS: PCP Nurse Practitioner Family; Visit Provider Internal Medicine Nephrology
DX: I10 Essential (primary) hypertension (principal)
CPT/HCPCS: 99214

== ENCOUNTER → 2025-09-25 09:13 | Outpatient (BNVA) | payer MEDICARE, MEDICAID, SELFPAY | PROVIDERS: PCP Nurse Practitioner Family; Visit Provider Internal Medicine Nephrology | DX: I1A.0 Resistant hypertension (principal) | CPT/HCPCS: 99212 ==

== ENCOUNTER 2025-10-22 09:51 | Outpatient (AMB) | payer MEDICARE, MEDICAID, SELFPAY ==
--- NOTE | 2025-10-22 09:56 | A.OFFVIS_ITS ---
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 On CPAP which she claims to be compliant with. Machine dying and needs a new one. Last sleep study over 10years ago. DME is Reliable. Patient states right lower calf weird sensation toes going numb. Allergies naproxen Allergy (Unknown, Verified 10/22/25 09:58) unknown semaglutide (From Ozempic) Allergy (Unknown, Verified 10/22/25 09:58) stomach issues HPI Comments Details: 45 year female pt referred to us by her pcp Adriana Francis for an evaluation of BROOKE. PMH: 5 years ago she had pain stimulator, pump implanted in her lower back for interstitial cystitis, by Dr. Laguerre, pain management. She was diagnosed with BROOKE over 15 years ago and started using her CPAP machine signal is indicating motor life is ending , she now need a new sleep study for a new machine. She is unable to sleep without it. Will nap for 2 hours daily 1230- 2pm. She c/o of snoring, gasping for air and needs her settings evaluated. She wakes up feeling chronically fatigued. She has morning headaches lasting 30 min and resolve on their own with rizatriptan prn. She has HTN and T2DM well managed however since using prednisone now tapering to 15mg for RA, she notices blood sugar randomnly spikes. RLS symptoms, neuropathy of r wright, sensation is differs feels numb, denies tingling, pins, needles and temperature changes, from wright to big toe. L. foot is normal. She moves her feet a lot at night, though it does not wake her up at night. She has anxiety well managed with duloxetine 90mg daily and Wellbutrin 100mg po BID, by PCP in [place] med management. She denies smoking, acid reflux, parasomnias, nocturia, a/v hallucinations and fh. [facility] Medical History Depression Anxiety Headache Herpes Arthritis Diabetes Sinusitis Bilateral shoulder region arthritis Polyarthralgia Neck pain, bilateral COVID-19 vaccine administered Lab test negative for COVID-19 virus History of postoperative nausea Sleep apnea Thyroid disease HTN (hypertension) Low back pain Morbid obesity Interstitial cystitis Surgical History Hx of partial thyroidectomy History of bladder surgery History of carpal tunnel release of both wrists Family History Mother Parkinson disease Father Aneurysm Skin cancer Sister Alcoholism Brother Alcoholism Maternal Grandmother Cardiovascular disease Maternal Grandfather HTN (hypertension) Paternal Grandfather Diabetes Paternal Uncle Psoriasis Other FH: mental illness Substance use Social History Household Members: Spouse Housing: House Are you a primary customer care consultant to a significant other at home: No Do you presently have visiting nurse or other home services: No Alcohol intake: current Alcohol intake frequency: holidays/special occasions only Patient Tobacco Use Status: Never used Tobacco e-Cigarette/Vaping Use: Never Used Second Hand Smoke Exposure: No Substance Use Type: Marijuana service: No Current occupational status: employed and disabled 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 [employer] Current occupational exposures/hazards: No Cognitive needs: No Hearing needs: No Vision needs: Yes (glasses) Review of Systems ENT Reports Normal hearing present Neuro Reports Normal hearing present Physical Exam Vital Signs: Last Vital Signs Pulse 69 10/22/25 09:57 BP 138/92 H 10/22/25 09:57 Pulse Ox 99 10/22/25 09:57 Oxygen Delivery Method Room Air 10/22/25 09:57 BMI result Body Mass Index 58.8 Const General: cooperative, comfortable and no acute distress Nutritional Appearance: obese Orientation/consciousness: patient oriented x3 HEENT Face and sinus: Yes face symmetric Throat: Yes other (mallampti score is 3) Eyes Other: r. eye strabismus being followed by her opthamologist Pupils: Equal, round and reactive pupils present Neck Neck: Yes full ROM Resp Effort & Inspection: normal respiratory effort and able to speak in complete sentences Neuro Other: r. eye strabismus- laterally deviates extropia? oral tremor with tongue protrusion. General: patient oriented x3 and moves all extremities Cranial nerves: Yes Equal, round and reactive pupils present, Yes Midline tongue present, Yes Normal hearing present, Yes Ability to bilaterally rotate head present and Yes Ability to bilaterally elevate shoulders present Cognition (Neuro): normal cognition Gait exam (Neuro): Normal gait present Motor exam (neuro): 5/5 motor strength present throughout and Normal motor muscle tone present throughout Results Reviewed Results Reviewed: labs reviewed with pt 09/23/2025 Pain management pump med adjustment not reviewed. Assessment & Plan Assessment & Plan (1) Excessive daytime sleepiness: Code(s): G47.19 - Other hypersomnia Category: Medical (2) Sleep apnea: Comment: uses CPAP Code(s): G47.30 - Sleep apnea, unspecified Category: Medical Qualifiers: Sleep apnea type: obstructive Qualified Code(s): G47.33 - Obstructive sleep apnea (adult) (pediatric) (3) Chronic headaches: Comment: on rizatriptan being followed by [facility] Code(s): R51.9 - Headache, unspecified; G89.29 - Other chronic pain Category: Medical Qualifiers: Headache type: tension-type Intractability: intractable Qualified Code(s): G44.221 - Chronic tension-type headache, intractable (4) RLS (restless legs syndrome): Code(s): G25.81 - Restless legs syndrome Category: Medical Plan HST r/o brooke - continue cpap as indicated. Labs reviewed with pt. RLS will monitor May start magnesium 200- 400mg po daily at bedtime for headaches, and RlS symptoms. f/u in 3 months Orders: Orders RT home sleep study Today G47.19 - Other hypersomnia Patient Instructions: Sleep Hygiene provided: set a scheduled bedtime and wake time to help regulate the circadian rhythm and balance the release of pituitary hormones. Sleep in a dark room, temperatures below 68 degrees, and no devices n bed. Limit caffeinated products 6 hours prior to bed, and limit fluids 2-4 hours prior to bed. Gentle night yoga, diffusing essential oils, and playing soft music can be relaxing. Coding Level of Care Code New Pt Level 4 (30322) Diagnoses Excessive daytime sleepiness G47.19 Obstructive sleep apnea syndrome G47.33 Sleep apnea type: obstructive Chronic tension-type headache, intractable G44.221 Headache type: tension-type Intractability: intractable RLS (restless legs syndrome) G25.81
[2025-10-22 09:57] VITALS: BP 138/92; PULSE 69; O2SAT 99; BMI 58.8
--- OUTSIDE RECORDS SUMMARY | 2025-10-22 11:23 | XMS_ITS | Clinical Summary ---
Author Organization [facility] Address [address] [place] [address] Care Team Providers Care Human Resources Compliance Manager Name Role Phone Radha Allen MD Primary Care Provider [phone] Social History Tobacco Use Types Packs/Day Years [...] patient's age to complete this topic [place] [address] [address] [place] [address] [employer] D MEDICARE OUT OF NETWORK Within[facility] MEDICARE OUT OF NETWORK Care Teams Human Resources Compliance Manager Relationship Specialty Start Date End Date Radha Allen MD [address] [place] [id number] PCP - General 07/14/16
--- OUTSIDE RECORDS SUMMARY | 2025-10-22 11:23 | XMS_ITS | Clinical Summary ---
Author Organization [facility] Address [address] [facility] [place] [address] Care Team Providers Care Assistant Professor Of Sociology Name Role Phone Adriana Keenan INFORMATICS PHARMACIST Primary Care Provider Allergies Active Allergy Reactions [...] topic Medical Devices Not on file Insurance [facility] MEDICARE [facility] Care Teams Assistant Professor Of Sociology Relationship Specialty Start Date End Date Adriana Keenan NP [address] [place] [address] PCP - General Family Medicine 09/22/24
--- OUTSIDE RECORDS SUMMARY | 2025-10-22 11:23 | XMS_ITS | Clinical Summary ---
Author Organization [facility] Address [address] [place] [address] Care Team Providers Care Diet Assistant Name Role Phone Juliana Alejo NP [...] irritation, headache, muscle aches, retinal deposits (with longterm use) --she is agreeable - 200mg BID [...] Health Анна ual Screening 11/27/2024 Influenza Vaccine (#1) 2025 , 09/05/2022, 08/07/2021, Additional history exists COVID-19 Vaccine (7 - 2024-2 6 season) 2025 09/14/2023, 08/07/2022, 10/04/2021, Additional history exists DTaP,Tdap,and Td Vaccines (5 - Td or Tdap) 05/15/2031 05/15/2021, 05/11/2021, 11/23/2010, Additional history exists Hepatitis C Screening Completed 07/15/2020 Procedures * Due to [place] 1Rebel law, this organization might not be sharing negative HIV tests. Procedure Name Priority Date/Time Associated Diagnosis Comments HEPATITIS C ANTIBODY W/REFLEX TO HCV RNA, QUANTITATIVE PCR Routine 07/15/2020 12:10 PM EDT Arthralgia, unspecified joint from Last 3 Months or Most Recently Relevant to Health Maintenance Results * Due to [place] 1Rebel law, this organization might not be sharing negative HIV tests. * Hepatitis C Antibody w/Reflex to HCV RNA, Quantitative PCR (07/15/2020 12:10 PM EDT) Hepatitis C Antibody NON-REACT MAHOGANY NON-REACT MAHOGANY 07/16/2020 9:20 AM EDT [facility] Signal To Cut-Off 0.02 <1.00 07/16/2020 9:20 AM EDT [facility] Comment: HCV antibody was non-reactive. There is no laboratory evidence of HCV infection. In most cases, no further action is required. However, if recent HCV exposure is suspected, a test for HCV RNA (test code 48487) is suggested. For additional information please refer to http://education.iQVCloud/faq/YPB53x8 (This link is being provided for informational/ educational purposes only.) Blood Structure of peripheral vein / Unknown Venipuncture / Unknown 07/15/2020 12:10 PM EDT 07/15/2020 12:22 PM EDT Narrative [facility] - 07/16/2020 9:20 AM EDT [facility] Received Date: Rusty Parr MD LAB BLOOD ORDERABLES Final Result [facility] [address] [facility] [address] [facility], [place] [address], [employer] [address], [place] [address], from Last 3 Months or Most Recently Relevant to Health Maintenance Insurance [facility] [employer] PPO Member Subscriber Plan / Payer (Ef fective 2008-Present) Name:Joanie Colbert Relation to Subscriber:Self Name:Joanie Colbert Payer ID:[id number] (NAIC) Type:Not on file Address: [facility] [id number] [address] Care Teams Diet Assistant Relationship Specialty Start Date End Date Juliana Alejo NP PCP - General Family Medicine 06/09/20
--- OUTSIDE RECORDS SUMMARY | 2025-10-22 11:23 | XMS_ITS | Encounter Summary ---
Author Organization [facility]ly [facility] Address [address] [place] [id number] Care Team Providers Care Heading Pinner Name Role Phone Radha Allen MD Primary Care Provider [phone] Encounter Details Date Type Department Care Team (Late st Contact Info) Description 09/07/2021 Scanned Document [facility] [address] [phone] Josh Cannon, DO [address] [address] Social History Tobacco Use Types Packs/Day Years [...] on filedocumented in this encounter Care Teams Heading Pinner Relationship Specialty Start Date End Date Radha Allen MD [address] [place] [id number] PCP - General 07/14/16 documented as of this encounter
== END 2025-10-22 10:35 | disposition home or self-care (01) ==
LOC: HO.HSMC 09:52
PROVIDERS: PCP Nurse Practitioner Family; Visit Provider Physician Assistant Medical
DX: G47.19 Other hypersomnia (principal); G47.33 Obstructive sleep apnea (adult) (pediatric); G44.221 Chronic tension-type headache, intractable; G25.81 Restless legs syndrome
CPT/HCPCS: 99204

== ENCOUNTER 2025-10-22 11:40 | Outpatient (AMB) | payer MEDICARE, MEDICAID, SELFPAY ==
--- NOTE | 2025-10-22 11:43 | A.OFFPC_ITS ---
Vital Signs 10/22/25 11:47 Height 5 ft 2 in Weight 320 lb 2 oz BMI 58.5 BP 138/78 Blood Pressure Location Rt brachial Position Sitting Respiration 13 Pulse 78 Pulse Source Pulse Oximeter Temp 97.3 F Temp Source Oral Pulse Oximetry (%) 96 Oxygen Delivery Method Room Air Intake Visit Reasons: cpe Intake Note: CPE Director Global Strategic Publisher Sales Required: No Is last menstrual period known: No Patient : No Allergies naproxen Allergy (Unknown, Verified 10/22/25 11:44) unknown semaglutide (From Ozempic) Allergy (Unknown, Verified 10/22/25 11:44) stomach issues Medication List - Last Reconciled 10/22/25 by Adriana Keenan, MAT WORKER- acetaminophen (Tylenol) 650 mg PO Q6H PRN albuterol sulfate 90 mcg/actuation 1 puff PO Q4H PRN blood sugar diagnostic ([place]uch Verio test strips) As directed bupropion HCl 100 mg PO BID certolizumab pegol (Cimzia Starter Kit) 400 mg (2 mL) subcut Q2W 3 doses certolizumab pegol (Cimzia) 200 mg subcut Q2W clonidine HCl 0.1 mg PO BID duloxetine (Cymbalta) 90 mg PO DAILY empagliflozin (Jardiance) 10 mg PO DAILY fluticasone propionate 50 mcg/actuation 1 spray intranasal DAILY hydrochlorothiazide 25 mg PO DAILY hydroxychloroquine (Sovuna) 200 mg PO BID 90 days insulin degludec (Tresiba FlexTouch U-200 insulin) 60 units subcut BEDTIME labetalol 200 mg PO BID 90 days levothyroxine 112 mcg PO DAILY levothyroxine 125 mcg PO 3XW meclizine 12.5 mg PO TID PRN morphine 2 mg IM Q6H nifedipine ER 60 mg PO DAILY pioglitazone 15 mg PO DAILY prednisone 5 mg PO DIRECTED prednisone 20 mg PO DAILY rizatriptan mg PO PRN spironolactone 50 mg PO DAILY valacyclovir (Valtrex) 1,000 mg PO BID 7 days Tobacco use date assessed: 10/22/25 Dental Screening Dental Screen Date: 10/22/25 Did you have a dental visit in the last 12 months?: Yes Did you have a dental problem in the last 6 months where you did not have access to dental care?: No Was dental information given to patient?: Patient has dentist HPI HPI Comments History of Present Illness Details 45-year-old female with RA, hypertension , morbid obesity, interstitial cystitis, sleep apnea, hypothyroidism, DM 2, PCOS, Sjorgens, Status post partial thyroidectomy (215), bladder surgery (InterStim implant in 2003 with revision in 2010) carpal tunnel release bilat in (2018) Social: works 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 Health Maintenance: DME: [facility] 08/2025 reports negative retinopathy Mammo ordered today Flu and COVID, Tdap UTD 07/2025, PCV 20 08/2025 Pap 2022 pap [facility] - report n/a Colon reviewed cologuaalfa, will order next year Specialists Rheumatology Pain management Nephrology Endo at [facility] Dr Parsons 08/2024 RTO 6 mo no change Cards at [facility] Lindsey huerta [facility] reports DME in the last year. ENT Reproduction medicine History of Present Illness The patient is a 45 year old individual presenting for a complete physical exam. Rheumatoid Arthritis: - The patient has a history of rheumatoi d arthritis and Sjogren's syndrome managed by rheumatology. - The patient was recently switched from Enbrel to Cimzia for safety reasons re lated to trying to conceive, which led to a flare-up of arthritis symptoms. - There was a three-week delay in starti ng Cimzia due to prior authorization issues. - The patient is currently on a predniso ne taper, starting from 40 mg, to manage the flare and is starting to feel the effects of tapering down. - The patient also takes hydroxychloroqu ine for RA and has completed the Cimzia starter kit. Diabetes Mellitus: - The patient has a history of diabetes, managed by endocrinology, with a recent A1c of 6.4%. - Current prednisone use has caused erra tic blood glucose levels. - Management includes an insulin pump, F iasp, pioglitazone, and empagliflozin (Jardiance). - The patient reports having trouble wit h glucose sensors and has an appointment with the dicer operator today. Infertility: - The patient and the patient's are undergoing fertility evaluation; progress has been delayed due to the having an infection, which has since cleared. - A prior weight loss medication was sto pped to facilitate attempts. - The next step recommended by the max ross specialist is a thyroid check. Obesity and Weight Gain: - The patient has a history of obesity w ith a BMI of 58.6. - The patient reports a recent weight ga in of 15 pounds, which is attributed to prednisone use and associated increased appetite. - The patient expresses concern that the weight gain may affect fertility treatment eligibility. Pitting Edema: - The patient reports increased urinatio n over the past few days without dysuria. - The patient also notes intermittent sw elling, stating some days the patient swells up like a balloon. - Physical exam revealed pitting edema i n the legs, which is a new finding not documented previously. Hypertension: - The patient has a history of hypertens ion managed with hydrochlorothiazide, labetalol, and spironolactone. - Renal function was recently checked an d is normal. Hypothyroidism: - The patient has a history of hypothyro idism and takes levothyroxine. - The current dose is 125 mcg three time s a week and 112 mcg daily. Obstructive Sleep Apnea: - The patient has a history of obstructi ve sleep apnea, is managed by sleep medicine, and uses a CPAP machine. - The patient is scheduled to undergo an other sleep study. Recurrent tonsillitis met w/ ent who agreed to take out tonsils but had reservation w/ all the meds she is on; i do not have this consult note. Past Medical History - Diabetes mellitus - Morbid obesity (BMI 58.6) - Hypertension - Obstructive sleep apnea - Polycystic ovary syndrome (PCOS) - Sjogren's syndrome - Rheumatoid arthritis - Hypothyroidism - Infertility - Chronic tonsillitis - Asthma - Hyperlipidemia Social History - Employment: The patient works at [employer]. - Family Planning: The patient is active ly trying to conceive with the patient's . - Nutrition: Reports increased appetite due to prednisone use. - Weight Management: Reports gaining 15 pounds after starting prednisone and discontinuing a weight loss medication. Health Maintenance - An order will be placed for a screenin g mammogram. - An order for a lipid panel will be add ed to today's labs. - A TSH test will be ordered as requeste d by the fertility specialist. - A urinalysis will be performed - Discussed colorectal cancer screening, with a plan to order a Cologuard test next year when the patient turns 46. Review of Systems - Constitutional: Reports feeling genera lly unwell and frustrated. - HEENT: Reports severe dry mouth. - Respiratory: Reports increased use of a rescue inhaler following mold exposure and dyspnea on exertion when climbing stairs. - Cardiovascular: Reports intermittent l ower extremity swelling. - Gastrointestinal: Denies constipation. - Genitourinary: Reports increased urina ry frequency in the past few days. - Musculoskeletal: Reports significant t rouble with arthritis. Physical Exam General: Well developed, well nourished, in no acute distress. Appears stated age. Chronically ill appearing Head: Normocephalic, atraumatic. Eyes: Pupils are equal, round and reactive to light and accommodation. Conjunctivae are clear. Scleras nonicteric bilat. Vision grossly normal. Ears: TMs clear AU, EACS WNL Nose: Patent, A little bit of nasal drainage noted. Throat: oral candidiasis noted Neck: No carotid bruit bilat. Supple, no adenopathy or thyromegaly. Breast: Edu on SBE Lungs: Clear to auscultation bilaterally. No rales, rhonchi or wheeze noted. Good air flow in all abarca. Heart: Regular rate and rhythm. No murmurs, click, rubs or gallops are noted. Abdomen: Bowel sounds present in all quadrants. The abdomen is soft, nontender, with no masses or organomegaly noted. No hernias are noted. : Deferred. Reviewed reommendations for routine DIRECTOR SYSTEMS Pulses: Peripheral pulses are equal and palpable bilaterally. Extremities: +1 Pitting edema noted in BLE Neurologic: Gait and station normal. Cranial Nerves 2-12 intact. Motor strength grossly symmetrical and intact. No sensory loss. Balance normal. Skin: No rashes, ulcers, or lesions noted. Turgor is good. Skin color is good. Hair and nails are without abnormalities. Skin is flushed. Psych: Normal eye contact, affect and mood appropriate, and normal interactions. Patient is alert and appropriate to context. Results - Labs: HgbA1c is 6.4%. - Recent labs from 09/11 showed a high C RP, but CBC and electrolytes were normal. - Recent kidney function tests were norm al. - Diagnostics: A diabetic eye exam a few weeks ago was normal. Medical Decision Making The patient is a 45-year-old individual with multiple interacting chronic medical conditions presenting for a complete physical exam. The reynolds issues addressed today include a flare of rheumatoid arthritis, hyperglycemia secondary to prednisone use, and a new finding of pitting edema. The RA flare appears related to a recent medication change from Enbrel to Cimzia for fertility planning; ongoing management will be deferred to rheumatology. The patient has an appointment with endocrinology today for diabetes management. The new onset of pitting edema requires further investigation to rule out a cardiac etiology, especially given the patient's multiple comorbidities. While this could be a side effect of prednisone, a BNP will be ordered to assess for heart failure. If the BNP is positive, an echocardiogram will be recommended. Kidney function was recently confirmed to be normal. She has frq urination, describing urine as clear , ?? SIADH? Health maintenance was reviewed, and orders will be placed for a mammogram and a lipid panel. A TSH will also be ordered as requested by the patient's fertility specialist. The patient's urine will be screened for infection. Symptomatic treatment includes a refill for an albuterol inhaler for increased use after mold exposure and dyspnea, as well as a prescription for Nystatin for suspected oral candidiasis secondary to dry mouth and steroid use. Plan 1. Pitting Edema - This is a new finding on exam. The dif ferential diagnosis includes steroid- induced fluid retention versus a cardiac etiology. - A BNP lab test will be ordered to eval uate for heart failure. - If the BNP test is positive, an echoca rdiogram will be ordered. 2. Rheumatoid Arthritis - The patient will continue the current regimen, including the prednisone taper and Cimzia, as directed by rheumatology. - Follow up with the campground hand for ongoing management. 3. Diabetes Mellitus - HgbA1c is 6.4%, - The patient will follow up with endocr inology today for further management. 4. Oral Candidiasis - Based on dry mouth and exam findings, Nystatin will be prescribed. - The patient is familiar with how to us e the medication. 5. Asthma - The patient reports increased rescue i nhaler use after mold exposure and exertional dyspnea. - A refill for the albuterol inhaler joyce l be sent to the pharmacy. Patient Instructions - Please go to the lab for blood tests t sandrita. We will be checking your thyroid function, cholesterol, and a special test to check your heart because of the new swelling in your legs. - We will also test the urine sample you provided to make sure there is no infection. - An order has been placed for you to sc hedule a mammogram. - Remember that you are due for a Pap sm ear. - A prescription for Nystatin mouthwash for your dry mouth will be sent to your pharmacy. You have used this before. - A refill for your albuterol rescue inh aler will also be sent to your pharmacy. - Continue to follow up with your other doctors, especially for your diabetes and arthritis. - Please schedule a follow-up appointmen t for your next annual physical in one year. - I will follow up with you on the [facility] portal once your lab results are back. Consent Patient was informed and verbally consented to the use of an ambient scribe for clinic note documentation during this visit. An additional 20 minutes was spent addressing the problem(s) noted at todays visit. This includes time spent before the visit reviewing the chart, time spent during the visit, and time spent after the visit on documentation reviewing laboratory results, diagnostic imaging, medications, performing a medically necessary evaluation, counseling on diagnoses, care coordination, ordering appropriate tests, ordering appropriate medications, review of tests performed by other providers, reporting test results with the patient, communication with other healthcare providers. [facility] Medical History Depression Anxiety Headache Herpes Arthritis Diabetes Sinusitis Bilateral shoulder region arthritis Polyarthralgia Neck pain, bilateral COVID-19 vaccine administered Lab test negative for COVID-19 virus History of postoperative nausea Sleep apnea Thyroid disease HTN (hypertension) Low back pain Morbid obesity Interstitial cystitis Surgical History Hx of partial thyroidectomy History of bladder surgery History of carpal tunnel release of both wrists Family History Mother Parkinson disease Father Aneurysm Skin cancer Sister Alcoholism Brother Alcoholism Maternal Grandmother Cardiovascular disease Maternal Grandfather HTN (hypertension) Paternal Grandfather Diabetes Paternal Uncle Psoriasis Other FH: mental illness Substance use Social History Household Members: Spouse Housing: House Are you a primary healthcare business analyst to a significant other at home: No Do you presently have visiting nurse or other home services: No Alcohol intake: current Alcohol intake frequency: holidays/special occasions only Patient Tobacco Use Status: Never used Tobacco e-Cigarette/Vaping Use: Never Used Second Hand Smoke Exposure: No Substance Use Type: Marijuana service: No Current occupational status: employed and disabled 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 1. Little interest or pleasure in doing things: not at all 2. Feeling down, depressed, or hopeless: not at all 3. Trouble falling or staying asleep, or sleeping too much: not at all 4. Feeling tired or having little energy: not at all 5. Poor appetite or overeating: not at all 6. Feeling bad about yourself - or that you are a failure or have let yourself or your family down: not at all 7. Trouble concentrating on things, such as reading the newspaper or watching television: not at all 8. Moving or speaking so slowly that other people could have noticed. Or the opposite - being so fidgety or restless that you have been moving around a lot more than usual: not at all 9. Thoughts that you would be better off or of hurting yourself in some way: not at all Total score: 0 Depression Screening Interpretation: Negative Depression Screening Done: Yes 99841 - PHQ-9 Billing: Yes Source: Developed by Drs. Blaise Soriano, Kaitlynn Tineo, Koko Pena and colleagues, with an educational naheed from [employer]. Thrive Questionnaire Date Thrive assessed: 10/22/25 I am a: Patient What is your living situation today?: I have a steady place to live Within the past 12 months, did the food you bought not last and you didn't have the money to get more?: Never true Within the past 12 months, did you worry whether your food would run out before you got money to buy more?: Never true Do you have trouble paying for medicines?: No Do you have trouble getting transportation to medical appointments?: No Do you have trouble paying your heating and electricity bill?: No Do you have trouble taking care of your child, family member or friend?: No Do you have trouble with day-to-day activities such as bathing, preparing meals, shopping, managing finances, etc.?: No Are you currently unemployed and looking for a job?: No Are you interested in more education?: No Please select the resources that you would like help with: None Currently or been in a relationship where the following occur: I choose not to answer THRIVE Score: 0 AUDIT C Alcohol Use Questionnaire (AUDIT-C) 1. How often do you have a drink containing alcohol?: Never 3. How often do you have six or more drinks on one occasion?: Never Total Score: 0 Score Reviewed/Action Taken: Yes BRENDA-7 AMB Questionnaire BRENDA-7 Date BRENDA - 7 assessed: 10/22/25 Feeling nervous, anxious, or on edge: 0 = Not at all Not being able to stop or control worryin = Not at all Worrying too much about different things: 0 = Not at all Trouble relaxin = Not at all Being so restless that it is hard to sit still: 0 = Not at all Becoming easily annoyed or irritable: 0 = Not at all Feeling afraid as if something awful might happen: 0 = Not at all Total BRENDA-7 score (0-4 normal; 5-9 mild; 10-14 moderate; 15-21 severe): 0 Source: Developed by Drs. Blaise Soriano, Kaitlynn Tineo, Koko Pena and colleagues, with an educational naheed from [employer]. BRENDA-7 Assessment Billing BRENDA-7 Assessment Tool: BRENDA-7 Assessment 22466 ACT Questionnaire In the past 4 weeks, how much of the time did your asthma keep you from getting as much done at work, school or at home?: A little of the time During the past 4 weeks, how often have you had shortness of breath?: 1-2 times a week During the past 4 weeks, how often did your asthma symptoms wake you up at night or earlier than usual in the morning?: Once or twice per week During the past 4 weeks, how often have you had to use your rescue inhaler or nebulizer medication?: Once a week or less How would you rate your asthma control during the past 4 weeks?: Well controlled ACT Interpretation: Negative Score: 20 Physical exam (Primary Care) Vital Signs: Last Vital Signs Temp 97.3 F 10/22/25 11:47 Pulse 78 10/22/25 11:47 Resp 13 10/22/25 11:47 BP 138/78 10/22/25 11:47 Pulse Ox 96 10/22/25 11:47 Oxygen Delivery Method Room Air 10/22/25 11:47 BMI result Body Mass Index 58.5 BMI Assessment/Plan discussion: High BMI High, discussed plan: lifestyle Tobacco/Smoking Status: Tobacco use Status Tobacco use date assessed 10/22/25 10/22/25 11:49 Patient Tobacco Use Status Never used Tobacco 10/22/25 11:49 e-Cigarette/Vaping Use Never Used 10/22/25 11:49 PHQ-9: PHQ-9 Score PHQ-9: Total score 0 10/22/25 12:15 Depression Screening Interpretation: Negative Thrive Assessment: Date of Thrive Assessment Date Thrive assessed 10/22/25 10/22/25 11:49 Currently or been in a relationship where the following occur: I choose not to answer Results AMB Hemoglobin A1c AMB Hemoglobin A1c 6.4 % Last Edit by Maxx Siegel MA on 10/22/25 12:04 Results Reviewed Results Reviewed: Laboratory Last Values Hgb A1c (Clinic) 6.4 % (4.0-6.0) H 10/22/25 11:53 Coding Level of Care Code Est Pt Level 3 (05299) Est Pt Prev Care 40-64y(93645) Diagnoses Adult general medical exam Z00.00 DM type 2 causing complication E11.8 Essential hypertension I10 Postoperative hypothyroidism E89.0 Hypothyroidism type: postoperative Lower extremity edema R60.0 High risk medication use Z79.899 Morbid (severe) obesity with alveolar hypoventilation E66.2 Morbid obesity E66.01 Seronegative rheumatoid arthritis M06.00 Obstructive sleep apnea syndrome G47.33 Sleep apnea type: obstructive Recurrent tonsillitis J03.91 Oral candidiasis B37.0 Mild intermittent asthma in adult without complication J45.20 Additional Codes BRENDA-7 Assessment Billing - BRENDA-7 Assessment Tool: BRENDA-7 Assessment 55545 ([id number]) PHQ-9 - 21311 - PHQ-9 Billing: Yes ([id number]) Asthma Control Questionnaire - ACT Interpretation: Negative ([id number]) Assessment & Plan Assessment & Plan (1) Adult general medical exam: Onset Date: ~10/22/25 Code(s): Z00.00 - Encounter for general adult medical examination without abnormal findings Category: Medical (2) DM type 2 causing complication: Comment: HTN AND OBESITY BMI 58.6 Code(s): E11.8 - Type 2 diabetes mellitus with unspecified complications Category: Medical (3) Essential hypertension: Code(s): I10 - Essential (primary) hypertension Category: Medical (4) Hypothyroid: Code(s): E03.9 - Hypothyroidism, unspecified Category: Medical Qualifiers: Hypothyroidism type: postoperative Qualified Code(s): E89.0 - Postprocedural hypothyroidism (5) Lower extremity edema: Code(s): R60.0 - Localized edema Category: Medical (6) High risk medication use: Comment: CIMZIA AND MORPHINE Code(s): Z79.899 - Other care home (current) drug therapy Category: Medical (7) Morbid (severe) obesity with alveolar hypoventilation: Code(s): E66.2 - Morbid (severe) obesity with alveolar hypoventilation Category: Medical (8) Morbid obesity: Code(s): E66.01 - Morbid (severe) obesity due to excess calories Category: Medical (9) Seronegative rheumatoid arthritis: Comment: HCQ ineffective SSZ 11/2023 DC01/2024 ineffective. Cimzia 01/2024-DC 06/2024 ineffective Enbrel 06/2024 - 07/2025 Code(s): M06.00 - Rheumatoid arthritis without rheumatoid factor, unspecified site Category: Medical (10) Sleep apnea: Comment: uses CPAP Code(s): G47.30 - Sleep apnea, unspecified Category: Medical Qualifiers: Sleep apnea type: obstructive Qualified Code(s): G47.33 - Obstructive sleep apnea (adult) (pediatric) (11) Recurrent tonsillitis: Comment: ENT Code(s): J03.91 - Acute recurrent tonsillitis, unspecified Category: Medical (12) Oral candidiasis: Code(s): B37.0 - Candidal stomatitis Category: Medical (13) Mild intermittent asthma in adult without complication: Code(s): J45.20 - Mild intermittent asthma, uncomplicated Category: Medical Plan , Orders: Orders UA CC w/rflx Micro + Cult Today R30.0 - Dysuria Lipid Panel Today E11.8 - Type 2 diabetes mellitus with unspecified complications AMB Hemoglobin A1c Today E11.8 - Type 2 diabetes mellitus with unspecified complications, Z13.9 - Encounter for screening, unspecified Microalbumin, Random (w Creat) Today E11.8 - Type 2 diabetes mellitus with unspecified complications, I10 - Essential (primary) hypertension TSH reflex Free T4 Today E89.0 - Postprocedural hypothyroidism MM tomosynthesis screening BI Today Z12.31 - Encounter for screening mammogram for malignant neoplasm of breast NT Pro B Type Natriuretic Pept Today R60.0 - Localized edema Medications: New nystatin administer 1/2 of dose in each side of the mouth 500,000 units (5 mL) PO DAILY 50 mL 2RF 10 days Changed From albuterol sulfate 90 mcg/actuation 1 puff PO Q4H PRN wheezing To albuterol sulfate 90 mcg/actuation 1 puff PO Q6H PRN 6.7 grams 1RF wheezing Patient Instructions: Health screenings for women You should visit your health care provider from time to time, even if you are healthy. The purpose of these visits is to: Screen for medical issues Assess your risk for future medical problems Encourage a healthy lifestyle Update vaccinations and other preventive care services Help you get to know your provider in case of an illness Information Even if you feel fine, you should still see your provider for regular checkups. These visits can help you avoid problems in the future. For example, the only way to find out if you have high blood pressure is to have it checked regularly. High blood sugar and high cholesterol levels also may not have any symptoms in the early stages. A simple blood test can check for these conditions. There are specific times when you should see your provider or receive specific health screenings. The [place] Preventive Services Task Force publishes a list of recommended screenings. Below are screening guidelines for women ages 18 to 39. BLOOD PRESSURE SCREENING Your blood pressure should be checked at least once every 3 to 5 years if: Your blood pressure is in the normal range (top number less than 120 mm Hg and bottom number less than 80 mm Hg) You don't have risk factors for high blood pressure Ask your provider if you need your blood pressure checked more often if: The top number is 120 to 129 mm Hg or the bottom number is 70 to 79 mm Hg You have diabetes, heart disease, kidney problems, are overweight, or have certain other health conditions You have a first-degree relative with high blood pressure You are Black You had high blood pressure during a If the top number is 130 mm Hg or greater or the bottom number is 80 mm Hg or greater, this is considered stage 1 hypertension. Schedule an appointment with your provider to learn how you can reduce your blood pressure. Watch for blood pressure screenings in your area. Ask your provider if you can stop in to have your blood pressure checked. BREAST CANCER SCREENING Experts do not agree about the benefits of breast self-exams in finding breast cancer or saving lives. Talk to your provider about what is best for you. A screening mammogram is not recommended for most women under age 40. Your provider may discuss and recommend mammograms, MRI scans, or ultrasounds if you have an increased risk for breast cancer, such as: A mother or sister who had breast cancer at a young age (most often starting scr eening earlier than the age the close relative was diagnosed) You carry a high-risk genetic marker CERVICAL CANCER SCREENING Cervical cancer screening should start at age 21 years unless your provider advises otherwise. After the first test: Women ages 21 through 29 should have a Pap test every 3 years. Exoprts do not agree on whether HPV testing is recommended for this age group. Women ages 30 through 65 should be screened with either a Pap test every 3 years or the HPV test every 5 years or both tests every 5 years (called cotesting ). Women who have been treated for precancer (cervical dysplasia) should continue to have Pap tests for 20 years after treatment or until age 65, whichever is longer. If you have had your uterus and cervix removed (total hysterectomy), and you have not been diagnosed with cervical cancer or precancer (high grade cervical neoplasia), you do not need cervical cancer screening. CHOLESTEROL SCREENING Cholesterol screening should begin at: Age 45 for women with no known risk factors for coronary heart disease Age 20 for women with known risk factors for coronary heart disease Repeat cholesterol screening should take place: Every 5 years for women with normal cholesterol levels More often if changes occur in lifestyle (including weight gain and diet) More often if you have diabetes, heart disease, kidney problems, or certain other conditions DIABETES SCREENING You should be screened for diabetes starting at age 35 and then repeated every 3 years if you have no risk factors for diabetes. Screening may need to start earlier and be repeated more often if you have other risk factors for diabetes, such as: You have a first degree relative with diabetes. You are overweight or have obesity. You have high blood pressure, prediabetes, or a history of heart disease. Screening for diabetes should be done if you are planning to become and you are overweight and have other risk factors such as high blood pressure. DENTAL EXAM Go to the dentist once or twice every year for an exam and cleaning. Your dentist will evaluate if you need more frequent visits. EYE EXAM Have an eye exam every 5 to 10 years before age 40. If you have vision problems, have an eye exam every 2 years or more often if recommended by your provider. You should have an eye exam that includes an examination of your retina (back of your eye) at least every year if you have diabetes. IMMUNIZATIONS Commonly needed vaccines include: Flu shot: get one every year. COVID-19 vaccine: ask your provider what is best for you. Tetanus-diphtheria and acellular pertussis (Tdap) vaccine: have one at or after age 19 as one of your tetanus-diphtheria vaccines if you did not receive it as an adolescent. Tetanus-diphtheria: have a booster (or Tdap) every 10 years. Varicella vaccine: receive 2 doses if you never had chickenpox or the varicella vaccine. Hepatitis B vaccine: receive 2, 3, or 4 doses, depending on your exact circumstances. Measles, mumps, and rubella (MMR) vaccine: receive 1 to 2 doses if you are not already immune to MMR. Your provider can tell you if you are immune. Ask your provider about the human papillomavirus (HPV) vaccine if: You have not received the HPV vaccine in the past You have not completed the full vaccine series (you should catch up on this shot) Ask your provider if you should receive other immunizations if you have certain health problems that increase your risk for some diseases such as pneumonia. INFECTIOUS DISEASE SCREENING Women who are sexually active should be screened for chlamydia and gonorrhea up until age 25. Women 25 years and older should be screened for chlamydia and gonorrhea if at high risk. Screening for hepatitis C: All adults ages 18 to 79 should get a one-time test for hepatitis C. people should be screened at every . Screening for human immunodeficiency virus (HIV): All people ages 15 to 65 should get a one-time test for HIV. Depending on your lifestyle and medical history, you may also need to be screened for infections such as syphilis and HIV, as well as other infections. PHYSICAL EXAM All adults should visit their provider from time to time, even if they are h ealthy. The purpose of these visits is to: Screen for disease Assess your risk of future medical problems Encourage a healthy lifestyle Update your vaccinations and other preventive care services Maintain a relationship with a provider in case of an illness Your height, weight, and BMI should be checked at every exam. During your exam, your provider may ask you about: Depression and anxiety Diet and exercise Alcohol and tobacco use Safety issues, such as using seat belts, smoke detectors, and intimate partner violence Your medicines and risk for interactions SKIN SELF-EXAM Your provider may check your skin for signs of skin cancer, especially if you're at high risk, such as if you: Have had skin cancer before Have close relatives with skin cancer Have a weakened immune system OTHER SCREENING Talk with your provider about colon cancer screening if you have a strong family history of colon cancer or polyps, or if you have had inflammatory bowel disease or polyps yourself. Routine bone density screening of women under 40 is not recommended.
[2025-10-22 11:47] VITALS: BP 138/78; PULSE 78; RESP 13; TEMP 36.3; O2SAT 96; BMI 58.5
== END 2025-10-22 12:42 | disposition home or self-care (01) ==
LOC: HO.HMCFM 11:40
PROVIDERS: PCP Nurse Practitioner Family; Visit Provider Nurse Practitioner Family
DX: Z00.00 Encounter for general adult medical examination without abnormal findings (principal); E11.8 Type 2 diabetes mellitus with unspecified complications; E66.2 Morbid (severe) obesity with alveolar hypoventilation; Z68.43 Body mass index [BMI] 50.0-59.9, adult; M06.00 Rheumatoid arthritis without rheumatoid factor, unspecified site; I10 Essential (primary) hypertension; E89.0 Postprocedural hypothyroidism; R60.0 Localized edema; G47.33 Obstructive sleep apnea (adult) (pediatric); J03.91 Acute recurrent tonsillitis, unspecified; Z79.899 Other long term (current) drug therapy; B37.0 Candidal stomatitis; J45.20 Mild intermittent asthma, uncomplicated

== ENCOUNTER 2025-10-22 13:27 | Outpatient (REF) | payer MEDICARE, MEDICAID, SELFPAY ==
[2025-10-22 18:41] LABS: Alanine Aminotransferase 29 U/L (0-31); Albumin Level 4.6 g/dL (3.5-5.0); Alkaline Phosphatase 74 U/L (39-117); Anion Gap 14 (12-20); Aspartate Amino Transferase 32 U/L (5-31); Blood Urea Nitrogen 20 mg/dL (9-16); Calcium 9.7 mg/dL (8.4-10.2); Carbon Dioxide 27 mmol/L (22-29); Chloride 103 mmol/L (96-108); Estimated Glomerular Filt Rate 50; Potassium 3.8 mmol/L (3.3-5.1); Sodium 140 mmol/L (135-145); Total Protein 7.7 g/dL (6.5-8.0)
== END 2025-10-22 13:28 | disposition home or self-care (01) ==
LOC: HO.WFDLDS 13:27
PROVIDERS: Student in an Organized Health Care Education/Training Program; Referring Provider Internal Medicine Nephrology; Visit Provider Nurse Practitioner Family
DX: Z79.899 Other long term (current) drug therapy (principal)
CPT/HCPCS: 36415; 80053; 81001; 82570; 83036; 85652; 96127; 96160; 99202; 99212; 99396

== ENCOUNTER → 2025-10-29 11:36 | Outpatient (BNV) | payer MEDICARE, MEDICAID, SELFPAY | PROVIDERS: Absent Provider Nurse Practitioner Family; PCP Nurse Practitioner Family; Visit Provider Radiology Diagnostic Radiology | DX: I28.8 Other diseases of pulmonary vessels (principal); I82.441 Acute embolism and thrombosis of right tibial vein | CPT/HCPCS: 71275; 93970 ==

== ENCOUNTER 2025-10-29 13:05 | Emergency (ER) | payer MEDICARE, MEDICAID, SELFPAY ==
--- NOTE | ~2025-10-29 | CT_ITS ---
CLINICAL HISTORY: known DVT. SOB. PE? CTA angiography chest using bolus contrast injection. 3-D postprocessing Comparison: None Findings: Normal thoracic aorta and branch vessels Heart size is mildly enlarged with prominent left ventricle. . RV/LV ratio normal The pulmonary artery diameter is borderline enlarged, 33 mm. Normal lungs Below the diaphragm , the visualized portions of liver and spleen are unremarkable. No acute fractures Impression: Normal CTA angiography of the aorta. Mild pulmonary artery enlargement Positive for small 10 mm pulmonary embolus in the right lower lobe, image 98, series 9, image 110, series 11 and image 34, series 5. Lungs are clear This document has been electronically signed by: Rusty Quintana MD on 10/29/2025 18:24:42
[2025-10-29 13:28] VITALS: BP 164/88; PULSE 78; RESP 20; TEMP 36.3; O2SAT 97; BMI 57.8
--- NOTE | 2025-10-29 13:31 | ECG_ITS ---
Test Reason : SOB Blood Pressure : */* mmHG Vent. Rate : 71 BPM Atrial Rate : 71 BPM P-R Int : 174 ms QRS Dur : 82 ms QT Int : 408 ms P-R-T Axes : 19 8 37 degrees QTcB Int : 443 ms Normal sinus rhythm Normal ECG No previous ECGs available Referred By: Francisco Law Electronically Signed By: DANIEL HERNANDEZ
--- NOTE | 2025-10-29 13:33 | ED.GENADULT ---
HPI - General Adult General Chief complaint: Dyspnea Stated complaint: dvt from ultra sound Time Seen by Provider: 10/29/25 17:07 Source: patient, RN notes reviewed and old records reviewed Mode of arrival: ambulatory Limitations: no limitations History of Present Illness ED Provider: Ana Laura HPI narrative: Patient is a 45 year old female with a pmhx of chronic headaches, morbid obesity, hypothyroid, endometriosis, and HTN presenting today sent from an outpatient US in the RLE the revealed a thrombosis of the right posterior tibial vein. Pt states the pain in her RLE has been present for a month with decreased lateral sensation. Pt endorses a week long history of SOB, chast discomfort, headache, and dizzness. Denies pain with inspiration, chest pain, cough, fevers, chills. At PCP visit on , was prescribed an inhaler for her symptoms and wheezing on auscultation. Pt states that she has been exposed to mold and thought her SOB was from that. Related Data Home Medications ?Medication ?Instructions ?Recorded ?Confirmed blood sugar diagnostic (OneTouch #10 ea 12/26/23 10/22/25 Verio test strips) rizatriptan 10 mg disintegrating mg PO PRN 12/28/23 10/22/25 tablet empagliflozin 10 mg tablet 10 mg PO DAILY 04/26/24 10/22/25 (Jardiance) insulin degludec 200 unit/mL (3 60 unit subcut BEDTIME 04/26/24 10/22/25 mL) subcutaneous pen (Tresiba FlexTouch U-200 insulin) morphine 2 mg/mL injection solution 2 mg IM Q6H 04/26/24 10/22/25 acetaminophen 325 mg tablet 650 mg PO Q6H PRN 12/26/24 10/22/25 (Tylenol) bupropion HCl 100 mg tablet 100 mg PO BID 02/18/25 10/22/25 duloxetine 60 mg capsule,delayed 90 mg PO DAILY 02/18/25 10/22/25 release (Cymbalta) levothyroxine 112 mcg tablet 112 mcg PO DAILY 02/18/25 10/22/25 levothyroxine 125 mcg tablet 125 mcg PO 3XW 02/18/25 10/22/25 pioglitazone 15 mg tablet 15 mg PO DAILY 02/18/25 10/22/25 Previous Rx's ?Medication ?Instructions ?Recorded clonidine HCl 0.1 mg tablet 0.1 mg PO BID #28 tabs 10/16/20 fluticasone propionate 50 1 spray intranasal DAILY #16 grams 02/24/25 mcg/actuation nasal spray,suspension meclizine 12.5 mg tablet 12.5 mg PO TID PRN dizziness #30 02/26/25 tabs labetalol 200 mg tablet 200 mg PO BID 90 days #180 tabs 03/27/25 nifedipine 60 mg tablet,extended 60 mg PO DAILY #90 tabs 03/27/25 release certolizumab pegol 200 mg/mL 200 mg subcut Q2W #2 ea 08/07/25 subcutaneous syringe kit (Cimzia) hydroxychloroquine 200 mg tablet 200 mg PO BID 90 days #180 tabs 08/07/25 (Sovuna) certolizumab pegol 400 mg/2 mL 400 mg (2 mL) subcut Q2W 3 doses 08/12/25 (200 mg/mL x2) subcutaneous #3 ea syringe kit (Cimzia Starter Kit) hydrochlorothiazide 25 mg tablet 25 mg PO DAILY #90 tabs 08/22/25 prednisone 20 mg tablet 20 mg PO DAILY #65 tabs 09/11/25 prednisone 5 mg tablet 5 mg PO DIRECTED #140 tabs 09/11/25 spironolactone 50 mg tablet 50 mg PO DAILY #90 tabs 09/25/25 valacyclovir 1 gram tablet 1,000 mg PO BID 7 days #14 tabs 10/10/25 (Valtrex) albuterol sulfate 90 mcg/actuation 1 puff PO Q6H PRN wheezing #6.7 10/22/25 aerosol inhaler grams nystatin 100,000 unit/mL oral 500,000 unit (5 mL) PO DAILY 10 10/22/25 suspension days #50 mL apixaban 5 mg (74 tabs) tablets in 5 mg PO BID #74 ea 10/29/25 a dose pack (EliChatty DVT-PE Treat 30D Start) Allergies Allergy/AdvReac Type Severity Reaction Status Date / Time naproxen Allergy Unknown unknown Verified 10/29/25 13:31 semaglutide (From Ozempic) Allergy Unknown stomach Verified 10/29/25 13:31 issues Review of Systems Constitutional: Constitutional: Denies fever(s) and Reports headache(s) ENT: Denies vertigo, Reports dizziness and Reports headache(s) Cardiovascular: Cardiovascular: Denies chest pain and Reports dyspnea Comments: Chest discomfort Respiratory: Respiratory: Denies cough, Denies pain on inspiration and Reports dyspnea Gastrointestinal: Gastrointestinal: Denies heartburn Integumentary/Breasts: Skin/Breast: Reports swelling (RLE) and Denies rash Neurologic: Denies vertigo, Reports dizziness and Reports headache(s) [facility] Past Medical History Medical History Depression Anxiety Headache Herpes Arthritis Diabetes Sinusitis Bilateral shoulder region arthritis Polyarthralgia Neck pain, bilateral COVID-19 vaccine administered Lab test negative for COVID-19 virus History of postoperative nausea Sleep apnea Thyroid disease HTN (hypertension) Low back pain Morbid obesity Interstitial cystitis Surgical History Hx of partial thyroidectomy History of bladder surgery History of carpal tunnel release of both wrists Family History Family History Mother Parkinson disease Father Aneurysm Skin cancer Sister Alcoholism Brother Alcoholism Maternal Grandmother Cardiovascular disease Maternal Grandfather HTN (hypertension) Paternal Grandfather Diabetes Paternal Uncle Psoriasis Other FH: mental illness Substance use Social History Social History Household Members: Spouse Housing: House Are you a primary urgent care technician to a significant other at home: No Do you presently have visiting nurse or other home services: No Alcohol intake: current Alcohol intake frequency: holidays/special occasions only Patient Tobacco Use Status: Never used Tobacco e-Cigarette/Vaping Use: Never Used Second Hand Smoke Exposure: No Substance Use Type: Marijuana service: No Current occupational status: employed and disabled 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 Current occupational exposures/hazards: No Cognitive needs: No Hearing needs: No Vision needs: Yes (glasses) Physical Exam ED Vital Signs: Vital Signs - 24 hr 10/29/25 13:28 10/29/25 18:23 Temperature 97.4 F 98.4 F Pulse Rate 78 67 Respiratory Rate 20 16 Blood Pressure 164/88 H 135/80 Pulse Oximetry 97 96 Oxygen Delivery Method Room Air BMI result Body Mass Index 57.8 Const General: healthy appearing, comfortable and no acute distress Orientation/consciousness: patient oriented x3 Limitations: no limitations Resp Effort & Inspection: normal respiratory effort, no audible wheezes and no cough Auscultation: clear to auscultation bilaterally Cardio Rate: regular rate Rhythm: regular rhythm Neuro General: patient oriented x3 Extrem General: Yes full ROM and Yes calf tenderness (right) Right lower extremity: lower leg Details: non-pitting edema; no erythema and no unusual warmth Course Course Course Narrative: RME: 45-year-old female with positive DVT on ultrasound today presents to ED for shortness of breath. Patient was sent from outpatient ultrasound for evaluation. Vital signs stable. Labs imaging ordered. Reevaluation(s) Reevaluation #1: The patient was found to have both DVT of the right posterior tibial vein as well as PE of the right lower lobe. This was described as small. The patient's PESI score is a 44, HESTIA score of zero. Her troponin BNP are within normal limits, she is neither tachypneic, tachycardic or hypoxic. She is exceedingly low risk for bad outcome, she is ultimately stable for discharge despite her new diagnosis of DVT and PE. She has no risk factors for starting anticoagulation. I did discuss the risks and benefits of starting this and she is agreeable. We will start her on Eliquis, her 1st dose was given in the ER and she was prescribed a starter pack. The patient will be discharged at this time. She reports she has close follow up with her PCP and return precautions were given. A bedside echo was also performed which did not show any evidence of right heart strain Time: 18:54 Medications Administered Discontinued Medications Generic Name Dose Route Start Last Admin Trade Name Freq PRN Reason Stop Dose Admin Apixaban 10 mg 10/29/25 18:50 10/29/25 19:06 Apixaban 5 Mg Tablet PO 10/29/25 18:51 10 mg ONCE ONE Administration Iohexol 100 ml 10/29/25 17:28 10/29/25 17:29 Iohexol 350 Mg/Ml 100 Ml Infus..Btl IV 10/29/25 17:29 85 ml ONCE ONE Administration Procedures Procedure Narrative Procedure Narrative: EMERGENCY ULTRASOUND INTERPRETATION-Limited Echocardiography [This study was ordered, performed, and interpreted by myself. The study reveals: Impression: NORMAL LV FUNCTION, NO RV DYSFUNCTION, NO PERICARDIAL EFFUSION] [Emergent Cardiac for Indication: Views Used: limited PLAX, PSSA, A4, SX, IVC Pericardial Effusion/Tamponade Findings: NONE RV Dilation (> LV diam in 4ch apical): NONE Global LV Fxn: NORMAL IVC Dilation and Resp Variation: NORMAL Performed by: MD Marcellus Images were stored CPT:89945] Medical Decision Making Differential Diagnosis Differential Diagnoses: The differential diagnosis associated with the presentation includes DVT PE Asthma Viral illness Lab Data 10/29/25 14:23 10/29/25 14:23 Labs: Lab Results 10/29/25 Range/Units 14:23 WBC 12.1 H (4.8-10.8) X10*3/uL RBC 6.03 H (4.20-5.50) X10*6/uL Hgb 15.6 (12.0-16.0) g/dl Hct 48.7 H (37.0-47.0) % MCV 80.8 (80.0-98.0) fL MCH 25.9 L (27.0-33.0) pg MCHC 32.0 (31.0-35.0) g/dl RDW 15.5 (11.0-16.0) % Plt Count 363 (160-400) X10*3/uL MPV 8.5 L (9.4-12.3) fL Immature Gran % (Auto) 0.3 (0.0-0.4) % Neut % (Auto) 85.9 H (45-73) % Lymph % (Auto) 9.8 L (20-40) % Bay % (Auto) 3.4 (2-11) % Eos % (Auto) 0.2 (0-4) % Baso % (Auto) 0.4 (0-2) % Lymph # (Auto) 1.2 (1.2-4.9) X10*3/uL Bay # (Auto) 0.4 (0.1-1.2) X10*3/uL Eos # (Auto) 0.0 (0.0-0.4) X10*3/uL Baso # (Auto) 0.1 (0.0-0.2) X10*3/uL Abs Immat Gran (auto) 0.04 H (0.00-0.03) X10*3/uL Absolute Neuts (auto) 10.4 H (2.0-8.3) x10*3/uL Absolute Nucleated RBC 0.000 (0.0-0.012) X10*3/uL Nucleated RBC % (auto) 0.0 (0.0-0.2) /100WBC PT 13.2 (11.2-13.5) SEC INR 1.1 (0.9-1.1) APTT 34.0 (26.7-34.1) SEC Sodium 139 (135-145) mmol/L Potassium 3.7 (3.3-5.1) mmol/L Chloride 105 (96-108) mmol/L Carbon Dioxide 24 (22-29) mmol/L Anion Gap 14 (12-20) BUN 17 H (9-16) mg/dL Creatinine 0.91 (0.5-1.4) mg/dL Estim Creat Clear Calc 108.8 Estimated GFR > 60 Random Glucose 102 (60-115) mg/dL Calcium 9.5 (8.4-10.2) mg/dL Total Bilirubin 0.7 (0.0-1.0) mg/dL AST 27 (5-31) U/L ALT 28 (0-31) U/L Alkaline Phosphatase 79 (39-117) U/L Troponin I High Sens < 2.7 (<3.5-17.0) ng/L NT-Pro-B Natriuret Pep 29.8 (<300) pg/mL Total Protein 7.6 (6.5-8.0) g/dL Albumin 4.6 (3.5-5.0) g/dL Beta HCG, Quant < 2 mIU/mL Critical Care Time Critical Care Time Critical Care Time: Yes Total Critical Care Time: 35 Attestation: Patient found to have DVT on outpatient ultrasound complaining of shortness of breath on exertion. She was found to have a right lower lobe pulmonary embolism. See course for further documentation. She was ultimately cleared for discharge. Heparin was considered but ultimately not administered in favor of oral DOAC Discharge Plan Discharge Clinical Impression: DVT (deep venous thrombosis), Pulmonary embolism Patient Disposition: Home, Self-Care Instructions: Pulmonary Embolism (ED), Deep Vein Thrombosis (ED), Blood Thinners (ED) Additional Instructions: You have a blood clot in your right leg as well as your right lower lobe of your lung. The treatment for this is blood thinners. You were given a dose of Eliquis in the emergency department. Follow up with the dosing instructions for the Eliquis starter pack Call your primary doctor tomorrow morning to schedule follow up. Return for new or worsening symptoms, especially chest pain, worsening shortness of breath Prescriptions: New Eliquis DVT-PE Treat 30D Start 5 mg (74 tabs) tablets,dose pack 5 mg PO BID Qty: 74 0RF No Action clonidine HCl 0.1 mg tablet 0.1 mg PO BID Qty: 28 0RF fluticasone propionate 50 mcg/actuation spray,suspension 1 spray intranasal DAILY Qty: 16 12RF meclizine 12.5 mg tablet 12.5 mg PO TID PRN (Reason: dizziness) Qty: 30 1RF labetalol 200 mg tablet 200 mg PO BID 90 Days Qty: 180 6RF nifedipine 60 mg tablet extended release 60 mg PO DAILY Qty: 90 5RF Cimzia Starter Kit 400 mg/2 mL (200 mg/mL x 2) syringe kit 400 mg subcut Q2W Qty: 3 0RF Rx Instructions: administer as 2 equally divided doses at 2 different sites in abdomen or thigh hydrochlorothiazide 25 mg tablet 25 mg PO DAILY Qty: 90 0RF valacyclovir [Valtrex] 1 gram tablet 1,000 mg PO BID 7 Days Qty: 14 0RF insulin degludec [Tresiba FlexTouch U-200] 200 unit/mL (3 mL) insulin pen 60 unit subcut BEDTIME Jardiance 10 mg tablet 10 mg PO DAILY morphine 2 mg/mL solution 2 mg IM Q6H Rx Instructions: USED IN PAIN PUMP duloxetine [Cymbalta] 60 mg capsule,delayed release(DR/EC) 90 mg PO DAILY pioglitazone 15 mg tablet 15 mg PO DAILY levothyroxine 112 mcg tablet 112 mcg PO DAILY Rx Instructions: TAKE 1 TAB DAILY levothyroxine 125 mcg tablet 125 mcg PO 3XW bupropion HCl 100 mg tablet 100 mg PO BID hydroxychloroquine [Sovuna] 200 mg tablet 200 mg PO BID 90 Days Qty: 180 1RF Cimzia 200 mg/mL syringe kit 200 mg subcut Q2W Qty: 2 5RF (DME) Interact.ioTouch Verio test strips Strip See Rx Instructions .ROUTE .MEDSUPPLY Qty: 10 Rx Instructions: As directed rizatriptan 10 mg tablet,disintegrating PO PRN albuterol sulfate 90 mcg/actuation HFA aerosol inhaler 1 puff PO Q6H PRN (Reason: wheezing) Qty: 6.7 1RF nystatin 100,000 unit/mL suspension 500,000 unit PO DAILY 10 Days Qty: 50 2RF Rx Instructions: administer 1/2 of dose in each side of the mouth acetaminophen [Tylenol] 325 mg tablet 650 mg PO Q6H PRN spironolactone 50 mg tablet 50 mg PO DAILY Qty: 90 4RF prednisone 20 mg tablet 20 mg PO DAILY Qty: 65 0RF Rx Instructions: Take 2 tablets x 14 days then 1.5 tablets x 14 days then 1 tablet x 14 days, then switch to the 5mg tablet taper prednisone 5 mg tablet 5 mg PO DIRECTED Qty: 140 0RF Rx Instructions: 3 tablets for 14 days then 2 tablets for 14 days then 1 tablet until follow up in 3 months To take after the 20mg prednisone taper is finished Interventions: ED Discharge Assessment Last Done: 10/29/25 19:07 Discharge Date/Time: 10/29/25 19:08 Print Language: Malaysian
[2025-10-29 14:28] LABS: MANUAL DIFF FLAG NO
[2025-10-29 14:29] LABS: Hematocrit 48.7 % (37.0-47.0); Hemoglobin 15.6 g/dl (12.0-16.0); Imm Gran Abs Auto 0.04 X10*3/uL (0.00-0.03); Imm Gran Pct Auto 0.3 % (0.0-0.4); Lymphocytes Absolute Auto 1.2 X10*3/uL (1.2-4.9); Mean Corpuscular HGB Conc 32.0 g/dl (31.0-35.0); Mean Corpuscular Hemoglobin 25.9 pg (27.0-33.0); Mean Corpuscular Volume 80.8 fL (80.0-98.0); NRBC Abs Auto 0.000 X10*3/uL (0.0-0.012); NRBC Pct Auto 0.0 /100WBC (0.0-0.2); Platelet Count 363 X10*3/uL (160-400); Red Blood Count 6.03 X10*6/uL (4.20-5.50); White Blood Count 12.1 X10*3/uL (4.8-10.8)
[2025-10-29 14:34] LABS: INTERNATIONAL NORM RATIO 1.1 (0.9-1.1); Prothrombin Time 13.2 SEC (11.2-13.5)
[2025-10-29 14:36] LABS: Partial Thromboplastin Time 34.0 SEC (26.7-34.1)
[2025-10-29 14:50] LABS: Alanine Aminotransferase 28 U/L (0-31); Albumin Level 4.6 g/dL (3.5-5.0); Alkaline Phosphatase 79 U/L (39-117); Anion Gap 14 (12-20); Aspartate Amino Transferase 27 U/L (5-31); Blood Urea Nitrogen 17 mg/dL (9-16); Calcium 9.5 mg/dL (8.4-10.2); Carbon Dioxide 24 mmol/L (22-29); Chloride 105 mmol/L (96-108); Creatinine Clr Calc Pharmacy 108.8; Estimated Glomerular Filt Rate > 60; Potassium 3.7 mmol/L (3.3-5.1); Sodium 139 mmol/L (135-145); Total Protein 7.6 g/dL (6.5-8.0)
[2025-10-29 14:58] LABS: Troponin-I High Sensitivity < 2.7 ng/L (<3.5-17.0)
[2025-10-29 16:58] LABS: NT Pro B Type Natriuretic Pept 29.8 pg/mL (<300)
[2025-10-29] MEDS: iohexoL 350 MG/ML 100 ML INFUS..BTL IV (17:29)
[2025-10-29 18:23] VITALS: BP 135/80; PULSE 67; RESP 16; TEMP 36.9; O2SAT 96
[2025-10-29 19:07] VITALS: BP 135/80; PULSE 67; RESP 16; TEMP 36.9; O2SAT 96
== END 2025-10-29 19:08 | disposition home or self-care (01) ==
PROVIDERS: Physician Assistant; Emergency Provider Emergency Medicine; PCP Nurse Practitioner Family
DX: I82.441 Acute embolism and thrombosis of right tibial vein (principal); I26.99 Other pulmonary embolism without acute cor pulmonale; R51.9 Headache, unspecified; R42 Dizziness and giddiness; R06.02 Shortness of breath; R07.9 Chest pain, unspecified; E66.01 Morbid (severe) obesity due to excess calories; E03.9 Hypothyroidism, unspecified; N80.9 Endometriosis, unspecified; I10 Essential (primary) hypertension; F32.A Depression, unspecified; F41.9 Anxiety disorder, unspecified; E11.9 Type 2 diabetes mellitus without complications; Z68.43 Body mass index [BMI] 50.0-59.9, adult; Z79.4 Long term (current) use of insulin
CPT/HCPCS: 36415; 71275; 80053; 83880; 84484; 84702; 85025; 85610; 85730; 93005; 93308; 93970; 99284; Q9967

== ENCOUNTER → 2025-10-29 13:31 | Outpatient (BNV) | payer MEDICARE, MEDICAID, SELFPAY | PROVIDERS: Emergency Provider Emergency Medicine; PCP Nurse Practitioner Family; Visit Provider Internal Medicine | DX: R06.02 Shortness of breath (principal) | CPT/HCPCS: 93010 ==

== ENCOUNTER 2025-11-04 10:39 | Outpatient (AMB) | payer MEDICARE, MEDICAID, SELFPAY ==
--- NOTE | 2025-11-04 11:07 | HO.NEPHOV ---
Vital Signs 11/04/25 11:09 Height 5 ft 2 in Weight 316 lb 8 oz BMI 57.9 BP 148/100 H Blood Pressure Location Lt brachial Position Sitting Pulse 79 Pulse Source Pulse Oximeter Pulse Oximetry (%) 98 Oxygen Delivery Method Room Air Intake Visit Reasons: Weight Gain/ High BP Pest Management Supervisor Required: No Accompanied by: Father Allergies naproxen Allergy (Unknown, Verified 11/04/25 11:09) unknown semaglutide (From Ozempic) Allergy (Unknown, Verified 11/04/25 11:09) stomach issues HPI Comments Details: I had the delight of seeing Ms. Colbert in follow up for H/O resistant hypertension. 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 She has been having blood pressure well over 10 years and had been on medications, which she is compliant with. Last year her blood pressure had been going very high in spite of increasing medications. She denies excess sodium in the diet. She was seen in multiple emergency rooms for all his complaints including he will [facility] in [place]. None of these times, she was admitted in the hospital as she responded to treatment given in emergency room. Blood works, CT scan of the head, EKG were all acceptable at that time. She has obstructive sleep apnea and is on CPAP which she claims to be compliant with. She has history of polycystic ovarian disease. She is a diabetic and is on Ozempic. She is not known to have any proteinuria or renal dysfunction.She had Doppler of her renal arteries. She has no history of cocaine use. She denies any other systemic complaints other than what has been mentioned above. She could not handle Ozempic and was on Mounjaro which is on hold temporarily due to fertility issues. She was on Prednisone for RA flare. Her blood pressure control is not optimal lately. She has gained quite a bit of weight with edema and was prescribed lasix after holding HCTZ [facility] Medical History Depression Anxiety Headache Herpes Arthritis Diabetes Sinusitis Bilateral shoulder region arthritis Polyarthralgia Neck pain, bilateral COVID-19 vaccine administered Lab test negative for COVID-19 virus History of postoperative nausea Sleep apnea Thyroid disease HTN (hypertension) Low back pain Morbid obesity Interstitial cystitis Surgical History Hx of partial thyroidectomy History of bladder surgery History of carpal tunnel release of both wrists Family History Mother Parkinson disease Father Aneurysm Skin cancer Sister Alcoholism Brother Alcoholism Maternal Grandmother Cardiovascular disease Maternal Grandfather HTN (hypertension) Paternal Grandfather Diabetes Paternal Uncle Psoriasis Other FH: mental illness Substance use Social History Household Members: Spouse Housing: House Are you a primary respiratory care assistant to a significant other at home: No Do you presently have visiting nurse or other home services: No Alcohol intake: current Alcohol intake frequency: holidays/special occasions only Patient Tobacco Use Status: Never used Tobacco e-Cigarette/Vaping Use: Never Used Second Hand Smoke Exposure: No Substance Use Type: Marijuana service: No Current occupational status: employed and disabled 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 Current occupational exposures/hazards: No Cognitive needs: No Hearing needs: No Vision needs: Yes (glasses) Review of Systems Const All systems reviewed & are unremarkable except as noted in HPI and below Physical Exam Vital Signs: Last Vital Signs Pulse 79 11/04/25 11:09 BP 148/100 H 11/04/25 11:09 Pulse Ox 98 11/04/25 11:09 Oxygen Delivery Method Room Air 11/04/25 11:09 BMI result Body Mass Index 57.9 Const General: comfortable and no acute distress Orientation/consciousness: patient oriented x3 HEENT Head: Yes normocephalic Mouth: Normal oral and palatal mucosa present Eyes EOM: EOMs intact bilaterally Neck Neck: Yes supple Resp Auscultation: clear to auscultation bilaterally Cardio Jugular venous distension: no JVD Rate: regular rate GI Palpation (GI): Soft to palpation Auscultation: normal bowel sounds General: Yes no CVA tenderness Back/Spine/Pelvis Back: no CVA tenderness Skin General skin exam: no rashes or lesions noted Neuro General: patient oriented x3 and moves all extremities Extrem General: Yes no pedal edema Results Reviewed Nephrology Results: Hgb, (12.0-16.0) 15.6 g/dl 10/29/25 WBC, (4.8-10.8) 12.1 X10*3/uL H 10/29/25 Plt Count, (160-400) 363 X10*3/uL 10/29/25 Sodium, (135-145) 139 mmol/L 10/29/25 Potassium, (3.3-5.1) 3.7 mmol/L 10/29/25 Chloride, (96-108) 105 mmol/L 10/29/25 Carbon Dioxide, (22-29) 24 mmol/L 10/29/25 BUN, (9-16) 17 mg/dL H 10/29/25 Creatinine, (0.5-1.4) 0.91 mg/dL 10/29/25 Calcium, (8.4-10.2) 9.5 mg/dL 10/29/25 Urine Protein, (Neg-Trace) Negative mg/dL 10/22/25 Urine Creatinine 37.50 mg/dL 10/22/25 Assessment & Plan Assessment & Plan (1) Essential hypertension: Code(s): I10 - Essential (primary) hypertension Category: Medical Plan Ms Colbert has longstanding hypertension. Doppler of her renal arteries did not show any ROCIO. She has sleep apnea and has a CPAP. She has no signs of papilledema, retinal hemorrhages, heart failure, encephalopathy or acute kidney. She has no history of cocaine use. Ever since I started her on spironolactone 50 mg daily, her BP control is optimal with normal K. I will continue to investigate including urinary free cortisol to urine free cortisone to see whether she has mineral corticoid excess, if her BP remains labile. If 11 beta HSD his functioning normally, urinary free cortisone levels exceed urinary cortisol levels and the ratio cortisol to cortisone is approximately 0.3-0.5. She likely will need imaging of her adrenals, if her BP goes up. Genetic testing to confirm the diagnosis of syndrome of DHARA is available which I may consider. She has no clinical signs to suggest coarctation of aorta. She needs to lose weight. I increased her Spironolactone to 75 mg daily and ordered F/U labs. All questions answered. Orders: Orders Blood Urea Nitrogen 1 Month I10 - Essential (primary) hypertension Creatinine 1 Month I10 - Essential (primary) hypertension Electrolytes 1 Month I10 - Essential (primary) hypertension Calcium 1 Month I10 - Essential (primary) hypertension Medications: Changed From spironolactone 50 mg PO DAILY 90 tabs 4RF To spironolactone 75 mg (1.5 x 50 mg) PO DAILY 135 tabs 4RF 90 days Coding Level of Care Code Est Pt Level 4 (32580) Diagnoses Essential hypertension I10
[2025-11-04 11:09] VITALS: BP 148/100; PULSE 79; O2SAT 98; BMI 57.9
== END 2025-11-04 11:31 | disposition home or self-care (01) ==
LOC: HO.HKAS 10:40
PROVIDERS: PCP Nurse Practitioner Family; Visit Provider Internal Medicine Nephrology
DX: I10 Essential (primary) hypertension (principal)
CPT/HCPCS: 99214

== ENCOUNTER → 2025-11-04 10:39 | Outpatient (BNVA) | payer MEDICARE, MEDICAID, SELFPAY | PROVIDERS: PCP Nurse Practitioner Family; Visit Provider Internal Medicine Nephrology | DX: I10 Essential (primary) hypertension (principal); G47.33 Obstructive sleep apnea (adult) (pediatric); Z99.89 Dependence on other enabling machines and devices; Z79.899 Other long term (current) drug therapy | CPT/HCPCS: 99212 ==

== ENCOUNTER 2025-11-06 18:34 | Emergency (ER) | payer MEDICARE, MEDICAID, SELFPAY ==
--- NOTE | ~2025-11-06 | CT_ITS ---
CLINICAL HISTORY: severe migraine, on AC CT head without contrast Comparison: None provided Findings: No acute intracranial hemorrhage. No midline shift or hydrocephalus. No large arterial territorial infarction by CT. Imaged paranasal sinuses and imaged mastoid air cells are well aerated. No acute skull fracture. Mild exotropia at the time of the imaging. Dermal-scalp calcifications noted. IMPRESSION: No acute intracranial abnormality by CT. This document has been electronically signed by: Camden Carlos MD on 11/06/2025 20:41:26
[2025-11-06 18:51] VITALS: BP 214/100; PULSE 93; RESP 18; TEMP 36.9; O2SAT 96; BMI 57.3
--- NOTE | 2025-11-06 18:52 | ED.HA ---
HPI - Headache General Chief Complaint: Headache Stated Complaint: Headache Time Seen by Provider: 11/06/25 22:48 History of Present Illness ED Provider: Laura Guajardo NP HPI Narrative: 45-year-old female patient medical history significant for migraine headaches, asthma, restless legs syndrome, chronic headaches, diabetes type 2, hypothyroidism, YSABEL, rheumatoid arthritis, chronic pain syndrome, hypertension, low back pain, recent diagnosis of a right leg DVT and small PE placed on Eliquis starting 10/29/25, presents to the ED for evaluation reporting a headache that has been ongoing for about 2-3 days intermittently. Patient reports that the headache has been coming and going in the back of the head, also creating some discomfort in the back of the neck. This feels more severe than typical migraine headaches, pattern is typical. She denies any visual disturbances, diplopia, blurred vision. Denies any dizziness, lightheadedness. No chest pain or pressure, shortness of breath, abdominal pain. Reports checking her blood pressure at home noting it to be high. No abdominal pain, nausea or vomiting, urinary complaints. Related Data Home Medications ?Medication ?Instructions ?Recorded ?Confirmed blood sugar diagnostic (OneTouch #10 ea 12/26/23 10/22/25 Verio test strips) rizatriptan 10 mg disintegrating mg PO PRN 12/28/23 10/22/25 tablet empagliflozin 10 mg tablet 10 mg PO DAILY 04/26/24 10/22/25 (Jardiance) insulin degludec 200 unit/mL (3 60 unit subcut BEDTIME 04/26/24 10/22/25 mL) subcutaneous pen (Tresiba FlexTouch U-200 insulin) morphine 2 mg/mL injection solution 2 mg IM Q6H 04/26/24 10/22/25 acetaminophen 325 mg tablet 650 mg PO Q6H PRN 12/26/24 10/22/25 (Tylenol) bupropion HCl 100 mg tablet 100 mg PO BID 02/18/25 10/22/25 duloxetine 60 mg capsule,delayed 90 mg PO DAILY 02/18/25 10/22/25 release (Cymbalta) levothyroxine 112 mcg tablet 112 mcg PO DAILY 02/18/25 10/22/25 levothyroxine 125 mcg tablet 125 mcg PO 3XW 02/18/25 10/22/25 pioglitazone 15 mg tablet 15 mg PO DAILY 02/18/25 10/22/25 lorazepam 0.5 mg tablet 0.5 mg PO BID PRN 11/04/25 Previous Rx's ?Medication ?Instructions ?Recorded clonidine HCl 0.1 mg tablet 0.1 mg PO BID #28 tabs 10/16/20 fluticasone propionate 50 1 spray intranasal DAILY #16 grams 02/24/25 mcg/actuation nasal spray,suspension meclizine 12.5 mg tablet 12.5 mg PO TID PRN dizziness #30 02/26/25 tabs labetalol 200 mg tablet 200 mg PO BID 90 days #180 tabs 03/27/25 nifedipine 60 mg tablet,extended 60 mg PO DAILY #90 tabs 03/27/25 release certolizumab pegol 200 mg/mL 200 mg subcut Q2W #2 ea 08/07/25 subcutaneous syringe kit (Cimzia) hydroxychloroquine 200 mg tablet 200 mg PO BID 90 days #180 tabs 08/07/25 (Sovuna) certolizumab pegol 400 mg/2 mL 400 mg (2 mL) subcut Q2W 3 doses 08/12/25 (200 mg/mL x2) subcutaneous #3 ea syringe kit (Cimzia Starter Kit) hydrochlorothiazide 25 mg tablet 25 mg PO DAILY #90 tabs 08/22/25 prednisone 20 mg tablet 20 mg PO DAILY #65 tabs 09/11/25 prednisone 5 mg tablet 5 mg PO DIRECTED #140 tabs 09/11/25 valacyclovir 1 gram tablet 1,000 mg PO BID 7 days #14 tabs 10/10/25 (Valtrex) albuterol sulfate 90 mcg/actuation 1 puff PO Q6H PRN wheezing #6.7 10/22/25 aerosol inhaler grams nystatin 100,000 unit/mL oral 500,000 unit (5 mL) PO DAILY 10 10/22/25 suspension days #50 mL apixaban 5 mg (74 tabs) tablets in 5 mg PO BID #74 ea 10/29/25 a dose pack (Eliquis DVT-PE Treat 30D Start) furosemide 40 mg tablet (Lasix) 40 mg PO DAILY #30 tabs 11/03/25 spironolactone 50 mg tablet 75 mg (1.5 x 50 mg) PO DAILY 90 11/04/25 days #135 tabs Allergies Allergy/AdvReac Type Severity Reaction Status Date / Time naproxen Allergy Unknown unknown Verified 11/06/25 18:53 semaglutide (From Ozempic) Allergy Unknown stomach Verified 11/06/25 18:53 issues Review of Systems Review of Systems: ROS is otherwise negative unless mentioned in HPI. [facility] Past Medical History Medical History Depression Anxiety Headache Herpes Arthritis Diabetes Sinusitis Bilateral shoulder region arthritis Polyarthralgia Neck pain, bilateral COVID-19 vaccine administered Lab test negative for COVID-19 virus History of postoperative nausea Sleep apnea Thyroid disease HTN (hypertension) Low back pain Morbid obesity Interstitial cystitis Surgical History Hx of partial thyroidectomy History of bladder surgery History of carpal tunnel release of both wrists Family History Family History Mother Parkinson disease Father Aneurysm Skin cancer Sister Alcoholism Brother Alcoholism Maternal Grandmother Cardiovascular disease Maternal Grandfather HTN (hypertension) Paternal Grandfather Diabetes Paternal Uncle Psoriasis Other FH: mental illness Substance use Social History Social History Household Members: Spouse Housing: House Are you a primary healthcare administration intern to a significant other at home: No Do you presently have visiting nurse or other home services: No Alcohol intake: current Alcohol intake frequency: holidays/special occasions only Patient Tobacco Use Status: Never used Tobacco e-Cigarette/Vaping Use: Never Used Second Hand Smoke Exposure: No Substance Use Type: Marijuana Advance Directives: No Advance Directives Information Provided: No service: No Current occupational status: employed and disabled 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 Constitutional: Well-appearing, NAD. Alert. Oriented X3. Eyes: EOMI. ENT: Pharynx normal. Neck: Normal inspection. Neck supple. CVS: Pulses normal. Respiratory: No respiratory distress. Abdomen: Nondistended. Skin: Skin warm and dry. Normal skin color. Extremities: No lower extremity edema. Neuro: Oriented X 3. No motor deficit. Vital Signs: Vital Signs: Last Vital Signs Temp 98.4 F 11/06/25 23:20 Pulse 70 11/06/25 23:20 Resp 20 11/06/25 23:20 BP 166/97 H 11/06/25 23:20 Pulse Ox 97 11/06/25 23:20 O2 Del Method Room Air 11/06/25 23:20 BMI result Body Mass Index 57.3 Course Course Course Narrative: This is an RME: Additional HPI, ROS, PE not included below will be deferred to primary provider. RME assessment and note performed by: Estefania Garcia PA-C This is a 19-mlgu-smh-female, with a hx of migraines, morbid obesity, hypothyroidism, endometriosis, and HTN, who presents to the ER with a complaints of severe headache. Hx of migraines however this is much worse. Seen last week for DVT/PE started on eliquis. Neuros intact. Plan: CT head/ labs Medications Administered Discontinued Medications Generic Name Dose Route Start Last Admin Trade Name Kenyon PRN Reason Stop Dose Admin Dexamethasone Sodium Phosphate 10 mg 11/06/25 23:16 11/07/25 00:19 Dexamethasone Sod Phosphate 10 Mg/Ml Vial IVPUSH 11/06/25 23:17 10 mg ONCE ONE Administration Diphenhydramine HCl 12.5 mg 11/07/25 00:08 11/07/25 00:16 Diphenhydramine Hcl 50 Mg/Ml Vial IVPUSH 11/07/25 00:09 12.5 mg ONCE ONE Administration Sodium Chloride 1,000 mls @ 999 mls/hr 11/06/25 23:16 11/07/25 00:16 Ns IV 11/07/25 00:16 999 mls/hr .Q1H1M ONE Administration Ketorolac Tromethamine 15 mg 11/06/25 23:16 11/07/25 00:18 Ketorolac Tromethamine 15 Mg/Ml Vial IVPUSH 11/06/25 23:17 15 mg ONCE ONE Administration Prochlorperazine Edisylate 10 mg 11/06/25 23:16 11/07/25 00:18 Prochlorperazine Edisylate 10 Mg/2 Ml Vial IVPUSH 11/06/25 23:17 10 mg ONCE ONE Administration Medical Decision Making Medical Decision Making [facility] Narrative: Upon my initial assessment of this patient, she reports significant headaches ongoing for the past 3 days. She has a known history of migraine headaches, but tells me this feels more severe. There is also pain in the base of the neck which she relates to the headache. She has checked her blood pressure at home, noting it to be elevated. She is concerned because she was recently started on Eliquis for DVT/PE. Her workup was in the triage area. I reviewed her lab work, which shows a stable H&H, mild leukocytosis at 11.4, nonspecific. LFTs are normal, troponin is flat. Negative viral panel. CT of the head with no acute intracranial pathology. Reassuring, and therefore, we will treat the patient with a migraine cocktail and reassess. 1:01 AM 11/07/2025 (Laura Guajardo NP): Upon my reassessment, she reports feeling significant improvement. Her blood pressure has improved as well. Her blood pressure elevation was likely secondary to pain. I do recommend she continues to monitor it at home. She may need to increase her medications with her PCP outpatient. Her headache today was likely an acute migraine. Recommended she monitor this as well at home. Provided return precautions to the ED. She, her daughter expressed understanding. Differential Diagnosis Differential Diagnoses: The differential diagnosis associated with the presentation includes Intracranial hemorrhage, migraine headache, viral illness Admission/Observation Consideration of admission/observation: Escalation of care including admission/observation considered (Not indicated) Lab Data [facility] Lab Attestation statement: I reviewed the patient's lab results. (Reassuring overall.) 11/06/25 19:08 11/06/25 19:08 Labs: Lab Results 11/06/25 Range/Units 19:08 WBC 11.4 H (4.8-10.8) X10*3/uL RBC 6.01 H (4.20-5.50) X10*6/uL Hgb 15.6 (12.0-16.0) g/dl Hct 49.0 H (37.0-47.0) % MCV 81.5 (80.0-98.0) fL MCH 26.0 L (27.0-33.0) pg MCHC 31.8 (31.0-35.0) g/dl RDW 15.9 (11.0-16.0) % Plt Count 416 H (160-400) X10*3/uL MPV 9.0 L (9.4-12.3) fL Immature Gran % (Auto) 0.3 (0.0-0.4) % Neut % (Auto) 64.1 (45-73) % Lymph % (Auto) 27.1 (20-40) % Hyde % (Auto) 6.6 (2-11) % Eos % (Auto) 1.3 (0-4) % Baso % (Auto) 0.6 (0-2) % Lymph # (Auto) 3.1 (1.2-4.9) X10*3/uL [place] # (Auto) 0.8 (0.1-1.2) X10*3/uL Eos # (Auto) 0.2 (0.0-0.4) X10*3/uL Baso # (Auto) 0.1 (0.0-0.2) X10*3/uL Abs Immat Gran (auto) 0.03 (0.00-0.03) X10*3/uL Absolute Neuts (auto) 7.3 (2.0-8.3) x10*3/uL Absolute Nucleated RBC 0.000 (0.0-0.012) X10*3/uL Nucleated RBC % (auto) 0.0 (0.0-0.2) /100WBC Sodium 142 (135-145) mmol/L Potassium 3.5 (3.3-5.1) mmol/L Chloride 102 (96-108) mmol/L Carbon Dioxide 29 (22-29) mmol/L Anion Gap 15 (12-20) BUN 19 H (9-16) mg/dL Creatinine 1.21 (0.5-1.4) mg/dL Estim Creat Clear Calc 81.3 Estimated GFR 48 Random Glucose 127 H (60-115) mg/dL Calcium 9.6 (8.4-10.2) mg/dL Total Bilirubin 0.4 (0.0-1.0) mg/dL Direct Bilirubin 0.1 (0.0-0.5) mg/dL AST 27 (5-31) U/L ALT 29 (0-31) U/L Alkaline Phosphatase 87 (39-117) U/L Troponin I High Sens 3.7 (<3.5-17.0) ng/L Total Protein 7.7 (6.5-8.0) g/dL Albumin 4.5 (3.5-5.0) g/dL Influenza Type A (PCR) NEGATIVE (Negative) Influenza Type B (PCR) NEGATIVE (Negative) RSV RNA Qual (PCR) NEGATIVE (Negative) SARS-CoV-2 RNA (RT-PCR) NEGATIVE (Negative) Independent Interpretation I performed an independent interpretation of an: EKG Interpretation: Rate: 76 Rhythm: NSR [place]: 23/72/3 Normal P waves. Normal MARIANO. Normal QRS complex. ST T wave : no dep, elev qTC: 425 prior studies:similar The study has been interpreted contemporaneously by me. Radiology Impression Discussion of test interpretation with radiology: I have reviewed the radiologist's reading. Radiologist Impression: CT Head IMPRESSION: No acute intracranial abnormality by CT. Independent Historian Clinical information obtained from an independent historian. History obtained from or confirmed by: Other (Daughter) External Record Review External record reviewed: Office record, Outpatient record and Other (The previous ED visits) Chronic Conditions Patient?s care impacted by: Diabetes, Hypertension and Other (Migraine) Social Determinants Patient?s care significantly limited by Social Determinants of Health including: Problems related to primary support group Discharge Plan Discharge Clinical Impression: Migraine Qualifiers: Migraine type: unspecified Status migrainosus presence: without status migrainosus Intractability: intractable Qualified Code(s): G43.919 - Migraine, unspecified, intractable, without status migrainosus Patient Disposition: Home, Self-Care Instructions: Migraine Headache (ED) Additional Instructions: As we discussed, your workup today in the ER was overall reassuring. We gave you medications to help with your migraine headache, and you now have complete resolution of the headache. Your viral panel is negative for COVID, flu, RSV. The CT scan of her head showed no acute abnormality. Please follow up with your primary care provider outpatient. With any worsening complaints at any time, return back to the ED for further assessment. Prescriptions: No Action clonidine HCl 0.1 mg tablet 0.1 mg PO BID Qty: 28 0RF fluticasone propionate 50 mcg/actuation spray,suspension 1 spray intranasal DAILY Qty: 16 12RF meclizine 12.5 mg tablet 12.5 mg PO TID PRN (Reason: dizziness) Qty: 30 1RF labetalol 200 mg tablet 200 mg PO BID 90 Days Qty: 180 6RF nifedipine 60 mg tablet extended release 60 mg PO DAILY Qty: 90 5RF Cimzia Starter Kit 400 mg/2 mL (200 mg/mL x 2) syringe kit 400 mg subcut Q2W Qty: 3 0RF Rx Instructions: administer as 2 equally divided doses at 2 different sites in abdomen or thigh hydrochlorothiazide 25 mg tablet 25 mg PO DAILY Qty: 90 0RF valacyclovir [Valtrex] 1 gram tablet 1,000 mg PO BID 7 Days Qty: 14 0RF furosemide [Lasix] 40 mg tablet 40 mg PO DAILY Qty: 30 0RF Eliquis DVT-PE Treat 30D Start 5 mg (74 tabs) tablets,dose pack 5 mg PO BID Qty: 74 0RF insulin degludec [Tresiba FlexTouch U-200] 200 unit/mL (3 mL) insulin pen 60 unit subcut BEDTIME Jardiance 10 mg tablet 10 mg PO DAILY morphine 2 mg/mL solution 2 mg IM Q6H Rx Instructions: USED IN PAIN PUMP duloxetine [Cymbalta] 60 mg capsule,delayed release(DR/EC) 90 mg PO DAILY pioglitazone 15 mg tablet 15 mg PO DAILY levothyroxine 112 mcg tablet 112 mcg PO DAILY Rx Instructions: TAKE 1 TAB DAILY levothyroxine 125 mcg tablet 125 mcg PO 3XW bupropion HCl 100 mg tablet 100 mg PO BID hydroxychloroquine [Sovuna] 200 mg tablet 200 mg PO BID 90 Days Qty: 180 1RF Cimzia 200 mg/mL syringe kit 200 mg subcut Q2W Qty: 2 5RF (DME) OneTouch Verio test strips Strip See Rx Instructions .ROUTE .MEDSUPPLY Qty: 10 Rx Instructions: As directed rizatriptan 10 mg tablet,disintegrating PO PRN albuterol sulfate 90 mcg/actuation HFA aerosol inhaler 1 puff PO Q6H PRN (Reason: wheezing) Qty: 6.7 1RF nystatin 100,000 unit/mL suspension 500,000 unit PO DAILY 10 Days Qty: 50 2RF Rx Instructions: administer 1/2 of dose in each side of the mouth acetaminophen [Tylenol] 325 mg tablet 650 mg PO Q6H PRN prednisone 20 mg tablet 20 mg PO DAILY Qty: 65 0RF Rx Instructions: Take 2 tablets x 14 days then 1.5 tablets x 14 days then 1 tablet x 14 days, then switch to the 5mg tablet taper prednisone 5 mg tablet 5 mg PO DIRECTED Qty: 140 0RF Rx Instructions: 3 tablets for 14 days then 2 tablets for 14 days then 1 tablet until follow up in 3 months To take after the 20mg prednisone taper is finished lorazepam 0.5 mg tablet 0.5 mg PO BID PRN spironolactone 50 mg tablet 75 mg PO DAILY 90 Days Qty: 135 4RF Referrals: Adriana Keenan, WALL TAPER HELPER-BC [Primary Care Provider, Internal Medicine] [facility] [Provider Group] Stand Alone Forms: Work/School Release Print Language: Icelandic
--- NOTE | 2025-11-06 18:54 | ECG_ITS ---
Test Reason : htn Blood Pressure : */* mmHG Vent. Rate : 76 BPM Atrial Rate : 76 BPM P-R Int : 158 ms QRS Dur : 88 ms QT Int : 378 ms P-R-T Axes : 23 72 3 degrees QTcB Int : 425 ms Normal sinus rhythm Normal ECG When compared with ECG of 29-Oct-2025 14:13, Questionable change in QRS axis Inverted T waves have replaced nonspecific T wave abnormality in Inferior leads Referred By: Estefania Garcia Electronically Signed By: MATEO MORRIS MD
[2025-11-06 19:13] LABS: MANUAL DIFF FLAG NO
[2025-11-06 19:26] LABS: Hematocrit 49.0 % (37.0-47.0); Hemoglobin 15.6 g/dl (12.0-16.0); Imm Gran Abs Auto 0.03 X10*3/uL (0.00-0.03); Imm Gran Pct Auto 0.3 % (0.0-0.4); Lymphocytes Absolute Auto 3.1 X10*3/uL (1.2-4.9); Mean Corpuscular HGB Conc 31.8 g/dl (31.0-35.0); Mean Corpuscular Hemoglobin 26.0 pg (27.0-33.0); Mean Corpuscular Volume 81.5 fL (80.0-98.0); NRBC Abs Auto 0.000 X10*3/uL (0.0-0.012); NRBC Pct Auto 0.0 /100WBC (0.0-0.2); Platelet Count 416 X10*3/uL (160-400); Red Blood Count 6.01 X10*6/uL (4.20-5.50); White Blood Count 11.4 X10*3/uL (4.8-10.8)
[2025-11-06 19:27] LABS: Alanine Aminotransferase 29 U/L (0-31); Albumin Level 4.5 g/dL (3.5-5.0); Alkaline Phosphatase 87 U/L (39-117); Anion Gap 15 (12-20); Aspartate Amino Transferase 27 U/L (5-31); Blood Urea Nitrogen 19 mg/dL (9-16); Calcium 9.6 mg/dL (8.4-10.2); Carbon Dioxide 29 mmol/L (22-29); Chloride 102 mmol/L (96-108); Creatinine Clr Calc Pharmacy 81.3; Estimated Glomerular Filt Rate 48; Potassium 3.5 mmol/L (3.3-5.1); Sodium 142 mmol/L (135-145); Total Protein 7.7 g/dL (6.5-8.0)
[2025-11-06 19:35] LABS: Troponin-I High Sensitivity 3.7 ng/L (<3.5-17.0)
[2025-11-06 19:50] LABS: Resp Syncy Virus RNA Qual PCR NEGATIVE (Negative); SARS COV2 PCR INHOUSE NEGATIVE (Negative)
[2025-11-06 20:50] VITALS: BP 173/81; PULSE 75; RESP 20; O2SAT 98
[2025-11-06 23:20] VITALS: BP 166/97; PULSE 70; RESP 20; TEMP 36.9; O2SAT 97
--- OUTSIDE RECORDS SUMMARY | 2025-11-06 23:47 | XMS_ITS | Clinical Summary ---
Author Organization [facility] Address [address] [facility] [employer] [address] Care Team Providers Care Cook Seafood Name Role Phone Adriana Keenan [employer] Primary Care Provider Allergies Active Allergy Reactions [...] in adults with Diabetes (or HM Modifiers)([facility]) 1999 Hypertension Control in Adults with Diabetes: 18-85 yrs old with BP >130/80 ([facility]) 1999 YSABEL Screening: Once using STOP-BANG Questionnaire for Adults with Conditions or high BMI([facility]) 1999 SDOH Screening Reminder: Annually for all adults ([facility]) 1999 Cervical Cancer Screenin-65 yrs of age (or Modifier) 2002 Cervical Cancer Screening: Pap every 3 yrs pts age 21-65 2002 Cervical Cancer: Pap Screening with Modifier timing ([facility]) 2002 Cervical Cancer: hrHPV alone or with cotesting Pap for Pts 30-65yrs screening every 5yrs ([facility]) 2002 Diabetes Care: Statin Therapy for adults with DM ages 21+ yrs old ([facility]) 2002 Diabetes Care: Kidney Health Evaluation Annually in adults aged 18 to 85 yrs (or HM Modifier)([facility]) 12/25/2024 12/25/2023, 07/15/2020 Flu Vaccination: Yearly for ages 18mos through 64 years (or Modifier)([facility]) 06/27/2025 08/07/2021, 07/27/2019, 07/21/2018, Additional history [...] topic Medical Devices Not on file Insurance [facility] MEDICARE [facility] Care Teams Cook Seafood Relationship Specialty Start Date End Date Adriana Keenan NP [address] [place] [address] PCP - General Family Medicine 09/22/24
--- OUTSIDE RECORDS SUMMARY | 2025-11-06 23:47 | XMS_ITS | Clinical Summary ---
Author Organization [facility] Address [address] [place] [address] Care Team Providers Care Machine Gun Mechanic Name Role Phone Juliana Alejo NP Primary [...] irritation, headache, muscle aches, retinal deposits (with skilled nursing use) --she is agreeable - 200mg BID [...] Screening Completed 07/15/2020 Procedures * Due to [place] Pixelapse law, this organization might not be sharing negative HIV tests. Procedure Name Priority Date/Time Associated Diagnosis Comments HEPATITIS C ANTIBODY W/REFLEX TO HCV RNA, QUANTITATIVE PCR Routine 07/15/2020 12:10 PM EDT Arthralgia, unspecified joint from Last 3 Months or Most Recently Relevant to Health Maintenance Results * Due to [place] Pixelapse law, this organization might not be sharing negative HIV tests. * Hepatitis C Antibody w/Reflex to HCV RNA, Quantitative PCR (07/15/2020 12:10 PM EDT) Hepatitis C Antibody NON-REACT MAHOGANY NON-REACT MAHOGANY 07/16/2020 9:20 AM EDT [facility] [facility] Signal To Cut-Off 0.02 <1.00 07/16/2020 9:20 AM EDT [facility] Comment: HCV antibody was non-reactive. There is no laboratory evidence of HCV infection. In most cases, no further action is required. However, if recent HCV exposure is suspected, a test for HCV RNA (test code 05880) is suggested. For additional information please refer to http://education.[employer]/faq/IOR69t1 (This link is being provided for informational/ educational purposes only.) Blood Structure of peripheral vein / Unknown Venipuncture / Unknown 07/15/2020 12:10 PM EDT 07/15/2020 12:22 PM EDT Narrative [facility] - 07/16/2020 9:20 AM EDT [facility] Received Date: Rusty Parr MD LAB BLOOD ORDERABLES Final Result [facility] [address] [facility] [address] [facility], [place] [address], [facility] [address], [place] [address], from Last 3 Months or Most Recently Relevant to Health Maintenance Insurance [facility] PPO Member Subscriber Plan / Payer (Ef fective 2008-Present) Name:Joanie Colbert Relation to Subscriber:Self Name:Joanie Colbert Payer ID:[id number] (NAIC) Type:Not on file Address: [facility] [id number] [address] Care Teams Machine Gun Mechanic Relationship Specialty Start Date End Date Juliana Alejo NP PCP - General Family Medicine 06/09/20
--- OUTSIDE RECORDS SUMMARY | 2025-11-06 23:47 | XMS_ITS | Clinical Summary ---
Author Organization [facility] Address [address] [place] [address] Care Team Providers Care Fur Pointer Name Role Phone Radha Allen MD Primary Care Provider [phone] Social History Tobacco Use Types Packs/Day Years [...] patient's age to complete this topic [place] [address] [address] [place] [id number] [employer] MEDICARE OUT OF NETWORK [employer] [facility] MEDICARE OUT OF NETWORK Care Teams Fur Pointer Relationship Specialty Start Date End Date Radha Allen MD [address] [place] [id number] PCP - General 07/14/16
--- OUTSIDE RECORDS SUMMARY | 2025-11-06 23:47 | XMS_ITS | Encounter Summary ---
Author Organization [facility] Address [address] [place] [id number] Care Team Providers Care Blending Technician Name Role Phone Radha Allen MD Primary Care Provider [phone] Encounter Details Date Type Department Care Team (Late st Contact Info) Description 09/07/2021 Scanned Document [id number] [address] Josh Cannon, DO [address] [address] Social History Tobacco Use Types Packs/Day Years [...] on filedocumented in this encounter Care Teams Blending Technician Relationship Specialty Start Date End Date Radha Allen MD [address] [place] [id number] PCP - General 07/14/16 documented as of this encounter
[2025-11-07 00:30] VITALS: BP 152/84; PULSE 86; RESP 16; TEMP 36.8; O2SAT 96
[2025-11-07 01:33] VITALS: BP 143/78; PULSE 75; RESP 17; TEMP 36.6; O2SAT 96
== END 2025-11-07 01:34 | disposition home or self-care (01) ==
PROVIDERS: Physician Assistant Medical; Emergency Provider Emergency Medicine; PCP Nurse Practitioner Family
DX: G43.919 Migraine, unspecified, intractable, without status migrainosus (principal); R11.2 Nausea with vomiting, unspecified; I10 Essential (primary) hypertension; Z03.818 Encounter for observation for suspected exposure to other biological agents ruled out; Z79.899 Other long term (current) drug therapy
CPT/HCPCS: 70450; 80048; 80076; 84484; 85025; 87637; 93005; 96361; 96374; 96375; 99284; 99285; J0737; J1100; J1200; J1885

== ENCOUNTER → 2025-11-06 18:54 | Outpatient (BNV) | payer MEDICARE, MEDICAID, SELFPAY | PROVIDERS: Emergency Provider Emergency Medicine; PCP Nurse Practitioner Family; Visit Provider Internal Medicine Cardiovascular Disease | DX: I10 Essential (primary) hypertension (principal) | CPT/HCPCS: 93010 ==

== ENCOUNTER → 2025-11-06 18:54 | Outpatient (BNV) | payer MEDICARE, MEDICAID, SELFPAY | PROVIDERS: PCP Nurse Practitioner Family; Visit Provider Radiology Neuroradiology | DX: G43.909 Migraine, unspecified, not intractable, without status migrainosus (principal) | CPT/HCPCS: 70450 ==

== ENCOUNTER 2025-11-11 08:54 | Outpatient (AMB) | payer MEDICARE, MEDICAID, SELFPAY ==
--- NOTE | 2025-11-11 08:59 | MHC.PC.OV ---
Vital Signs 11/11/25 09:02 Height 5 ft 2 in Weight 317 lb 2 oz BMI 58.0 BP 134/74 Blood Pressure Location Rt brachial Position Sitting Respiration 13 Pulse 77 Pulse Source Pulse Oximeter Temp 97.6 F Temp Source Oral Pulse Oximetry (%) 96 Oxygen Delivery Method Room Air Intake Visit Reasons: [facility] ED F/U Re: Blood clot Intake Note: [facility] ED follow up Space Systems Operations Superintendent Required: No Allergies naproxen Allergy (Unknown, Verified 11/11/25 09:05) unknown semaglutide (From Ozempic) Allergy (Unknown, Verified 11/11/25 09:05) stomach issues Medication List - Last Reconciled 11/11/25 by Adriana Keenan, [employer] ADMINISTRATOR-BC acetaminophen (Tylenol) 650 mg PO Q6H PRN albuterol sulfate 90 mcg/actuation 1 puff PO Q6H PRN apixaban (Eliquis DVT-PE Treat 30D Start) 5 mg PO BID blood sugar diagnostic (Virtruuch Verio test strips) As directed bupropion HCl 100 mg PO BID certolizumab pegol (Cimzia Starter Kit) 400 mg (2 mL) subcut Q2W 3 doses certolizumab pegol (Cimzia) 200 mg subcut Q2W clonidine HCl 0.1 mg PO BID duloxetine (Cymbalta) 90 mg PO DAILY empagliflozin (Jardiance) 10 mg PO DAILY fluticasone propionate 50 mcg/actuation 1 spray intranasal DAILY furosemide (Lasix) 40 mg PO DAILY hydrochlorothiazide 25 mg PO DAILY hydroxychloroquine (Sovuna) 200 mg PO BID 90 days insulin degludec (Tresiba FlexTouch U-200 insulin) 60 units subcut BEDTIME labetalol 200 mg PO BID 90 days levothyroxine 112 mcg PO DAILY levothyroxine 125 mcg PO 3XW lorazepam 0.5 mg PO BID PRN meclizine 12.5 mg PO TID PRN morphine 2 mg IM Q6H nifedipine ER 60 mg PO DAILY nystatin 500,000 units (5 mL) PO DAILY 10 days pioglitazone 15 mg PO DAILY prednisone 5 mg PO DIRECTED prednisone 20 mg PO DAILY rizatriptan mg PO PRN spironolactone 75 mg (1.5 x 50 mg) PO DAILY 90 days tirzepatide (Mounjaro) mg subcut valacyclovir (Valtrex) 1,000 mg PO BID 7 days Tobacco use date assessed: 11/11/25 Dental Screening Dental Screen Date: 11/11/25 Did you have a dental visit in the last 12 months?: Yes Did you have a dental problem in the last 6 months where you did not have access to dental care?: No Was dental information given to patient?: Patient has dentist HPI HPI Comments History of Present Illness Details 45-year-old female with RA, hypertension, morbid obesity, interstitial cystitis, sleep apnea, hypothyroidism, DM 2, PCOS, Sjorgens, unprovoked DVT RLE, pulmonary emboli (09/2025) Status post partial thyroidectomy (215), bladder surgery (InterStim implant in 2003 with revision in 2010) carpal tunnel release bilat in (2018) Social: works 1 day a month at [email or web address] as [employer]; 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 Health Maintenance: DME: [facility] 08/2025 reports negative retinopathy Mammo ordered today Flu and COVID, Tdap UTD 07/2025, PCV 20 08/2025 Pap 2022 pap [facility] - report n/a Colon reviewed cologuard, will order next year Specialists Rheumatology Pain management Nephrology Endo at [facility] Dr Parsons 08/2024 RTO 6 mo no change Cards at [facility] in the past Optho Kameron Herrerae reports DME in the last year. ENT Reproduction medicine Heme History of Present Illness The patient is a 45 year old female presenting with a hospital discharge follow-up. Deep Vein Thrombosis and Pulmonary Embolism: - The patient was recently hospitalized at [facility] on October 29 after an ultrasound revealed a deep vein thrombosis (DVT) in her right lower extremity. - A subsequent CT scan showed a 10 mm pulmonary embolus (PE) in the right lower lobe and a mildly enlarged pulmonary artery at 32 mm. - The DVT was an incidental finding after a home health COMMERCIAL MARKETING SPECIALIST suggested a scan due to the patient's breathing. - Prior to diagnosis, she experienced an unusual sensation in her right leg for a couple of months, but no pain, which she noticed while shaving. - She was discharged on Eliquis and referred to hematology, but has not yet secured an appointment. - The patient's clot is considered unprovoked, as she had no recent surgery or long-haul flights, although she did have a long car ride in July, she was symptomatic before this. Migraine: - The patient has a history of migraines. - She went to the emergency room on November 06 for a headache, where imaging was negative. - She received a migraine cocktail in the ER which resolved the headache. - She reports current sinus pressure and a feeling of fullness in her ear, which she wonders if it was connected to her recent headache. Systemic Lupus Erythematosus (Suspected): - Lupus has been questioned as a potential underlying cause for her clotting issue. - A employment program representative about eight years ago diagnosed Sjogren's, suggesting it might evolve into lupus, which was echoed by a subsequent employment program representative. - Her pattern generator operator also suspects she might have both arthritis and lupus. - A recent brain scan noted dermal scalp calcifications, which the patient found can be a rare side effect of lupus. - A potential lupus diagnosis could also explain her past fertility issues. Lower Extremity Symptoms: - The patient now has pain in her right leg where she previously had no feeling, describing it as feeling like she was kicked. - Ankle swelling bilat much improved i have ankles now! - Her kidney doctor discontinued hydrochlorothiazide and started furosemide, which has resulted in a noticeable reduction in water retention. - She also reports persistent pain in the back of her R heel previously diagnosed as tendinitis by an arthritis doctor, with a palpable fluid-filled sac that comes at the end of the day; not present at this time. Past Medical History - Deep vein thrombosis - Pulmonary embolism - Migraines - COVID-19 - Sjogren's syndrome - Arthritis - Infertility - Tendinitis - Hypertension Review of Systems - Constitutional: Reports generalized malaise, profound exhaustion, and feeling unwell. - Respiratory: Reports persistent wheezing and dyspnea on exertion, which is a change from her baseline. - Cardiovascular: Reports some chest pain, which has not worsened. - Musculoskeletal: Reports new pain in the right lower extremity localized to the area of her DVT, which was previously numb. - Neurological: Denies headache currently, but had a recent ER visit for a headache that resolved with a migraine cocktail. - HEENT: Reports sinus pressure and a feeling of fullness in her ear. - Endocrine: Denies bleeding issues while on Eliquis. - Integumentary: Reports persistent bilateral ankle swelling. Physical Exam General: Well developed, well nourished, in no acute distress. Appears stated age. Head: Normocephalic, atraumatic. Eyes: Pupils are equal, round and reactive to light and accommodation. Conjunctivae are clear. Strabismus Ears: TM intact and clear bilat, mild injection R Nares; patent Lungs: Dim throughout Heart: Regular rate and rhythm. No murmurs, click, rubs or gallops are noted. Musculoskeletal: Pain w palp over R achilles tendon, no appreciated fluid swelling present Pulses: Peripheral pulses are equal and palpable bilaterally. Extremities: No clubbing, cyanosis nor edema is noted. Neuro: Nonfocal exam Skin: Face red, flushed Psych: Mood and affect appropriate. Results - Ultrasound right lower extremity (Oct 29): Positive for deep vein thrombosis. - CT chest (Oct 29): Revealed a 10 mm pulmonary embolus in the right lower lobe and mild pulmonary artery enlargement at 32 mm. - Head imaging (Nov 06): Negative for acute intracranial findings. - CTA head (Nov 06): No acute intracranial hemorrhage, midline shift, hydrocephalus, or large arterial infarct; incidental finding of dermal scalp calcifications. - Bedside echocardiogram: Showed no heart strain. Medical Decision Making The patient is a 45-year-old female with a complex presentation, here for follow-up after a recent hospitalization for an unprovoked DVT and PE. The primary goal is to investigate the underlying etiology of her hypercoagulable state. Given her history of Sjogren's syndrome, questionable markers for other autoimmune diseases, history of infertility, and a new finding of dermal scalp calcifications, there is a high suspicion for an underlying systemic lupus erythematosus (SLE) that has been previously elusive to diagnose. A referral to hematology is crucial for a comprehensive thrombophilia workup, which is pending. The finding of an enlarged pulmonary artery on CT, coupled with her symptoms of fatigue and dyspnea on exertion, warrants further cardiac evaluation. Although a bedside echo in the ED ruled out acute heart strain, a formal outpatient echocardiogram has been ordered urgently to better assess cardiac function and the significance of the enlarged pulmonary artery. A referral to cardiology or pulmonology will be considered based on the echocardiogram results. She will continue Eliquis for at least six months, with the final duration to be determined by hematology. She has restarted Mounjaro for weight management, which is appropriate as is currently on hold. Her peripheral edema has improved with a switch from hydrochlorothiazide to furosemide by her pattern generator operator. The localized fluid and pain in her right foot, previously deemed tendinitis, will be monitored and re-evaluated by her employment program representative, Dr. Peter. Plan 1. Unprovoked Deep Vein Thrombosis (Dvt) And Pulmonary Embolism (Pe) - Continue Eliquis 5 mg twice daily. A 3-month prescription will be sent to the pharmacy. The total duration of therapy will be at least six months, pending hematology recommendations. - The patient will follow up on the pending hematology referral to investigate for an underlying clotting disorder, which is crucial given the unprovoked nature of the clots. I will assist if she does not hear back from them. - An urgent outpatient echocardiogram has been ordered to evaluate the enlarged pulmonary artery noted on her CT scan and her symptoms of dyspnea and fatigue. It appears this has been scheduled for December 16. - We will defer referral to cardiology or pulmonology until the echocardiogram results are available. - The patient was reassured that while new clots can form on Eliquis, it is highly unlikely. - I will arrange for telehealth fu once results are available, 2. Suspected Systemic Lupus Erythematosus (Sle) - The patient has an upcoming appointment with rheumatology (Dr. Peter) on December 02. She is encouraged to discuss the recent events (DVT/PE) and the possibility of a lupus diagnosis, which could unify her complex medical history. - The finding of dermal scalp calcifications on her recent head CTA should be discussed with her pattern generator operator and employment program representative as it can be associated with lupus. - Upcoming appt next month 3. Lower Extremity Symptoms (Pain, Swelling, Tendinitis) - The patient reports improvement in lower extremity edema after her pattern generator operator switched her from hydrochlorothiazide to furosemide. - She was advised to continue monitoring the pain and swelling in her right foot/ankle, particularly the fluid-filled - The patient should ensure her employment program representative, Dr. Peter, evaluates this area at their next appointment in November. - She was advised to take a picture of any visible swelling to show her doctor. 4. Weight Management - The patient has resumed taking Mounjaro for weight loss, which had been on hold for a year while pursuing . This is a reasonable decision given the current contraindication to . 5. Follow-Up And Coordination Of Care - The patient will follow up with me virtually after the echocardiogram to review the results and determine the next steps. - The patient was advised to cancel her outpatient CAT scan scheduled for November 28 as it is redundant. - Outstanding lab work can be done at the hospital on the day of her echocardiogram or today. Patient Instructions - Continue taking Eliquis 5 mg twice a day as prescribed. This is very important to prevent new blood clots. We have sent a new 3-month supply to your pharmacy. You will likely be on this for at least 6 months. - Please contact the hematology (blood specialist) office again if you do not hear from them soon to schedule your appointment. Let me know if you have any trouble, and I can help. - You have an urgent echocardiogram (ultrasound of your heart) scheduled for December 16. This is to get a better look at your heart and the main artery to your lungs. Please keep this appointment. - You can get your pending lab work done at the [facility] on the same day as your echocardiogram. - Keep your upcoming appointment with your employment program representative, Dr. Peter, in November. Make sure to discuss the new blood clots and the ongoing pain and swelling in your right foot. - If the swelling in your foot becomes more visible, please take a picture of it to show your doctors. - Please cancel the outpatient CAT scan of your head that was scheduled for November 28, as you recently had one in the hospital and we want to avoid extra radiation. - You have restarted Mounjaro for weight management. Since is on hold for now, this is okay to continue. - Go to the emergency room if your symptoms get much worse, such as severe chest pain or shortness of breath. - We will schedule a follow-up appointment, which can be virtual, after your echocardiogram results are back to discuss them and decide on the next steps. Consent Patient was informed and verbally consented to the use of an ambient scribe for clinic note documentation during this visit. Total time spent caring for the patient today was 45 minutes. This includes time spent before the visit reviewing the chart, time spent during the visit, and time spent after the visit on documentation, reviewing laboratory results, diagnostic imaging, medications, performing a medically necessary evaluation, counseling on diagnoses, care coordination, ordering appropriate tests, ordering appropriate medications, review of tests performed by other providers, reporting test results with the patient, communication with other healthcare providers. [facility] Medical History Depression Anxiety Headache Herpes Arthritis Diabetes Sinusitis Bilateral shoulder region arthritis Polyarthralgia Neck pain, bilateral COVID-19 vaccine administered Lab test negative for COVID-19 virus History of postoperative nausea Sleep apnea Thyroid disease HTN (hypertension) Low back pain Morbid obesity Interstitial cystitis Surgical History Hx of partial thyroidectomy History of bladder surgery History of carpal tunnel release of both wrists Family History Mother Parkinson disease Father Aneurysm Skin cancer Sister Alcoholism Brother Alcoholism Maternal Grandmother Cardiovascular disease Maternal Grandfather HTN (hypertension) Paternal Grandfather Diabetes Paternal Uncle Psoriasis Other FH: mental illness Substance use Social History Household Members: Spouse Housing: House Are you a primary care director to a significant other at home: No Do you presently have visiting nurse or other home services: No Alcohol intake: never Patient Tobacco Use Status: Never used Tobacco e-Cigarette/Vaping Use: Never Used Second Hand Smoke Exposure: No Substance Use Type: Marijuana service: No Current occupational status: employed and disabled 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 50520 - PHQ-9 Billing: Patient declined-do not bill Source: Developed by Drs. Blaise Soriano, Kaitlynn Tineo, Koko Pena and colleagues, with an educational naheed from [employer]. Thrive Questionnaire Date Thrive assessed: 11/11/25 I am a: Patient What is your living situation today?: I have a steady place to live Within the past 12 months, did the food you bought not last and you didn't have the money to get more?: Never true Within the past 12 months, did you worry whether your food would run out before you got money to buy more?: Never true Do you have trouble paying for medicines?: No Do you have trouble getting transportation to medical appointments?: No Do you have trouble paying your heating and electricity bill?: No Do you have trouble taking care of your child, family member or friend?: No Do you have trouble with day-to-day activities such as bathing, preparing meals, shopping, managing finances, etc.?: No Are you currently unemployed and looking for a job?: No Are you interested in more education?: No Please select the resources that you would like help with: None Currently or been in a relationship where the following occur: I choose not to answer THRIVE Score: 0 BRENDA-7 AMB Questionnaire BRENDA-7 Date BRENDA - 7 assessed: 11/11/25 Feeling nervous, anxious, or on edge: 0 = Not at all Not being able to stop or control worryin = Not at all Worrying too much about different things: 0 = Not at all Trouble relaxin = Not at all Being so restless that it is hard to sit still: 0 = Not at all Becoming easily annoyed or irritable: 0 = Not at all Feeling afraid as if something awful might happen: 0 = Not at all Total BRENDA-7 score (0-4 normal; 5-9 mild; 10-14 moderate; 15-21 severe): 0 Source: Developed by Drs. Blaise Soriano, Kaitlynn Tineo, Koko Pena and colleagues, with an educational naheed from [employer]. BRENDA-7 Assessment Billing BRENDA-7 Assessment Tool: BRENDA-7 Assessment 50433 Physical exam (Primary Care) Tobacco/Smoking Status: Tobacco use Status Tobacco use date assessed 10/22/25 10/22/25 11:49 Patient Tobacco Use Status Never used Tobacco 10/22/25 11:49 e-Cigarette/Vaping Use Never Used 10/22/25 11:49 Thrive Assessment: Date of Thrive Assessment Date Thrive assessed 12/26/24 11/04/25 10:40 Currently or been in a relationship where the following occur: I choose not to answer Coding Level of Care Code Est Pt Level 5 (57182) Add On Problem Visit Only Diagnoses Hospital discharge follow-up Z51.89 Acute deep vein thrombosis (DVT) of right lower extremity, unspecified vein I82.401 Affected thrombotic vein of extremity: unspecified vein of extremity Chronicity: acute Pulmonary embolism of right lower lobe I26.99 Essential hypertension I10 Pulmonary arterial hypertension I27.21 Chronic tension-type headache, intractable G44.221 Headache type: tension-type Intractability: intractable Additional Codes BRENDA-7 Assessment Billing - BRENDA-7 Assessment Tool: BRENDA-7 Assessment 06716 ([id number]) Assessment & Plan Assessment & Plan (1) Hospital discharge follow-up: Code(s): Z51.89 - Encounter for other specified aftercare (2) Right leg DVT: Onset Date: ~10/2025 Comment: unprovoked Code(s): I82.401 - Acute embolism and thrombosis of unspecified deep veins of right lower extremity Category: Medical Qualifiers: Affected thrombotic vein of extremity: unspecified vein of extremity Chronicity: acute Qualified Code(s): I82.401 - Acute embolism and thrombosis of unspecified deep veins of right lower extremity (3) Pulmonary embolism of right lower lobe: Onset Date: ~10/2025 Code(s): I26.99 - Other pulmonary embolism without acute cor pulmonale Category: Medical (4) Essential hypertension: Code(s): I10 - Essential (primary) hypertension Category: Medical (5) Pulmonary arterial hypertension: Code(s): I27.21 - Secondary pulmonary arterial hypertension Category: Medical (6) Chronic headaches: Comment: on rizatriptan being followed by [facility] Code(s): R51.9 - Headache, unspecified; G89.29 - Other chronic pain Category: Medical Qualifiers: Headache type: tension-type Intractability: intractable Qualified Code(s): G44.221 - Chronic tension-type headache, intractable Plan . Orders: Orders CA echo transthoracic complete Today I10 - Essential (primary) hypertension, I26.99 - Other pulmonary embolism without acute cor pulmonale, I27.21 - Secondary pulmonary arterial hypertension, I82.401 - Acute embolism and thrombosis of unspecified deep veins of right lower extremity Medications: New apixaban (Eliquis) 5 mg PO BID 180 tabs 0RF 90 days
[2025-11-11 09:02] VITALS: BP 134/74; PULSE 77; RESP 13; TEMP 36.4; O2SAT 96; BMI 58.0
--- OUTSIDE RECORDS SUMMARY | 2025-11-11 09:52 | XMS_ITS | Clinical Summary ---
Author Organization [facility] Address [address] [place] [address] Care Team Providers Care Sales Director Name Role Phone Juliana Alejo NP Primary [...] irritation, headache, muscle aches, retinal deposits (with care home use) --she is agreeable - 200mg BID [...] Screening Completed 07/15/2020 Procedures * Due to [place] [employer] law, this organization might not be sharing negative HIV tests. Procedure Name Priority Date/Time Associated Diagnosis Comments HEPATITIS C ANTIBODY W/REFLEX TO HCV RNA, QUANTITATIVE PCR Routine 07/15/2020 12:10 PM EDT Arthralgia, unspecified joint from Last 3 Months or Most Recently Relevant to Health Maintenance Results * Due to [place] [employer] law, this organization might not be sharing negative HIV tests. * Hepatitis C Antibody w/Reflex to HCV RNA, Quantitative PCR (07/15/2020 12:10 PM EDT) Hepatitis C Antibody NON-REACT MAHOGANY NON-REACT MAHOGANY 07/16/2020 9:20 AM EDT [facility] Signal To Cut-Off 0.02 <1.00 07/16/2020 9:20 AM EDT [facility] Comment: HCV antibody was non-reactive. There is no laboratory evidence of HCV infection. In most cases, no further action is required. However, if recent HCV exposure is suspected, a test for HCV RNA (test code 68903) is suggested. For additional information please refer to http://education.PAYMILL/faq/LMH86k8 (This link is being provided for informational/ educational purposes only.) Blood Structure of peripheral vein / Unknown Venipuncture / Unknown 07/15/2020 12:10 PM EDT 07/15/2020 12:22 PM EDT [facility]ative [facility] - 07/16/2020 9:20 AM EDT [facility] Received Date: Rusty Parr MD LAB BLOOD ORDERABLES Final Result [facility] [address] [facility] [address] [facility], [place] [address], [employer] [facility] [address], [place] [address], from Last 3 Months or Most Recently Relevant to Health Maintenance Insurance [facility] MCR REPLACE PPO Member Subscriber Plan / Payer (Ef fective 2008-Present) Name:Joanie Colbert Relation to Subscriber:Self Name:Joanie Colbert Payer ID:[id number] (NAIC) Type:Not on file Address: [facility] [id number] [address] Care Teams Sales Director Relationship Specialty Start Date End Date Juliana Alejo NP PCP - General Family Medicine 06/09/20
--- OUTSIDE RECORDS SUMMARY | 2025-11-11 09:52 | XMS_ITS | Encounter Summary ---
Author Organization [facility] Address [address] [place] [id number] Care Team Providers Care Financial Center Manager Name Role Phone Radha Allen MD Primary Care Provider [phone] Encounter Details Date Type Department Care Team (Late st Contact Info) Description 09/07/2021 Scanned Document [facility] UROGYN [facility] [address] [id number] Josh Cannon, DO [address] [address] Social History Tobacco Use Types Packs/Day Years [...] on filedocumented in this encounter Care Teams Financial Center Manager Relationship Specialty Start Date End Date Radha Allen MD [address] [place] [id number] PCP - General 07/14/16 documented as of this encounter
--- OUTSIDE RECORDS SUMMARY | 2025-11-11 09:52 | XMS_ITS | Clinical Summary ---
Author Organization [facility] Address [address] [place] [address] Care Team Providers Care Model Maker Fiberglass Name Role Phone Radha Allen MD Primary Care Provider [phone] Social History Tobacco Use Types Packs/Day Years [...] patient's age to complete this topic [place] [place] [address] [employer] MEDICARE OUT OF NETWORK [employer] [facility] MEDICARE OUT OF NETWORK Care Teams Model Maker Fiberglass Relationship Specialty Start Date End Date Radha Allen MD [address] [place] [id number] PCP - General 07/14/16
== END 2025-11-11 09:34 | disposition home or self-care (01) ==
LOC: HO.HMCFM 08:55
PROVIDERS: PCP Nurse Practitioner Family; Visit Provider Nurse Practitioner Family
DX: Z51.89 Encounter for other specified aftercare (principal); I82.401 Acute embolism and thrombosis of unspecified deep veins of right lower extremity; I26.99 Other pulmonary embolism without acute cor pulmonale; I27.21 Secondary pulmonary arterial hypertension; I10 Essential (primary) hypertension; G44.221 Chronic tension-type headache, intractable

== ENCOUNTER 2025-11-11 08:54 | Outpatient (REF) | payer MEDICARE, MEDICAID, SELFPAY ==
[2025-11-11 11:43] LABS: Appearance Urine Clear; Glucose Urine UA >=1000 mg/dL (Negative); PH 5.5 (5.0-9.0); Specific Gravity - Urine 1.015 (1.005-1.025); UMIC TRIGGER UACC YES
[2025-11-11 16:43] LABS: NT Pro B Type Natriuretic Pept 64.8 pg/mL (<300)
[2025-11-11 17:07] LABS: Cholesterol 181 mg/dL (<200); HDL Cholesterol 56 mg/dL (>40); Triglycerides 64 mg/dL (<150)
== END 2025-11-11 08:55 | disposition home or self-care (01) ==
LOC: HO.WFDLDS 08:54
PROVIDERS: PCP Nurse Practitioner Family; Visit Provider Nurse Practitioner Family
DX: Z51.89 Encounter for other specified aftercare (principal); I82.401 Acute embolism and thrombosis of unspecified deep veins of right lower extremity; I26.99 Other pulmonary embolism without acute cor pulmonale; E89.0 Postprocedural hypothyroidism; E11.8 Type 2 diabetes mellitus with unspecified complications; R60.0 Localized edema; I10 Essential (primary) hypertension; I27.21 Secondary pulmonary arterial hypertension; G44.221 Chronic tension-type headache, intractable; R30.0 Dysuria
CPT/HCPCS: 36415; 80061; 81001; 83880; 84443; 96127; 99212

== ENCOUNTER → 2025-11-14 14:56 | Outpatient (REF) | payer MEDICARE, MEDICAID, SELFPAY ==
--- NOTE | 2025-11-14 15:00 | CA_ITS ---
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 There is mildly increased left ventricular wall thickness. The visually estimated ejection fraction is between 60-65%. - E/E prime ratio is between 8 and 15 consistent with indeterminate filling pressures. - Normal right ventricular cavity size and systolic function. - There is mild dilatation of the ascending aorta measuring 3.80 cm. Findings Procedure Information Contrast agent, definity, is being given per protocol without apparent complications. Left Ventricle Normal left ventricular size and systolic function. There is mildly increased left ventricular wall thickness. The visually estimated ejection fraction is between 60-65%. There is no evidence of regional wall motion abnormalities. Abnormal diastolic function is noted. Spectral Doppler is indicative of an impaired relaxation filling pattern. E/E prime ratio is between 8 and 15 consistent with indeterminate filling pressures. Right Ventricle Normal right ventricular cavity size and systolic function. Atria The left atrium is normal in size. The right atrium is normal in size. Aortic Valve Normal aortic valve structure and function. There is no aortic valve stenosis. There is no aortic valve regurgitation. Mitral Valve The mitral valve appears normal. There is no mitral valve regurgitation. There is no mitral valve stenosis. Pulmonic Valve The pulmonic valve is likely normal. Tricuspid Valve Normal tricuspid valve structure. There is no tricuspid valve regurgitation. Tricuspid regurgitation envelope is inadequate for calculation of right ventricular systolic pressure. Normal right atrial pressure. Great Vessels There is mild dilatation of the ascending aorta measuring 3.80 cm. Venous The inferior vena cava is normal in size and collapses greater than 50% with inspiration. Pericardium/Pleural There is no evidence of pericardial effusion. Prior Study Comparison No prior study available for comparison. Measurements 2D Linear Measurements IVSd: 1.17 0.6-0.9/0.6-1.0 cm LVIDd: 4.95 3.9-5.3/4.2-5.9 cm LVIDd Index: 2.13 2.4-3.2/2.2-3.1 cm/m2 LVIDs: 3.05 2.0-3.6 cm LVPWd: 1.11 0.7-1.1 cm LA Diam: 3.90 2.7-3.8/3.0-4.0 cm LAIDs Index: 1.68 1.5-2.3 cm/m2 LV Mass: 266.91 67-162/88-224 g LV Mass Index: 115.05 43-95/49-115 g/m2 LVOT Diam: 2.30 3.0+(-)1.3 cm 2D Systolic Function EF 4C: 63.90 >55% EF 2C: 62.50 >55% EF BiP: 63.90 >55% Mitral Valve MV Pk E: 0.87 MV PK A: 0.81 MV Decel Time: 185.00 E/A: 1.10 E'Lateral: 6.53 E'Medial: 6.74 E/E' Med: 13.00 E/E' Lat: 13.40 PHT: 54.00 MVA PHT: 4.07 Decel [place]: 4.73 Aortic Valve AoV Pk Robert: 1.56 AoV Mn Robert: 1.12 AoV VTI: 0.31 AoV Pk Grad: 10.00 Aov Mn Grad: 6.00 KSENIA Cont.VTI: 2.82 LVOT LVOT Pk Robert: 1.04 LVOT Mn Robert: 0.77 LVOT VTI: 0.21 LVOT Pk Grad: 4.00 LVOT Mn Grad: 3.00 LVOT Diam: 2.30 LVOT Area: 4.15 Diastolic Function MV Pk E: 0.87 MV Pk A: 0.81 E/A: 1.10 E'Medial: 6.74 E/E' Med: 13.00 E' Laterial: 6.53 E/E' Lat: 13.40 Right Ventricle TAPSE (mm): 26.20 TVS' Robert: 15.00 Tricuspid Valve RA Press: 8.00 Great Vessels Aorta Sinus of Valsalva: 3.33 2.0-3.5 cm Ao Asc: 3.80 2.1-3.4 cm Updated in Other Vendor System with Status of Final Srinath Cantu MD electronically signed on 11/16/2025 9:17:22 PM with status of Final
--- OUTSIDE RECORDS SUMMARY | 2025-11-14 16:14 | XMS_ITS | Encounter Summary ---
Author Organization [facility] Address [address] [place] [address] Care Team Providers Care Cloud Architect Name Role Phone Radha Allen MD Primary Care Provider [phone] Encounter Details Date Type Department Care Team (Late st Contact Info) Description 09/07/2021 Scanned Document [id number] [id number] [id number] [id number] Josh Cannon, DO [address] [address] Social History Tobacco Use Types Packs/Day Years [...] on filedocumented in this encounter Care Teams Cloud Architect Relationship Specialty Start Date End Date Radha Allen MD [address] [place] [id number] PCP - General 07/14/16 documented as of this encounter
--- OUTSIDE RECORDS SUMMARY | 2025-11-14 16:14 | XMS_ITS | Clinical Summary ---
Author Organization [facility] Address [address] [place] [address] Care Team Providers Care Classics Professor Name Role Phone Juliana Alejo NP Primary [...] irritation, headache, muscle aches, retinal deposits (with senior care use) --she is agreeable - 200mg BID [...] Screening Completed 07/15/2020 Procedures * Due to [place] Histros law, this organization might not be sharing negative HIV tests. Procedure Name Priority Date/Time Associated Diagnosis Comments HEPATITIS C ANTIBODY W/REFLEX TO HCV RNA, QUANTITATIVE PCR Routine 07/15/2020 12:10 PM EDT Arthralgia, unspecified joint from Last 3 Months or Most Recently Relevant to Health Maintenance Results * Due to [place] Hist[place] law, this organization might not be sharing negative HIV tests. * Hepatitis C Antibody w/Reflex to HCV RNA, Quantitative PCR (07/15/2020 12:10 PM EDT) Hepatitis C Antibody NON-REACT MAHOGANY NON-REACT MAHOGANY 07/16/2020 9:20 AM EDT [email or web address] Signal To Cut-Off 0.02 <1.00 07/16/2020 9:20 AM EDT [email or web address] Comment: HCV antibody was non-reactive. There is no laboratory evidence of HCV infection. In most cases, no further action is required. However, if recent HCV exposure is suspected, a test for HCV RNA (test code 65727) is suggested. For additional information please refer to http://education.Crowdlinker/faq/WYD24n0 (This link is being provided for informational/ educational purposes only.) Blood Structure of peripheral vein / Unknown Venipuncture / Unknown 07/15/2020 12:10 PM EDT 07/15/2020 12:22 PM EDT Narrative [facility] - 07/16/2020 9:20 AM EDT [facility] Received Date: Rusty Parr MD LAB BLOOD ORDERABLES Final Result [facility] [address] [facility] [address] [facility], [place] [address], [employer] [facility] [address], [place] [address], from Last 3 Months or Most Recently Relevant to Health Maintenance Insurance [facility] MCR REPLACE PPO Member Subscriber Plan / Payer (Ef fective 2008-Present) Name:Joanie Colbert Relation to Subscriber:Self Name:Joanie Colbert Payer ID:[id number] (NAIC) Type:Not on file Address: [facility] [id number] [address] Care Teams Classics Professor Relationship Specialty Start Date End Date Juliana Alejo NP PCP - General Family Medicine 06/09/20
--- OUTSIDE RECORDS SUMMARY | 2025-11-14 16:14 | XMS_ITS | Clinical Summary ---
Author Organization [facility] Address [address] [place] [address] Care Team Providers Care Behavioral Health Aide Name Role Phone Radha Allen MD Primary Care Provider [phone] Social History Tobacco Use Types Packs/Day Years [...] patient's age to complete this topic [place] [address] [employer] MEDICARE OUT OF NETWORK [employer] [facility] MEDICARE OUT OF NETWORK Care Teams Behavioral Health Aide Relationship Specialty Start Date End Date Radha Allen MD [address] [place] [id number] PCP - General 07/14/16
== END ==
LOC: HO.CARD 14:56
PROVIDERS: PCP Nurse Practitioner Family; Visit Provider Nurse Practitioner Family
DX: I10 Essential (primary) hypertension (principal); I27.21 Secondary pulmonary arterial hypertension; I82.401 Acute embolism and thrombosis of unspecified deep veins of right lower extremity; R60.0 Localized edema; R63.5 Abnormal weight gain
CPT/HCPCS: 93306; Q9957

== ENCOUNTER → 2025-11-14 15:00 | Outpatient (BNV) | payer MEDICARE, MEDICAID, SELFPAY | PROVIDERS: PCP Nurse Practitioner Family; Visit Provider Internal Medicine Cardiovascular Disease | DX: I77.810 Thoracic aortic ectasia (principal); R93.1 Abnormal findings on diagnostic imaging of heart and coronary circulation | CPT/HCPCS: 93306 ==